=== PATIENT | female | born 1945 | race Caucasian/White ===

== ENCOUNTER 2019-01-15 14:26 | Outpatient (REF) | payer OTHER, SELFPAY ==
[2019-01-15 20:19] LABS: ALT 43 U/L (14-59); AST 35 U/L (15-37); Albumin 3.8 g/dL (3.4-5.0); Alkaline Phosphatase 141 U/L (46-116); Anion Gap 11.1 mmol/L (3-11); BUN 11 mg/dL (7-18); Bilirubin, Total 0.4 mg/dL (0.2-1.0); CO2 27.9 mmol/L (21.0-32.0); CREATININE 1.03 mg/dL (0.55-1.02); Calcium 9.1 mg/dL (8.5-10.1); Calculated LDL 75 mg/dL; Chloride 102 mmol/L (98-107); Cholesterol 175 mg/dL (50-200); Estimated GFR 52.38 (mL/min/1.73m2); Glucose 92 mg/dL (70-100); HDL Cholesterol 78 mg/dL (40-60); Potassium 4.5 mmol/L (3.5-5.1); Sodium 141 mmol/L (136-145); Total Protein 7.3 g/dL (6.4-8.2); Triglyceride 111 mg/dL (30-150)
[2019-01-15 20:32] LABS: Hemoglobin A1C 6.2 % (4.5-6.2)
== END 2019-01-15 14:46 ==
LOC: NCHCN 14:26
PROVIDERS: PCP Family Medicine; Visit Provider Family Medicine
DX: E11.9 Type 2 diabetes mellitus without complications (principal); E78.5 Hyperlipidemia, unspecified; I10 Essential (primary) hypertension
CPT/HCPCS: 80053; 80061; 83036

== ENCOUNTER 2021-01-25 21:04 | Outpatient (REF) | payer OTHER, SELFPAY ==
[2021-01-25 19:27] LABS: HCT 45.2 % (36.0-46.0); HGB 14.5 g/dL (11.2-15.7)
[2021-01-25 19:38] LABS: ALT 39 U/L (14-59); AST 25 U/L (15-37); Albumin 3.5 g/dL (3.4-5.0); Alkaline Phosphatase 119 U/L (46-116); Anion Gap 7.7 mmol/L (3-11); BUN 10 mg/dL (7-18); Bilirubin, Total 0.4 mg/dL (0.2-1.0); CO2 29.3 mmol/L (21.0-32.0); CREATININE 1.1 mg/dL (0.55-1.02); Calcium 8.9 mg/dL (8.5-10.1); Calculated LDL 78 mg/dL (<100); Chloride 105 mmol/L (98-107); Cholesterol 168 mg/dL (<200); Estimated GFR 48.29 (mL/min/1.73m2); Glucose 97 mg/dL (74-106); HDL Cholesterol 73 mg/dL (40-60); Sodium 142 mmol/L (136-145); TSH (W/Ref FT4) 0.65 uIU/mL (0.36-3.74); Total Protein 6.8 g/dL (6.4-8.2); Triglyceride 87 mg/dL (<150)
[2021-01-25 20:38] LABS: Hemoglobin A1C 6.2 % (<5.7)
[2021-01-29 10:36] LABS: Hepatitis C Ab w Rflx HCV PCR Negative (Negative)
== END 2021-01-25 21:05 | disposition home or self-care (01) ==
LOC: NCHCN 21:04
PROVIDERS: PCP Family Medicine; Visit Provider Family Medicine
DX: E11.9 Type 2 diabetes mellitus without complications (principal); I10 Essential (primary) hypertension; E78.5 Hyperlipidemia, unspecified; E66.9 Obesity, unspecified; Z00.00 Encounter for general adult medical examination without abnormal findings; Z11.59 Encounter for screening for other viral diseases
CPT/HCPCS: 80053; 80061; 86803; 83036; 84443; 85014; 85018

== ENCOUNTER 2021-06-19 15:15 | Outpatient (REF) | payer OTHER, SELFPAY ==
[2021-06-19 13:09] LABS: Anion Gap 11.3 mmol/L (3-11); BUN 16 mg/dL (7-18); CO2 24.7 mmol/L (21.0-32.0); Calcium 9.1 mg/dL (8.5-10.1); Chloride 104 mmol/L (98-107); Estimated GFR 53.76 (mL/min/1.73m2); Glucose 98 mg/dL (74-106); Potassium 4.4 mmol/L (3.5-5.1); Sodium 140 mmol/L (136-145)
[2021-06-19 13:11] LABS: Hemoglobin A1C 5.9 % (<5.7)
== END 2021-06-19 15:16 | disposition home or self-care (01) ==
LOC: NCHCN 15:15
PROVIDERS: PCP Family Medicine; Visit Provider Family Medicine
DX: E11.9 Type 2 diabetes mellitus without complications (principal); I10 Essential (primary) hypertension
CPT/HCPCS: 80048; 83036

== ENCOUNTER 2021-06-29 03:38 | Outpatient (CLI) | payer MEDICARE, SELFPAY ==
[2021-06-30 12:18] LABS: COVID-19 RT-PCR UVMMC Result Negative (Negative)
== END 2021-06-29 03:39 | disposition home or self-care (01) ==
LOC: LBO 03:39
PROVIDERS: PCP Family Medicine; Visit Provider Ophthalmology
DX: Z20.822 Contact with and (suspected) exposure to COVID-19 (principal)
CPT/HCPCS: 87635; U0003; U0005

== ENCOUNTER 2021-07-02 07:06 | Day surgery (SDC) | payer MEDICARE, SELFPAY ==
[2021-07-02] MEDS: Tropicam./Phenyleph. (1/2.5%) 5 ML BTL OS ×3 (08:13→08:28)
[2021-07-02 08:14] VITALS: BP 157/97; PULSE 76; RESP 16; TEMP 36.2; O2SAT 97
--- NOTE | 2021-07-02 08:54 | W.ANESPRE ---
General Info Date of Service Date Performed: 07/02/21 Height: 5 ft 2.06 in Weight: 95.3 kg Body Mass Index (BMI): 38.3 Surgical Procedure: Operation Date: 07/02/21 09:40 Proposed Procedure Side Surgeon p Cataract Extraction with IOL Implant Left Domingo Naranjo MD Meds Allergies and Home Medications Allergies Allergy/AdvReac Type Severity Reaction Status Date / Time chlorthalidone AdvReac Intermediate Other (See Unverified 07/02/21 08:05 Comment) lisinopril AdvReac Other (See Verified 07/02/21 08:22 Comment) venlafaxine [From Effexor] AdvReac Other (See Verified 07/02/21 08:22 Comment) Home Medication Medication Instructions Recorded aspirin 81 mg tablet,delayed 81 mg PO DAILY 02/11/16 release atorvastatin 20 mg tablet (Lipitor) 20 mg PO QPM 02/11/16 bupropion HCl 150 mg tablet,12 hr 150 mg PO DAILY 02/11/16 sustained-release losartan 25 mg tablet 25 mg PO DAILY 02/11/16 atenolol 25 mg tablet 25 mg PO HS 06/29/21 Current Visit Medications: Current Medications Generic Name Dose Route Start Last Admin Trade Name Freq PRN Reason Stop Dose Admin Acetaminophen 1,000 mg 07/02/21 06:00 Acetaminophen 500 Mg Tab PO Q4H PRN PRN Miscellaneous Medication 0 ml 07/02/21 06:00 Prednisolone 1%, Moxifloxacin 0.5%, Nepafenac 0.1% 5ml Btl OS DIRECTED [facility] Miscellaneous Medication 0 ml 07/02/21 06:00 07/02/21 08:28 Tropicam./Phenyleph. (1/2.5%) 5 Ml Btl OS 1 drp DIRECTED [facility] Administration Tetracaine HCl 0 ml 07/02/21 06:00 Tetracaine 0.5% 4 Ml Btl OS DIRECTED [facility] Medical History Medical History Chronic cough Degenerative joint disease Diabetes mellitus, type II History of depression HLD (hyperlipidemia) HTN (hypertension) Hypersensitivity pneumonitis Neoplasm of uncertain behavior of skin Paresthesia of both hands Positional vertigo Surgical History Surgical History History of bilateral knee replacement Tobacco Smoking/Tobacco Use Status: Never Alcohol Alcohol Intake: current Alcohol intake frequency: holidays/special occasions only Substance Use Substance use: Never Substance use type: does not use Vital Signs and Lab Results Vital Signs Most Recent Vital Signs in EMR: Most Recent Vital Signs Temp Pulse Resp BP Pulse Ox 36.2 C L 76 16 157/97 H 97 07/02/21 08:14 07/02/21 08:14 07/02/21 08:14 07/02/21 08:14 07/02/21 08:14 Lab Results Blood Type / Crossmatch: No Data to Display Complete Blood Count: No Data to Display Complete Metabolic Panel: Sodium Level 140 mmol/L (136-145) 06/19/21 10:06/19/21 Potassium Level 4.4 mmol/L (3.5-5.1) 06/19/21 10:06/19/21 Chloride Level 104 mmol/L (98-107) 06/19/21 10:06/19/21 Carbon Dioxide Level 24.7 mmol/L (21.0-32.0) 06/19/21 10:06/19/21 Blood Urea Nitrogen 16 mg/dL (7-18) 06/19/21 10:06/19/21 Creatinine 1.0 mg/dL (0.55-1.02) 06/19/21 10:06/19/21 Estimated GFR/1.73 m2 53.76 (mL/min/1.73m2) 06/19/21 10:06/19/21 Calcium Level 9.1 mg/dL (8.5-10.1) 06/19/21 10:06/19/21 Glucose Level 98 mg/dL (74-106) 06/19/21 10:06/19/21 Hemoglobin A1c 5.9 % (<5.7) H 06/19/21 10:06/19/21 Liver Function Panel: No Data to Display Coagulation Panel: No Data to Display Cardiac Panel: No Data to Display Arterial Blood Gas: No Data to Display Venous Blood Gas: No Data to Display Pancreas Panel: No Data to Display Thyroid Panel: No Data to Display Infectious Disease: Coronavirus (COVID-19)(PCR) Negative (Negative) 06/29/21 09:37 02/25/22 Blood Cultures: No Data to Display Toxicology Panel: No Data to Display Anesthesia Assessment and Plan Anesthesia History Personal History: No History of Anesthesia Complications Family History: No Family History of Anesthesia Complications Exercise Tolerance Exercise Tolerance: Metabolic Equivalents>4 Pertinent Negatives Pertinent Negatives: No Symptoms of GERD, No Major Cardiovascular Symptoms or Complaints, No Major Pulmonary Symptoms or Complaints and No History of CVA/TIA Cardiac & Pulmonary Exam Cardiac Exam: Normal S1/S2 Heart Sounds Pulmonary Exam: Clear Bilateral Breath Sounds Implantable Cardiac Device Does patient have a Pacemaker or an ICD?: No Airway Exam Known Difficult Airway: No Mallampati Class: 1 Mouth Opening: Normal (> 3cm) Thyromental Distance: Greater than 3 cm Neck Range of Motion: Full ROM Neck Circumference: Thick Teeth Condition: Normal Dentition ASA Classification ASA Score: ASA 2 Emergency Case?: No NPO Status NPO Status: NPO Clears >2 hours, Solids >8 hours Anesthesia Plan Resuscitation Status: Full Code Anesthesia Technique: MAC Anesthesia Airway Planned: Natural Airway Monitors Used: Standard Monitors
[2021-07-02 08:57] VITALS: BMI 38.3
[2021-07-02] MEDS: Tetracaine 0.5% 4 ML BTL OS (09:23)
[2021-07-02] MEDS: Balanced Salt Soln.-PLUS 500 ML BAG (09:23)
[2021-07-02] MEDS: Duovisc Viscoelastic System EACH 1 EACH (09:24)
[2021-07-02] MEDS: Lidocaine 2% Jelly 6 ML SYR (09:25)
[2021-07-02] MEDS: Povidone-Iodine Ophth 30 ML BTL (09:27)
--- NOTE | 2021-07-02 09:37 | W.PM.DSUDISC ---
Discharge Plan Disposition Patient Disposition: HOME Condition: Good Discharge Details Attending Provider: Domingo Naranjo Primary Care Provider: Ginger Riddle V Home Meds and New Rx's Prescriptions: No Action bupropion HCl 150 MG tablet extended release 12 hr 150 mg PO DAILY 0RF atorvastatin [Lipitor] 20 MG tablet 20 mg PO QPM 0RF aspirin 81 MG tablet,delayed release (DR/EC) 81 mg PO DAILY 0RF losartan 25 MG tablet 25 mg PO DAILY 0RF atenolol 25 mg tablet 25 mg PO HS 0RF Discharge Instructions Stand Alone Forms: Post-op Topical Cataract, Ruy Francois (DSU) Discharge Orders Discharge Orders: Discharge Order (Routine); Ordered 07/02/21 Ordered By: Domingo Naranjo
--- NOTE | 2021-07-02 09:37 | W.ANESPOSTOP ---
Postoperative Evaluation Date, Time and Location Date Performed: 07/02/21 Time Performed: 09:38 Patient Location: Day Surgery Unit Vital Signs Most Recent Imported Vital Signs: Most Recent Vital Signs Temp Pulse Resp BP Pulse Ox 36.2 C L 76 16 157/97 H 97 07/02/21 08:14 07/02/21 08:14 07/02/21 08:14 07/02/21 08:14 07/02/21 08:14 Most Recent Manually Entered Vital Signs: Adult Blood Pressure: 153/72 Heart Rate: 76 Respirations: 16 Oxygen Saturation (%): 96 Temperature (C): 36.3 C Pain Score (0-10 Scale): 0 Pain Score Most Recent Pain Score: Most Recent Pain Score Pain Level 0 07/02/21 08:14 Assessment Mental Status: Awake (Alert & Oriented to Patient Baseline) Airway and Respiratory Function: Patent airway with normal (patient baseline) respiratory exam Cardiovascular Function: Hemodynamically Stable Hydration Status: Adequately Hydrated Nausea & Vomiting: No Nausea or Vomiting Pain: Pt. Denies Any Pain Peripheral Nerve Block: Patient did not receive a nerve block
[2021-07-02 09:38] VITALS: BP 153/72; PULSE 76; RESP 16; TEMP 36; O2SAT 96
--- NOTE | 2021-07-02 09:38 | W.PM.OP ---
Date of service: 07/02/21 Time of Service: 09:38 Operative Note Operative Note DATE OF PROCEDURE: 07/02/21 PRE-OP DIAGNOSIS: Nuclear/cortical cataract, left eye POST-OP DIAGNOSIS: same PROCEDURE: Cataract extraction using phacoemulsification with intraocular lens implant, left eye SURGEON: Domingo Naranjo ANESTHESIA TYPE: Local By Surgeon and MAC Refer to Anesthesia Record PATHOLOGY: none sent COMPLICATIONS: None Patient was transported to: same day Patient's condition: stable Implants: Junaid [employer] Junaid / [employer] Tecnis [id number] Indications: Progressive decreased vision due to cataract, left eye Procedure Description: CATARACT SURGERY OPERATIVE REPORT PREOPERATIVE DIAGNOSIS: 1. Nuclear/cortical cataract, left eye POSTOPERATIVE DIAGNOSIS: Same OPERATION: 1. Cataract extraction using phacoemulsification with posterior chamber intraocular lens implant, left eye. IOL: IOL Filament Maker/Model: Junaid & Junaid / DEBBIE Tecnis [id number] IOL Power: + 21.0 diopters IOL Serial Number: [id number] Optic Diameter: 6.0 mm Haptic/Overall Diameter: 13.0 mm PHACO INFO: [employer] Penvisionon Vision System with OZil and Active Fluidics Cumulative Dispersed Energy (CDE): 10.64 seconds SURGEON: Domingo Naranjo MD, ALBERTINA ANESTHESIA: Monitored A [facility] (MAC), with local sub-tenon's anesthetic infiltration COMPLICATIONS: None SPECIMENS: None INDICATIONS FOR PROCEDURE: The patient is a 76-year-old lady with history of diminished visual acuity in her left eye secondary to the development of nuclear and cortical cataract. The option of cataract surgery was offered to the patient and she wished to proceed. PROCEDURE: The correct surgical eye was identified and marked as the left eye and the pupil was dilated in the preoperative area using mydriatics and cycloplegics. The dilated pupil size was 7.0 mm. . She elected to proceed without oral sedation. The patient was brought to the operating room where cardiopulmonary monitoring was instituted and surgical time-out was performed, confirming the correct operative eye and IOL power. Topical anesthesia was administered and ophthalmic povidone-iodine 5% was instilled into the conjunctival fornices. Lidocaine gel was applied to the cornea and the med-ocular area was prepped with Betadine 10% solution and draped in the usual sterile fashion for intraocular surgery, including an aperture drape. A Tegaderm transparent film dressing was cut in half and used to cover the lashes and lid margins. Care was taken to sequester the lashes and lid margins under the Tegaderm dressing. A lid speculum was placed between the lids of the operative eye and the David [employer] Revalia operating microscope was maneuvered into position. Noris scissors were then used to make a conjunctival buttonhole approximately 6mm posterior to the limbus in the inferonasal quadrant. Blunt dissection was carried out to expose bare sclera, and a blunt-tipped sub-tenon?s anesthesia cannula was introduced and passed posteriorly along the globe where non-preserved plain lidocaine was injected into posterior sub-Tenon?s space. A sideport knife was used to make a paracentesis port superiorly/superiortemporally. Intraocular phenylephrine/lidocaine was injected int the anterior chamber.. The anterior chamber was filled with viscoelastic. A 2.4mm keratome knife was used to create a half-thickness groove at the limbus and then to construct a three-plane near-clear corneal tunnel extending 2.0mm into clear cornea at the 3:00 position. A flap was raised on the anterior capsule and capsulorhexis forceps were used to complete a continuous curvilinear capsulorhexis of 5.0 mm. Balanced salt solution was then used to perform cortical cleaving hydrodissection and nuclear hydrodelineation until the lens could be freely rotated within the capsular bag. The lens nucleus was then disassembled and removed within the capsular bag and iris plane using phacoemulsification. Residual cortical material was removed using the 45-degree angled silicone I/A tip with 0.3mm port. The posterior capsule was carefully polished to remove as much residual lens epithelial cells as safely possible. The capsular bag was then inflated and the anterior chamber deepened with viscoelastic. The lens implant described above was inserted into the capsular bag using the DEBBIE [place] Injector. A Kuglen hook was used to dial the IOL into position. Residual viscoelastic was then removed first from posterior to the IOL, then from the anterior chamber using the I/A handpiece. The lens implant was noted to center nicely within the capsular bag. The incisions were stromally hydrated, and the anterior chamber was reformed using BSS. Then 0.5cc of moxifloxacin 1.0mg/ml were injected into the capsular bag and anterior chamber. The incisions were checked with a Weck spear and found to be secure. Several drops of ophthalmic povidone-iodine 5% were then applied to the eye followed by two drops of Imprimis combination prednisolone/moxifloxacin/nepafenac solution. The drapes were removed and a clear plastic protective eye shield was placed over the eye. The patient was then returned to Same Day Surgery in stable condition.
[2021-07-02 09:42] VITALS: BP 153/72; PULSE 76; RESP 16; TEMPC 36.3; O2SAT 96
== END 2021-07-02 09:56 | disposition home or self-care (01) ==
PROVIDERS: PCP Family Medicine; Visit Provider Ophthalmology
PROC: (CPT 66984; principal; 2021-07-02 09:30)
DX: H25.042 Posterior subcapsular polar age-related cataract, left eye (principal); E11.9 Type 2 diabetes mellitus without complications; E78.5 Hyperlipidemia, unspecified; I10 Essential (primary) hypertension
CPT/HCPCS: 66984; V2632

== ENCOUNTER 2021-07-16 06:15 | Day surgery (SDC) | payer MEDICARE, SELFPAY ==
--- NOTE | 2021-07-16 06:29 | W.ANESPRE ---
General Info Date of Service Date Performed: 07/16/21 Height: 5 ft 2.06 in Weight: 95.3 kg Body Mass Index (BMI): 38.3 Surgical Procedure: Operation Date: 07/16/21 07:40 Proposed Procedure Side Surgeon p Cataract Extraction with IOL Implant Right Domingo Naranjo MD Meds Allergies and Home Medications Allergies Allergy/AdvReac Type Severity Reaction Status Date / Time chlorthalidone AdvReac Intermediate Other (See Verified 07/16/21 06:30 Comment) lisinopril AdvReac Other (See Verified 07/16/21 06:30 Comment) venlafaxine [From Effexor] AdvReac Other (See Verified 07/16/21 06:30 Comment) Home Medication Medication Instructions Recorded aspirin 81 mg tablet,delayed 81 mg PO DAILY 02/11/16 release atorvastatin 20 mg tablet (Lipitor) 20 mg PO QPM 02/11/16 bupropion HCl 150 mg tablet,12 hr 150 mg PO DAILY 02/11/16 sustained-release losartan 25 mg tablet 25 mg PO DAILY 02/11/16 atenolol 25 mg tablet 25 mg PO HS 06/29/21 Current Visit Medications: Current Medications Generic Name Dose Route Start Last Admin Trade Name Freq PRN Reason Stop Dose Admin Acetaminophen 1,000 mg 07/16/21 06:00 Acetaminophen 500 Mg Tab PO Q4H PRN PRN Miscellaneous Medication 0 ml 07/16/21 06:00 Prednisolone 1%, Moxifloxacin 0.5%, Nepafenac 0.1% 5ml Btl OD DIRECTED [facility] Miscellaneous Medication 0 ml 07/16/21 06:00 Tropicam./Phenyleph. (1/2.5%) 5 Ml Btl OD DIRECTED [facility] Tetracaine HCl 0 ml 07/16/21 06:00 Tetracaine 0.5% 4 Ml Btl OD DIRECTED [facility] PFSH Active Problems Active Problems: Problem Status Onset Code Nuclear sclerotic cataract of left eye H25.12 Cortical cataract of left eye H26.9 Medical History Medical History Chronic cough Degenerative joint disease Diabetes mellitus, type II History of depression HLD (hyperlipidemia) HTN (hypertension) Hypersensitivity pneumonitis Neoplasm of uncertain behavior of skin Paresthesia of both hands Positional vertigo Surgical History Surgical History History of bilateral knee replacement Tobacco Smoking/Tobacco Use Status: Never Alcohol Alcohol Intake: current Alcohol intake frequency: holidays/special occasions only Substance Use Substance use: Never Substance use type: does not use Vital Signs and Lab Results Lab Results Blood Type / Crossmatch: No Data to Display Complete Blood Count: No Data to Display Complete Metabolic Panel: Sodium Level 140 mmol/L (136-145) 06/19/21 10:28 06/19/21 Potassium Level 4.4 mmol/L (3.5-5.1) 06/19/21 10:06/19/21 Chloride Level 104 mmol/L (98-107) 06/19/21 10:06/19/21 Carbon Dioxide Level 24.7 mmol/L (21.0-32.0) 06/19/21 10:28 06/19/21 Blood Urea Nitrogen 16 mg/dL (7-18) 06/19/21 10:28 06/19/21 Creatinine 1.0 mg/dL (0.55-1.02) 06/19/21 10:28 06/19/21 Estimated GFR/1.73 m2 53.76 (mL/min/1.73m2) 06/19/21 10:28 06/19/21 Calcium Level 9.1 mg/dL (8.5-10.1) 06/19/21 10:28 06/19/21 Glucose Level 98 mg/dL (74-106) 06/19/21 10:28 06/19/21 Hemoglobin A1c 5.9 % (<5.7) H 06/19/21 10:28 06/19/21 Liver Function Panel: No Data to Display Coagulation Panel: No Data to Display Cardiac Panel: No Data to Display Arterial Blood Gas: No Data to Display Venous Blood Gas: No Data to Display Pancreas Panel: No Data to Display Thyroid Panel: No Data to Display Infectious Disease: Coronavirus (COVID-19)(PCR) Negative (Negative) 06/29/21 09:37 06/29/21 Blood Cultures: No Data to Display Toxicology Panel: No Data to Display Imaging and Studies Imaging and Studies Study information below may be from another EMR and interpreted by another provider. Please see original notes in EMR for more complete details. Carotid Artery Summary:: 2015: minimal plaque in the common carotid bulbs, no sig internal carotid stenosis. Pulmonary Function Summary: 2016: no evidence of obstructive or restrictive lung dz. mildly elevated diffusion capacity Anesthesia Assessment and Plan Anesthesia History Personal History: No History of Anesthesia Complications Family History: No Family History of Anesthesia Complications Exercise Tolerance Exercise Tolerance: Metabolic Equivalents>4 Cardiac & Pulmonary Exam Cardiac Exam: Normal S1/S2 Heart Sounds Pulmonary Exam: Clear Bilateral Breath Sounds Implantable Cardiac Device Does patient have a Pacemaker or an ICD?: No Airway Exam Known Difficult Airway: No Mallampati Class: 1 Mouth Opening: Normal (> 3cm) Thyromental Distance: Greater than 3 cm Neck Range of Motion: Full ROM Neck Circumference: Thick Teeth Condition: Normal Dentition ASA Classification ASA Score: ASA 2 Emergency Case?: No NPO Status NPO Status: NPO Clears >2 hours, Solids >8 hours Anesthesia Plan Resuscitation Status: Full Code Anesthesia Technique: MAC Anesthesia Airway Planned: Natural Airway Monitors Used: Standard Monitors Preoperative Comments:: 76 yo female for cataract removal. Sig PMHx: chronic cough, DMII, HTN (HTN, losartan, atenolol). previous cataract with no MKO.
[2021-07-16 06:32] VITALS: BP 148/85; PULSE 75; RESP 16; TEMP 36.4; O2SAT 97
[2021-07-16] MEDS: Tropicam./Phenyleph. (1/2.5%) 5 ML BTL OD ×3 (06:42→06:53)
[2021-07-16 07:03] VITALS: BMI 38.3
[2021-07-16] MEDS: Balanced Salt Soln.-PLUS 500 ML BAG (07:33)
[2021-07-16] MEDS: Lidocaine 2% Jelly 6 ML SYR (07:34)
[2021-07-16] MEDS: Duovisc Viscoelastic System EACH 1 EACH (07:34)
[2021-07-16] MEDS: Povidone-Iodine Ophth 30 ML BTL (07:35)
[2021-07-16] MEDS: Tetracaine 0.5% 4 ML BTL OD (07:36)
--- NOTE | 2021-07-16 07:54 | W.PM.DSUDISC ---
Discharge Plan Disposition Patient Disposition: HOME Condition: Good Discharge Details Attending Provider: Domingo Naranjo Primary Care Provider: Ginger Riddle V Home Meds and New Rx's Prescriptions: No Action bupropion HCl 150 MG tablet extended release 12 hr 150 mg PO DAILY 0RF atorvastatin [Lipitor] 20 MG tablet 20 mg PO QPM 0RF aspirin 81 MG tablet,delayed release (DR/EC) 81 mg PO DAILY 0RF losartan 25 MG tablet 25 mg PO DAILY 0RF atenolol 25 mg tablet 25 mg PO HS 0RF Discharge Instructions Stand Alone Forms: Post-op Topical Cataract, Ruy Francois (DSU) Discharge Orders Discharge Orders: Discharge Order (Routine); Ordered 07/16/21 Ordered By: Domingo Naranjo DS: Diagnosis Discharge Diagnosis (1) Cortical cataract of right eye: Status: Resolved (2) Nuclear sclerotic cataract of right eye: Status: Resolved
[2021-07-16 07:55] VITALS: BP 148/83; PULSE 69; RESP 16; TEMP 36.4; O2SAT 96
--- NOTE | 2021-07-16 07:56 | ROE_ITS ---
Date of service: 07/16/21 Time of Service: 07:56 Operative Note Operative Note DATE OF PROCEDURE: 07/16/21 PRE-OP DIAGNOSIS: Nuclear/cortical cataract, right eye POST-OP DIAGNOSIS: same PROCEDURE: Cataract extraction using phacoemulsification with intraocular lens implant, right eye SURGEON: Domingo Naranjo ANESTHESIA TYPE: Local By Surgeon and MAC Refer to Anesthesia Record ESTIMATED BLOOD LOSS: 0 PATHOLOGY: none sent COMPLICATIONS: None Patient was transported to: same day Patient's condition: stable Implants: Ujnaid & Junaid/DEBBIE Tecnis [id number] Indications: Progressive visual loss due to cataract, right eye Procedure Description: CATARACT SURGERY OPERATIVE REPORT PREOPERATIVE DIAGNOSIS: 1. Nuclear/cortical cataract, right eye POSTOPERATIVE DIAGNOSIS: Same OPERATION: 1. Cataract extraction using phacoemulsification with posterior chamber intraocular lens implant, right eye. IOL: IOL Forest And Conservation Worker/Model: Junaid & Junaid / DEBBIE Tecnis [id number] IOL Power: + 19.5 diopters IOL Serial Number: [id number] Optic Diameter: 6.0mm Haptic/Overall Diameter: 13.0mm PHACO INFO: David [employer] [place] Vision System with OZil and Active Fluidics Cumulative Dispersed Energy (CDE): 18.86 seconds SURGEON: Domingo Naranjo MD, ALBERTINA ANESTHESIA: Monitored Anesthesia Care (MAC), with local sub-tenon's anesthetic infiltration COMPLICATIONS: None SPECIMENS: None INDICATIONS FOR PROCEDURE: The patient is a 76-year-old lady with history of diminished visual acuity in both eyes secondary to the development of bilateral cataracts. She has already undergone cataract surgery in the left eye, although postoperative visual acuity is limited by the presence of significant pre-existing epiretinal membrane. She now presents for cataract surgery of the right eye. PROCEDURE: The correct surgical eye was identified and marked as the right eye and the pupil was dilated in the preoperative area using mydriatics and cycloplegics. The dilated pupil size was 7.0 mm. She elected to proceed without oral sedation.. The patient was brought to the operating room where cardiopulmonary monitoring was instituted and surgical time-out was performed, confirming the correct operative eye and IOL power. Topical anesthesia was administered and ophthalmic povidone-iodine 5% was instilled into the conjunctival fornices. Lidocaine gel was applied to the cornea and the med-ocular area was prepped with Betadine 10% solution and dr aped in the usual sterile fashion for intraocular surgery, including an aperture drape. A Tegaderm transparent film dressing was cut in half and used to cover the lashes and lid margins. Care was taken to sequester the lashes and lid margins under the Tegaderm dressing. A lid speculum was placed between the lids of the operative eye and the David [employer] operating microscope was maneuvered into position. Noris scissors were then used to make a conjunctival buttonhole approximately 6mm posterior to the limbus in the inferonasal quadrant. Blunt dissection was carried out to expose bare sclera, and a blunt-tipped sub-tenon?s anesthesia cannula was introduced and passed posteriorly along the globe where non- preserved plain lidocaine was injected into posterior sub-Tenon?s space. A sideport knife was used to make a paracentesis port inferotemporally. Intraocular phenylephrine/lidocaine was injected into the anterior chamber. The anterior chamber was filled with viscoelastic. A 2.4mm keratome knife was used to create a half-thickness groove at the limbus and then to construct a three- plane near-clear corneal tunnel extending 2.0mm into clear cornea superiortemporally. A flap was raised on the anterior capsule and capsulorhexis forceps were used to complete a continuous curvilinear capsulorhexis of 5.0 mm. Balanced salt solution was then used to perform cortical cleaving hydrodissection and nuclear hydrodelineation until the lens could be freely rotated within the capsular bag. The lens nucleus was then disassembled and removed within the capsular bag and iris plane using phacoemulsification. Residual cortical material was removed using the I/A handpiece. The posterior capsule was carefully polished to remove as much residual lens epithelial cells as safely possible. The capsular bag was then inflated and the anterior chamber deepened with viscoelastic. The lens implant described above was inserted into the capsular bag using the DEBBIE [place] Injector. A Kuglen hook was used to dial the IOL into position. Residual viscoelastic was then removed first from posterior to the IOL, then from the anterior chamber using the I/A handpiece. The lens implant was noted to center nicely within the capsular bag. The incisions were stromally hydrated, and the anterior chamber was reformed using BSS. Then 0.5cc of moxifloxacin 1.0mg/ml were injected into the capsular bag and anterior chamber. The incisions were checked with a Weck spear and found to be secure. Several drops of ophthalmic povidone-iodine 5% were then applied to the eye followed by two drops of Imprimis combination prednisolone/moxifloxacin/nepafenac solution. The drapes were removed and a clear plastic protective eye shield was placed over the eye. The patient was then returned to Same Day Surgery in stable condition.
--- NOTE | 2021-07-16 08:02 | W.ANESPOSTOP ---
Postoperative Evaluation Date, Time and Location Date Performed: 07/16/21 Time Performed: 08:02 Patient Location: Day Surgery Unit Vital Signs Most Recent Imported Vital Signs: Most Recent Vital Signs Temp Pulse Resp BP Pulse Ox 36.4 C L 69 16 148/83 H 96 07/16/21 07:55 07/16/21 07:55 07/16/21 07:55 07/16/21 07:55 07/16/21 07:55 Pain Score Most Recent Pain Score: Most Recent Pain Score Pain Level 0 07/16/21 07:55 Assessment Mental Status: Awake (Alert & Oriented to Patient Baseline) Airway and Respiratory Function: Patent airway with normal (patient baseline) respiratory exam Cardiovascular Function: Hemodynamically Stable Hydration Status: Adequately Hydrated Nausea & Vomiting: No Nausea or Vomiting Pain: Pt. Denies Any Pain Peripheral Nerve Block: Patient did not receive a nerve block
== END 2021-07-16 08:10 | disposition home or self-care (01) ==
PROVIDERS: PCP Family Medicine; Visit Provider Ophthalmology
PROC: (CPT 66984; principal; 2021-07-16 07:30)
DX: H25.11 Age-related nuclear cataract, right eye (principal); E11.9 Type 2 diabetes mellitus without complications; I10 Essential (primary) hypertension; E78.5 Hyperlipidemia, unspecified
CPT/HCPCS: 66984; V2632

== ENCOUNTER 2022-06-25 01:04 | Outpatient (CLI) | payer MEDICARE, SELFPAY ==
--- NOTE | 2022-06-25 | DI.US_ITS ---
Exam(s) US PELVIS TRANSVAGINAL EXAM: US PELVIS TRANSVAGINAL CLINICAL HISTORY: POSTMENOPAUSAL BLEEDING, N95.0. TECHNIQUE: Transabdominal and transvaginal pelvic ultrasound was performed using standard protocol. COMPARISON: No exams were available for comparison FINDINGS: UTERUS: Position: Anteverted. Size: 5.7 long by 2.9 AP by 2.9 transverse cm Endometrium: 1.1 cm. The thickened is slightly heterogeneous and thickened in this postmenopausal pat ient. Myometrium: Unremarkable. Cervix: Unremarkable. OVARIES: The ovaries were not visualized transabdominally or transvaginally. No adnexal masses are s een sonographically. CUL-DE-SAC: Free fluid: None. Other: None. IMPRESSION: 1. 1.1 cm thickened endometrial stripe in this postmenopausal patient. Differential considerations i nclude hyperplasia, polyp or mass. 2. The ovaries were not visualized on this examination. No suspicious adnexal masses are present. DATA REPOSITORY:
== END 2022-06-25 01:24 ==
LOC: DI 01:04
PROVIDERS: PCP Family Medicine; Visit Provider Family Medicine
DX: N95.0 Postmenopausal bleeding (principal)
CPT/HCPCS: 76830; 76856

== ENCOUNTER 2022-07-15 11:07 | Outpatient (REF) | payer MEDICARE, SELFPAY ==
--- NOTE | 2022-07-15 10:10 | ENDOMET_PTH ---
PATIENT: Marcela Yousif LOC: [facility] U#:[id number] AGE/SX: 77/F ROOM: RE07/15/[address]: Gardenia Brown MD : [id number] BED: DIS: 07/15/2022 SPEC #: [id number] RECD: 07/15/22 12:52 STATUS: LELA REQ #: [id number] TALON: 07/15/22 10:[address]: Gardenia Brown DEPT: Surgical Specimen RECD BY: Darya Hagan ENTERED: 07/15/22 12:52 SP TYPE: Endomet OTHR DR: Ginger Riddle V Tissues: 1 - ENDOMETRIUM BX/TINA Procedures: GROSS AND MICRO LEVEL 4 Comments: [id number]
== END 2022-07-15 11:08 | disposition home or self-care (01) ==
LOC: LBN 11:07
PROVIDERS: PCP Family Medicine; Visit Provider Obstetrics & Gynecology
DX: N84.0 Polyp of corpus uteri (principal); N95.0 Postmenopausal bleeding
CPT/HCPCS: 88305

== ENCOUNTER 2023-02-06 09:52 | Outpatient (REF) | payer MEDICARE, SELFPAY ==
[2023-02-06 15:24] LABS: HCT 46.1 % (36.0-46.0); HGB 15.2 g/dL (11.2-15.7)
[2023-02-06 15:35] LABS: ALT 36 U/L (14-59); AST 29 U/L (15-37); Albumin 3.6 g/dL (3.4-5.0); Alkaline Phosphatase 110 U/L (46-116); BUN 18 mg/dL (7-18); Bilirubin, Total 0.4 mg/dL (0.2-1.0); Calcium 9.2 mg/dL (8.5-10.1); Chloride 104 mmol/L (98-107); Estimated GFR 57.66 (mL/min/1.73m2); Glucose 111 mg/dL (74-106); Potassium 4.2 mmol/L (3.5-5.1); Sodium 138 mmol/L (136-145); Total Protein 7.4 g/dL (6.4-8.2)
== END 2023-02-06 09:53 | disposition home or self-care (01) ==
LOC: NCHCN 09:52
PROVIDERS: PCP Family Medicine; Visit Provider Family Medicine
DX: Z00.00 Encounter for general adult medical examination without abnormal findings (principal); I10 Essential (primary) hypertension; E78.5 Hyperlipidemia, unspecified
CPT/HCPCS: 80053; 83036; 85014; 85018

== ENCOUNTER 2023-09-21 08:34 | Emergency (ER) | payer MEDICARE, SELFPAY ==
[2023-09-21 08:39] VITALS: BP 203/108; PULSE 108; RESP 18; TEMP 37.4; O2SAT 94
--- NOTE | 2023-09-21 08:45 | DI.RAD_ITS ---
Exam(s) XR CHEST 2V PA LATERAL EXAM: XR CHEST 2V PA LATERAL CLINICAL HISTORY: cough. TECHNIQUE: 2D digital imaging was performed. COMPARISON: No exams were available for comparison FINDINGS: 2 views: Heart size is upper normal. The mediastinum is not widened. Lungs are clear. No infiltrates nor pleural effusions. IMPRESSION: No acute pulmonary findings. DATA REPOSITORY: RADIATION DOSE DELIVERED:
[2023-09-21 08:52] VITALS: BP 203/108; PULSE 108; RESP 18; TEMP 37.4; O2SAT 94
--- NOTE | 2023-09-21 08:55 | W.ED.GENAD ---
Discharge Plan Disposition Patient Disposition: Home Discharge Details Clinical Impression: COVID, Hypertension Primary Care Provider: Ginger Riddle V ED Provider: Everton Anderson Home Meds and New Rx's Prescriptions: New benzonatate 100 mg capsule 100 mg PO TID PRN (Reason: cough) Qty: 30 0RF nirmatrelvir-ritonavir 150-100 mg tablets,dose pack See Rx Instructions .ROUTE .COMPLEX Qty: 20 0RF Rx Instructions: orally per package directions Continued cholecalciferol (vitamin D3) 50 mcg (2,000 unit) capsule 50 mcg PO DAILY plexus PO Patient Comments: 07/15/22- pt reports she drinks to help reduce A1C bupropion HCl 150 MG tablet extended release 12 hr 150 mg PO DAILY aspirin 81 MG tablet,delayed release (DR/EC) 81 mg PO DAILY losartan 25 MG tablet 25 mg PO DAILY atenolol 25 mg tablet 25 mg PO HS Held atorvastatin [Lipitor] 20 MG tablet 20 mg PO QPM Hold Instructions: Hold while on antiviral and she may resume medication 24 hours after finishing antiviral meds Discharge Instructions Instructions: Hypertension (ED), COVID-19 (Coronavirus Disease 2019) (ED) Additional Instructions: Please stay well-hydrated and get plenty of rest during viral illness. Please hold your Lipitor if you start taking the antiviral medication as there may be interaction between the 2 medications. If you develop any new or significant worsening of symptoms please return to the emergency department for reassessment or follow-up with your primary care provider if not improving. Your blood pressure was noted to be elevated so please take your normally prescribed medications and follow-up with your primary care provider for reassessment. Referrals: Ginger Riddle MD [Primary Care Provider] - (as needed) [facility] General Mode of arrival: ambulatory. Date/Time Provider Initiated Documentation: 09/21/23 08:35. Limitations to Documentation: no limitations. Information obtained by: patient, family and RN notes reviewed. History of Present Illness 78 year old F presents to the emergency department with the chief complaint of Cough, described as moderate, Quality is described as aching, and is localized to the chest. Patient reports no radiation. Patient started experiencing this day(s) (3) and it has been constant. No relieving factors improve symptom(s), No exacerbating factors reported . Patient notes fever/chills and malaise; denies chest pain and shortness of breath. Patient did receive the following treatments prior to arrival, other (Kuvx-hdo-hggbjrr meds) Related Data Home Medications Medication Instructions Recorded Confirmed aspirin 81 mg tablet,delayed 81 mg PO DAILY 02/11/16 09/21/23 release atorvastatin 20 mg tablet (Lipitor) 20 mg PO QPM 02/11/16 09/21/23 bupropion HCl 150 mg tablet,12 hr 150 mg PO DAILY 02/11/16 09/21/23 sustained-release losartan 25 mg tablet 25 mg PO DAILY 02/11/16 09/21/23 atenolol 25 mg tablet 25 mg PO HS 06/29/21 09/21/23 cholecalciferol (vitamin D3) 50 50 mcg PO DAILY 07/15/22 09/21/23 mcg (2,000 unit) capsule plexus PO 07/15/22 07/15/22 benzonatate 100 mg capsule 100 mg PO TID PRN cough #30 caps 09/21/23 nirmatrelvir 150 mg-ritonavir 100 See Rx Instructions PO .COMPLEX 09/21/23 mg tablets in a dose pack #20 dose pk Previous Rx's Medication Instructions Recorded benzonatate 100 mg capsule 100 mg PO TID PRN cough #30 caps 09/21/23 nirmatrelvir 150 mg-ritonavir 100 See Rx Instructions PO .COMPLEX 09/21/23 mg tablets in a dose pack #20 dose pk Allergies Allergy/AdvReac Type Severity Reaction Status Date / Time chlorthalidone AdvReac Intermediate Other (See Verified 09/21/23 08:37 Comment) lisinopril AdvReac Other (See Verified 09/21/23 08:37 Comment) venlafaxine [From Effexor] AdvReac Other (See Verified 09/21/23 08:37 Comment) General Stated Complaint: RespSymp SOLOMON: 3 Review of Systems Constitutional Constitutional: Reports chills, Reports fever(s), Denies headache(s) and Reports malaise ENT Ears, Nose, Mouth, and Throat: Denies headache(s), Reports hoarseness, Reports nasal congestion and Reports sore throat Cardiovascular Cardiovascular: Denies chest pain and Denies dyspnea Respiratory Respiratory: Reports as per HPI, Reports cough and Denies dyspnea Gastrointestinal Gastrointestinal: Denies abdominal pain, Denies diarrhea, Denies nausea and Denies vomiting Integumentary/Breasts Skin/Breast: Denies rash Neurologic Neurologic: Denies headache(s) Exam Const General: cooperative, comfortable and no acute distress Orientation: alert and awake [facility] Head: normal to inspection, normocephalic and atraumatic Ears: hearing grossly normal bilaterally and TM's normal bilaterally General nose exam: external nose normal Face and sinus: no erythema Mouth: oral mucosae normal, no drooling, no muffled voice and no trismus Throat: posterior oropharynx normal Neck Neck: normal visual inspection, full ROM, no lymphadenopathy, no meningeal signs, trachea midline and supple Resp Effort & Inspection: normal respiratory effort, able to speak in complete sentences and cough Quality of cough: dry Auscultation: clear to auscultation bilaterally Cardio Rate: tachycardic Rhythm: regular rhythm Heart Sounds: S1 normal, S2 normal, normal S1 and S2, no click, no gallops, no murmurs and no rubs Skin General skin exam: no rashes or lesions noted and dry skin (warm) Neuro General: patient alert, patient awake, patient oriented x3, gait normal and moves all extremities Cognition: normal cognition Speech: speech normal Course Vital Signs Vital signs: Vital Signs Temperature 37.4 C 09/21/23 08:39 Pulse 108 H 09/21/23 08:39 Respiratory Rate 18 09/21/23 08:39 Blood Pressure 203/108 H 09/21/23 08:39 Pulse Oximetry 94 09/21/23 08:39 Temperature 37.4 C 09/21/23 08:52 Temperature Source Temporal Artery Scan 09/21/23 08:52 Pulse 108 H 09/21/23 08:52 Respiratory Rate 18 09/21/23 08:52 Respiratory Effort Normal 09/21/23 08:45 Respiratory Depth Normal 09/21/23 08:45 Blood Pressure 203/108 H 09/21/23 08:52 Blood Pressure Position Sitting 09/21/23 08:52 Pulse Oximetry 94 09/21/23 08:52 Oxygen Delivery Method Room Air 09/21/23 08:52 Oxygen Flow Rate 0 09/21/23 08:52 Pain Level 9 09/21/23 08:52 Comment meds at midnight 09/21/23 08:52 Medical Decision Making Patient presenting to the clinic for chief complaint of cold symptoms. Patient reports symptoms have been going on for the past 3 days. reports significant cough with chest wall pain, nasal congestion, low-grade fever, malaise and sore throat. Physical exam shows dry harsh cough, audible nasal congestion, tachycardia otherwise clear lung sounds and otherwise unremarkable exam. Patient exam not consistent with meningitis, peritonsillar abscess, retropharyngeal abscess, Paresh's angina, or life-threatening Airway infection. Given patient's age and tachycardia will perform Fluvid swab, basic labs, chest x-ray. Will give fluid bolus given some tachycardia. Will monitor blood pressure given that she is hypertensive on arrival but has not taken her medications for hypertension this morning. Reviewed patient's labs which show slight white count, nonemergent CMP, negative chest x-ray, and positive for COVID. Patient's heart rate did improve significantly after fluids, remained hypertensive but again has not taken her blood pressure medications, afebrile not hypoxic. Given patient's age will prescribe antiviral and Tessalon Perles to help with cough. Otherwise conservative management and follow-up discussed with patient. After discussion of diagnosis and plan of care patient and significant other has no further needs, questions, or concerns and states clear understanding to return to the emergency department for any worsening symptoms. This documentation was generated using [employer] dictation system, please disregard any oddities of phrase or misspellings. Lab Data Lab results reviewed: Yes I reviewed the patient's lab results. Quality:SDOH Health Related Social Needs: No Data to Display PFSH All Active Problems (Updated 09/21/23 @ 10:07 by Everton Anderson NP) Hypertension (Chronic) COVID (Acute) Medical History Postmenopausal bleeding Endo stripe 11mm on sono Endo bx on 07/15/22 History of depression HLD (hyperlipidemia) Degenerative joint disease Neoplasm of uncertain behavior of skin Chronic cough Paresthesia of both hands Positional vertigo Diabetes mellitus, type II Hypersensitivity pneumonitis HTN (hypertension) Surgical History History of breast biopsy History of cataract surgery History of bilateral knee replacement Family History Other Diabetes Hyperlipidemia Hypertension Pancreatic cancer Social History Smoking/Tobacco Use Status: Never Smoking risk assessment performed?: Yes Alcohol Intake: current Alcohol Intake frequency: holidays/special occasions only Drug use: Never Substance use type: does not use Housing: house Do you feel safe at home: Yes Do you feel safe in your relationship?: Yes Female Reproductive History Menstrual Age of Menarche: 8 control method: none Menopause type: natural History History 3 Para Hx # Term Pregnancies 2 Multiple births Hx # Pregnancies Ectopic pregnancies AB induced Hx Number of Living Children AB spontaneous 1 Past Pregnancies Del. Date GA/Weeks # Preg Succ Route Wgt Sex Labor Lgth Anesthesia Location Prov Complic 08/28/72 42 Yes vaginal 3968.933 g Female [facility] 02/27/76 40 Yes vaginal 3912.234 g Female [facility] Delivery Date: 08/28/72 Last Updated by: Marii Lawler Delivery Date: 02/27/76 Last Updated by: Marii Mendez
[2023-09-21] MEDS: Normal Saline 250 ML 500 ML IV (09:06)
[2023-09-21 09:11] LABS: Abs Immature Grans 0.06 10^3/uL (0.0-0.06); Absolute Basophil Count 0.06 10^3/uL (0.0-0.2); Absolute Eosinophil Count 0.18 10^3/uL (0.0-0.7); Absolute Lymphocyte Count 1.45 10^3/uL (1.2-3.4); Absolute Monocyte Count 1.05 10^3/uL (0.1-0.8); Basophils % 0.5 %; Eosinophils % 1.6 %; HCT 45.1 % (36.0-46.0); Immature Grans % 0.5 %; Lymphocytes % 12.6 %; MCH 30.1 pg (27.0-33.0); MCHC 33.3 % (32.0-36.0); MCV 90 fL (80-95); MPV 9.1 fL (8.0-11.0); Monocytes % 9.1 %; Neutrophils % 75.7 %; Platelet Count 236 10^3/uL (130-400); RBC 4.99 10^6/uL (3.93-5.22); RDW 12.7 % (11.7-14.6); RDW-SD 41.9 fL; WBC 11.49 10^3/uL (4.4-10.8)
[2023-09-21 09:26] LABS: ALT 33 U/L (14-59); AST 22 U/L (15-37); Albumin 3.3 g/dL (3.4-5.0); Alkaline Phosphatase 126 U/L (46-116); BUN 9 mg/dL (7-18); Bilirubin, Total 0.4 mg/dL (0.2-1.0); CREATININE 1.1 mg/dL (0.55-1.02); Calcium 8.5 mg/dL (8.5-10.1); Chloride 102 mmol/L (98-107); Estimated GFR 51.11 (mL/min/1.73m2); Glucose 129 mg/dL (74-106); Potassium 4.1 mmol/L (3.5-5.1); Sodium 138 mmol/L (136-145); Total Protein 7.3 g/dL (6.4-8.2)
[2023-09-21 09:38] LABS: Influenza A PCR Negative (Negative); Influenza B PCR Negative (Negative); RSV PCR Negative (Negative)
[2023-09-21 09:46] LABS: Source Nasopharynx
[2023-09-21 09:47] LABS: COVID-19 PCR Positive (Negative)
[2023-09-21 09:51] VITALS: BP 183/80; PULSE 88; RESP 16; O2SAT 93
--- NOTE | 2023-09-21 10:13 | DI.VRAD_ITS ---
PROCEDURE INFORMATION: Exam: XR Chest Exam date and time: 09/21/2023 9:20 AM Age: 78 years old Clinical indication: Cough TECHNIQUE: Imaging protocol: Radiologic exam of the chest. Views: 2 views. COMPARISON: CT CHEST WITHOUT CONTRAST 20/11/2017 14:54 FINDINGS: Lungs: Lungs are clear with no infiltrate or nodule. Pleural spaces: Unremarkable. No pleural effusion. No pneumothorax. Heart/Mediastinum: Cardiomediastinal silhouette is normal. Vasculature: Tortuous aorta. Bones/joints: Unremarkable. IMPRESSION: No active cardiopulmonary disease. Dictated and Authenticated by: Kyle Rojo MD. Ordering:ELLA Toscano MD
== END 2023-09-21 10:16 | disposition home or self-care (01) ==
PROVIDERS: Emergency Provider Nurse Practitioner Family; PCP Family Medicine
DX: U07.1 COVID-19 (principal); E78.5 Hyperlipidemia, unspecified; I10 Essential (primary) hypertension; E11.9 Type 2 diabetes mellitus without complications; Z79.82 Long term (current) use of aspirin
CPT/HCPCS: 80053; 87637; 96360; 99284; 71046; 85025; 99283

== ENCOUNTER 2023-12-26 15:19 | Outpatient (CLI) | payer MEDICARE, SELFPAY ==
--- NOTE | 2023-12-26 15:15 | RT.EKG_ITS ---
APPROVED REPORT Exam: Resting ECG Reason for Exam: SOB Patient Location: O HR:84 bpm ECG Measurements Heart Rate 84 AXIS [place] 161 P 61 QRSd 106 QRS -7 QT 378 T 44 QTc 447 Conclusion Sinus rhythm...normal P axis, V-rate 50- 99 Normal Electrocardiogram
== END 2023-12-26 15:20 | disposition home or self-care (01) ==
LOC: DI.CM 15:21
PROVIDERS: PCP Family Medicine; Visit Provider Family Medicine
DX: R06.00 Dyspnea, unspecified (principal)
CPT/HCPCS: 93010

== ENCOUNTER 2024-01-09 00:35 | Outpatient (CLI) | payer MEDICARE, SELFPAY ==
--- OUTSIDE RECORDS SUMMARY | 2024-01-09 00:41 | XMS_ITS | Encounter Summary ---
[facility] [place] [address] Care Team Providers Care Volunteer Specialist Name Role Phone Ginger Riddle MD Primary Care Provider [phone] Encounter Details Date Type Department Care Team (Late st Contact Info) Description 12/04/2017 8:30 AM EDT Hospital [place] [address] Kateryna Farah MD [facility] [place] [address] Malignant neoplasm of left female breast, unspecified estrogen receptor status, unspecified site of breast Discharge Disposition: Home Social History Tobacco Use Types Packs/Day Years Used Date Smoking Tobacco: Never Smokeless Tobacco: Never Alcohol Use Standard Drinks/Week Comments No 0 (1 standard drink = 0.6 oz pur e alcohol) Sex and Gender Information Value Date Recorded Sex Assigned at Not on file Gender Identity Not on file Sexual Orientation Not on file documented as of this encounter Medications at Time of Discharge Medication Sig Dispensed Refills Start Date End Date atorvastatin (LIPITOR) 20 mg Tablet 08/07/2017 atenolol (TENORMIN) 25 mg Tablet 08/07/2017 ibuprofen (ADVIL;MOTRIN) 800 mg Tablet 08/22/2017 cholecalciferol, Vitamin D3, 2,000 unit Capsule Take by mouth. aspirin 81 mg Tablet, Delayed Release (E.C.) Take 81 mg by mouth daily. losartan (COZAAR) 25 mg Tablet 08/07/2017 buPROPion (WELLBUTRIN XL) 300 mg Tablet Extended Release 24 hr 08/07/2017 02/23/2019 chlorhexidine (PERIDEX) 0.12 % Mouthwash 08/22/2017 07/15/2022 buPROPion (WELLBUTRIN XL) 150 mg Tablet Extended Release 24 hr 300 mg. 09/05/2017 01/02/2018 documented as of this encounter Progress Notes * Robbin Fisher MD - 12/03/2017 2:36 PM EDT Pre-procedure note for needle breast biopsies performed in radiology. Procedure date: Tomorrow Procedure type: left breast NLOC Allergies: Review of patient's allergies indicates no known allergies. Medications: Current Outpatient Prescriptions: ??? atorvastatin (LIPITOR) 20 mg Tablet, , Disp: , Rfl: ??? atenolol (TENORMIN) 25 mg Tablet, , Disp: , Rfl: ??? buPROPion (WELLBUTRIN XL) 150 mg Tablet Extended Release 24 hr, , Disp: , Rfl: ??? ciprofloxacin (CIPRO) 500 mg Tablet, TAKE ONE TABLET BY MOUTH TWICE A DAY FOR 7 DAYS, Disp: , Rfl: 0 ??? ibuprofen (ADVIL;MOTRIN) 800 mg Tablet, , Disp: , Rfl: ??? cholecalciferol, Vitamin D3, 2,000 unit Capsule, Take by mouth., Disp: , Rfl: ??? aspirin 81 mg Tablet, Delayed Release (E.C.), Take 81 mg by mouth daily., Disp: , Rfl: ??? losartan (COZAAR) 25 mg Tablet, , Disp: , Rfl: Anticoagulation status: low dose aspirin stopped on: N/A Imaging reviewed and procedural plan approved by Dr. Faust documented in this encounter Plan of Treatment Upcoming Encounters Date Type Department Care Team (Late st Contact Info) Description 01/29/2024 1:40 PM EDT Appointment Mammography/[place] [phone] Ginger Riddle MD [address] [address] documented as of this encounter Procedures Procedure Name Priority Date/Time Associated Diagnosis Comments SURGICAL PATHOLOGY REPORT Routine 12/04/2017 10:20 AM EDT MAMMO NEEDLE LOCALIZATION LEFT Routine 12/04/2017 9:12 AM EDT Malignant neoplasm of left female breast, unspecified estrogen receptor status, unspecified site of breast documented in this encounter Results * Surgical Pathology Report (12/04/2017 10:20 AM EDT) Final Diagnosis [id number] ? Location: 3L The signing pathologist has (i) examined the relevant preparation(s) for the specimen(s) and (ii) rendered or confirmed the diagnosis(es). . ?Surgical Pathology DIAGNOSIS A - Left breast, partial mastectomy: - Papillary sclerosing lesion associated with usual ductal hyperplasia and apocrine metaplasia. - Fibrocystic changes including usual ductal hyperplasia, adenosis, columnar cell change/hyperplasi a and cysts. - Biopsy site changes with healing hematoma. Electronically signed by: ??Maribel Mitchell DO Verified: ??12/10/2017 ?Pathologist Performed at: ??-[facility] [place] Dept. of Pathology, [place], [place] CLINICAL INFORMATION Specimen Submitted: A - Left breast mass Clinical History and Diagnosis: Left breast lesion SPECIMEN PROCESSING A - ??Labeled/Fixativ e: Left breast mass, fresh. SPECIMEN DESCRIPTION Resection Specimen: Intact partial mastectomy Qty/Size/Weight: Single, 4.0 cm from black-deep to blue-superficial, 3.5 cm from red- medial to yellow-lateral, 1.9 cm from orange-cranial to green-caudal, 8 g. Radiograph: The specimen mammogram reads ?The needle localization wire, [clip] and mass are in the specimen. ??Margins were felt to be adequate by single plane radiography. ?? Specimen Description: According to the established protocol the ink designations are red (medial), yellow (lateral), orange (cranial), green (caudal), black (deep) and blue (superficial). Tissue Sections: The specimen is serially sectioned perpendicular to the long axis from black-deep to blue-superficial into VIII slices, each averaging 0.5 in thickness. LESION Description: Biopsy cavity. Size: 3.0 x 0.9 x 0.5 cm. Color: Biopsy cavity filled with dark red blood and a peripheral rim of fat necrosis. Consistency: Soft. Location: Extends from slice III slice VIII. Nearest Margin: Abuts the green-caudal margin. Other Margins: 1.0 cm from the black-deep margin, 0.8 cm from the blue-superficial margin, 0.7 cm from the red-medial margin, 1.0 cm from the yellow-lateral margin, 0.9 cm from the orange-cranial margin. OTHER Parenchyma: Predominantly composed of yellow, lobular adipose tissue. Wire/Clip: Localization wire tip is located in slice IV. The infinity shaped biopsy clip is located in slice IV. SECTIONS/PROCESSI NG: (1-2) perpendicular sections to slice I, true red-medial margin; (3) slice II submitted entirely; (4-5) slice III submitted entirely; (6-7) slice IV submitted entirely; (8-9) passenger representative slice V, biopsy cavity submitted entirely; (10-11) slice submitted entirely; (12) passenger representative slice VII; (13-14) passenger representative perpendicular sections to slice VIII, true yellow-lateral margin, all fibrous tissue submitted. ([id number]) . SPECIMEN PROCESSING Ischemic Time: 140 minutes CF 12/10/2017 10:[address] [facility] BREAST STRUCTURE / Unknown 12/04/2017 10:20 AM EDT 12/04/2017 10:20 AM EDT Kateryna Duran MD PATHOLOGY/CYTOLO GY ORDERABLES [facility] [place] [address] * Mammo Needle Localization Left (12/04/2017 9:12 AM EDT) Anatomical Region Laterality Modality Breast Left Mammography Narrative 12/04/2017 9:35 AM EDT NEEDLE LOCALIZATION OF LESION IN THE BREAST AND SENTINEL NODE INJECTION CLINICAL HISTORY: PLEASE NEEDLE LOCALIZE LEFT BREAST LESION. Lesion: Left breast clip at 12 Oclock 6.5 cm from the nipple Following skin cleansing and injection of approximately 5 cc 1% lidocaine, a needle localization of the suspicious area in the Left breast was performed from the CC approach with digital mammographic guidance. A 7 cm Alignment [employer] Bard needle was used. Cranio-caudal and 90 degree digital mammography views were obtained following localization to document wire position. ??Images were annotated on PACS for the operating surgeon. Resident: Phillip Friedman performed the procedure with the resident observing. Kateryna Duran MD IMG MAMMO ORDERA BLES documented in this encounter Visit Diagnoses Diagnosis Malignant neoplasm of left female breast, unspecified estrogen receptor status, unspecified site of breast documented in this encounter Care Teams Volunteer Specialist Relationship Specialty Start Date End Date Ginger Riddle MD [address] [place] [id number] PCP - General Family Medicine 09/27/16 documented as of this encounter
--- OUTSIDE RECORDS SUMMARY | 2024-01-09 00:41 | XMS_ITS | Encounter Summary ---
[place] [address] Care Team Providers Care German Professor Name Role Phone Ginger Riddle MD Primary Care Provider [phone] Reason for Visit * Reason Comments Follow-up Encounter Details Date Type Department Care Team (Late st Contact Info) Description 04/22/2019 3:00 PM EST Office Visit Dermatology at [address] [phone] Dickson Dow MD [address] [facility] [place] [address] Seborrheic keratosis, inflamed Social History Tobacco Use Types Packs/Day Years Used Date Smoking Tobacco: Never Smokeless Tobacco: Never Alcohol Use Standard Drinks/Week Comments No 0 (1 standard drink = 0.6 oz pur e alcohol) Sex and Gender Information Value Date Recorded Sex Assigned at Not on file Gender Identity Not on file Sexual Orientation Not on file documented as of this encounter Progress Notes * Dickson Dow MD - 04/22/2019 3:00 PM EST Problem: Seborrheic keratoses Marcela follows up for removal of a number of seborrheic keratoses that often are either rubbed or irritated . Physical examination reveals tags present on the left base of her neck her right cheek and left lower forehead were in fact she appears to be developing a verruca vulgaris a 4mm filiform papule. Assessment plan: Irritated seborrheic keratoses 1. After obtaining informed consent sites were anesthetized and then removed with light electrodesiccation and curettage. 2. Triple antibiotic and bandage placed 3. Return to clinic as needed for new lesions/ concerns. Cc: Ginger Thorne MD documented in this encounter Plan of Treatment Upcoming Encounters Date Type Department Care Team (Late st Contact Info) Description 01/29/2024 1:40 PM EDT Appointment Mammography/[place] [address] Ginger Riddle MD [address] [place] [address] documented as of this encounter Visit Diagnoses Diagnosis Seborrheic keratosis, inflamed Inflamed seborrheic keratosis documented in this encounter Care Teams German Professor Relationship Specialty Start Date End Date Ginger Riddle MD [address] [place] [address] PCP - General Family Medicine 09/27/16 documented as of this encounter
--- OUTSIDE RECORDS SUMMARY | 2024-01-09 00:41 | XMS_ITS | Encounter Summary ---
[place] [address] Care Team Providers Care Spring Setter Name Role Phone Ginger Riddle MD Primary Care Provider [phone] Reason for Visit * Reason Comments Skin Check Encounter Details Date Type Department Care Team (Late st Contact Info) Description 09/18/2020 10:15 AM EDT Office Visit Dermatology at [address] [id number] Dickson Dow MD [address] [facility], [place] [address] Seborrheic keratosis, inflamed; Inflamed acrochordon; Seborrheic keratosis Social History Tobacco Use Types Packs/Day Years [...] Progress Notes * Dickson Dow MD - 09/18/2020 10:15 AM EDT Problem: Skin lesions of concern Marcela follows up after last being seen in April 2019. She has a new mole she like me to check. Reminded she had a fair amount of sun over the years. She and her have now given up riding a motorcycle but did so for many years. Physical examination reveals a pleasant 75 woman who has seborrheic keratoses present that are irritated 1 on her right superior shoulder one on her previous mid presternal chest and 1 on the left upper breast. Fortunately careful examination of the head and the neck the chest the back the hands the arms deforms the thighs and the calves is benign. There is no evidence of any malignant lesions onexamination today. Assessment and plan: Irritated seborrheic keratoses 1. LN2 x2 applied to each of 3 sites 2. Return to clinic as needed for new lesions concerns. CC: Ginger Riddle MD documented in this encounter Plan of Treatment Upcoming Encounters Date Type Department Care Team (Late st Contact Info) Description 01/29/2024 1:40 PM EDT Appointment Mammography/[place] [address] Ginger Riddle MD [address] [place] [address] documented as of this encounter Visit Diagnoses Diagnosis Seborrheic keratosis, inflamed Inflamed seborrheic keratosis Inflamed acrochordon Unspecified hypertrophic and atrophic condition of skin Seborrheic keratosis Other seborrheic keratosis documented in this encounter Care Teams Spring Setter Relationship Specialty Start Date End Date Ginger Riddle MD [address] [place] [address] PCP - General Family Medicine 09/27/16 documented as of this encounter
--- OUTSIDE RECORDS SUMMARY | 2024-01-09 00:41 | XMS_ITS | Encounter Summary ---
Author Organization [facility] Address [facility] [place] [address] Care Team Providers Care Barrel Marker Name Role Phone Ginger Riddle MD Primary Care Provider [phone] Encounter Details Date Type Department Care Team (Latest Contact Info) Description 11/04/2017 1:22 PM EDT - 11/04/2017 11:59 PM EDT Hospital En[place] [id number] Janice Faust MD [facility] [place] [address] Abnormal mammogram Discharge Disposition: Home Social History Tobacco Use Types Packs/Day Years Used Date Smoking Tobacco: Never Sex and Gender Information Value Date Recorded Sex Assigned at Not on file Gender Identity Not on file Sexual Orientation Not on file documented as of this encounter Medications at Time of Discharge Medication Sig Dispensed Refills Start Date End Date atorvastatin (LIPITOR) 20 mg Tablet 08/07/2017 atenolol (TENORMIN) 25 mg Tablet 08/07/2017 ibuprofen (ADVIL;MOTRIN) 800 mg Tablet 08/22/2017 losartan (COZAAR) 25 mg Tablet 08/07/2017 buPROPion (WELLBUTRIN XL) 300 mg Tablet Extended Release 24 hr 08/07/2017 02/23/2019 chlorhexidine (PERIDEX) 0.12 % Mouthwash 08/22/2017 07/15/2022 buPROPion (WELLBUTRIN XL) 150 mg Tablet Extended Release 24 hr 300 mg. 09/05/2017 01/02/2018 atorvastatin (LIPITOR) 10 mg Tablet Take 10 mg by mouth daily. 11/19/2017 documented as of this encounter Progress Notes * Masood Awad MD - 11/03/2017 4:15 PM EDT Patient Name: Marcela Yousif Patient Age: 72 y.o. Birthdate: 1945 Admit date: (Not on file) Attending Physician: Janice Faust MD Pre-procedure note for needle breast biopsies performed in radiology. Procedure date: Today Procedure type: left breast stereotactic biopsy Allergies: Review of patient's allergies indicates no known allergies. Medications: Current Outpatient Prescriptions: ??? atorvastatin (LIPITOR) 10 mg Tablet, Take 10 mg by mouth daily., Disp: , Rfl: ??? lisinopril (ZESTRIL) 5 mg tablet, 5mg, PO, Once daily, Disp: , Rfl: ??? naproxen (NAPROSYN) 250 mg tablet, 250mg, PO, Twice daily, Disp: , Rfl: ??? Selenium Sulfide 2.25 % Susp, , Disp: , Rfl: ??? LORazepam (ATIVAN) 0.5 mg tablet, 0.5MG = 1 Tablet(s)or 1/2 tab, PO, Twice daily, Disp: , Rfl: Anticoagulation status: none stopped on: N/A Imaging reviewed and procedural plan approved by Dr. Masood Awad MD documented in this encounter Plan of Treatment Upcoming Encounters Date Type Department Care Team (Late st Contact Info) Description 01/29/2024 1:40 PM EDT Appointment Mammography/[place] [address] Ginger Riddle MD [address] [place] [address] documented as of this encounter Procedures Procedure Name Priority Date/Time Associated Diagnosis Comments MAMMO STEREOTACTIC BIOPSY LEFT Routine 11/04/2017 2:08 PM EDT Abnormal mammogram SURGICAL PATHOLOGY REPORT Routine 11/04/2017 1:48 PM EDT SPECIMEN TO PATHOLOGY Routine 11/04/2017 1:48 PM EDT documented in this encounter Results * Mammo Stereotactic Biopsy Left (11/04/2017 2:08 PM EDT) Anatomical Region Laterality Modality Breast N/A Mammography Impressions 11/06/2017 4:15 PM EDT High risk and concordant result RECOMMENDATION: Discussion with breast surgeon for reexcision needle localization. Partial excision, and subtle distortion persists adjacent to the biopsy site. Persistent mild distortion 6 mm inferior and 5 mm anteromedial to the biopsy site. Attention to needle localization procedure. NOTE: Findings and recommendations were discussed with the patient who concurs. The comprehensive breast program was informed. REVIEW PATH CONFERENCE?: Yes, papillary sclerosing lesion partially removed. Narrative 11/06/2017 4:15 PM EDT STEREOTACTIC GUIDED VACUUM ASSISTED BIOPSY OF THE LEFT BREAST(S) CLINICAL HISTORY: abnormal mammogram 72-year-old female presents for stereotactic biopsy for left breast distortion. Procedural details: Informed consent was obtained and a time out procedure was performed per hospital protocol. The patient gave permission to proceed. Using sterile technique and local anesthetic (less than 10cc's of 1% lidocaine superficially and less than 20 cc's of 1% lidocaine with epinephrine deep to dermis) a biopsy was performed from thecranial-caudal approach using tomographic guidance and direct digital imaging. The patient was in the upright position. Multiple core biopsy specimens were obtained using a [employer] Eviva 9g 20mm device. A specimen radiograph was obtained, demonstrating dense parenchymal elements. A infinity shaped marker clip was deployed. A follow-up mammogram was performed in the CC and True Lateral projections and demonstrates the clip at the site of biopsy, 0 mm of displacement. COMPLICATIONS: None. PROCEDURAL ATTESTATION: Resident: None I performed the procedure without a resident. IMAGING DIFFERENTIAL DIAGNOSIS: Radial scar, rule out invasive ductal carcinoma. PATHOLOGIC DIAGNOSIS: Papillary sclerosing lesion with florid UDH, apocrine metaplasia, focal columnar cell change, ectatic ducts and focal pseudoangiomatous stromal hyperplasia. Discussion: The lesion is 0.8 cm in greatest linear dimension, by slide measure. Review of the EDH shows lesion 1 cm, radiographic measure. Janice Faust MD IMG MAMMO ORDERABLES * Surgical Pathology Report (11/04/2017 1:48 PM EDT) Final Diagnosis [id number] ? Location: 3L The signing pathologist has (i) examined the relevant preparation(s) for the specimen(s) and (ii) rendered or confirmed the diagnosis(es). . ?Surgical Pathology DIAGNOSIS A - ??Needle biopsies: ??Left breast. Diagnosis: ??Papillary Sclerosing lesion with florid UDH, apocrine metaplasia, focal columnar cell change, ectatic ducts, and focal PASH. (see discussion) Microcalcificati ons: ??N/A Electronically signed by: ??Maribel Mitchell DO Verified: ??11/06/2017 ?Pathologist Performed at: ??[facility] [place] [place], [place], [place] DISCUSSION The lesion is 0.8 cm in greatest linear dimension, by slide measure. Review of edh shows the lesion to be 1-cm, radiographic measure. CLINICAL INFORMATION Specimen Submitted: A - Left breast stereo biopsy Clinical History and Diagnosis: Mass; focal FCD, CA, radial scar Report to: Ginger Riddle MD [phone] SPECIMEN PROCESSING A - ??Labeled/Fixati ve: Left breast stereo biopsy, formalin. Quantity/Size: Multiple, 0.2-3.0 cm. Tissue Description: Fragmented, fibrofatty needle core biopsies. Ischemic Time: 7 minutes. Sections/Process ing: (T4) ??ejr 11/06/2017 9:28 AM EDT [facility] BREAST STRUCTURE / Unknown 11/04/2017 1:48 PM EDT 11/04/2017 1:48 PM EDT Jeff Marsh MD PATHOLOGY/CYTOLOGY O KRZYSZTOFERASHARATH [facility] [place] [address] * Specimen to Pathology (11/04/2017 1:48 PM EDT) AP Specimen 11/04/2017 1:48 PM EDT 11/04/2017 3:09 PM EDT Narrative [facility] - 11/04/2017 3:09 PM EDT Specimen requisition ordered. ??Separate Pathology report to follow Resulting Agency Comment Spec In Lab Jeff Marsh MD PATHOLOGY/[place] [address] documented in this encounter Visit Diagnoses Diagnosis Abnormal mammogram Abnormal mammogram, unspecified documented in this encounter Administered Medications Inactive Administered Medications - up to 3 most recent administrations Medication Order MAR Action Action Date Dose Rate Site lidocaine (XYLOCAINE) 10 mg/mL (1 %) injection 20 mg 20 mg, Intradermal, ONCE, 1 dose, On Fri11/04/17 at 1415, Routine Given 11/04/2017 1:15 PM EDT 20 mg documented in this encounter Care Teams Barrel Marker Relationship Specialty Start Date End Date Ginger Riddle MD [address] [place] [address] PCP - General Family Medicine 09/27/16 documented as of this encounter
--- OUTSIDE RECORDS SUMMARY | 2024-01-09 00:41 | XMS_ITS | Encounter Summary ---
Author [place] [address] Care Team Providers Care Sales Support Coordinator Name Role Phone Ginger Riddle MD Primary Care Provider [phone] Encounter Details Date Type Department Care Team (Latest Contact Info) Description 01/09/2023 Travel Social History Tobacco Use Types Packs/Day Years Used Date Smoking Tobacco: Never Smokeless Tobacco: Never Alcohol Use Standard Drinks/Week Comments No 0 (1 standard drink = 0.6 oz pur e alcohol) Sex and Gender Information Value Date Recorded Sex Assigned at Not on file Gender Identity Not on file Sexual Orientation Not on file documented as of this encounter Plan of Treatment Upcoming Encounters Date Type Department Care Team (Late st Contact Info) Description 01/29/2024 1:40 PM EDT Appointment Mammography/[place] [address] Ginger Riddle MD [address] [place], [place] [address] documented as of this encounter Visit Diagnoses Not on filedocumented in this encounter Care Teams Sales Support Coordinator Relationship Specialty Start Date End Date Ginger Riddle MD [address] [place], [place] [address] PCP - General Family Medicine 09/27/16 documented as of this encounter
--- OUTSIDE RECORDS SUMMARY | 2024-01-09 00:41 | XMS_ITS | Encounter Summary ---
Author Organization [facility] Address [facility] [place] [address] Care Team Providers Care Dry Molder Name Role Phone Ginger Riddle MD Primary Care Provider [phone] Encounter Details Date Type Department Care Team (Late st Contact Info) Description 11/19/2017 10:15 AM EDT Office Visit Hematology [place] [address] Kateryna Farah MD [facility] [place] [address] Breast lesion Social History Tobacco Use Types Packs/Day Years Used Date Smoking Tobacco: Never Smokeless Tobacco: Never Alcohol Use Standard Drinks/Week Comments No 0 (1 standard drink = 0.6 oz pur e alcohol) Sex and Gender Information Value Date Recorded Sex Assigned at Not on file Gender Identity Not on file Sexual Orientation Not on file documented as of this encounter Last Filed Vital Signs Vital Sign Reading Time Taken Comments Blood Pressure 131/73 11/19/2017 10:35 AM EDT Pulse 74 11/19/2017 10:35 AM EDT Temperature 36.7 ??C (98 ??F) 11/19/2017 10:35 AM EDT Respiratory Rate 18 11/19/2017 10:35 AM EDT Oxygen Saturation 98% 11/19/2017 10:35 AM EDT Inhaled Oxygen Concentration - - Weight 95.3 kg (210 lb) 11/19/2017 10:35 AM EDT Height 161.4 cm (5' 3.54) 11/19/2017 10:35 AM E DT Body Mass Index 36.57 11/19/2017 10:35 AM EDT documented in this encounter Progress Notes * Kateryna Farah MD - 11/19/2017 10:15 AM EDT Surgical Oncology New Visit Note Reason for Visit: Marcela Yousif is a 72 y.o. female was referred by Ginger Riddle for evaluation ofleft breast lesion. HPI:Marcela Yousif is a 71-year-old female has been having surveillance screening mammograms since theage of 39. On her most recent imaging there was any new abnormality in the left breast. There is distortion and asymmetry. She underwent additional imaging which showed a 1 cm spiculated mass in the left breast. She underwent biopsy which showed a sclerosing lesion. She is here today to discuss next steps in management. Marcela does not do self breast exams and her PCP does do breast exams.. Prior to breast biopsy, she denies any pain in either breast, no skin changes, no breast or axillary lumps, no nipple discharge. The patient has gone through menopause at age 39s. She did take hormonal therapy for 5-10 years years. She had 2children. She did not breast feed. She does not have a history of previous breast biopsy prior to this diagnosis. Positive family history of breast cancer in her paternal aunt. Overall she feels quite well. Weight is stable and appetite is good. Denies fatigue. No headaches. No chest pain or SOB. No abd pain or blood in the stool. No new bony pain or tenderness. The patientreports having ongoing cough. Denies smoking. The patient reports exercise at least 2 times a week.She goes to [employer]. Active Ambulatory Problems Diagnosis Date Noted ??? AK (actinic keratosis) 02/21/2014 ??? Seborrheic keratosis 02/21/2014 ??? Nevus 09/27/2016 ??? Seborrheic keratosis, inflamed 11/11/2016 ??? Visit for suture removal 11/18/2016 Resolved Ambulatory Problems Diagnosis Date Noted ??? No Resolved Ambulatory Problems Past Medical History: Diagnosis Date ??? High cholesterol ??? Hypertension Past Surgical History: Procedure Laterality Date ??? LUNG BIOPSY ??? TOTAL KNEE ARTHROPLASTY Bilateral Current Outpatient Prescriptions: ??? atorvastatin (LIPITOR) 20 mg Tablet, , Disp: , Rfl: ??? atenolol (TENORMIN) 25 mg Tablet, , Disp: , Rfl: ??? buPROPion (WELLBUTRIN XL) 150 mg Tablet Extended Release 24 hr, 300 mg., Disp: , Rfl: ??? ciprofloxacin (CIPRO) 500 [...] 25 mg Tablet, , Disp: , Rfl: DRUG ALLERGIES: Allergies as of 11/19/2017 ??? (No Known Allergies) SOCIAL HISTORY: Social History Social History ??? Marital status: Spouse name: N/A ??? Number of children: N/A ??? Years of education: N/A Occupational History ??? Not on file. Social History Main Topics ??? Smoking status: Never Smoker ??? Smokeless tobacco: Never Used ??? Alcohol use No ??? Drug use: Not on file ??? Sexual activity: Not on file Other Topics Concern ??? Not on file Social History Narrative Reports rare alcohol use Family History Problem Relation Age of Onset ??? Breast Cancer Paternal Aunt REVIEW OF SYSTEMS: A 12 point complete review of systems was obtained from the patient and confirmed by me. It was negative except for what was stated in the HPI. She otherwise deniesheart disease, lung disease, diabetes, and infectious diseases. PHYSICAL EXAMINATION: Constitutional: This is a 72 y.o. female in no apparent distress BP 131/73 (Patient Position: Sitting) Pulse 74 Temp 36.7 ??C (98 ??F) (Temporal) Resp 18 Ht161.4 cm (5' 3.54) Wt 95.3 kg (210 lb) SpO2 98% BMI 36.57 kg/m2 Body mass index is 36.57 kg/(m^2). Eyes: anicteric, extra ocular movements are intact Neuro: No focal deficits. Hearing and speech intact Psych: the patient is alert and oriented. Normal affect. Breast Exam: right breast normal without mass, skin or nipple changes or axillary nodes, left breast with well-healed biopsy site without mass, skin or nipple changes or axillary nodes. Heart: Regular rate and rhythm, S1 S2. No peripheral edema Lungs: Clear bilaterally with good air intake Nodes: No palpable lymph nodes in the cervical or supraclavicular neck Abdomen: Soft, non-tender, non-distended. Musculoskeletal: The patient has normal gait, range of motion, and muscle strength Skin: warm, dry, good turgor, non-icteric. DATA REVIEWED: 1) Imaging reviewed by me with the radiologist: Screening mammo: 10/29/17 Breast density: The breasts are heterogeneously dense, which may obscure small masses. ?? Right breast. There are no suspicious microcalcifications, masses, or areas of distortion. No changes compared to prior studies. Multiple nondominant well-circumscribed benign-appearing masses. ?? The Left breast is abnormal and additional imaging is required. There is a subtle focal asymmetry and possible distortion of the upper and inner left breast, 10:00, 4 to 5 cm from the nipple. Findings best visualized on tomographic CC image 48/79, tomographic image MLO 58/87. ?? IMPRESSION BIRADS CATEGORY 0: 11/03/17 Dx Mammo/US In the upper inner quadrant of the LEFT breast and retroareolar area she has multiple small nodular opacities, most of which have been stable since the patient's earlier studies help. However best seen on the LEFT CC erick image 37, there is a 1 cm spiculated mass at 12:00 6 cm from the nipple. This could not be identified by ultrasound although she has myriad tiny cysts and collections of focal fibrocystic disease. This area could be an additional area of focal fibrocystic change, but in view of the worrisome mammographic characteristics stereotactic biopsy is recommended ?? DIAGNOSTIC SUMMARY: LEFT BREAST LESION #1 ?? 1 cm Mass upper Quadrant 12 OClock 6 cm from the nipple 2) Pathology ??Left breast. Diagnosis: ??Papillary Sclerosing lesion with florid UDH, apocrine metaplasia, focal ??columnar cell change, ectatic ducts, and focal PASH. (see discussion) Microcalcifications: ??N/A Impression: Marcela Yousif is a 72 y.o. female with a screen detected new lesion in the left breast with pathology showing a sclerosing lesion with florid UDH, metaplasia, focal PASH. We had a long discussion about these biopsy results. Based on biopsy imaging, the entire lesion was not biopsied. We discussed the risk of sampling error. In the setting of a spiculated 1 cm mass, we want to make sure the entire lesion is removed to decrease the chance which is about 10- 15% that there is an underlying ductal carcinoma in situ of malignancy. The recommendation would be wide excision. The other alternative would be routine imaging to watch for changes. The patient elects for wide excision which I think is reasonable. The patient had multiple questions which were answered to her satisfaction. Plan: 1) right breast wide excision with needle loc. I explained the implications, indications and alternatives to the proposed treatment plan as well as the risks, including infection, bleeding/hematoma, need for additional surgery.. Consent form has been signed. Same day surgery, out patient. 2) stop aspirin 5 days prior to surgery Kateryna Farah MD Surgical Oncology documented in this encounter Plan of Treatment Upcoming Encounters Date Type Department Care Team (Late st Contact Info) Description 01/29/2024 1:40 PM EDT Appointment Mammography/[place] [address] Ginger Riddle MD [address] [place] [address] documented as of this encounter Visit Diagnoses Diagnosis Breast lesion Unspecified breast disorder documented in this encounter Care Teams Dry Molder Relationship Specialty Start Date End Date Ginger Riddle MD [address] [place] [address] PCP - General Family Medicine 09/27/16 documented as of this encounter
--- OUTSIDE RECORDS SUMMARY | 2024-01-09 00:41 | XMS_ITS | Encounter Summary ---
Author Organization [facility] [place] [address] Care Team Providers Care Retail Performance Coach Name Role Phone Ginger Riddle MD Primary Care Provider [phone] Reason for Visit * Auth/Cert Specialty Diagnoses / Procedures Referred By Charly [email or web address] Referred To Contact Diagnoses LEFT BREAST LESION Procedures PRO EXCISE BREAST LES W XRAY MARKER EXCISION LESION, BREAST W/ PREOP.MARKER (NEEDLE LOC.) (WRVU 6.69) Referral ID Status Reason Start Date Expiration Date Visits Re quested Visits Authorized [id number] 1 1 Encounter Details Date Type Department Care Team (Late st Contact Info) Description 12/04/2017 7:35 AM EDT - 12/04/2017 3:13 PM EDT Hospital En[place] [address] Steven Romero MD [facility] [place] [address] Discharge Disposition: Home Social History Tobacco Use [...] Sign Reading Time Taken Comments Blood Pressure 129/70 12/04/2017 1:30 PM EDT Pulse 77 12/04/2017 7:52 AM EDT Temperature 36.2 ??C (97.2 ??F) 12/04/2017 10:57 AM E DT Respiratory Rate 16 12/04/2017 11:40 AM EDT Oxygen Saturation 96% 12/04/2017 2:39 PM EDT Inhaled Oxygen Concentration - - Weight - - Height - - Body Mass Index - - documented in this encounter Discharge Instructions * Patient Instructions* Steven Romero MD - 12/04/2017 10:44 AM EDT Instructions following Breast Surgery What to Expect Following Surgery: Swelling and/or bruising under and around the incision is normal. It is usually greatest on the second or third day following surgery. If swelling continue or becomes hard with worse pain, call to discuss your symptoms. Your sutures are dissolvable. Your scar will be most visible for 1-2 months following your operation and will gradually fade. As it heals, a scar looks more pink or red than the skin around it. You may feel a ???healing ridge?? directly under the incision. This is normal and will go away when healing is complete. The skin above and below your incision will feel numb. This will improve over several months but some patients may have long-term decrease in sensation over these areas. Incision Care: Keep dressing on your incision for the next 2 days, then you may remove dressing/surgibra and leaveincision open to air. You have surgical glue on your incision which has a purplish hue. Once dressing is removed in 2 days you may shower and get incision wet. Pat dry immediately following. Do not scrub area vigorously for the next 2 weeks. Do not soak incision under water (i.e. bath or swimming) for the next 4 weeks to prevent a wound infection. Do not use any ointments/salves/Vitamin E on the incision until after your first follow-up appointment as these may impair early wound healing. Diet & Activity: No restrictions in your diet are necessary. Activity as tolerated by your comfort level. You may return to work in 3-5 days depending on your recovery. NO DRIVING for at least 8 hours following any dose of an opioid pain medication if one was prescribed for you. Pain Management: Take acetaminophen (Tylenol) 1000mg every 8 hours for the first 3-5 days following surgery to help minimize pain. You may also use NSAIDS like ibuprofen (motrin, advil), naproxen (Naprosyn, Aleve) atrecommended dose on bottle. You may apply ice or cold packs to the incision for 15-20 minutes several times a day for the first2-3 days following surgery to help with discomfort Follow-up Appointment: Will be scheduled with Dr. Romero in 2-3 weeks Please call [phone] to confirm date and time of your appointment if you do not hear from us inthe week. Future Appointments Date Time Provider Department Center 12/18/2017 10:00 AM Adia Wilson APRN [facility] 01/02/2018 2:30 PM Dickson Dow MD [facility] Call Doctor for: Worsening redness or drainage from your incision lasting longer than 5 days following surgery Any foul-smelling drainage from the incision Fevers greater than 101 degrees F Persistent nausea or vomiting (this may be related to opioid pain medications) Phone number for questions: [phone] before 5 PM weekdays [phone] after 5 PM and on weekends/holidays documented in this encounter Medications at Time of Discharge [...] as of this encounter Progress Notes * Melinda Garcia RN - 12/04/2017 3:12 PM EDT Patient discharge to home. IV removed, site benign. My assessment remains unchanged from my previous assessment. RN Discussed pain management with patient, pain tolerable. Patient medicated prior to discharge. Patient has all belongings. Patient received After Visit Summary. This was reviewed with patient and , patient verbalizes understanding of AVS. All questions answered. Patient encouraged to call with questions or concerns. Patient discharged to home with family. documented in this encounter H&P Notes * Dickson Carpenter MD - 12/04/2017 8:07 AM EDT H&P 24hr interval update/Pre-operative note Please see Dr. Romero's note from clinic on 11/19/2017 for further information. ID: Marcela Yousif is a 72 y.o. female who presents to [facility] for WLE of a spiculated breast mass. S: Marcela Yousif endorses no recent change in health. Denies any fever, chills, cough, congestion, change in bowel habits. O: Physical Exam: Most Recent Vitals: 12/04/17 0752 BP: 139/66 Pulse: 77 Resp: 16 Temp: 37.1 ??C (98.8 ??F) SpO2: 97% Gen: NAD CVS: RRR Pulm: CTAB Abd: soft, nt/nd Ext: wwp Neuro: non-focal A/P: Marcela Yousif is a 72 y.o. female who presents for planned wire loc excisional breast biopsy. Will proceed with planned operation. Dickson Carpenter MD 12/04/2017 General Surgery Pgr. [id number] documented in this encounter Miscellaneous Notes * Op Note - Steven Romero MD - 12/04/2017 10:41 AM EDT [facility] Operative Note Patient Name: Marcela Yousif : [id number] MR#: [id number] Case Date: 12/04/2017 Surgeon: Surgeon(s) and Role: * Steven Romero MD - Primary * Dickson Carpenter MD - Resident-Surgeon Lei Preoperative diagnosis: LEFT BREAST LESION Postoperative diagnosis: LEFT BREAST LESION Procedure(s) (LRB): EXCISION LESION, BREAST W/ PREOP.MARKER (NEEDLE LOC.) (WRVU 6.69) (Left) Anesthesia: General Estimated Blood Loss: 4 mL Specimens removed during surgery: Order Name Source Comment Collection Info Order Time [place] 8 [address] LEFT BREAST LESION Left breast mass. excision Yes 12/04/2017 10:21 AM Number of tissue samples (in container) 1 Time specimen removed from patient: 10:20 AM Drains: Surgical Closure: Primary Closure - skin incision is completely closed without any wires, clover, drains or other devices Disposition: awakened from anesthesia, extubated and taken to the recovery room in a stable condition, having suffered no apparent untoward event. Condition: doing well without problems (Please see the Surgical Encounter Summary for any Implant and Specimen details pertinent to this patient.) Operative Findings: Specimen mammogram revealed the biopsy clip and lesion to be within the surgical specimen. Operative Indications: Marcela Yousif is a 72 y.o. female with a screen detected new lesion in the left breast with pathology showing a sclerosing lesion with florid UDH, metaplasia, focal PASH. Plan for right breast wide excision with needle loc. I explained the implications, indications and alternatives to the proposed treatment plan as well as the risks, including infection, bleeding/hematoma, need for additional surgery.. Consent form has been signed. Same day surgery, out patient. ?? Operative Procedure: Marcela Yousif was admitted through Same-Day Surgery. She was brought up to Radiology where wire localization was performed in the left breast. She was then brought to the OperatingRoom and laid supine on the operating table. The correct site and allergies were reviewed with the patient prior to sedation. Venodynes were placed on bilatera lower extremities for DVT prophylaxis. Anesthesia was administered and a LMA was placed. The left breast was prepped and draped in sterile fashion. Time-out confirmed the patient's identity, the correct surgical site, and the administration of prophylactic antibiotics. Once this had been confirmed, attention was turned to the left breast. Lidocaine 1% and Marcaine 0.5% mixed 1:1 was injected into the area and an incision was made at 11oclock radially. The wire was brought into the wound and a core of tissue circumferential was widely excised. The tissue was inked on the anatomic margins and sent to Radiology where the lesion and clip were confirmed to be in the surgical specimen. The wound was irrigated and hemostasis was achieved with electrocautery. The wound was closed in 2 layers: 3-0 vicryl interrupted deep dermal suturesfollowed by 4-0 running monocryl. The surgical areas were cleaned and dried. Surgical glue was applied to the wounds and allowed to dry. A sterile compressive dressing was applied. All counts were correct. The patient awoke from anesthesia, was extubated and brought the recovery room in stable condition. There were no apparent complications. Infection Bundle used? N/A Attestation: Case Date: 12/04/2017 I was present and I participated during the entire procedure (does not need to include opening and closing). STEVEN ROMERO MD 12/04/2017 * Brief Op Note - Steven Romero MD - 12/04/2017 10:39 AM EDT Brief Operative Note Patient Name: Marcela Yousif : [id number] MR#: [id number] Case Date: 12/04/2017 Surgeon: Surgeon(s) and Role: * Steven Romero MD - Primary * Dickson Carpenter MD - Resident-Surgeon Lei Preoperative diagnosis: LEFT BREAST LESION Postoperative diagnosis: LEFT BREAST LESION Procedure(s) (LRB): EXCISION LESION, BREAST W/ PREOP.MARKER (NEEDLE LOC.) (WRVU 6.69) (Left) Anesthesia: General Findings: left breast specimen mammo with lesion and clip. Complications: none Intake: 700cc Output: Estimated Blood Loss: 4cc Drains: NA Specimens removed during surgery: Order Name Source Comment Collection Info Order Time [place] 8 [id number] LEFT BREAST LESION Left breast mass. excision Yes 12/04/2017 10:21 AM Number of tissue samples (in container) 1 Time specimen removed from patient: 10:20 AM Disposition: awakened from anesthesia, extubated and taken to the recovery room in a stable condition, having suffered no apparent untoward event. Condition: doing well without problems Attestation: Case Date: 12/04/2017 I was present and I participated during the entire procedure (does not need to include opening and closing). (Please see the Surgical Encounter Summary for any Implant and Specimen details pertinent to this patient.) documented in this encounter Plan of Treatment Upcoming Encounters Date Type Department Care Team (Late st Contact Info) Description 01/29/2024 1:40 PM EDT Appointment Mammography/[place] [address] Ginger Riddle MD [address] [place] [id number] documented as of this encounter Procedures Procedure Name Priority Date/Time Associated Diagnosis Comments SPECIMEN TO PATHOLOGY Routine 12/04/2017 10:21 AM EDT EXCISION LESION, BREAST W/ PREOP.MARKER (NEEDLE LOC.) (WRVU 6.69) 12/04/2017 9:40 AM EDT LEFT BREAST LESION documented in this encounter Results * Specimen to Pathology (12/04/2017 10:21 AM EDT) AP Specimen 12/04/2017 10:2 1 AM EDT 12/04/2017 11:14 AM EDT Narrative [facility] - 12/04/2017 11:15 AM EDT Specimen requisition ordered. ??Separate Pathology report to follow Resulting Agency Comment Spec In Lab Steven Duran MD PATHOLOGY/CYTOLO GY ORDERABLES [facility] [place] [place] [address] documented in this encounter Visit Diagnoses Not on filedocumented in this encounter Administered Medications Inactive Administered Medications - up to 3 most recent administrations Medication Order MAR Action Action Date Dose Rate Site acetaminophen (TYLENOL) tablet 1,000 mg 1,000 mg, Oral, ONCE, 1 dose, On Ofelia 12/04/17 at 0815, Administer with SIP of H2O only., Day of Surgery (Day of Procedure), Routine Given 12/04/2017 8:48 AM EDT 1,000 mg ketorolac (TORADOL) injection 15 mg 15 mg, Intravenous, EVERY 6 HOURS, 20 doses, First dose on Ofelia 12/04/17 at 1115, Last dose on Fri12/09/17 at 0515, Routine Given 12/04/2017 11:10 AM EDT 15 mg lactated Ringers infusion 1,000 mL 1,000 mL, at 100 mL/hr, Intravenous, CONTINUOUS, Starting on Ofelia 12/04/17 at 0815, Until Ofelia 12/04/17 at 1511, Day of Surgery (Day of Procedure) New Bag 12/04/2017 9:44 AM EDT New Bag 12/04/2017 8:15 AM EDT 1,000 mLs 100 mL/hr ondansetron (ZOFRAN) injection 4 mg 4 mg, Intravenous, EVERY 30 MIN PRN, Starting on Ofelia 12/04/17 at 1101, Until Ofelia 12/04/17 at 1511, Nausea, May repeat 4 mg once in 30 minutes. If multiple antiemetics ordered, use ondansetron first and if ineffective use prochlorperazine second and if ineffective use promethazine, PACU Recovery Given 12/04/2017 1:21 PM EDT 4 mg documented in this encounter Active and Recently Administered Medications Times are shown in EDT. Scheduled Medication Order 12/02/2017 12/03/2017 12/04/2017 acetaminophen (TYLENOL) tablet 1,000 mg (COMPLETED) 1,000 mg, Oral, ONCE, 1 dose, On Ofelia 12/04/17 at 0815, Administer with SIP of H2O only., Day of Surgery (Day of Procedure), Routine 0848 (Given - Provid er: Beckie Doan RN) ceFAZolin (ANCEF) 2g in dextrose 5% 100 mL (COMPLETED) 2 g, Intravenous, EVERY 3 HOURS, 1 dose, First dose on Ofelia 12/04/17 at 0815, Administer over 30 Minutes, Intra-Operative (Intra-Procedure), Indication for (Active or Suspected): Prophylaxis 0952 (Given - Provid er: Emilia Lorenzo MD)0953 (Canceled Entry - Provider: Emilia Lorenzo MD) ketorolac (TORADOL) injection 15 mg 15 mg, Intravenous, EVERY 6 HOURS, 20 doses, First dose on Ofelia 12/04/17 at 1115, Last dose on Fri12/09/17 at 0515, Routine 1110 (Given - Provid er: Melinda Garcia RN) Continuous Medication Order 12/02/2017 12/03/2017 12/04/2017 lactated Ringers infusion 1,000 mL (CANCELED) 1,000 mL, at 100 mL/hr, Intravenous, CONTINUOUS, Starting on Ofelia 8//18 at 0815, Until Ofelia 818 at 1511, Day of Surgery (Day of Procedure) 0815 (New Bag - Prov ider: Frances Mitchell RN)0944 (New Bag - Provider: Emilia Lorenzo MD) PRN Medication Order 12/02/2017 12/03/2017 12/04/2017 BUpivacaine (PF) (MARCAINE) 0.5 % (5 mg/mL) injection (CANCELED) ONCE PRN, Starting on Ofelia 8/18 at 1040, Until Ofelia 818 at 1713, Intra-Operative (Intra-Procedure), Routine 1040 (Given - Provid er: Dickson Carpenter MD - Comment: 5mL of 0.5% bupivacaine mixed 1:1 with 5m: of 1% lidocaine for a total of 10mL.) lidocaine (XYLOCAINE) 10 mg/mL (1 %) injection (CANCELED) ONCE PRN, Starting on Ofelia 8//18 at 1041, Until Ofelia 8//18 at 1713, Intra-Operative (Intra-Procedure), Routine 1041 (Given - Provid er: Dickson Carpenter MD - Comment: 5mL of 0.5% bupivacaine mixed 1:1 with 5m: of 1% lidocaine for a total of 10mL.) ondansetron (ZOFRAN) injection 4 mg (CANCELED) 4 mg, Intravenous, EVERY 30 MIN PRN, Starting on Ofelia 8/18 at 1101, Until Ofelia 8//18 at 1511, Nausea, May repeat 4 mg once in 30 minutes. If multiple antiemetics ordered, use ondansetron first and if ineffective use prochlorperazine second and if ineffective use promethazine, PACU Recovery 1321 (Given - Provid er: Melinda Garcia RN) documented in this encounter Care Teams Retail Performance Coach Relationship Specialty Start Date End Date Ginger Riddle MD [address] [place] [address] PCP - General Family Medicine 09/27/16 documented as of this encounter
--- OUTSIDE RECORDS SUMMARY | 2024-01-09 00:41 | XMS_ITS | Encounter Summary ---
[place] [address] Care Team Providers Care Abstract Writer Name Role Phone Gigner Riddle MD Primary Care Provider [phone] Reason for Visit * Reason Comments Follow Up Surgery Encounter Details Date Type Department Care Team (Late st Contact Info) Description 12/18/2017 1:00 PM EDT Office [place] [address] Adia Wilson APRN [facility] [address] Post-operative state Social History Tobacco Use Types Packs/Day Years Used Date Smoking Tobacco: Never Smokeless Tobacco: Never Alcohol Use Standard Drinks/Week Comments No 0 (1 standard drink = 0.6 oz pur e alcohol) Sex and Gender Information Value Date Recorded Sex Assigned at Not on file Gender Identity Not on file Sexual Orientation Not on file documented as of this encounter Progress Notes * Adia Wilson APRN - 12/18/2017 1:00 PM EDT Marcela Yousif returns to clinic today for a hospital check. She is s/p left breast WLE performed by on 12/04. Pathology showed: A - Left breast, partial mastectomy: - Papillary sclerosing lesion associated with usual ductal hyperplasia and apocrine ??metaplasia. - Fibrocystic changes including usual ductal hyperplasia, adenosis, columnar cell ??change/hyperplasia and cysts. - Biopsy site changes with healing hematoma. She states She is doing well postoperatively and is not needing pain medication..She denies fever or chills. She did bruise after the surgery and has a firm area above the incision. She has no other complaints at this time. On Physical examination, she looks well and is in NAD. The incision is intact without disruption, erythema or drainage.There is a resolving hematoma superior to the incision. Assessment: S/P left breast WLE for benign findingd. Doing well, no evidence of cellulitis or wounddisruption. Plan: Will return in follow up with on a PRN basis. Mammogram due 11/2018. She agrees with this plan. documented in this encounter Plan of Treatment Upcoming Encounters Date Type Department Care Team (Late st Contact Info) Description 01/29/2024 1:40 PM EDT Appointment Mammography/[place] [address] Ginger Riddle MD [address] [place] [address] documented as of this encounter Visit Diagnoses Diagnosis Post-operative state Other postprocedural status documented in this encounter Care Teams Abstract Writer Relationship Specialty Start Date End Date Ginger Riddle MD [address] [place] [address] PCP - General Family Medicine 09/27/16 documented as of this encounter
--- OUTSIDE RECORDS SUMMARY | 2024-01-09 00:41 | XMS_ITS | Clinical Summary ---
Author Organization [facility] Address [facility] [place] [address] Care Team Providers Care Procedures Tech Name Role Phone Ginger Riddle MD Primary Care Provider [phone] Allergies Active Allergy Reactions Criticality Noted Date Comments Chlorthalidone Other (See Comments) High 07/15/2022 Depletes Potassium Medications Medication Sig Dispensed Refills Start Date End Date Status atorvastatin (LIPITOR) 20 mg Tablet 08/07/2017 Active atenolol (TENORMIN) 25 mg Tablet 08/07/2017 Active ibuprofen (ADVIL;MOTRIN) 800 mg Tablet 08/22/2017 Active cholecalciferol, Vitamin D3, 2,000 unit Capsule Take by mouth. Active aspirin 81 mg Tablet, Delayed Release (E.C.) Take 81 mg by mouth daily. Active losartan (COZAAR) 25 mg Tablet 08/07/2017 Active buPROPion (WELLBUTRIN XL) 150 mg Tablet Extended Release 24 hr 02/11/2019 Ac tive Active Problems Problem Noted Date Diagnosed Date Visit for suture removal 11/18/2016 Seborrheic keratosis, inflamed 11/11/2016 Nevus 09/27/2016 AK (actinic keratosis) 02/21/2014 Seborrheic keratosis 02/21/2014 Immunizations Name Administration Dates Next Due Influenza Vaccine, Whole 03/28/2006 Pneumococcal Polysaccharide (Pneumovax 23) 10/22 Family History Medical History Relation Comments Breast Cancer Paternal Aunt 1 Breast Cancer Paternal Aunt 2 Relation Status Comments Paternal Aunt 1 Paternal Aunt 2 Alive Social History Tobacco Use Types Packs/Day Years Used Date Smoking Tobacco: Never Smokeless Tobacco: Never Alcohol Use Standard Drinks/Week Comments No 0 (1 standard drink = 0.6 oz pur e alcohol) Sex and Gender Information Value Date Recorded Sex Assigned at Not on file Gender Identity Not on file Sexual Orientation Not on file Last Filed Vital Signs Vital Sign Reading [...] Mass Index 36.57 11/19/2017 10:35 AM EDT Plan of Treatment Upcoming Encounters Date Type Department Care Team (Late st Contact Info) Description 01/29/2024 1:40 PM EDT Appointment Mammography/[place] [phone] Ginger Riddle MD [address] [place] [id number] Health Maintenance Due Date Last Done Comments Hepatitis C Screening 1962 Tdap adult 1963 Tetanus vaccine 1963 Zoster vaccine (1 of 2) 1994 Advance Directive 1999 Bone Density Scan 2009 Pneumoccocal Vaccine: 65+ (2 of 2 - PCV) 2009 10/22/2002 Covid-19 Vaccine (1 - 2022-2 4 season) 2023 Influenza (Flu) vaccine (1 o f 1 - Influenza standard series) 01/04/2024 03/28/2006 Breast Cancer screening Discontinued 01/10/20, 08/16/2022, 07/06/2021, Additional history exists Medical Devices Implanted Type Area Rater Associate Device Identifier Shelf Expiration Date Model / Serial / Lot Breast Clip- 8 Implanted:Qt y: 1 on 11/04/2017 by Jeff Marsh MD Breast Clip Left: Breast [id number] / / Description:E[employer]OGIO[employer]ERAMARK STAIN[employer] ESS STEEL Breast Clip- 3 Implanted:Qt y: 1 on 01/10/2023 by Helen Arita MD Breast Clip Breast Description:senomark ultraco r chris Procedures Procedure Name Priority Date/Time Associated Diagnosis Comments MAMMO DIAGNOSTIC CAD AND MONTY BILATERAL Routine 01/09/2023 1:41 PM EDT Lump in lower inner quadrant of left breast Mass of breast, unspecified laterality Mass of right breast, unspecified quadrant from Last 3 Months or Most Recently Relevant to Health Maintenance Results * Mammo Diagnostic CAD and Monty Bilateral (01/09/2023 1:41 PM EDT) Anatomical Region Laterality Modality Breast Bilateral Mammography Impressions 01/09/2023 4:09 PM EDT 1. 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 Ultrasound-guided biopsy has been scheduled 2. ??0.9 cm right breast acorn cyst.. No further follow-up required FINAL ASSESSMENT: Left breast: BI-RADS Category 4a: Suspicious Finding - Biopsy Should Be Considered. ??Low suspicion of malignancy (more than 2% but no more than 10%) Right breast: BI-RADS Category 2: Benign Findings I have personally reviewed the image(s) and the resident's interpretation and agree with the findings, Janice Faust MD at 01/09/2023 4:09 PM Thank you for letting us participate in the care of this patient. ??If you are a health care provider and have any questions regarding this report, please contact the number below. ??For patients who have questions please contact the health janitor caretaker that requested your imaging first. ? Narrative 01/09/2023 4:09 PM EDT DIAGNOSTIC MAMMOGRAPHY OF BOTH BREASTS CLINICAL HISTORY: BREAST LUMPS BILATERLLY EXAMINATION: MAMMO DIAGNOSTIC CAD AND MONTY BILATERAL, US ??BREAST LIMITED BILATERAL CLINICAL HISTORY: BREAST LUMPS BILATERLLY. ??Right breast lump felt by patient at 8:00. Left breast lump felt by patient at 7:00. TECHNIQUE AND VIEWS OBTAINED: CC and MLO views were obtained of BOTH breasts. 2D and 3D tomosynthesis images were obtained. Computer aided detection was used. Ultrasound was performed of the bilateral lower breasts. COMPARISON: Prior images including screening mammogram 08/16/2022 and 07/17/2012. Right breast ultrasound 12/02/2018 left breast ultrasound 11/03/2017. BREAST DENSITY: The breasts are heterogeneously dense, which may obscure small masses. FINDINGS: LEFT MAMMOGRAM: Multiple well-circumscribed masses, similar in appearance to dating back to 2012. The masses did not efface with the additional views. LEFT ULTRASOUND: 0.7 cm well-circumscribed mass with internal vascularity at 6:00 2 cm from the nipple. RIGHT MAMMOGRAM: Multiple stable well-circumscribed masses, the largest measuring 0.8 cm at the 12:00 position 2 cm from the nipple. The questionable abnormality did not efface with the additional views. RIGHT ULTRASOUND: 0.9 cm well-circumscribed cyst with dependent echogenic fluid level at 6:00 2 cm from the nipple. Multiple simple cysts. Li Delgado ACCOUNTS PAYABLE MANAGER IMG MAMMO ORDERABLES from Last 3 Months or Most Recently Relevant to Health Maintenance Advance Directives * Full Code (Latest Code Status on File) Date Activated Date Inactivated Comments 12/04/2017 9:18 AM 12/04/2017 5:13 PM Question Answer Comments Does patient have capacity to make decision: Yes Care Teams Procedures Tech Relationship Specialty Start Date End Date Ginger Riddle MD [address] [place] [address] PCP - General Family Medicine 09/27/16
--- OUTSIDE RECORDS SUMMARY | 2024-01-09 00:41 | XMS_ITS | Encounter Summary ---
[place] [address] Care Team Providers Care Nursing Resident Name Role Phone Ginger Riddle MD Primary Care Provider [phone] Encounter Details Date Type Department Care Team (Latest Contact Info) Description 08/16/2022 10:29 AM EDT - 08/16/2022 11:59 PM EDT Hospital Encounter Mammography/[place] [phone] Ginger Riddle MD [address] [place] [address] Screening mammogram for breast cancer Discharge Disposition: Home Social History Tobacco Use [...] Sig Dispensed Refills Start Date End Date buPROPion (WELLBUTRIN XL) 150 mg Tablet Extended Release 24 hr 02/11/2019 atorvastatin (LIPITOR) 20 mg Tablet 08/07/2017 atenolol (TENORMIN) 25 mg Tablet 08/07/2017 ibuprofen (ADVIL;MOTRIN) 800 mg Tablet 08/22/2017 cholecalciferol, Vitamin D3, 2,000 unit Capsule Take by mouth. aspirin 81 mg Tablet, Delayed Release (E.C.) Take 81 mg by mouth daily. losartan (COZAAR) 25 mg Tablet 08/07/2017 mometasone (ELOCON) 0.1 % Cream 02/23/2019 07/21/2023 documented as of this encounter Plan of Treatment Upcoming Encounters Date Type Department Care Team (Late st Contact Info) Description 01/29/2024 1:40 PM EDT Appointment Mammography/[place] [address] Ginger Riddle MD [address] [place] [address] documented as of this encounter Procedures Procedure Name Priority Date/Time Associated Diagnosis Comments MAMMO SCREENING CAD AND MONTY BILATERAL Routine 08/16/2022 11:13 AM EDT Screening mammogram for breast cancer documented in this encounter Results * Mammo Screening Cad and Monty Bilateral (08/16/2022 11:13 AM EDT) Anatomical Region Laterality Modality Breast Bilateral Mammography Impressions 08/16/2022 11:53 AM EDT No mammographic evidence of malignancy. RECOMMENDATION: Routine screening mammography is recommended with the frequency dependent on the patients age, breast cancer risk factors and preference. Additional studies may be recommended for women with higher than average risk for breast cancer. A result letter has been sent to this patient [facility]. BI-RADS Category 2: Benign Findings * ??Regular screening mammograms starting between age 40 and 50 reduces the risk of from breast cancer. * ??All screening tests have both risks and benefits. These risks and benefits should be assessed for each individual patient through discussion with their provider to determine their preferred breast cancer screening schedule. * ??Women should report any breast changes to a health care provider right away. * ??Some women, because of their family history, a genetic tendency, or other factors, should be screened with annual breast MRI as well as with mammograms. (The number of women who fall into this category is very small). Patients and health care providers should discuss each patients history to decide if earlier screening and/or breast MRI are appropriate. * ??Screening should continue as long as a woman is in good health and is expected to live 10 years or longer. * ??Screening mammography may not detect 10-15% of breast cancers. Thank you for letting us participate in the care of this patient. ??If you are a health care provider and have any questions regarding this report, please contact the number below. ??For patients who have questions please contact the health child adolescent care that requested your imaging first. ? Narrative 08/16/2022 11:53 AM EDT REASON FOR EXAM: Screening TECHNIQUE: CC and MLO views were obtained of BOTH breasts. 2D and 3D tomosynthesis images were obtained. Computer aided detection was used. COMPARISON: Prior images BREAST DENSITY: The breasts are heterogeneously dense, which may obscure small masses. FINDINGS: There are no suspicious microcalcifications, masses, or areas of distortion in either breast. Incidental note of multiple bilateral well-circumscribed masses, which have waxed/waned over prior exams consistent with cysts. Ginger Riddle MD IMG MAMMO ORDERABLES documented in this encounter Visit Diagnoses Diagnosis Screening mammogram for breast cancer documented in this encounter Care Teams Nursing Resident Relationship Specialty Start Date End Date Ginger Riddle MD [address] [place] [address] PCP - General Family Medicine 09/27/16 documented as of this encounter
--- OUTSIDE RECORDS SUMMARY | 2024-01-09 00:41 | XMS_ITS | Encounter Summary ---
[place] [address] Care Team Providers Care Manager Photo Name Role Phone Ginger Riddle MD Primary Care Provider [phone] Encounter Details Date Type Department Care Team (Latest Contact Info) Description 11/26/2018 10:27 AM EDT - 11/26/2018 11:59 PM EDT Hospital Encounter Mammography/[place] [phone] Ginger Riddle MD [address] [place] [address] Encounter for screening mammogram for breast cancer Discharge Disposition: Home [...] chlorhexidine (PERIDEX) 0.12 % Mouthwash 08/22/2017 07/15/2022 documented as of this encounter Plan of Treatment Upcoming Encounters Date Type Department Care Team (Late st Contact Info) Description 01/29/2024 1:40 PM EDT Appointment Mammography/[place] [address] Ginger Riddle MD [address] [place] [address] documented as of this encounter Procedures Procedure Name Priority Date/Time Associated Diagnosis Comments MAMMO SCREENING CAD AND MONTY BILATERAL Routine 11/26/2018 11:37 AM EDT Encounter for screening mammogram for breast cancer documented in this encounter Results * Mammo Screening Cad and Monty Bilateral (11/26/2018 11:37 AM EDT) Anatomical Region Laterality Modality Breast Bilateral Mammography Impressions 11/26/2018 12:26 PM EDT BIRADS CATEGORY 0: Additional imaging required. Diagnostic imaging of the right breast. Thank you for letting us participate in the care of this patient. For questions regarding this report, please contact the number below. ? Narrative 11/26/2018 12:26 PM EDT REASON FOR EXAM: Screening TECHNIQUE: CC and MLO views were obtained of the bilateral breasts. Computer aided detection was used. 3D tomosynthesis images were obtained in addition to 2D images. COMPARISONS: ??Compared with prior images. FINDINGS: Breast density: The breasts are heterogeneously dense, which may obscure small masses. Left breast. ??There are no suspicious microcalcifications, masses, or areas of distortion. No changes compared to prior studies. The Right breast is abnormal and additional imaging is required. There is a focal asymmetry and associated mass of the upper and outer right breast at approximately 10:00, 7.5 cm from the nipple. Ginger Riddle MD IMG MAMMO ORDERABLES documented in this encounter Visit Diagnoses Diagnosis Encounter for screening mammogram for breast cancer documented in this encounter Care Teams Manager Photo Relationship Specialty Start Date End Date Ginger Riddle MD [address] [place] [address] PCP - General Family Medicine 09/27/16 documented as of this encounter
--- OUTSIDE RECORDS SUMMARY | 2024-01-09 00:41 | XMS_ITS | Encounter Summary ---
Author Organization [facility] [address] Care Team Providers Care Microwave Engineer Name Role Phone Ginger Riddle MD Primary Care Provider Reason for Visit * Reason Comments Follow-up Encounter Details Date Type Department Care Team (Late st Contact Info) Description 02/23/2019 10:15 AM EDT Office Visit Dermatology at [address] [phone] Dickson Dow MD [address] [facility] [place] [address] Seborrheic keratosis; Seborrheic keratosis, inflamed; Inflamed acrochordon Social History Tobacco Use Types Packs/Day Years [...] Progress Notes * Dickson Dow MD - 02/23/2019 10:15 AM EDT Problem: New skin lesions of concern Marcela follows up and is concerned about lesion is developed quite recently on her right cheek. She also has an irritated tag in her left arm. She points to growing lesions by the left angle of the earas well and by the left base of her neck. The patient's daughter [facility] [place] have been for the last 4 years. Physical examination reveals what appears to be a seborrheic keratosis versus possibly a verruca vulgaris on the right mid to lateral cheek. She has small seborrheic keratoses near the left angle of the jaw in the left anterior base of her neck. She has an irritated tag underneath of the left axillary vault. She examination of the upper chest and back is otherwise benign revealing a number of small seborrheic keratoses. Assessment and plan: Irritated seborrheic keratosis right cheek 1. After obtaining informed consent site was anesthetized and removed with shave biopsy and submitted for pathologic analysis. 2. Wound care check supplies given 3. We will notify patient about results in 1 week. Irritated tag, below left axillary vault 1. Could consider LN 2 x 2 application to site. New irritated seborrheic keratoses left angle of jaw and left anterior base of neck 1. We will schedule a 15-minute point for treatment of these in the near future. We will use shave biopsy removal technique. Benign skin examination 1. Patient reassured about her benign skin examination today. CC: Ginger Thorne MD documented in this encounter Plan of Treatment Upcoming Encounters Date Type Department Care Team (Late st Contact Info) Description 01/29/2024 1:40 PM EDT Appointment Mammography/[place] [address] Ginger Riddle MD [address] [place] [address] documented as of this encounter Visit Diagnoses Diagnosis Seborrheic keratosis Other seborrheic keratosis Seborrheic keratosis, inflamed Inflamed seborrheic keratosis Inflamed acrochordon Unspecified hypertrophic and atrophic condition of skin documented in this encounter Care Teams Microwave Engineer Relationship Specialty Start Date End Date Ginger Riddle MD [address] [place] [address] PCP - General Family Medicine 09/27/16 documented as of this encounter
--- OUTSIDE RECORDS SUMMARY | 2024-01-09 00:41 | XMS_ITS | Encounter Summary ---
Author Organization [facility] Address [facility] [place] [address] Care Team Providers Care Media Account Executive Name Role Phone Ginger Riddle MD Primary Care Provider [phone] Encounter Details Date Type Department Care Team (Latest Contact Info) Description 01/10/2023 9:10 AM EDT - 01/10/2023 11:59 PM EDT Hospital En[place] [phone] Janice Faust MD [facility] [place] [address] Abnormal finding on breast imaging Discharge Disposition: Home Social History Tobacco Use [...] 02/23/2019 07/21/2023 documented as of this encounter Progress Notes * Lele Wesley DO - 01/09/2023 4:42 PM EDT Pre-procedure note for needle breast biopsies performed in radiology. Procedure date: Tomorrow Procedure type: left breast ultrasound guided biopsy Allergies: Chlorthalidone Medications: Current Outpatient Medications: ??? mometasone (ELOCON) 0.1 % Cream, , Disp: , Rfl: ??? buPROPion (WELLBUTRIN XL) 150 mg Tablet Extended Release 24 hr, , Disp: , Rfl: ??? atorvastatin (LIPITOR) 20 mg Tablet, , Disp: , Rfl: ??? atenolol (TENORMIN) 25 mg Tablet, , Disp: , Rfl: ??? ibuprofen (ADVIL;MOTRIN) 800 mg Tablet, , Disp: , Rfl: ??? cholecalciferol, Vitamin D3, 2,000 unit Capsule, Take by mouth., Disp: , Rfl: ??? aspirin 81 mg Tablet, Delayed Release (E.C.), Take 81 mg by mouth daily., Disp: , Rfl: ??? losartan (COZAAR) 25 mg Tablet, , Disp: , Rfl: Anticoagulation status: low dose aspirin stopped on: n/a Imaging reviewed and procedural plan approved by Lele Wesley DO documented in this encounter Plan of Treatment Upcoming Encounters Date Type Department Care Team (Late st Contact Info) Description 01/29/2024 1:40 PM EDT Appointment Mammography/[place] [address] Ginger Riddle MD [address] [place], [place] [id number] documented as of this encounter Procedures Procedure Name Priority Date/Time Associated Diagnosis Comments MAMMO US BIOPSY LEFT Routine 01/10/2023 10:08 AM EDT Abnormal finding on breast imaging SURGICAL PATHOLOGY REPORT Routine 01/10/2023 10:01 AM EDT SPECIMEN TO PATHOLOGY Routine 01/10/2023 10:01 AM EDT documented in this encounter Results * Mammo Us Biopsy Left (01/10/2023 10:08 AM EDT) Anatomical Region Laterality Modality Breast Left Mammography Impressions 01/17/2023 10:44 AM EDT Benign, concordant result RECOMMENDATION: Routine screening. A message has been left for the patient to call DR. Arita for results and recommendations REVIEW PATH CONFERENCE?: No Thank you for letting us participate in the care of this patient. ??If you are a health care provider and have any questions regarding this report, please contact the number below. ??For patients who have questions please contact the health clinical manager home care that requested your imaging first. ? Electronically signed by: Helen Arita [facility] ([phone]), at 01/17/2023 10:44 AM Narrative 01/17/2023 10:44 AM EDT ULTRASOUND GUIDED BIOPSY OF THE LEFT BREAST CLINICAL HISTORY: Hypoechoic vascular mass in the left cyst seen on diagnostic evaluation. 0.7 cm Mass left breast 6:00 Radian to cm from the nipple PROCEDURAL DETAILS: Informed consent was obtained. Sterile technique was deployed. Approximately 8 cc of 1% lidocaine used for local anesthesia. A biopsy was performed under ultrasound guidance. 3 core biopsy specimens were obtained using a [employer] Monopty 14g device. A [employer] 14G marker clip was placed. Cranio-caudal and lateral digital mammography performed to determine biopsy marker placement, which was shown to be at the expected location. COMPLICATIONS: None. ? 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 Janice Faust MD IMG MAMMO ORDERABLES * Surgical Pathology Report (01/10/2023 10:01 AM EDT) Final Diagnosis [id number] ? Location: 3L The signing pathologist has (i) examined the relevant preparation(s) for the specimen(s) and (ii) rendered or confirmed the diagnosis(es). . 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 Pathologist Performed at: ??-[facility] [place], [place] [address] Assembly Machine Offbearer: Riki Norris MD, FCAP, ??CLIA Certificate: [id number] DISCUSSION The sclerosing intraductal papilloma is present in multiple tissue cores and measures up to 0.9 cm in greatest linear dimension in a single core. No atypia or malignancy is identified. ADDITIONAL STUDIES Immunohistochemistry Studies: Formalin-fixed, paraffin-embedded tissue sections are studied using the polymer technique with appropriate positive and negative controls. ?These IHC studies provide the pathologist with adjunctive diagnostic information. Antibody specificity has been verified by testing antibodies on a series of in-house tissues with known immunohistochemical performance characteristics. The clinical interpretation of any antibody positive staining or its absence is evaluated within the context of clinical presentation, morphology, histopathological criteria and other diagnostic tests. Block ? Antibody ? Result (Positive/Negative) A1 ? Calponin ?Highlights ?myoepithelium throughout A1 ? p63 ? Highlights ?myoepithelium throughout SPECIMEN(S) SUBMITTED A - LEFT BREAST CORE NEEDLE BIOPSY, biopsy (3) CARBON COPY: Ginger Riddle MD Heck, Li Keys, MDM SR CLINICAL INFORMATION Mass SPECIMEN PROCESSING A - Labeled/Fixative: Left breast core needle biopsy, formalin. Quantity/Size: Three, from 0.9 x 0.1 cm to 1.3 x 0.1 cm Tissue Description: Partly hemorrhagic, sanchez-yellow fibrofatty needle core biopsies. Sections/Processing: Entirely submitted in 1 cassette labeled A1. Ischemic time: 5 minutes Total fixation time in formalin: 59 hours 1 minute The ASCO/CAP guideline related to formalin fixation time has been met (6-72 hours). The ASCO/CAP guideline related to cold ischemic time has been met (<1 hour). ??pps 01/14/2023 9:[address] [facility] BREAST STRUCTURE / Unknown 01/10/2023 10:01 AM EDT 01/10/2023 10:01 AM EDT Helen Arita MD PATHOLOGY/CYTOLOGY [facility] [address] [place] [address] * Specimen to Pathology (01/10/2023 10:01 AM EDT) AP Specimen 01/10/2023 10:0 1 AM EDT 01/10/2023 10:01 AM EDT Narrative [facility] - 01/10/2023 10:01 AM EDT Specimen requisition ordered. ??Separate Pathology report to follow Helen Arita MD PATHOLOGY/CYTOLOGY [facility] [place] [address] documented in this encounter Visit Diagnoses Diagnosis Abnormal finding on breast imaging Other (abnormal) findings on radiological examination of breast documented in this encounter Administered Medications Inactive Administered Medications - up to 3 most recent administrations Medication Order MAR Action Action Date Dose Rate Site lidocaine (Xylocaine) 1% (10 mg/mL) injection 0-200 mg 0-200 mg (0-20 mL), Subcutaneous, ONCE, 1 dose, On Fri01/10/23 at 0945, Radiology Protocol Medication, Routine Given 01/10/2023 9:45 AM EDT 10 mg documented in this encounter Care Teams Media Account Executive Relationship Specialty Start Date End Date Ginger Riddle MD [address] [place] [address] PCP - General Family Medicine 09/27/16 documented as of this encounter
--- OUTSIDE RECORDS SUMMARY | 2024-01-09 00:41 | XMS_ITS | Encounter Summary ---
Author Organization [facility] Address [facility] [place] [address] Care Team Providers Care Food Service Representative Name Role Phone Ginger Riddle MD Primary Care Provider [phone] Encounter Details Date Type Department Care Team (Latest Contact Info) Description 01/09/2023 1:42 PM EDT - 01/09/2023 11:59 PM EDT Hospital [place] [phone] Li Delgado, AUTOMOTIVE FLEET SUPERVISOR [address] [place] [address] Lump in lower inner quadrant of left breast; Mass of breast, unspecified laterality; Mass of right breast, unspecified quadrant Discharge Disposition: Home Social History Tobacco Use [...] 01/29/2024 1:40 PM EDT Appointment Mammography/[place] [address] Ginger Riddle MD [address] [place] [address] documented as of this encounter Procedures Procedure Name Priority Date/Time Associated Diagnosis Comments MAMMO BREAST US LIMITED BILATERAL Routine 01/09/2023 2:42 PM EDT Lump in lower inner quadrant of left breast Mass of breast, unspecified laterality Mass of right breast, unspecified quadrant documented in this encounter Results * US Breast Limited Bilat (01/09/2023 2:42 PM EDT) Anatomical Region Laterality Modality Breast [...] who have questions please contact the health patient care manager that requested your imaging first. ? Electronically signed by: Janice Faust MD, [facility] ([phone]), at 01/09/2023 4:09 PM Narrative 01/09/2023 4:09 PM EDT DIAGNOSTIC MAMMOGRAPHY [...] the nipple. Multiple simple cysts. Li Delgado APRN IMG MAMMO ORDERABLES documented in this encounter Visit Diagnoses Diagnosis Lump in lower inner quadrant of left breast Mass of breast, unspecified laterality Mass of right breast, unspecified quadrant documented in this encounter Care Teams Food Service Representative Relationship Specialty Start Date End Date Ginger Riddle MD [address] [place] [address] PCP - General Family Medicine 09/27/16 documented as of this encounter
--- OUTSIDE RECORDS SUMMARY | 2024-01-09 00:41 | XMS_ITS | Encounter Summary ---
Author Organization [facility] Address [facility] [place] [address] Care Team Providers Care Senior Copywriter Name Role Phone Ginger Riddle MD Primary Care Provider [phone] Encounter Details Date Type Department Care Team (Latest Contact Info) Description 01/10/2023 9:10 AM EDT - 01/10/2023 11:59 PM EDT Hospital [place] [phone] Janice Faust MD [facility] DR DIAGNOST[place] [address] Abnormal finding on breast imaging Discharge Disposition: [...] 01/29/2024 1:40 PM EDT Appointment Mammography/[place] [address] Ginger Riddle MD [address] [place] [address] documented as of this encounter Procedures Procedure Name Priority Date/Time Associated Diagnosis Comments MAMMO DIAGNOSTIC WITHOUT CAD LEFT Routine 01/10/2023 10:27 AM EDT Abnormal finding on breast imaging documented in this encounter Results * Mammo Diagnostic Without Cad Left (01/10/2023 10:27 AM EDT) Anatomical Region Laterality Modality Breast [...] who have questions please contact the health career and guidance counselor that requested your imaging first. ? Narrative 01/17/2023 10:44 AM EDT ULTRASOUND GUIDED [...] using a Bard Monopty 14g device. A Ahometo Munson 14G marker clip was placed. Cranio-caudal and lateral digital mammography performed to determine biopsy marker placement, which was shown to be at the expected location. COMPLICATIONS: None. ? 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 Janice Faust MD IMG MAMMO ORDERABLES documented in this encounter Visit Diagnoses Diagnosis Abnormal finding on breast imaging Other (abnormal) findings on radiological examination of breast documented in this encounter Care Teams Senior Copywriter Relationship Specialty Start Date End Date Ginger Riddle MD [address] [place] [address] PCP - General Family Medicine 09/27/16 documented as of this encounter
--- OUTSIDE RECORDS SUMMARY | 2024-01-09 00:41 | XMS_ITS | Encounter Summary ---
Author Organization [facility] Address [facility] [place] [address] Care Team Providers Care Clinical Business Manager Name Role Phone Ginger Riddle MD Primary Care Provider [phone] Encounter Details Date Type Department Care Team (Latest Contact Info) Description 11/03/2017 1:46 PM EDT - 11/03/2017 11:59 PM EDT Hospital [place] [phone] Jeff Marsh MD [facility] [place] [address] Abnormal finding on breast imaging Discharge Disposition: [...] daily. 11/19/2017 documented as of this encounter Plan of Treatment Upcoming Encounters Date Type Department Care Team (Late st Contact Info) Description 01/29/2024 1:40 PM EDT Appointment Mammography/[place] [address] Ginger Riddle MD [address] [place] [address] documented as of this encounter Procedures Procedure Name Priority Date/Time Associated Diagnosis Comments MAMMO BREAST US LIMITED LEFT Routine 11/03/2017 3:01 PM EDT Abnormal finding on breast imaging documented in this encounter Results * US Breast Limited Left (11/03/2017 3:01 PM EDT) Anatomical Region Laterality Modality Breast Left Mammography Narrative 11/03/2017 3:36 PM EDT DIAGNOSTIC MAMMOGRAPHY AND ULTRASOUND OF THE LEFT BREAST CLINICAL HISTORY: abnormal finding. TECHNIQUE AND VIEWS OBTAINED: Images acquired with direct digital capture LEFT mL, LEFT spot CC, LEFT spot MLO. ??Tomographic imaging was performed The exam was evaluated by CAD version 8.3.17.. ??Ultrasound was performed of the Upper Inner Quadrant COMPARISONS: Portable priors BREAST DENSITY: There are scattered areas of fibroglandular density FINDINGS: In the upper inner quadrant of the LEFT breast and retroareolar area she has multiple small nodular opacities, most of which have been stable since the patient's earlier studies help. However best seen on the LEFT CC rafal image 37, there is a 1 cm spiculated mass at 12:00 6 cm from the nipple. This could not be identified by ultrasound although she has myriad tiny cysts and collections of focal fibrocystic disease. This area could be an additional area of focal fibrocystic change, but in view of the worrisome mammographic characteristics stereotactic biopsy is recommended DIAGNOSTIC SUMMARY: LEFT BREAST LESION #1 1 cm Mass ??upper Quadrant 12 OClock 6 cm from the nipple INTERPRETATION: BIRADS 4. Suspicious for malignancy RECOMMENDATION: Rafal guided biopsy which has been scheduled Jeff Marsh MD IMG MAMMO ORDERABLES documented in this encounter Visit Diagnoses Diagnosis Abnormal finding on breast imaging Other (abnormal) findings on radiological examination of breast documented in this encounter Care Teams Clinical Business Manager Relationship Specialty Start Date End Date Ginger Riddle MD [address] [place] [address] PCP - General Family Medicine 09/27/16 documented as of this encounter
--- OUTSIDE RECORDS SUMMARY | 2024-01-09 00:41 | XMS_ITS | Encounter Summary ---
[place] [address] Care Team Providers Care Superintendent Meters Name Role Phone Ginger Riddle MD Primary Care Provider [phone] Encounter Details Date Type Department Care Team (Latest Contact Info) Description 08/16/2022 Travel Social History Tobacco Use Types Packs/Day [...] 01/29/2024 1:40 PM EDT Appointment Mammography[place] [address] Ginger Riddle MD [address] [place], [place] [address] documented as of this encounter Visit Diagnoses Not on filedocumented in this encounter Care Teams Superintendent Meters Relationship Specialty Start Date End Date Ginger Riddle MD [address] [place], [place] [address] PCP - General Family Medicine 09/27/16 documented as of this encounter
--- OUTSIDE RECORDS SUMMARY | 2024-01-09 00:41 | XMS_ITS | Encounter Summary ---
[place] [address] Care Team Providers Care Flue Lining Dipper Name Role Phone Ginger Riddle MD Primary Care Provider [phone] Encounter Details Date Type Department Care Team (Late st Contact Info) Description 09/25/2018 9:30 AM EDT Office Visit Dermatology at [address] [address] Dickson Dow MD [address] [facility], [place] [address] Seborrheic keratosis; Seborrheic keratosis, inflamed Social History Tobacco Use [...] Progress Notes * Dickson Dow MD - 09/25/2018 9:30 AM EDT Problem: New skin lesions of concern Marcela follows up and is now 73. She has some lesions on her neck that are often rubbed and irritated. She like to have them removed Physical examination reveals a pleasant 73 woman who has some irritated seborrheic keratoses present on the left upper forehead near the hairline, and several on the lateral neck left and right. Otherwise examination of the face the neck hands arms and forearms is benign. Assessment and plan: Seborrheic keratosis, irritated 1. LN 2 x 2 applied each of 6 sites 2. Patient reassured about their benign nature 3. Return to clinic here as needed. CC: Ginger Thorne MD documented in this encounter Plan of Treatment Upcoming Encounters Date Type Department Care Team (Late st Contact Info) Description 01/29/2024 1:40 PM EDT Appointment Mammography/[place] [address] Ginger Riddle MD [address] [place] [address] documented as of this encounter Visit Diagnoses Diagnosis Seborrheic keratosis Other seborrheic keratosis Seborrheic keratosis, inflamed Inflamed seborrheic keratosis documented in this encounter Care Teams Flue Lining Dipper Relationship Specialty Start Date End Date Ginger Riddle MD [address] [place] [address] PCP - General Family Medicine 09/27/16 documented as of this encounter
--- OUTSIDE RECORDS SUMMARY | 2024-01-09 00:41 | XMS_ITS | Encounter Summary ---
Author Organization [facility] Address [place] [address] Care Team Providers Care Hay Sorter Name Role Phone Ginger Riddle MD Primary Care Provider [phone] Encounter Details Date Type Department Care Team (Latest Contact Info) Description 07/06/2021 11:00 AM EST - 07/06/2021 11:59 PM EST Hospital Encounter Mammography/[place] [phone] Ginger Riddle MD [address] [place] [address] Encounter for screening mammogram for breast cancer [...] mometasone (ELOCON) 0.1 % Cream 02/23/2019 07/21/2023 chlorhexidine (PERIDEX) 0.12 % Mouthwash 08/22/2017 07/15/2022 documented as of this encounter Plan of Treatment Upcoming Encounters Date Type Department Care Team (Late st Contact Info) Description 01/29/2024 1:40 PM EDT Appointment Mammography/[place] [address] Ginger Riddle MD [address] [place] [address] documented as of this encounter Procedures Procedure Name Priority Date/Time Associated Diagnosis Comments MAMMO SCREENING CAD AND MONTY BILATERAL Routine 07/06/2021 11:15 AM EST Encounter for screening mammogram for breast cancer documented in this encounter Results * Mammo Screening Cad and Monty Bilateral (07/06/2021 11:15 AM EST) Anatomical Region Laterality Modality Breast Bilateral Mammography Narrative 07/06/2021 11:27 AM EST BILATERAL MAMMOGRAPHY REASON FOR EXAM: Screening TECHNIQUE: CC and MLO views were obtained of each breast using standard 2-D mammography as well as 3-D tomosynthesis. Computer aided detection was used. This is compared with prior images. FINDINGS: ??The breasts are heterogeneously dense, which may obscure small masses. There are no suspicious microcalcifications, masses, or areas of distortion. The pattern is stable. CONCLUSION: No mammographic evidence of malignancy. RECOMMENDATION: Regular screening mammograms starting between age 40 and 50 reduces the risk of from breast cancer. All screening tests have both risks and benefits. These risks and benefits should be assessed for each individual patient through discussion with their provider to determine their preferred breast cancer screening schedule. Women should report any breast changes to a health care provider right away. Some women, because of their family history, a genetic tendency, or other factors, should be screened with annual breast MRI as well as with mammograms. (The number of women who fall into this category is very small). Patients and health care providers should discuss each patient? s history to decide if earlier screening and/or breast MRI are appropriate. Screening should continue as long as a woman is in good health and is expected to live 10 years or longer. Screening mammography may not detect 10-15% of breast cancers. A result letter has been sent to this patient by the [facility]. BIRADS CATEGORY 1: NEGATIVE Electronically signed by: JUAN MIGUEL MONDRAGON MD Ginger Riddle MD IMG MAMMO ORDERABLES documented in this encounter Visit Diagnoses Diagnosis Encounter for screening mammogram for breast cancer documented in this encounter Care Teams Hay Sorter Relationship Specialty Start Date End Date Ginger Riddle MD [address] [place] [address] PCP - General Family Medicine 09/27/16 documented as of this encounter
--- OUTSIDE RECORDS SUMMARY | 2024-01-09 00:41 | XMS_ITS | Encounter Summary ---
[place] [address] Care Team Providers Care Slab Miller Operator Name Role Phone Ginger Riddle MD Primary Care Provider [phone] Reason for Visit * Reason Comments Follow-up Skin Check Encounter Details Date Type Department Care Team (Late st Contact Info) Description 01/02/2018 2:30 PM EDT Office Visit Dermatology at [address] [address] Dickson Dow MD [address] [facility] [place] [address] Seborrheic keratosis; Inflamed acrochordon Social History Tobacco Use Types [...] Progress Notes * Dickson Dow MD - 01/02/2018 2:30 PM EDT Problem: New skin lesions of concern Marcela follows up is now 72. She has some new lesions of concern. She shares with me that she has 2 daughters, one has been living in [place] with her and 5-year-old boy and will be moving to [place] and the other one living with her in [place]. Physical examination reveals a pleasant 72-year-old woman who has had an irritated inflamed tag that necrosed and fell off underneath her right arm. It appears to be healing well. She has several irritated seborrheic keratoses one on the left forehead one on the left base of her neck and one on herright lateral shoulder otherwise examination of the face the upper chest the back the hands informsis benign. Assessment and plan: Seborrheic keratoses, irritated 1. LN 2 x 2 applied each of 3 sites 2. Patient reassured about the benign nature 3. Return to clinic as needed Irritated acrochordon right inferior axillary vault 1. History of resolved 2. No treatment necessary 3. Return to clinic here as needed. CC: Ginger Riddle MD documented in this encounter Plan of Treatment Upcoming Encounters Date Type Department Care Team (Late st Contact Info) Description 01/29/2024 1:40 PM EDT Appointment Mammography/[place] [address] Ginger Riddle MD [address] [place] [address] documented as of this encounter Visit Diagnoses Diagnosis Seborrheic keratosis Other seborrheic keratosis Inflamed acrochordon Unspecified hypertrophic and atrophic condition of skin documented in this encounter Care Teams Slab Miller Operator Relationship Specialty Start Date End Date Ginger Riddle MD [address] [place] [address] PCP - General Family Medicine 09/27/16 documented as of this encounter
--- OUTSIDE RECORDS SUMMARY | 2024-01-09 00:41 | XMS_ITS | Encounter Summary ---
Author Organization [facility] Address [facility] [place] [address] Care Team Providers Care Implant Coordinator Name Role Phone Ginger Riddle MD Primary Care Provider Encounter Details Date Type Department Care Team (Late st Contact Info) Description 11/19/2017 Orders Only [place] [address] Kateryna Farah MD [facility] [place] [place] [address] Malignant neoplasm of left female breast, unspecified estrogen receptor status, unspecified site of breast Social History Tobacco Use Types Packs/Day Years Used Date Smoking Tobacco: Never Smokeless Tobacco: Never Sex and Gender Information Value Date Recorded Sex Assigned at Not on file Gender Identity Not on file Sexual Orientation Not on file documented as of this encounter Plan of Treatment Upcoming Encounters Date Type Department Care Team (Late st Contact Info) Description 01/29/2024 1:40 PM EDT Appointment Mammography/[place] [address] Ginger Riddle MD [address] [address] documented as of this encounter Results * Mammo Specimen Left (12/04/2017 10:35 AM EDT) Anatomical Region Laterality Modality Breast Left Mammography Narrative 12/04/2017 1:16 PM EDT A radiograph was obtained of the excised Left breast specimen. The needle localization wire, [clip] and mass are in the specimen. ??Margins were felt to be adequate by single plane radiography. ??Dr. Farah was informed in the operating room of the results by Dr. Faust at 10:30 hours. MD STEPHANIE Townsend MAMMO DARONA BLES * Mammo Needle Localization Left (12/04/2017 9:12 [...] with digital mammographic guidance. A 7 cm ShareThis Bard needle was used. Cranio-caudal and 90 degree digital mammography views were obtained following localization to document wire position. ??Images were annotated on PACS for the operating surgeon. Resident: Phillip Friedman performed the procedure with the resident observing. Kateryna Duran MD Aida MAMMAve SALCEDO BLENeymar documented in this encounter Visit Diagnoses Diagnosis Malignant neoplasm of left female breast, unspecified estrogen receptor status, unspecified site of breast Malignant neoplasm of left female breast, unspecified estrogen receptor status, unspecified site of breast Malignant neoplasm of left female breast, unspecified estrogen receptor status, unspecified site of breast documented in this encounter Care Teams Implant Coordinator Relationship Specialty Start Date End Date Ginger Riddle MD [address] [place] [address] PCP - General Family Medicine 09/27/16 documented as of this encounter
--- OUTSIDE RECORDS SUMMARY | 2024-01-09 00:41 | XMS_ITS | Encounter Summary ---
Author Organization [facility] Address [facility] [place] [address] Care Team Providers Care Conveyor Belt Repairer Name Role Phone Ginger Riddle MD Primary Care Provider [phone] Encounter Details Date Type Department Care Team (Latest Contact Info) Description 01/09/2023 1:00 PM EDT - 01/09/2023 1:41 PM EDT Hospital [place] [phone] Li Delgado, SHOP TAILOR APPRENTICE [address] [place] [address] Lump in lower inner quadrant of left [...] 01/29/2024 1:40 PM EDT Appointment Mammography/[place] [address] Ginger Riddle MD [address] [place] [address] documented as of this encounter Procedures Procedure Name Priority Date/Time Associated Diagnosis Comments MAMMO DIAGNOSTIC CAD AND MONTY BILATERAL Routine 01/09/2023 1:41 PM EDT Lump in lower inner quadrant of left breast Mass of breast, unspecified laterality Mass of right breast, unspecified quadrant documented in this encounter Results * Mammo Diagnostic CAD and Monty [...] have questions please contact the health career development associate that requested your imaging first. ? Narrative [...] quadrant documented in this encounter Care Teams Conveyor Belt Repairer Relationship Specialty Start Date End Date Ginger Riddle MD [address] [place] [address] PCP - General Family Medicine 09/27/16 documented as of this encounter
--- OUTSIDE RECORDS SUMMARY | 2024-01-09 00:41 | XMS_ITS | Encounter Summary ---
Author Organization [facility] Address [facility] [place] [address] Care Team Providers Care Asset Protection Lead Name Role Phone Ginger Riddle MD Primary Care Provider [phone] Encounter Details Date Type Department Care Team (Late st Contact Info) Description 12/04/2017 8:30 AM EDT Hospital En[place] [address] Kateryna Farah MD [facility] [place] [address] Malignant neoplasm of left female breast, unspecified [...] 09/05/2017 01/02/2018 documented as of this encounter Plan of Treatment Upcoming Encounters Date Type Department Care Team (Late st Contact Info) Description 01/29/2024 1:40 PM EDT Appointment Mammography/[place] [address] Ginger Riddle MD [address] [place] [address] documented as of this encounter Procedures Procedure Name Priority Date/Time Associated Diagnosis Comments MAMMO SPECIMEN LEFT Routine 12/04/2017 1 0:35 AM EDT Malignant neoplasm of left female breast, unspecified estrogen receptor status, unspecified site of breast documented in this encounter Results * Mammo Specimen Left [...] results by Dr. Faust at 10:30 hours. Kateryna Duran MD IMG MAMMO ORDERA BLES documented in this encounter Visit Diagnoses Diagnosis Malignant neoplasm of left female breast, unspecified estrogen receptor status, unspecified site of breast documented in this encounter Care Teams Asset Protection Lead Relationship Specialty Start Date End Date Ginger Riddle MD [address] [place] [address] PCP - General Family Medicine 09/27/16 documented as of this encounter
--- OUTSIDE RECORDS SUMMARY | 2024-01-09 00:41 | XMS_ITS | Encounter Summary ---
[place] [address] Care Team Providers Care Seal Delivery Vehicle Officer Name Role Phone Ginger Riddle MD Primary Care Provider Reason for Visit * Reason Comments Skin Check Encounter Details Date Type Department Care Team (Late st Contact Info) Description 07/15/2022 2:15 PM EDT Office Visit Dermatology at [address] [phone] Dickson Dow MD [address] [facility] [place] [address] Seborrheic keratosis, inflamed; Seborrheic keratosis Social History Tobacco Use Types [...] Progress Notes * Dickson Dow MD - 07/15/2022 2:15 PM EDT Problem: Skin lesions of concern Marcela follows up for a repeat skin checkup. It has been 2 years since her last visit. She has some irritated moles today on the left lateral base of her neck and some on the left flank. Physical examination reveals seborrheic keratoses present above-noted sites Assessment plan: Seborrheic keratosis, often irritated. 1. After obtaining informed patient consent, the sites were treated with LN 2 x 2 [address] wound care instructions given 3. Return clinic as needed for new lesion/concerns. CC: Ginger Riddle MD documented in this encounter Plan of Treatment Upcoming Encounters Date Type Department Care Team (Late st Contact Info) Description 01/29/2024 1:40 PM EDT Appointment Mammography/[place] [address] Ginger Riddle MD [address] [place] [address] documented as of this encounter Visit Diagnoses Diagnosis Seborrheic keratosis, inflamed Inflamed seborrheic keratosis Seborrheic keratosis Other seborrheic keratosis documented in this encounter Care Teams Seal Delivery Vehicle Officer Relationship Specialty Start Date End Date Ginger Riddle MD [address] [place] [address] PCP - General Family Medicine 09/27/16 documented as of this encounter
--- OUTSIDE RECORDS SUMMARY | 2024-01-09 00:41 | XMS_ITS | Encounter Summary ---
Author Organization [facility] Address [facility] [place] [address] Care Team Providers Care Rehab Consultant Name Role Phone Ginger Riddle MD Primary Care Provider [phone] Encounter Details Date Type Department Care Team (Latest Contact Info) Description 12/02/2018 10:31 AM EDT - 12/02/2018 11:59 PM EDT Hospital Encounter [place] [phone] Jeff Marsh MD [facility] [place] [address] Abnormal mammogram Discharge Disposition: Home Social History [...] 01/29/2024 1:40 PM EDT Appointment Mammography/[place] [address] Ginger Riddle MD [address] [place] [address] documented as of this encounter Procedures Procedure Name Priority Date/Time Associated Diagnosis Comments MAMMO BREAST US LIMITED RIGHT Routine 12/02/2018 11:13 AM EDT Abnormal mammogram documented in this encounter Results * US Breast Limited Right (12/02/2018 11:13 AM EDT) Anatomical Region Laterality Modality Breast Right Mammography Impressions 12/02/2018 11:22 AM EDT Right breast: Diagnostic mammography and personally directed ultrasound revealing multiple simple cysts, one of which corroborates with the screening mammographic findings. No suspicious findings. RECOMMENDATION: Annual mammography. These findings and recommendations discussed with the patient, who concurs. Right breast: BI-RADS 2, benign findings. * ??The [employer] and The Society of Breast Imaging recommend annual screening beginning at age 40 for the general female population. * ??Screening should continue as long as a woman is in good health and is expected to live 10 more years or longer. * ??All women should be familiar with the known benefits, limitations, and potential harms linked to breast cancer screening. They also should know how their breasts normally look and feel and report any breast changes to a health care provider right away. * ??Some women, because of their family history, a genetic tendency, or certain other factors, should be screened with MRIs along with mammograms. (The number of women who fall into this category is very small.) The patient and health care provider should discuss the patient history and decide if earlier screening and breast MRI are appropriate. Thank you for letting us participate in the care of this patient. For questions regarding this report, please contact the number below. ? Narrative 12/02/2018 11:22 AM EDT DIAGNOSTIC MAMMOGRAPHY AND ULTRASOUND OF THE RIGHT BREAST CLINICAL HISTORY: Abnormal mammogram. 73-year-old female, diagnostic imaging, from screening views. TECHNIQUE AND VIEWS OBTAINED: 2D digitally acquired Craniocaudal (CC) and Medio-lateral oblique (MLO) views were obtained of the right breast. ??3D tomosynthesis images were obtained in addition to 2D images. Computer Assisted Detection was used. COMPARISONS: None BREAST DENSITY: The breasts are heterogeneously dense, which may obscure small masses FINDINGS MAMMOGRAPHY: Right breast: At the site of upper and outer right breast 10:00 screening findings, isodense obscured mass is appreciated, measuring approximately 7 mm. Additional small masses are appreciated, which appear stable since comparison examination. FINDINGS ULTRASOUND: Personally directed and targeted right breast ultrasound at the site of screening concern, right breast, 10:00, 7 cm from the nipple anechoic mass with mild internal debris, with acoustic enhancement, and without internal vascularity. Multiple additional nearby cysts are identified corroborating with the mammographic findings. A generous survey of the nearby tissues without suspicious abnormality. Jeff Marsh MD IMG MAMMO ORDERABLES documented in this encounter Visit Diagnoses Diagnosis Abnormal mammogram Abnormal mammogram, unspecified documented in this encounter Care Teams Rehab Consultant Relationship Specialty Start Date End Date Ginger Riddle MD [address] [place] [address] PCP - General Family Medicine 09/27/16 documented as of this encounter
--- OUTSIDE RECORDS SUMMARY | 2024-01-09 00:41 | XMS_ITS | Encounter Summary ---
Author Organization [facility] [address] Care Team Providers Care Sewer Inspector Name Role Phone Ginger Riddle MD Primary Care Provider [phone] Reason for Visit * Auth/Cert Specialty Diagnoses / Procedures Referred By Charly [email or web address] Referred To Contact Diagnoses LEFT BREAST LESION Procedures PRO EXCISE BREAST LES W XRAY MARKER EXCISION LESION, BREAST W/ PREOP.MARKER (NEEDLE LOC.) (WRVU 6.69) Referral ID Status Reason Start Date Expiration Date Visits Re quested Visits Authorized [id number] 1 1 Encounter Details Date Type Department Care Team (Late st Contact Info) Description 12/04/2017 9:30 AM EDT - 12/04/2017 10:58 AM EDT Surgery [place] [phone] Steven Romero MD [facility] [place] [address] EXCISION LESION, BREAST W/ PREOP.MARKER (NEEDLE LOC.) (WRVU 6.69) Social History Tobacco Use Types Packs/Day Years [...] Sign Reading Time Taken Comments Blood Pressure 117/57 12/04/2017 10:57 AM EDT Pulse 77 12/04/2017 7:52 AM EDT Temperature 36.2 ??C (97.2 ??F) 12/04/2017 10:57 AM E DT Respiratory Rate 16 12/04/2017 7:52 AM EDT Oxygen Saturation 97% 12/04/2017 10:57 AM EDT Inhaled Oxygen Concentration - - [...] Dr. Romero in 2-3 weeks Please call [phone] to confirm date and time of your appointment if you do not hear from us inthe week. Future Appointments Date Time Provider Department Center 12/18/2017 10:00 AM Adia Wilson APRN [facility] 01/02/2018 2:30 PM Dickson Dow MD [facility] Call Doctor for: Worsening redness or drainage from your incision lasting longer than 5 days following surgery Any foul-smelling drainage from the incision Fevers greater than 101 degrees F Persistent nausea or vomiting (this may be related to opioid pain medications) Phone number for questions: [phone] before 5 PM weekdays [phone] after 5 PM and on weekends/holidays documented [...] a 72 y.o. female who presents to [facility] [place] WLE of a spiculated breast mass. [...] Romero MD - 12/04/2017 10:41 AM EDT [facility] Operative Note Patient Name: Marcela Yousif : [id number] MR#: [id number] Case Date: 12/04/2017 Surgeon: Surgeon(s) and Role: [...] Order Time [place] 8 [address]002 LEFT BREAST LESION Left breast mass. excision [...] Operative Note Patient Name: Marcela Yousif : [id number] MR#: [id number] Case Date: 12/04/2017 Surgeon: Surgeon(s) and Role: [...] Order Time SPECIMEN [place] PATHOLOGY OR 8 68607 LEFT BREAST LESION Left breast mass. excision [...] 01/29/2024 1:40 PM EDT Appointment Mammography/[place] [address] Ginger Riddle MD [address] [place] [address] documented as of this encounter Procedures Procedure Name Priority Date/Time Associated Diagnosis Comments SPECIMEN TO PATHOLOGY Routine 12/04/2017 10:21 AM EDT EXCISION LESION, BREAST W/ PREOP.MARKER (NEEDLE LOC.) (WRVU 6.69) 12/04/2017 9:40 AM EDT LEFT BREAST LESION documented in this encounter Results * Specimen to Pathology (12/04/2017 10:21 AM EDT) AP Specimen 12/04/2017 10:2 1 AM EDT 12/04/2017 11:[address] [facility] - 12/04/2017 11:15 AM EDT Specimen requisition ordered. ??Separate Pathology report to follow Resulting Agency Comment Spec In Lab Steven Duran MD PATHOLOGY/CYTOLO GY ORDERABLES [facility] [place] [address] documented in this encounter Visit Diagnoses Not [...] Given 12/04/2017 8:48 AM EDT 1,000 mg BUpivacaine (PF) (MARCAINE) 0.5 % (5 mg/mL) injection ONCE PRN, Starting on Ofelia 12/04/17 at 1040, Until Ofelia 12/04/17 at 1713, Intra-Operative (Intra-Procedure), Routine Given 12/04/2017 10:40 AM EDT 5 mLs 19- Surgical Site ketorolac (TORADOL) injection 15 mg 15 mg, [...] 8:15 AM EDT 1,000 mLs 100 mL/hr lidocaine (XYLOCAINE) 10 mg/mL (1 %) injection ONCE PRN, Starting on Ofelia 12/04/17 at 1041, Until Ofelia 12/04/17 at 1713, Intra-Operative (Intra-Procedure), Routine Given 12/04/2017 10:41 AM EDT 5 mLs 19- Surgical Site ondansetron (ZOFRAN) injection 4 mg 4 mg, [...] injection (CANCELED) ONCE PRN, Starting on Ofelia 12/04/17 at 1040, Until Ofelia 12/04/17 at 1713, Intra-Operative (Intra-Procedure), Routine 1040 (Given - Provid er: Dickson Carpenter MD - Comment: 5mL of 0.5% bupivacaine mixed 1:1 with 5m: of 1% lidocaine for a total of 10mL.) lidocaine (XYLOCAINE) 10 mg/mL (1 %) injection (CANCELED) ONCE PRN, Starting on Ofelia 12/04/17 at 1041, Until Ofelia 818 at 1713, Intra-Operative (Intra-Procedure), Routine 1041 (Given - Provid er: Dickson Carpenter MD - Comment: 5mL of 0.5% bupivacaine mixed 1:1 with 5m: of 1% lidocaine for a total of 10mL.) ondansetron (ZOFRAN) injection 4 mg (CANCELED) 4 mg, Intravenous, EVERY 30 MIN PRN, Starting on Ofelia 12/04/17 at 1101, Until Ofelia 8 at 1511, Nausea, May repeat 4 mg once in 30 minutes. If multiple antiemetics ordered, use ondansetron first and if ineffective use prochlorperazine second and if ineffective use promethazine, PACU Recovery 1321 (Given - Provid er: Melinda Garcia RN) documented in this encounter Care Teams Sewer Inspector Relationship Specialty Start Date End Date Ginger Riddle MD [address] [place] [address] PCP - General Family Medicine 09/27/16 documented as of this encounter
--- OUTSIDE RECORDS SUMMARY | 2024-01-09 00:41 | XMS_ITS | Encounter Summary ---
Author Organization [facility] Address [facility] [place] [address] Care Team Providers Care Car Mechanic Name Role Phone Ginger Riddle MD Primary Care Provider [phone] Encounter Details Date Type Department Care Team (Latest Contact Info) Description 12/02/2018 10:30 AM EDT Hospital En[place] [address] Jeff Marsh MD [facility] [place] [address] Abnormal mammogram Discharge Disposition: Home Social History [...] 01/29/2024 1:40 PM EDT Appointment Mammography/[place] [address] Ginger Riddle MD [address] [place] [address] documented as of this encounter Procedures Procedure Name Priority Date/Time Associated Diagnosis Comments MAMMO CALL BACK DIAGNOSTIC MONTY WITHOUT CAD RIGHT Routine 12/02/2018 11:00 AM EDT Abnormal mammogram documented in this encounter Results * Mammo Call Back Diagnostic Monty Without Cad Right (12/02/2018 11:00 AM EDT) Anatomical Region Laterality Modality Breast Right Mammography Impressions 12/02/2018 11:22 AM EDT Right breast: Diagnostic mammography and personally directed ultrasound revealing multiple simple cysts, one of which corroborates with the screening mammographic findings. No suspicious findings. RECOMMENDATION: Annual mammography. These findings and recommendations discussed with the patient, who concurs. Right breast: BI-RADS 2, benign findings. * ??The [employer] and The Society of [...] unspecified documented in this encounter Care Teams Car Mechanic Relationship Specialty Start Date End Date Ginger Riddle MD [address] [place] [address] PCP - General Family Medicine 09/27/16 documented as of this encounter
--- OUTSIDE RECORDS SUMMARY | 2024-01-09 00:41 | XMS_ITS | Encounter Summary ---
Author Organization [facility] [place] [address] Care Team Providers Care Cytology Laboratory Manager Name Role Phone Ginger Riddle MD Primary Care Provider [phone] Encounter Details Date Type Department Care Team (Latest Contact Info) Description 03/10/2020 1:05 PM EST - 03/10/2020 11:59 PM EST Hospital Encounter Mammography[place] [address] Ginger Riddle MD [address] [place], [place] [id number] Encounter for screening mammogram for breast cancer [...] 01/29/2024 1:40 PM EDT Appointment Mammography[place] [address] Ginger Riddle MD [address] [place] [address] documented as of this encounter Procedures Procedure Name Priority Date/Time Associated Diagnosis Comments MAMMO SCREENING CAD AND MONTY BILATERAL Routine 03/10/2020 1:30 PM EST Encounter for screening mammogram for breast cancer documented in this encounter Results * Mammo Screening Cad and Monty Bilateral (03/10/2020 1:30 PM EST) Anatomical Region Laterality Modality Breast Bilateral Mammography Narrative 03/13/2020 11:35 AM EST Bilateral mammography Reason for exam: routine screening Technique: CC and MLO views were obtained of each breast using standard 2-D mammography as well as 3-D tomosynthesis. Computer aided detection was used. Comparison: This is compared with prior images. Findings: The breasts are heterogeneously dense, which may obscure small masses. There are no suspicious microcalcifications, masses, or areas of distortion. The pattern is stable. Stable multiple nondominant well-circumscribed bilateral benign-appearing masses. Conclusion: No mammographic evidence of malignancy. Recommendation: Routine screening. BI-RADS Category 2: Benign findings. * ??Regular screening mammograms starting between age [...] report, please contact the number below. ? Electronically signed by: Jeff Marsh MD, [facility] ([phone]), at 03/13/2020 11:35 AM Ginger Riddle MD IMG MAMMO ORDERABLES documented in this encounter Visit Diagnoses Diagnosis Encounter for screening mammogram for breast cancer documented in this encounter Care Teams Cytology Laboratory Manager Relationship Specialty Start Date End Date Ginger Riddle MD [address] [place] [address] PCP - General Family Medicine 09/27/16 documented as of this encounter
--- OUTSIDE RECORDS SUMMARY | 2024-01-09 00:41 | XMS_ITS | Encounter Summary ---
[place] [address] Care Team Providers Care Student Liaison Officer Name Role Phone Ginger Riddle MD Primary Care Provider [phone] Encounter Details Date Type Department Care Team (Latest Contact Info) Description 07/21/2023 Travel Social History Tobacco Use Types Packs/Day [...] 01/29/2024 1:40 PM EDT Appointment Mammography/[place] [address] Ginger Riddle MD [address] [place], [place] [address] documented as of this encounter Visit Diagnoses Not on filedocumented in this encounter Care Teams Student Liaison Officer Relationship Specialty Start Date End Date Ginger Riddle MD [address] [employer], [place] [address] PCP - General Family Medicine 09/27/16 documented as of this encounter
--- OUTSIDE RECORDS SUMMARY | 2024-01-09 00:41 | XMS_ITS | Encounter Summary ---
[place] [address] Care Team Providers Care Optimization Consultant Name Role Phone Ginger Riddle MD Primary Care Provider Reason for Visit * Reason Comments Annual Exam Encounter Details Date Type Department Care Team (Late st Contact Info) Description 07/21/2023 11:15 AM EDT Office Visit Dermatology at [address] [phone] Dickson Dow MD [address] [facility] [place] [address] Seborrheic keratosis, inflamed; Seborrheic keratosis Social History [...] Progress Notes * Dickson Dow MD - 07/21/2023 11:15 AM EDT Problem: Skin lesions of concern Marcela follows up for a repeat skin checkup. She has had a fair amount of sun exposure from motorcycle riding over the years. Physical examination reveals a pleasant 78-year-old woman who has a benign examination of the head and the neck the back the hands arms forearms thighs and calves. She has a number of irritated seborrheic keratoses. There is no evidence of any cutaneous malignancies. Assessment and plan: Seborrheic keratosis, often irritated 1. Could consider LN2 treatment for the sites 2. Return to clinic in a year for repeat check. CC: Ginger Riddle MD documented in this encounter Plan of Treatment Upcoming Encounters Date Type Department Care Team (Late st Contact Info) Description 01/29/2024 1:40 PM EDT Appointment Mammography[place] [address] Ginger Riddle MD [address] [place], [place] [address] documented as of this encounter Visit Diagnoses Diagnosis Seborrheic keratosis, inflamed Inflamed seborrheic keratosis Seborrheic keratosis Other seborrheic keratosis documented in this encounter Care Teams Optimization Consultant Relationship Specialty Start Date End Date Ginger Riddle MD [address] [place], [place] [address] PCP - General Family Medicine 09/27/16 documented as of this encounter
--- OUTSIDE RECORDS SUMMARY | 2024-01-09 00:41 | XMS_ITS | Encounter Summary ---
[place] [address] Care Team Providers Care Pewter Fabricator Name Role Phone Ginger Riddle MD Primary Care Provider [phone] Encounter Details Date Type Department Care Team (Latest Contact Info) Description 07/15/2022 Travel Social History Tobacco Use Types Packs/Day [...] 01/29/2024 1:40 PM EDT Appointment Mammography/[place] [address] Ginger Riddle MD [address] [place], [place] [address] documented as of this encounter Visit Diagnoses Not on filedocumented in this encounter Care Teams Pewter Fabricator Relationship Specialty Start Date End Date Ginger Riddle MD [address] [employer] [place], [place] [address] PCP - General Family Medicine 09/27/16 documented as of this encounter
--- OUTSIDE RECORDS SUMMARY | 2024-01-09 00:41 | XMS_ITS | Encounter Summary ---
Author Organization [facility] [place] [address] Care Team Providers Care Resident Director Name Role Phone Ginger Riddle MD Primary Care Provider [phone] Reason for Visit * Auth/Cert Specialty Diagnoses / Procedures Referred By Charly mcneill Referred To Contact Diagnoses LEFT BREAST LESION Procedures PRO EXCISE BREAST LES W XRAY MARKER EXCISION LESION, BREAST W/ PREOP.MARKER (NEEDLE LOC.) (WRVU 6.69) Referral ID Status Reason Start Date Expiration Date Visits Re quested Visits Authorized [id number] 1 1 Encounter Details Date Type Department Care Team (Late st Contact Info) Description 12/04/2017 9:44 AM EDT Anesthesia Event [place] [phone] Emilia Lorenzo MD [facility] [place] [address] Anesthesia Record Procedure Summary Procedure Name Responsible Anesthesiologist Anesthesia Start Time Anesthesia Stop Time EXCISION LESION, BREAST W/ PREOP.MARKER (NEEDLE LOC.) (WRVU 6.69) (Left: Breast) Emilia Lorenzo MD 12/04/17 0944 12/04/17 1058 Events Date Time Event Comment 12/04/2017 0832 0944 AN Verify 0944 Start 0944 An Start Data 0952 An Induction 0952 An Intubation 0952 Anesthesia Ready 0955 Break/Relief In EMILIA BARTH MD 1005 Procedure Start 1011 Break/Relief Out 1045 Procedure Stop 1049 Extubation/LMA Out 1050 an stop data 1058 Recovery or ICU Handoff Carli ent care was transferred to the destination unit staff after review of the patient's medical history, current anesthetic/surgical status and plan, according to the Provider Handoff Checklist. 1058 Stop Meds Name Total Propofol 200 mg Midazolam 2 mg IV Lidocaine 100 mg Dexamethasone 4 mg Ondansetron 4 mg ePHEDrine 20 mg PHENYLephrine 160 mcg ceFAZolin (ANCEF) 2g in dextrose 5% 100 mL 2 g Morphine 6 mg Propofol INF 509.85 mg lactated Ringers infusion 1,000 mL 0 mL * Agents Name O2 Air N2O Sevoflurane (et) * Blood No blood administrations on file. Lines, Drains, and Airways Type Details Placement Removal Supraglottic Mask Ventilation: Ad junct (2); LMA Size: 4; Inserted by: rod gonzalez; Removal Date: 12/04/17; Removal Time: 1049 12/04/17 0955 by Emilia Lorenzo MD 12/04/17 1049 by Jesus Garner Incision 12/04/17; 1006; karen st; 12/31/21 (LDA cleanup utility RA#[id number]); 1715 (LDA cleanup utility RA#[id number]) 12/04/17 1006 by Pily Yousif RN 12/31/21 1715 by Richi Suarez documented in this encounter Social History Tobacco Use Types Packs/Day Years Used Date Smoking Tobacco: Never Smokeless Tobacco: Never Alcohol Use Standard Drinks/Week Comments No 0 (1 standard drink = 0.6 oz pur e alcohol) Sex and Gender Information Value Date Recorded Sex Assigned at Not on file Gender Identity Not on file Sexual Orientation Not on file documented as of this encounter OR Notes * Anesthesia Postprocedure Evaluation - Emilia Lorenzo MD - 12/04/2017 1:37 PM EDT [facility] [place]iology Post-procedure Note Patient: Marcela Yousif Procedure Summary Date Anesthesia Start Anesthesia Stop Room / Location 12/04/17 0944 [facility] Procedure Diagnosis Surgeon Responsible Provider EXCISION LESION, BREAST W/ PREOP.MARKER (NEEDLE LOC.) (WRVU 6.69) (Left Breast) (LEFT BREAST LESION) Kateryna Farah MD Havidich, Jeana E, MD All Anesthesia Providers: Anesthesiologist: Emilia Lorenzo MD [address] Vendor: Jesus Garner MD Most Recent Vitals: 12/04/17 1315 BP: 126/74 Pulse: Resp: Temp: SpO2: 95% Pain Patient Location: PACU[facility]LOCATED WITHIN [facility] Level of Consciousness: Awake and Alert Pain Management: Satisfactory Analgesia PONV: PONV Resolved with Rx Cardiovascular Status: At Baseline Respiratory Status: At Baseline Postoperative Fluid Status: Intravascular EUvolemia Possible Anesthetic Complications: NONE apparent at time of evaluation Final Primary Anesthesia Type: General (The anesthetic type performed was the same as planned.) Comments: Awake and alert. Patient with some sensation of feeling tired in her legs. Endorses some nausea which resolved with zofran. Denies pain. * Anesthesia Preprocedure Evaluation - Jesus Garner - 12/03/2017 6:12 PM EDT Pre-Anesthesia Evaluation for: Marcela Yousif a 72 y.o. female. Procedure(s): EXCISION LESION, BREAST W/ PREOP.MARKER (NEEDLE LOC.) (WRVU 6.69) Patient Active Problem List Diagnosis ??? Visit for suture removal ??? Seborrheic keratosis, inflamed ??? Nevus ??? AK (actinic keratosis) ??? Seborrheic keratosis History reviewed. No pertinent past medical history. History reviewed. No pertinent surgical history. Social History Substance Use Topics ??? Smoking status: Never Smoker ??? Smokeless tobacco: Never Used ??? Alcohol use No History Drug Use Not on file No Known Allergies Medications: MAR and/or home medications have been reviewed. Physical Exam: There were no vitals filed for this visit. There is no height or weight on file to calculate BMI. Airway Assessment: Mallampati: I TM distance: >3 FB Neck ROM: full Cardiovascular Assessment: Rhythm: regular Rate: normal Pulmonary Assessment: breath sounds clear to auscultation Dental Assessment: - normal exam Misc Assessment: IV access: Peripheral line Anesthesia Plan: ASA 2 general, with a(n) intravenous induction This is a 72 y.o. female here for excision of a left breast lesion with NLOC prior. PMHx significant for HTN taking cozaar and atenolol, as well as chronic cough with normal PFTs and without GERD symptoms triggered by opening mouth widely and eating workup by pulmonology without clear etiology. Patient's documented history was negative for seizures, hepatic/renal disease or coagulopathy. Medications allergies reviewed and listed below. Allergies: No Known Allergies Anesthetic History: No prior anesthetic documentation. Anesthetic Plan: GA with LMA and ETT backup Standard ASA monitoring Adequate IV access Jesus Garner MD 12/03/2017 Region - Other Informed Consent: Anesthetic plan and risks discussed with patient. Plan discussed with attending. PAT Staff Note documented in this encounter Plan of Treatment Upcoming Encounters Date Type Department Care Team (Late st Contact Info) Description 01/29/2024 1:40 PM EDT Appointment Mammography/[place] [phone] Ginger Riddle MD [address] [place] [id number] documented as of this encounter Visit Diagnoses Not on filedocumented in this encounter Administered Medications Inactive Administered Medications - up to 3 most recent administrations Medication Order MAR Action Action Date Dose Rate Site ceFAZolin (ANCEF) 2g in dextrose 5% 100 mL 2 g, Intravenous, EVERY 3 HOURS, 1 dose, First dose on Ofelia 12/04/17 at 0815, Administer over 30 Minutes, Intra-Operative (Intra-Procedure), Indication for (Active or Suspected): Prophylaxis Given 12/04/2017 9:52 AM EDT 2 g dexamethasone (DECADRON) injection Intravenous, PRN, Starting on Ofelia 12/04/17 at 0953, Until Ofelia 8 at 1058, Anesthesia Intra-op, Routine Given 12/04/2017 9:53 AM EDT 4 mg ePHEDrine 5 mg/mL multi-dose injection Intravenous, PRN, Starting on Ofelia 18 at 0959, Until Ofelia 818 at 1058, Anesthesia Intra-op, Routine Given 12/04/2017 10:03 AM EDT 10 mg Given 12/04/2017 9:59 AM EDT 10 mg lactated Ringers infusion 1,000 mL 1,000 mL, at 100 mL/hr, Intravenous, CONTINUOUS, Starting on Ofelia 8 at 0815, Until Ofelia 12/04/17 at 1511, Day of Surgery (Day of Procedure) New Bag 12/04/2017 9:44 AM EDT New Bag 12/04/2017 8:15 AM EDT 1,000 mLs 100 mL/hr lidocaine (PF) (XYLOCAINE) 100 mg/5 mL (2 %) injection Intravenous, PRN, Starting on Ofelia 8 at 0953, Until Ofelia 818 at 1058, Anesthesia Intra-op, Routine Given 12/04/2017 9:53 AM EDT 100 mg midazolam (PF) (VERSED) 1 mg/mL multi-dose injection Intravenous, PRN, Starting on Ofelia 12/04/17 at 0944, Until Ofelia 12/04/17 at 1058, Sleep, Anesthesia Intra-op, Routine Given 12/04/2017 9:44 AM EDT 2 mg morphine 10 mg/mL injection PRN, Starting on Ofelia 8 at 0953, Until Ofelia 818 at 1058, Pain, Anesthesia Intra-op, Routine Given 12/04/2017 9:53 AM EDT 6 mg ondansetron (ZOFRAN) injection Intravenous, PRN, Starting on Ofelia 12/04/17 at 1037, Until Ofelia 18 at 1058, Nausea, Anesthesia Intra-op, Routine Given 12/04/2017 10:37 AM EDT 4 mg PHENYLephrine in NS (PF) (PREETHI-SYNEPHRINE) 0.8 mg/10 mL (80 mcg/mL) multi-dose injection Syrg Intravenous, PRN, Starting on Ofelia 12/04/17 at 1002, Until Ofelia 12/04/17 at 1058, Anesthesia Intra-op, Routine Given 12/04/2017 10:21 AM EDT 80 mcg Given 12/04/2017 10:02 AM EDT 80 mcg propofol (DIPRIVAN) 10 mg/mL bolus injection (Anesthesia) Intravenous, PRN, Starting on Ofelia 8 at 0953, Until Ofelia 12/04/17 at 1058, Anesthesia Intra-op Given 12/04/2017 9:53 AM EDT 200 mg propofol (DIPRIVAN) infusion CONTINUOUS PRN, Starting on Ofelia 12/04/17 at 0956, Until Ofelia 12/04/17 at 1058, Anesthesia Intra-op, Routine Rate/Dose Change 12/04/2017 10:35 AM EDT 50 mcg/kg/min 30.9 mL/hr Rate/Dose Change 12/04/2017 10:04 AM EDT 100 mcg/kg/min 61 .8 mL/hr New Bag 12/04/2017 9:56 AM EDT 200 mcg/kg/min 123.6 mL/ hr documented in this encounter Care Teams Resident Director Relationship Specialty Start Date End Date Ginger Riddle MD [address] [place] [address] PCP - General Family Medicine 09/27/16 documented as of this encounter
--- OUTSIDE RECORDS SUMMARY | 2024-01-09 00:41 | XMS_ITS | Encounter Summary ---
Author Organization [facility] [place] [address] Care Team Providers Care Property Condition Assessor Name Role Phone Ginger Riddle MD Primary Care Provider [phone] Encounter Details Date Type Department Care Team (Late st Contact Info) Description 12/12/2017 Telephone [place] [phone] Kateryna Farah MD [facility] [place] [address] Social History Tobacco Use Types Packs/Day Years Used Date Smoking Tobacco: Never Smokeless Tobacco: Never Alcohol Use Standard Drinks/Week Comments No 0 (1 standard drink = 0.6 oz pur e alcohol) Sex and Gender Information Value Date Recorded Sex Assigned at Not on file Gender Identity Not on file Sexual Orientation Not on file documented as of this encounter Miscellaneous Notes * Telephone Encounter - Kateryna Farah MD - 12/12/2017 5:57 PM EDT Called patient to discuss path results. All benign. Overall patient is doing well post op. Only complaining of discomfort. Follow up postop check next week CVA documented in this encounter Plan of Treatment Upcoming Encounters Date Type Department Care Team (Late st Contact Info) Description 01/29/2024 1:40 PM EDT Appointment Mammography/[place] [phone] Ginger Riddle MD [address] [place] [address] documented as of this encounter Visit Diagnoses Not on filedocumented in this encounter Care Teams Property Condition Assessor Relationship Specialty Start Date End Date Ginger Riddle MD [address] [place] [address] PCP - General Family Medicine 09/27/16 documented as of this encounter
--- OUTSIDE RECORDS SUMMARY | 2024-01-09 00:42 | XMS_ITS | Clinical Summary ---
Author Organization [facility] Address [address] [place] [address] Care Team Providers Care Offal Worker Name Role Phone Ginger Riddle MD Primary Care Provider [phone] Social History Tobacco Use Types Packs/Day Years Used Date Smoking Tobacco: Never Assessed Sex and Gender Information Value Date Recorded Sex Assigned at Not on file Gender Identity Not on file Sexual Orientation Not on file Plan of Treatment Health Maintenance Due Date Last Done Comments RSV Immunization ( o r 60+ Years) (1 - 1-dose 60+ series) 2004 Fall Risk Screening 2009 COVID-19 Vaccine (2022- season) 2023 Hepatitis C Screen Completed 01/25/2021 Procedures Procedure Name Priority Date/Time Associated Diagnosis Comments HEPATITIS C AB W REFLEX TO HCV RNA BY PCR Routine 01/25/2021 11:15 EDT from Last 3 Months or Most Recently Relevant to Health Maintenance Results * HEPATITIS C AB W REFLEX TO HCV RNA BY PCR (01/25/2021 11:15 EDT) Hep C Antibody Negative Negative 01/29/2021 10:31 EDT [facility] Blood VENOUS BLOOD / Unknown 01/25/2021 11:15 EDT 01/26/2021 16:35 EDT Provider Outr Resulting Lab CHEMISTRY & BLOOD GAS ORDERABLES [facility] [address] [place] [address] from Last 3 Months or Most Recently Relevant to Health Maintenance Care Teams Offal Worker Relationship Specialty Start Date End Date Ginger Riddle MD [address] [place] [id number] PCP - General 07/03/22
--- OUTSIDE RECORDS SUMMARY | 2024-01-09 00:42 | XMS_ITS | Encounter Summary ---
[place] [address] Care Team Providers Care Boil Off Worker Name Role Phone Marcela Crenshaw MD Primary Care Provider [phone] Encounter Details Date Type Department Care Team (Late st Contact Info) Description 07/11/2010 [place] [phone] Marcela Crenshaw MD [address] [place] [address] [place] [id number] Social History Tobacco Use Types Packs/Day Years Used Date Smoking Tobacco: Never Assessed Sex and Gender Information Value Date Recorded Sex Assigned at Not on file Gender Identity Not on file Sexual Orientation Not on file documented as of this encounter Plan of Treatment Upcoming Encounters Date Type Department Care Team (Late st Contact Info) Description 01/29/2024 1:40 PM EDT Appointment Mammography/[place] [phone] Ginger Riddle MD [address] [place] [phone] documented as of this encounter Procedures Procedure Name Priority Date/Time Associated Diagnosis Comments MAMMO SCREENING CAD BILATERAL Routine 07/11/2010 2:34 PM EST documented in this encounter Results * MAMMO DIGITAL BILATERAL SCREENING WITH CAD (07/11/2010 2:34 PM EST) Anatomical Region Laterality Modality Breast Bilateral Mammography 07/11/2010 2:34 PM EST Narrative 07/12/2010 11:49 AM EST Reason for Exam: Screening ?? Technique: Craniocaudal (CC) and Medio-lateral Oblique (MLO) views of both breasts obtained with direct digital capture. The exam was evaluated by CAD version 8.3.17. ?? Findings: ?? This is a negative mammogram (ACR Category 1). ??There is a stable fibroglandular pattern without significant change from prior studies. There is no mammographic evidence of cancer. ??The breasts are of scattered density. ?? CONCLUSION: This is a NEGATIVE mammogram (ACR Category 1). ?? Routine screening mammography is recommended with the frequency dependent upon the patient's age and breast cancer risk factors. A letter has been sent to this patient by the breast imaging center. Procedure Note Nathen Robbins MD - 07/12/2010 Reason for Exam: Screening Technique: Craniocaudal (CC) and Medio-lateral Oblique (MLO) views of both breasts obtained with direct digital capture. The exam was evaluated by CAD version 8.3.17. Findings: This is a negative mammogram (ACR Category 1). There is a stable fibroglandular pattern without significant change from prior studies. There is no mammographic evidence of cancer. The breasts are of scattered density. CONCLUSION: This is a NEGATIVE mammogram (ACR Category 1). Routine screening mammography is recommended with the frequency dependentupon the patient's age and breast cancer risk factors. A letter has been sent to this patient by the breast imaging center. Marcela Crenshaw MD IM MAMMO ORDERABLES documented in this encounter Visit Diagnoses Not on filedocumented in this encounter Care Teams Boil Off Worker Relationship Specialty Start Date End Date Marcela Crenshaw MD [facility] [address] [place] [address] [place] [address] PCP - General 03/27/10 08/22/13 documented as of this encounter
--- OUTSIDE RECORDS SUMMARY | 2024-01-09 00:42 | XMS_ITS | Encounter Summary ---
[facility] [place] [address] Care Team Providers Care Rock Mason Name Role Phone Marcela Crenshaw MD Primary Care Provider [phone] Encounter Details Date Type Department Care Team (Latest Contact Info) Description 07/17/2012 12:46 PM EDT - 07/17/2012 11:59 PM EDT Hospital Encounter [place] [phone] CLINIC, Marcela Barillas MD [address] [place] [address] [address] [place], [place] [id number] Discharge Disposition: Home Social History Tobacco Use [...] 01/29/2024 1:40 PM EDT Appointment Mammography/[place] [phone] Ginger Riddle MD [address] [address] documented as of this encounter Procedures Procedure Name Priority Date/Time Associated Diagnosis Comments MAMMO SCREENING CAD BILATERAL Routine 07/17/2012 1:27 PM EDT documented in this encounter Results * Mammo digital bilateral Screening with CAD (07/17/2012 1:27 PM EDT) Anatomical Region Laterality Modality Breast Bilateral Mammography 07/17/2012 1:27 PM EDT Narrative 07/21/2012 1:42 AM EDT BILATERAL MAMMOGRAPHY ?? REASON FOR EXAM: Screening ?? TECHNIQUE: Cranio-caudal (CC) and mediolateral oblique (MLO) views of both breasts obtained with direct digital capture. The exam was evaluated by CAD Version 8.3.17. ?? FINDINGS: This is a negative mammogram (ACR Category 1). There is a stable fibroglandular pattern without significant change as compared to prior studies. There is no mammographic evidence of cancer. ? The breasts are heterogeneously dense which may limit mammographic sensitivity for the detection of malignancy. ? Please note: The markedly increased density of these breasts reduces the reliability of mammography. For this reason, the report of a ''negative'' mammogram should not preclude further evaluation of any clinically suspicious finding. ? There are multiple bilateral waxing and waning masses, consistent with cysts. ? CONCLUSION ?? This is a NEGATIVE mammogram (ACR Category 1). Routine screening mammography is recommended with the frequency dependent on the patient's age and breast cancer risk factors. ?? A letter has been sent to this patient by the [facility]. Procedure Note Adela Martinez MD - 07/21/2012 BILATERAL MAMMOGRAPHY REASON FOR EXAM: Screening TECHNIQUE: Cranio-caudal (CC) and mediolateral oblique (MLO) views of both breasts obtained with direct digital capture. The exam was evaluated byCAD Version 8.3.17. FINDINGS: This is a negative mammogram (ACR Category 1). There is a stable fibroglandular pattern without significant change as compared to priorstudies. There is no mammographic evidence of cancer. The breasts are heterogeneously dense which may limit mammographicsensitivity for the detection of malignancy. Please note: The markedly increased density of these breasts reduces the reliability of mammography. For this reason, the report of a ''negative'' mammogram should not preclude further evaluation of any clinicallysuspicious finding. There are multiple bilateral waxing and waning masses, consistent withcysts. CONCLUSION This is a NEGATIVE mammogram (ACR Category 1). Routine screeningmammography is recommended with the frequency dependent on the patient's age and breastcancer risk factors. A letter has been sent to this patient by the [facility]. Marcela Crenshaw MD [facility] MAMMO ORDERABLES documented in this encounter Visit Diagnoses Not on filedocumented in this encounter Care Teams Rock Mason Relationship Specialty Start Date End Date Marcela Crenshaw MD [facility] [address] [place] [address] [place] [address] PCP - General 03/27/10 08/22/13 documented as of this encounter
--- OUTSIDE RECORDS SUMMARY | 2024-01-09 00:42 | XMS_ITS | Encounter Summary ---
[place] [address] Care Team Providers Care Head Of Art Name Role Phone Ginger Riddle MD Primary Care Provider [phone] Reason for Referral * Speech Therapy (Routine) - Closed Specialty Diagnoses / Procedures Referred By Charly mcneill Referred To Contact Speech Pathology / Speech Therapy Diagnoses Chronic cough Lurdes Tong MD [facility] [place] [address] [facility] [place] [address] Referral ID Status Reason Start Date Expiration Date V isits Requested Visits Authorized [id number] Closed Evaluate and Treat 05/30/2017 05/30/2018 1 1 Reason for Visit * Consultation (Routine) - Specialty Diagnoses / Procedures Referred By Charly mcneill Referred To Contact Pulmonology Diagnoses Chronic cough chronic cough Procedures consultation Madeleine Pride MD [address] [place] [id number] Ledy Barnhart MD [facility] [place] [address] Referral ID Status Reason Start Date Expiration Date V isits Requested Visits Authorized [id number] 04/23/2017 04/23/2018 1 1 Encounter Details Date Type Department Care Team (Late st Contact Info) Description 05/30/2017 2:00 PM EST Office Visit Pulmonology at [facility] [place] [address] Lurdes Tong MD [facility] [address] [place] [address] Chronic cough; Lung infiltrate on CT Social History Tobacco Use Types Packs/Day Years Used Date Smoking Tobacco: Never Sex and Gender Information Value Date Recorded Sex Assigned at Not on file Gender Identity Not on file Sexual Orientation Not on file documented as of this encounter Last Filed Vital Signs Vital Sign Reading Time Taken Comments Blood Pressure 132/75 05/30/2017 2:12 PM EST Pulse 86 05/30/2017 2:12 PM EST Temperature - - Respiratory Rate 20 05/30/2017 2:12 PM EST Oxygen Saturation 97% 05/30/2017 2:12 PM EST Inhaled Oxygen Concentration - - Weight - - Height - - Body Mass Index - - documented in this encounter Progress Notes * Lurdes Tong MD - 05/30/2017 2:00 PM EST Pulmonary Clinic Consult Note Reason for Consult: I was asked by Ginger Riddle MD to evaluate this patient for second opinion on chronic cough I have personally interviewed and examined the patient, reviewed history, radiographic studies( if any) and laboratory data(if any). HPI: This is a 71 y.o. female, has never been a smoker, was referred to me for second opinion on chroniccough. She had been extensively worked up by Dr. Flor Iglesias who is a second hair assistant for the patient and she sent us her letter and note. The story goes back to 2015. When patient was in [place], her cough began after exposure to a cat. [place] and was seen by Dr. Mejia, a hair assistant. A CT scan was obtained on July 21, 2015 (which is not available to me) was interpreted as possible ILD. ( note, Dr. Pride reviewed the images later and said in her note that she favored that changes were due to poor inhalationrather than true GGO). She eventually underwent bronchoscopy with TBLB by Dr. Mejia, which apparentlyshowed sparse eos and lymphs with nointerstitial inflammatory infiltrate. Both cytology and microbiology was negative. The patient also underwent serology including Testing and reportedly dear all nor mal. Dr. 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 She had a follow-up CT scan on October 25, 2015, which was reportedly completely normal. She was then titrated off the prednisone. Her cough never completely resolved but was much better at that time. She went back to [place] winter ( about 1 year ago) and her cough got worsen again. At that time, she had exposure to cat again though its causal relation tothe episode is unclear. [place], her cough has mellowed down but continued. Cough is always dry. She has tried Breo, and Zyrtec to Dulera, Singulair Prilosec and Flonase without clinical benefit. She has had wax and wane mild peripheral blood eosinophilia with highest of 8.6% of WBC 9.1. She underwent allergy skin testing and it showed no reactivities. Her PFT on 11/28/2016 demonstrated normal spirometry and elevated DLco to 127% of predicted. She hada methacholine challenge testing on the same day, which was negative( by FEV1 not by airway resistance). She had PSG in 2012, which, as per patient, showed no evidence of COLIN, according to the patient. Today, she told me that she continues to cough, which is triggered by talking and eating/drinking. She works out twice in a program and she does not cough nor problem breathing. She was seen by ENT ( even before pulmonary evaluation ) in 2015 and was told no abnormalities. Problem List: Patient Active Problem List Diagnosis Date Noted ??? Visit for suture removal 11/18/2016 ??? Seborrheic keratosis, inflamed 11/11/2016 ??? Nevus 09/27/2016 ??? AK (actinic keratosis) 02/21/2014 ??? Seborrheic keratosis 02/21/2014 PMHx: No past medical history on file. FHx: Family History Problem Relation Age of Onset ??? Breast Cancer Paternal Aunt Social Hx: Social History Substance Use Topics ??? Smoking status: Never Smoker ??? Smokeless tobacco: Not on file ??? Alcohol use Not on file Tobacco: never. 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 Allergy: No Known Allergies Medications: No outpatient prescriptions have been marked as taking for the 05/30/17 encounter (Office Visit) with Lurdes Tong MD. ROS: x: positive. [ ] Shortness of breath [ ] Abdominal pain or bloating [ x ] Frequent or chronic cough [ ] Weight gain or loss [ ] Coughing up blood [ ] Chest pain [ ] Nose, sinus, mouth, throat problems [ ] Palpitations or flutter [ ] Fevers or severe chills [ ] Swelling of hands feet ankles [ ] Night sweats [ ] Convulsions or seizures [ ] Enlarged or swollen lymph glands [ ] Frequent or severe headache [ ] Skin disease or rash [ ] Fainting or loss of consciousness [ ] Easy bruising or bleeding [ ] Extreme fatigue or weakness [ ] Significant joint pains or stiffness [ ] Depression [ ] Changes in bowel habits [ ] Changes in sleep pattern [ ] Changes in appetite [ x ] All unmarked were reviewed and found negative. [ ] other system: Vitals and Physical Exam: BP 132/75 Pulse 86 Resp 20 SpO2 97% Gen: comfortable. Normal breathing pattern and rate. HEENT: Pupils equal and round. EOMI, Moist oral mucosal membrane wto lesions , eyes wto injection or exudates. No thrush Neck: No stridor No cervical LAP Chest: CTA without wheezing/rhonchi/crackles Symmetric excursion. Cor: RRR, S1S2, No MRG. Abd: S/ND/NT Extrem: no C/C/E. Skin no rashes or lesions Musculoskeletal no joint swelling, tenderness, redness or deformities Neuro: no focal deficits Labs/Tests: Diagnostic studies: -CXR: -CT: 01/23/2017 No GGO Small calcified lung nodule in RUL 07/21/[address] Unremarkable sinus -PFTs: date FVC FEV1 FEV/FVC VC TLC RV RV/TLC DsbHb SpO2 FENO 11/28/2016 2.35 88 1.91 95 81 05/30/2017 2.41 90 1.93 96 80 14 08/09/2015 DLCO 21.36 127% predicted -ECHO: -Serology: -PET: -Biopsy: -Other: Labs Summary: -chronic cough of unclear etiology -? H/o GGO on CT Impression/recommendation: -71 yo woman, never a smoker, was referred to me for second opinion on 1 ) possible HP 2) chronic cough. She has been extensively worked up by Dr. Mejia and Bigg ( pulmonary ) and ENT and an child specialist. Her current active sx are chronic non-productive cough, not responded to ICS, RENETTA, PPI, nasal steroid. Cough is triggered by eating, drinking and speaking and she feels the trigger point is on her throat. She has no c/o dyspnea even at exercise. In 2016, she was diagnosed for HP, based on CT and bronchoscopy with BAL/TBLB by Dr. Mejia. She took several month of prednisone with improved symptoms but ultimately cough has come back, though much lesser degree. Unfortunately, CT scan from 2016, supposed to show GGO, is not available to me for reviewing at this time. I will request [facility] to push them electronically and make an addendum on my note. Based on the Dr. Pride's note, it seems that neither of BAL nor TBLB was conclusive for dx of HP. Most specifically, neither of significant lymphocytosis in BAL nor lymphocytic alveolitis without without poorly formulated granuloma on bx was documented. No suspicious environmental factor for possible HP has been identified. Since more recent CT scan was negative for GGO, I don't feel that we need to consider this as an active problem at this time. In terms of chronic cough, I agree with Dr. Pride's work up plan. I myself remain puzzled withthe etiology. Her allergy skin testing was normal reportedly. Her most recent CT from 01/2017 showedunremarkable lung parenchyma and airway. Her past ENT visit was apparently unremarkable. PPI was negative. Asthma and its related condition such as cough variant asthma or NAEB sounds a possibility but pt did not respond to ICS. MCT does not rule out NAEB. MCT is less sensitive for asthma in population. Finally MCT using FEV1 value is also less sensitive for cough variant asthma form ( compared to a MCT study with airway resistance) . But after all, Some response to ICS is expected. I have measured FENO in the lab today, which was NOT elevated. Her Eos numbers are not high enough to be suggestive for HES and no clinical evidence of other organ involvement makes such dx less likely. Could check CBC, LFT, Troponin, and B12, FACS, [id number] etc as necessary, but I am doubtful of this dx. I don't see ANCA testing but admittedly no cardiac symptoms nor neuropathy. No lung infiltrates neither, therefore EGPA is not suspicious. Only change I made today was a referral to speech pathologist for evaluation and possible training on cough suppressant maneuver, if appropriate. Her cough is uniquely triggered by talking, laughing,drinking and eating ( especially in public place). -The above recommendations were extensively discussed with the patient on this visit and questions were answered. I advised the patient to call us back for any questions, concerns or changes in the interim. - I spent more than 70 minutes of this 80 minute visit in counseling the patient, reviewing charts/records/labs/tests, or discussion with other health care providers. This does NOT include the time spent in ( ) Smoking cessation counseling ( ) inhaler technique demonstration and teaching. ( checked if applicable) - I personally reviewed ( x ) radiographic images. ( x ) pulmonary function testing DATA ( x ) Laboratory DATA ( apply if checked ) Thank you very much for participating in the care of this patient. Please contact us at [phone] for any further questions or requests. Addendum: I have personally reviewed the CT scan from 07/20/2016, which showed diffuse heterogeneity of lung parenchymal attenuation. I don't think the findings were conclusive for ILD. This is because the degree of inspiration was poor, which prohibits accurate interpretation of lung parenchyma. This is in agreement with Dr. Pride's concern. documented in this encounter Plan of Treatment Upcoming Encounters Date Type Department Care Team (Late st Contact Info) Description 01/29/2024 1:40 PM EDT Appointment Mammography/[place] [address] Ginger Riddle MD [address] [place] [address] Scheduled Referrals Name Type Priority Associated Diagnoses Orde r Schedule Referral to Speech Therapy Outpatient Referral Routine Chronic cough Ordered: 05/30/2017 documented as of this encounter Results * Pulmonary Function Testing (05/30/2017 4:10 PM EST) Narrative Ledy Barnhart MD - 05/30/2017 4:10 PM Ledy Livingston MD ? 05/30/2017 ??4:10 PM Pulmonary Function Test Interpretation FEV1 is normal. ??FVC is normal. ??The FEV1/FVC ratio is normal. Impression: Normal spirometry. Fraction of Exhaled Nitric Oxide (FeNO) Measurement Nitric oxide (NO) is recognized as a biomarker for eosinophilic airway inflammation, as is generally the case in asthma. ?? Measuring NO in exhaled breath can help determine whether non-specific respiratory symptoms of wheezing, dyspnea, and cough are due to asthma. ??However, there are several important limitations of using this test to diagnose and treat asthma. ?? Guidelines from a 2011 [employer] (ATS) executive summary on the clinical use of FeNO are listed. Diagnostic Use: ?? A FeNO <25 ppb suggests that eosinophilic airway inflammation, and by inference, clinical responsiveness to corticosteroids, is less likely. ?? A FeNO >50 ppb indicates that eosinophilic airway inflammation and responsiveness to corticosteroids in symptomatic patients are both likely. ?? FeNO levels between 25 and 50 ppb should be interpreted cautiously and in context. ?? Persistent and/or high allergen exposure is a factor associated with higher FeNO levels (>50 ppb). ?? The presence or absence of respiratory symptoms is an important consideration when interpreting FeNO. Monitoring Response: ?? A minimally important decrease in FeNO is defined as >20% for values >50 ppb or more than 10 ppb for values <50 ppb from one visit to the next. ?? A reduction of an elevated FeNO of >20% occurring 2-6 weeks after anti-inflammatory treatment initiation is consistent with therapeutic efficacy. The FeNO in ppb for this patient at today's visit was ??14 LEDY BARNHART MD Lurdes Tong MD PFT ORDERABLES documented in this encounter Visit Diagnoses Diagnosis Chronic cough Cough Lung infiltrate on CT Chronic cough Cough documented in this encounter Care Teams Head Of Art Relationship Specialty Start Date End Date Ginger Riddle MD [address] [place] [address] PCP - General Family Medicine 09/27/16 documented as of this encounter
--- OUTSIDE RECORDS SUMMARY | 2024-01-09 00:42 | XMS_ITS | Encounter Summary ---
Author Organization [facility] Address [address] [place] [address] Care Team Providers Care Finance Attorney Name Role Phone None, Provider Primary Care Provider Ginger Ruth MD Primary Care Provider [phone] Encounter Details Date Type Department Care Team (Late st Contact Info) Description 01/26/2021 Lab Requisition [facility] - [address] [address] Outr Resulting Lab, Provider Social History Tobacco Use Types Packs/Day Years Used Date Smoking Tobacco: Never Assessed Sex and Gender Information Value Date Recorded Sex Assigned at Not on file Gender Identity Not on file Sexual Orientation Not on file documented as of this encounter Plan of Treatment Not on file documented as of this encounter Procedures Procedure Name Priority Date/Time Associated Diagnosis Comments HEPATITIS C AB W REFLEX TO HCV RNA BY PCR Routine 01/25/2021 11:15 EDT documented in this encounter Results * HEPATITIS C AB W REFLEX TO HCV RNA BY PCR (01/25/2021 11:15 EDT) Hep C Antibody Negative Negative 01/29/2021 10:31 EDT [facility] Blood VENOUS BLOOD / Unknown 01/25/2021 11:15 EDT 01/26/2021 16:35 EDT Provider Outr Resulting Lab CHEMISTRY & BLOOD GAS ORDERABLES [facility] [address] [place] [address] documented in this encounter Visit Diagnoses Not on filedocumented in this encounter Care Teams Finance Attorney Relationship Specialty Start Date End Date None, Provider PCP - General 08/16/15 07/02/22 Ginger Riddle MD [address] [place] [address] PCP - General 07/03/22 documented as of this encounter
--- OUTSIDE RECORDS SUMMARY | 2024-01-09 00:42 | XMS_ITS | Encounter Summary ---
Author Organization [facility] [place] [address] Care Team Providers Care Brass Finisher Name Role Phone Zack Null Primary Care Provider [phone] Encounter Details Date Type Department Care Team (Latest Contact Info) Description 01/11/2016 - 01/11/2016 11:59 PM EDT Hospital Encounter [place] [phone] Lurdes Tong MD [facility] [place] [address] Discharge Disposition: Home Social History Tobacco Use Types Packs/Day Years Used Date Smoking Tobacco: Never Sex and Gender Information Value Date Recorded Sex Assigned at Not on file Gender Identity Not on file Sexual Orientation Not on file documented as of this encounter Medications at Time of Discharge Medication Sig Dispensed Refills Start Date End Date atorvastatin (LIPITOR) 10 mg Tablet Take 10 mg by mouth daily. 11/19/2017 documented as of this encounter Plan of Treatment Upcoming Encounters Date Type Department Care Team (Late st Contact Info) Description 01/29/2024 1:40 PM EDT Appointment Mammography/[place] [address] Ginger Riddle MD [address] [id number] documented as of this encounter Procedures Procedure Name Priority Date/Time Associated Diagnosis Comments FILM LIBRARY STORAGE ONLY CT CHEST Routine 01/11/2016 12:00 AM EDT documented in this encounter Results * Film Library- Storage Only CT Chest (01/11/2016 12:00 AM EDT) Narrative DELFINA - 05/30/2017 6:32 PM EST This exam is for storage only and is auto-finalizing. Lurdes Tong MD IMG FILM LIBRARY ORD ERABLES Performing Organization Address City/State/[facility] Co de Phone Number [place], [place] documented in this encounter Visit Diagnoses Not on filedocumented in this encounter Care Teams Brass Finisher Relationship Specialty Start Date End Date Zack Null PA [address] [place] [address] PCP - General Family Medicine 08/22/15 09/26/16 documented as of this encounter
--- OUTSIDE RECORDS SUMMARY | 2024-01-09 00:42 | XMS_ITS | Encounter Summary ---
Author [facility] [place] [address] Care Team Providers Care Powder Truck Driver Name Role Phone Marcela Crenshaw MD Primary Care Provider [phone] Encounter Details Date Type Department Care Team (Latest Contact Info) Description 07/17/2011 10:08 AM EDT - 07/17/2011 11:59 PM EDT Hospital En[place] [address] CLINIC, Marcela Barillas MD [address] [place] [address] [address] [place] [id number] Discharge Disposition: Home Social History Tobacco Use [...] 01/29/2024 1:40 PM EDT Appointment Mammography[place] [phone] Ginger Riddle MD [address] [address] documented as of this encounter Procedures Procedure Name Priority Date/Time Associated Diagnosis Comments MAMMO SCREENING CAD BILATERAL Routine 07/17/2011 10:29 AM EDT documented in this encounter Results * MAMMO DIGITAL BILATERAL SCREENING WITH CAD (07/17/2011 10:29 AM EDT) Anatomical Region Laterality Modality Breast Bilateral Mammography 07/17/2011 10:2 9 AM EDT Narrative 07/18/2011 5:24 PM EDT BILATERAL MAMMOGRAPHY ?? REASON FOR EXAM: [...] is no mammographic evidence of cancer. ? There are multiple bilateral waxing and waning masses, consistent with cysts. ? The breasts are of scattered density. ? CONCLUSION ?? This is a NEGATIVE mammogram (ACR Category 1). Routine screening mammography is recommended with the frequency dependent on the patient's age and breast cancer risk factors. ?? A letter has been sent to this patient by [facility]. Procedure Note Nathen Robbins MD - 07/18/2011 BILATERAL MAMMOGRAPHY REASON FOR EXAM: Screening TECHNIQUE: Cranio-caudal (CC) and mediolateral oblique (MLO) views of both breasts obtained with direct digital capture. The exam was evaluated byCAD Version 8.3.17. FINDINGS: This is a negative mammogram (ACR Category 1). There is a stable fibroglandular pattern without significant change as compared to priorstudies. There is no mammographic evidence of cancer. There are multiple bilateral waxing and waning masses, consistent withcysts. The breasts are of scattered density. CONCLUSION This is a NEGATIVE mammogram (ACR Category 1). Routine screeningmammography is recommended with the frequency dependent on the patient's age and breastcancer risk factors. A letter has been sent to this patient by the [facility]. Marcela Crenshaw MD [facility] MAMMO ORDERABLES documented in this encounter Visit Diagnoses Not on filedocumented in this encounter Care Teams Powder Truck Driver Relationship Specialty Start Date End Date Marcela Crenshaw MD [facility] [address] [place] [address] [place] [address] PCP - General 03/27/10 08/22/13 documented as of this encounter
--- OUTSIDE RECORDS SUMMARY | 2024-01-09 00:42 | XMS_ITS | Encounter Summary ---
[place] [address] Care Team Providers Care Camera Repairman Name Role Phone Marcela Crenshaw MD Primary Care Provider [phone] Encounter Details Date Type Department Care Team (Late st Contact Info) Description 07/11/2010 2:00 PM EST Office Visit Lab [address] [place] [phone] Social History Tobacco Use Types Packs/Day Years Used Date Smoking Tobacco: Never Assessed Sex and Gender Information Value Date Recorded Sex Assigned at Not on file Gender Identity Not on file Sexual Orientation Not on file documented as of this encounter Plan of Treatment Upcoming Encounters Date Type Department Care Team (Late st Contact Info) Description 01/29/2024 1:40 PM EDT Appointment Mammography[place] [phone] Ginger Riddle MD [address] [place], [place] [address] documented as of this encounter Visit Diagnoses Not on filedocumented in this encounter Care Teams Camera Repairman Relationship Specialty Start Date End Date Marcela Crenshaw MD [facility] [address] [place] [address] [address] [place], [place] [id number] PCP - General 03/27/10 08/22/13 documented as of this encounter
--- OUTSIDE RECORDS SUMMARY | 2024-01-09 00:42 | XMS_ITS | Encounter Summary ---
[place] [address] Care Team Providers Care Ctc Operator Name Role Phone Ginger Riddle MD Primary Care Provider Reason for Visit * Reason Comments Skin Check Encounter Details Date Type Department Care Team (Late st Contact Info) Description 09/27/2016 9:15 AM EDT Office Visit Dermatology at [address] [phone] Dickson Dow MD [address] [place] [address] Seborrheic keratosis; Nevus Social History Tobacco Use Types Packs/Day Years Used Date Smoking Tobacco: Never Sex and Gender Information Value Date Recorded Sex Assigned at Not on file Gender Identity Not on file Sexual Orientation Not on file documented as of this encounter Progress Notes * Dickson Dow MD - 09/27/2016 9:15 AM EDT PROBLEM: Skin lesion cancer. Marcela follows up with last seeing me in 2013. She states that there are some moles that she is concerned about, new and growing, and wants to have them checked. Focused examination reveals a fleshy compound residual nevus of the right nasal trigone pad. She has seborrheic keratoses on the right forehead, left orthodox and 2 on the left lateral neck as well as on the right lateral neck. Fortunately, careful examination of the face, the chest, the back, hands and forearms is benign. ASSESSMENT AND PLAN: 1. Irritated nevus, right nasal trigone area. a. Because this is often irritated, we will schedule a 30-minute appointment for excision of this at the patient's convenience. b. Discussed procedure with patient, answered questions regarding upcoming surgery. c. Her 4-year-old grandson is coming from [place] in December so we will try to do it either in November or after December for her. 2. Seborrheic keratoses of face and neck. a. Could consider L2 therapy. Cc: Ginger Ritter MD documented in this encounter Plan of Treatment Upcoming Encounters Date Type Department Care Team (Late st Contact Info) Description 01/29/2024 1:40 PM EDT Appointment Mammography/[place] [address] Ginger Riddle MD [address] [place] [address] documented as of this encounter Visit Diagnoses Diagnosis Seborrheic keratosis Other seborrheic keratosis Nevus Benign neoplasm of skin, site unspecified documented in this encounter Care Teams Ctc Operator Relationship Specialty Start Date End Date Ginger Riddle MD [address] [place], [place] [address] PCP - General Family Medicine 09/27/16 documented as of this encounter
--- OUTSIDE RECORDS SUMMARY | 2024-01-09 00:42 | XMS_ITS | Encounter Summary ---
Author Organization [facility] [place] [address] Care Team Providers Care Mechanic Helper Name Role Phone Ginger Riddle MD Primary Care Provider [phone] Encounter Details Date Type Department Care Team (Latest Contact Info) Description 07/21/2015 Hospital Encounter [place] [phone] Lurdes Tong MD [facility] [place] [address] Discharge Disposition: Home Social History Tobacco Use [...] 01/29/2024 1:40 PM EDT Appointment Mammography/[place] [phone] Ginger Riddle MD [address] [place], [place] [id number] documented as of this encounter Procedures Procedure Name Priority Date/Time Associated Diagnosis Comments FILM LIBRARY STORAGE ONLY CT CHEST Routine 07/21/2015 12:00 AM EDT documented in this encounter Results * Film Library- Storage Only CT Chest (07/21/2015 12:00 AM EDT) Narrative CHARY MATHIS - 05/30/2017 6:31 PM EST This exam is for storage only and is auto-finalizing. Lurdes Tong MD IM FILM LIBRARY ORD ERABLES Performing Organization Address City/State/[facility] Co de Phone Number [place], [place] documented in this encounter Visit Diagnoses Not on filedocumented in this encounter Care Teams Mechanic Helper Relationship Specialty Start Date End Date Ginger Riddle MD [address] [place] [address] PCP - General 08/23/13 08/21/15 documented as of this encounter
--- OUTSIDE RECORDS SUMMARY | 2024-01-09 00:42 | XMS_ITS | Encounter Summary ---
Author Organization [facility] [place] [address] Care Team Providers Care Manager Sales And Marketing Name Role Phone Zack Null Primary Care Provider [phone] Encounter Details Date Type Department Care Team (Latest Contact Info) Description 10/25/2015 - 10/25/2015 11:59 PM EDT Hospital Encounter [place] [phone] Lurdes Tong MD [facility] [address] [place] [address] Discharge Disposition: Home Social History Tobacco Use [...] 01/29/2024 1:40 PM EDT Appointment Mammography/[place] [address] Ginger Riddle MD [address] [id number] documented as of this encounter Procedures Procedure Name Priority Date/Time Associated Diagnosis Comments FILM LIBRARY STORAGE ONLY CT CHEST Routine 10/25/2015 12:00 AM EDT documented in this encounter Results * Film Library- Storage Only CT Chest (10/25/2015 12:00 AM EDT) Narrative DELFINA - 05/30/2017 6:32 PM EST This exam is for storage only and is auto-finalizing. Lurdes Tong MD IMG FILM LIBRARY ORD ERABLES Performing Organization Address City/State/[facility] Co de Phone Number [place], [place] documented in this encounter Visit Diagnoses Not on filedocumented in this encounter Care Teams Manager Sales And Marketing Relationship Specialty Start Date End Date Zack Null PA [address] [place] [address] PCP - General Family Medicine 08/22/15 09/26/16 documented as of this encounter
--- OUTSIDE RECORDS SUMMARY | 2024-01-09 00:42 | XMS_ITS | Encounter Summary ---
Author Organization [facility] Address [address] [place] [address] Care Team Providers Care Insurance Underwriting Assistant Name Role Phone Unknown, Provider Primary Care Provider [phone] Encounter Details Date Type Department Care Team (Latest Contact Info) Description 08/14/2015 14:57 EDT - 08/14/2015 23:59 EDT Hospital Encounter [address] [address] Unknown, ProviderMD Discharge Disposition: Home or Self Care Social History Tobacco Use Types Packs/Day Years Used Date Smoking Tobacco: Never Assessed Sex and Gender Information Value Date Recorded Sex Assigned at Not on file Gender Identity Not on file Sexual Orientation Not on file documented as of this encounter Discharge Disposition Disposition Code Departure Means Destination Home or Self Prison documented in this encounter Plan of Treatment Not on file documented as of this encounter Visit Diagnoses Not on filedocumented in this encounter Care Teams Insurance Underwriting Assistant Relationship Specialty Start Date End Date Unknown, Provider, PCP - General 08/02/09 08/15/15 documented as of this encounter
--- OUTSIDE RECORDS SUMMARY | 2024-01-09 00:42 | XMS_ITS | Encounter Summary ---
Author Organization [facility] [place] [address] Care Team Providers Care Electromatic Typist Name Role Phone Ginger Riddle MD Primary Care Provider [phone] Encounter Details Date Type Department Care Team (Latest Contact Info) Description 08/23/2013 11:52 AM EDT - 08/23/2013 11:59 PM EDT [place] [phone] CLINIC, Ginger Rehman MD [address] [place] [address] Discharge Disposition: Home Social History Tobacco Use [...] 01/29/2024 1:40 PM EDT Appointment Mammography/[place] [phone] Ginger Riddle MD [address] [place] [address] documented as of this encounter Procedures Procedure Name Priority Date/Time Associated Diagnosis Comments MAMMO SCREENING CAD BILATERAL Routine 08/23/2013 12:30 PM EDT documented in this encounter Results * Mammo digital bilateral Screening with CAD (08/23/2013 12:30 PM EDT) Anatomical Region Laterality Modality Breast Bilateral Mammography 08/23/2013 12:3 0 PM EDT Narrative 08/24/2013 12:15 PM EDT Reason for Exam: Screening ?? Technique: Craniocaudal (CC) and Medio-lateral Oblique (MLO) views of both breasts obtained with direct digital capture. ?? The exam was evaluated by CAD version 8.3.17. ?? Findings: ?? This is a negative mammogram (ACR Category 1). There is a stable fibroglandular pattern without significant change from prior studies. There is no mammographic evidence of cancer. The breasts are of scattered density. ?? CONCLUSION: This is a NEGATIVE mammogram (ACR Category 1). ?? Routine screening mammography is recommended with the frequency dependent upon the patients age and breast cancer risk factors. ?? A letter has been sent to this patient by the breast imaging center. Procedure Note Estefany Campuzano MD - 08/24/2013 Reason for Exam: Screening Technique: Craniocaudal (CC) and Medio-lateral Oblique (MLO) views of both breasts obtained with direct digital capture. The exam was evaluated by CAD version 8.3.17. Findings: This is a negative mammogram (ACR Category 1). There is a stablefibroglandular pattern without significant change from prior studies. There is no mammographic evidence of cancer. The breasts are of scattered density. CONCLUSION: This is a NEGATIVE mammogram (ACR Category 1). Routine screening mammography is recommended with the frequency dependentupon the patients age and breast cancer risk factors. A letter has been sent to this patient by the breast imaging center. Ginger Riddle MD IMG MAMMO ORDERABLES documented in this encounter Visit Diagnoses Not on filedocumented in this encounter Care Teams Electromatic Typist Relationship Specialty Start Date End Date Ginger Riddle MD [address] [place] [address] PCP - General 08/23/13 08/21/15 documented as of this encounter
--- OUTSIDE RECORDS SUMMARY | 2024-01-09 00:42 | XMS_ITS | Referral Summary ---
Author Organization [facility] Address [address] [place] [address] Care Team Providers Care Lining Maker Name Role Phone Ginger Riddle MD Primary Care Provider [phone] Social History Tobacco Use Types Packs/Day Years Used Date Smoking Tobacco: Never Assessed Sex and Gender Information Value Date Recorded Sex Assigned at Not on file Gender Identity Not on file Sexual Orientation Not on file Plan of Treatment Not on file Procedures Procedure Name Priority Date/Time Associated Diagnosis Comments HEPATITIS C AB W REFLEX TO HCV RNA BY PCR Routine 01/25/2021 11:15 EDT from Last 3 Months or Most Recently Relevant to Health Maintenance Results * HEPATITIS C AB W REFLEX TO HCV RNA BY PCR (01/25/2021 11:15 EDT) Hep C Antibody Negative Negative 01/29/2021 10:31 EDT [facility] Blood VENOUS BLOOD / Unknown 01/25/2021 11:15 EDT 01/26/2021 16:35 EDT Provider Outr Resulting Lab CHEMISTRY & BLOOD GAS ORDERABLES [facility] [address] [place] [address] from Last 3 Months or Most Recently Relevant to Health Maintenance Care Teams Lining Maker Relationship Specialty Start Date End Date Ginger Riddle MD [address] [place] [address] PCP - General 07/03/22
--- OUTSIDE RECORDS SUMMARY | 2024-01-09 00:42 | XMS_ITS | Encounter Summary ---
[place] [address] Care Team Providers Care Portable Irrigation Operator Name Role Phone Ginger Riddle MD Primary Care Provider [phone] Reason for Visit * Reason Comments Follow-up Encounter Details Date Type Department Care Team (Late st Contact Info) Description 11/11/2016 9:15 AM EDT Procedure visit Dermatology at [address] [address] Dickson Dow MD [address] [facility] [place] [address] Seborrheic keratosis; Nevus; Seborrheic keratosis, inflamed Social History Tobacco Use Types Packs/Day Years Used Date Smoking Tobacco: Never Sex and Gender Information Value Date Recorded Sex Assigned at Not on file Gender Identity Not on file Sexual Orientation Not on file documented as of this encounter Progress Notes * Dickson Dow MD - 11/11/2016 9:15 AM EDT Clinical impression is irritated nevus, right trigone area. Size is 6 mm. Deep suture is 5-0 Vicryl. Surface suture is 5-0 Ethilon. Followup will be in 1 week for suture removal and biopsy results. Indications for surgery, possible adverse outcomes, and activity restrictions discussed. Informed verbal consent was obtained. Skin surface was prepared with 4% chlorhexidine and draped in the usual sterile manner. Local anesthesia with 1% lidocaine, 1/100,000 epinephrine, and 0.1 mEq/mL bicarbonate. Using a #15 blade and 1-mm margins, an elliptical excision was carried out around the lesion. Undermining performed peripherally. Hemostasis with electrodesiccation. Layered closure performed with specimen to pathology. Wound dressed, wound care reviewed. End length of suture line was 2 cm. Follow up in 1 week for suture removal and biopsy results. Note: Two irritated seborrheic keratoses were treated today as well with LN x2 applied to these sites on the right forehead and the right base of her neck laterally. CC: Ginger Riddle MD documented in this encounter Plan of Treatment Upcoming Encounters Date Type Department Care Team (Late st Contact Info) Description 01/29/2024 1:40 PM EDT Appointment Mammography/[place] [address] Ginger Riddle MD [address] [place] [address] documented as of this encounter Visit Diagnoses Diagnosis Seborrheic keratosis Other seborrheic keratosis Nevus Benign neoplasm of skin, site unspecified Seborrheic keratosis, inflamed Inflamed seborrheic keratosis documented in this encounter Care Teams Portable Irrigation Operator Relationship Specialty Start Date End Date Ginger Riddle MD [address] [place] [address] PCP - General Family Medicine 09/27/16 documented as of this encounter
--- OUTSIDE RECORDS SUMMARY | 2024-01-09 00:42 | XMS_ITS | Encounter Summary ---
Author Organization [facility] Address [address] [place] [address] Care Team Providers Care Field Nurse Name Role Phone None, Provider Primary Care Provider Ginger Ruth MD Primary Care Provider [phone] Encounter Details Date Type Department Care Team (Late st Contact Info) Description 06/29/2021 Lab Requisition [facility] Pathology & Laboratory Medicine - [address] [address] Outr Resulting Lab, Provider Social History Tobacco [...] Procedure Name Priority Date/Time Associated Diagnosis Comments ZZCOVID-19 TEST [facility] LAB PCR Today 06/29/2021 9:37 EST COVID-19 TESTING Routine 06/29/2021 9:37 EST documented in this encounter Results * COVID-19 TEST [facility] PCR (06/29/2021 9:37 EST) Swab 06/29/2021 9:37 EST 06/29/2021 16:19 EST Provider Outr Resulting Lab MICROBIOLOGY - GENERAL ORDERABLES [facility] [address] [place] [address] * COVID-19 TESTING (06/29/2021 9:37 EST) COVID-19 rt-PCR Result Negative Negative 06/30/2021 12:[address] [facility] Comment: This test has not been FDA cleared or approved. This test has been authorized by FDA under an EUA for use by authorized laboratories. This test has been authorized only for detection of nucleic acid from 2019-nCoV, not for any other viruses or pathogens. This test is only authorized for the duration of the declaration that circumstances exist justifying the authorization of emergency use of in vitro diagnostic tests for detection and/or diagnosis of 2019-nCoV under section 564(b)(1) of Act, 21 U.S.C ?? 360bbb-3(b) (1), unless the authorization is terminated or revoked sooner. Negative results do not preclude 2019-nCoV infection and should not be used as the sole basis for treatment or other patient management decisions. Negative results must be combined with clinical observations, patient history, and epidemiological information. Testing was performed using the rodriguez SARS-CoV-2 assay ([employer] on the [employer] 6800 System Performing Lab [address] [facility] Lab 06/30/2021 12:[address] [facility] Swab 06/29/2021 9:37 EST 06/29/2021 16:19 EST Provider Outr Resulting Lab MICROBIOLOGY - GENERAL ORDERABLES [facility] [address] [place] [address] documented in this encounter Visit Diagnoses Not on filedocumented in this encounter Care Teams Field Nurse Relationship Specialty Start Date End Date None, Provider PCP - General 08/16/15 07/02/22 Ginger Riddle MD [address] [place] [address] PCP - General 07/03/22 documented as of this encounter
--- OUTSIDE RECORDS SUMMARY | 2024-01-09 00:42 | XMS_ITS | Encounter Summary ---
Author Organization [facility] Address [address] [place] [address] Care Team Providers Care Statement Clerks Supervisor Name Role Phone Unknown, Provider Primary Care Provider [phone] Encounter Details Date Type Department Care Team (Latest Contact Info) Description 08/14/2015 13:54 EDT - 08/14/2015 14:56 EDT Hospital Encounter [address] [address] Unknown, Provider, Discharge Disposition: Home or Self Care Social History Tobacco Use Types Packs/Day Years Used Date Smoking Tobacco: Never Assessed Sex and Gender Information Value Date Recorded Sex Assigned at Not on file Gender Identity Not on file Sexual Orientation Not on file documented as of this encounter Discharge Disposition Disposition Code Departure Means Destination Home or Self Long Term documented in this encounter Plan of Treatment Not on file documented as of this encounter Visit Diagnoses Not on filedocumented in this encounter Care Teams Statement Clerks Supervisor Relationship Specialty Start Date End Date Unknown, Provider, PCP - General 08/02/09 08/15/15 documented as of this encounter
--- OUTSIDE RECORDS SUMMARY | 2024-01-09 00:42 | XMS_ITS | Encounter Summary ---
Author Organization [facility] [place] [address] Care Team Providers Care Recruitment Consultant Name Role Phone Ginger Riddle MD Primary Care Provider [phone] Reason for Visit * Speech Therapy (Routine) - Closed Specialty Diagnoses / Procedures Referred By Charly mcneill Referred To Contact Speech Pathology / Speech Therapy Diagnoses Chronic cough Lurdes Tong MD [facility] [address] [place] [address] [facility] [place] [address] Referral ID Status Reason Start Date Expiration Date V isits Requested Visits Authorized [id number] Closed Evaluate and Treat 05/30/2017 05/30/2018 1 1 Encounter Details Date Type Department Care Team (Late st Contact Info) Description 07/11/2017 11:30 AM EST Office [place] [address] Shana Nascimento, SYBASE DEVELOPER Dysphagia, unspecified type Social History Tobacco Use Types Packs/Day Years Used Date Smoking Tobacco: Never Sex and Gender Information Value Date Recorded Sex Assigned at Not on file Gender Identity Not on file Sexual Orientation Not on file documented as of this encounter Progress Notes * Shana Nascimento, SYBASE DEVELOPER - 07/11/2017 11:30 AM EST Speech-Language Pathology OP Office Swallow Evaluation Patient Name: Marcela Yousif Date of : 1945 Referring MD: Lurdes Tong Date Seen by MD: 05/30/2017 Diagnosis: Dysphagia Date of Onset: 2015 Date of Evaluation: 07/11/2017 Duration of Evaluation 45 minutes Certification Period: Eval Only Total Timed Code Treatment: 0 minutes S: Pt denies pain at this time. O: Order received and completed with this 72 y.o. female referred by Lurdes Tong MD as part of ongoing w/u for chronic cough of unknown etiology. Current Problem / Complaint: Pt denies having difficulty w/ swallowing except w/ large pills. Does note that when she has to open her mouth wide (example to eat a hamburger) this can trigger cough. Coughing is also triggered reading out loud (ex: to her grandson), by laughing, or when speaking and eating at same time (ex: going out to eat with friends). Can happen when just speaking normally, though not as frequently. Pt hashyper-gag (ex: difficulty w/ some dental procedures), and has always had a little cough and clears her throat often. Cough can be triggered by smell of some chemicals or very cold, dry air. No food allergies. Uncertain about environmental allergies, but no longer lives w/ pets, just in case. Has had allergy testing came out negative for common triggers including dog and cat hair, mold, etc.... Denies waking up congested or having frequent colds / nasal congestion, denies s/s GERD, chronic sore throat or dry mouth. Relevant Medical History: -71 yo woman, never a smoker, was referred to me for second opinion on 1 ) possible HP 2) chronic cough. She has been extensively worked up by Dr. Loving ( pulmonary ) and ENT and an cell operator. Her current active sx are chronic non-productive cough, not responded to ICS, RENETTA, PPI, nasal steroid. Cough is triggered by eating, drinking and speaking and she feels the trigger point is onher throat. She has no c/o dyspnea even at exercise. Please see electronic medical record for full H&P. Medications: Current Outpatient Prescriptions Medication Sig Dispense Refill ??? atorvastatin (LIPITOR) 10 mg Tablet Take 10 mg by mouth daily. ??? lisinopril (ZESTRIL) 5 mg tablet 5mg, PO, Once daily ??? naproxen (NAPROSYN) 250 mg tablet 250mg, PO, Twice daily ??? Selenium Sulfide 2.25 % Susp ??? LORazepam (ATIVAN) 0.5 mg tablet 0.5MG = 1 Tablet(s)or 1/2 tab, PO, Twice daily No current facility-administered medications for this visit. Current Diet: regular, no current restrictions, pt denies any food allergies Cognitive-Linguistic Status: alert, Ox3, able to follow simple directions and respond to basic questions Respiratory Status: pt on room air; no overt shortness of breath or increased respiratory rate / work of breathing / stridor noted w/ connected speech Feeding / Oral Care Status: pt independent Seating and Positioning: pt able to sit up with head midline without assistance; pt ambulatory Oral Peripheral: ?? Pt reports normal sensation ?? Symmetrical presentation, no facial deviation ?? Labial, buccal, lingual, jaw, velar ROM, strength, agility & coordination WNL (Of note: wideJaw opening and closing does not trigger cough unless it is in conjunction with deep, quick breathing pattern) ?? Adequate laryngeal elevation to palpation ?? Able to produce volitional cough, swallow Difficulties Observed / Reported: ?? Mild hyper-gag ?? Mild hypersensitivity in oropharynx Voice and Speech: ?? Motor speech and voice quality WNL ?? Normal resonance Bolus Presentation(s): ?? Thin liquid via cup ?? Soft solid via spoon ?? Hard, crunchy solid ?? Pill w/ cup water Oral Preparatory Phase: WFL; adequate lip closure, no loss from oral cavity; adequate bolus cohesion and A-P propulsion; prompt swallow initiation, no oral residue noted. Pharyngeal Phase: Appears to be WFL, no overt clinical s/s aspiration or pharyngeal dysphagia noted during evaluation. Prompt, distinct, and coordinated swallow without breath or vocal quality changes to auscultation Esophageal Phase: Appears to be WFL, No overt clinical s/s or pt report of esophageal phase dysphagia or GERD A: Dx: ?? No outward s/s of Sensory-Motor Oropharyngeal Dysphagia or Aspiration at this time ?? Hyper gag / hypersensitivity in back of throat resulting in dry coughing and increased throat clearing when back of throat stimulated. Coughing reliably triggered by deep, rapid inhalation which can occur naturally when slightly short of breath, typically during eating or speaking. Deep, slow breathing does not trigger cough. Recommendations: ?? Diet: continue on regular diet, no restrictions recommended ?? Eating Strategies: Take smaller, single bites and sips; cut up solids that will require chewing into smaller bites and sips; avoid continous drinking or placing more food in mouth until everythinghas been swallowed and you have taken a few breaths (Slow down) ?? Speaking Strategies: stop and pause periodically during speaking to catch your breath, slow downif you notice you are speaking rapidly and needing to take rapid, deep breaths in order to keep up,try not to speak at the very end of your breathing or become out of breath while speaking. If you are coughing a lot, slow down. ?? Desensitization: Keep well hydrated; avoid very dry, araceli air and drying medications when possible. Try gargling with salt water or using topical throat spray before going into a situation that would typically result in frequent coughing Goal: ?? Pt will diminish instances of coughing triggered by deep, rapid inhalation (animated speech, reading out loud, eating solids requiring chewing) utilizing compensatory breathing and eating strategies listed above. P: ?? [facility] Speech Pathology to monitor for carryover and effectiviveness with recommendations. Pt provided w/ this clinician's contact information (see below). Encouraged to email me w/ any questions orconcerns, and to call my office if f/u appointments are desired in the future. ?? F/u w/ referring provider ?? Pt in agreement with plan of treatment.. Thank you for this consult with this patient. Please feel free to contact me with any questions or concerns. Shana Nascimento MA CCC-SYBASE DEVELOPER [facility] OP Rehabilitation Medicine [phone] [phone] [email or web address] G-Code: Swallowing Status Modifier CURRENT CH - 0 percent impaired, limited or restricted PROJECTED CH - 0 percent impaired, limited or restricted DISCHARGE CH - 0 percent impaired, limited or restricted G Code Rationale: This G-Code and these disability modifiers were selected as the primary speech therapy goal based upon the patient's evaluation including clinical presentation on tests and clinicaljudgement. Ms. Yousif's current G-Code functional level is 0% impaired based upon today's clinical assessment. documented in this encounter Plan of Treatment Upcoming Encounters Date Type Department Care Team (Late st Contact Info) Description 01/29/2024 1:40 PM EDT Appointment Mammography/[place] [address] Ginger Riddle MD [address] [place] [address] Scheduled Referrals Name Type Priority Associated Diagnoses Orde r Schedule Referral to Speech Therapy Outpatient Referral Routine Chronic cough Ordered: 05/30/2017 documented as of this encounter Visit Diagnoses Diagnosis Dysphagia, unspecified type documented in this encounter Care Teams Recruitment Consultant Relationship Specialty Start Date End Date Ginger Riddle MD [address] [place] [address] PCP - General Family Medicine 09/27/16 documented as of this encounter
--- OUTSIDE RECORDS SUMMARY | 2024-01-09 00:42 | XMS_ITS | Encounter Summary ---
[place] [address] Care Team Providers Care Wellness Educator Name Role Phone Ginger Riddle MD Primary Care Provider [phone] Encounter Details Date Type Department Care Team (Latest Contact Info) Description 08/17/2014 10:22 AM EDT - 08/17/2014 11:59 PM EDT Hospital Encounter [place] [address] CLINIC, Ginger Rehman MD [address] [place], [place] [address] Discharge Disposition: Home Social History Tobacco Use [...] 1:40 PM EDT Appointment Mammography/[place] [address] Ginger Riddle MD [address] [place], [place] [address] documented as of this encounter Procedures Procedure Name Priority Date/Time Associated Diagnosis Comments MAMMO SCREENING CAD BILATERAL Routine 08/17/2014 10:49 AM EDT documented in this encounter Results * Mammo digital bilateral Screening with CAD (08/17/2014 10:49 AM EDT) Anatomical Region Laterality Modality Breast Bilateral Mammography 08/17/2014 10:4 9 AM EDT Narrative 08/18/2014 11:33 AM EDT Reason for Exam: Screening ?? Technique: [...] by the breast imaging center. Procedure Note Bethany Villareal MD - 08/18/2014 Reason for Exam: Screening Technique: Craniocaudal (CC) [...] on filedocumented in this encounter Care Teams Wellness Educator Relationship Specialty Start Date End Date Ginger Riddle MD [address] [place] [address] PCP - General 08/23/13 08/21/15 documented as of this encounter
--- OUTSIDE RECORDS SUMMARY | 2024-01-09 00:42 | XMS_ITS | Encounter Summary ---
Author Organization [facility] Address [address] [place] [address] Care Team Providers Care Gas Roller Operator Name Role Phone Unknown, Provider Primary Care Provider [phone] Encounter Details Date Type Department Care Team (Late st Contact Info) Description 08/14/2015 Results Only [facility] [phone] Diego Mejia MD [address] [place] [id number] Social History Tobacco Use Types Packs/Day Years Used Date Smoking Tobacco: Never Assessed Sex and Gender Information Value Date Recorded Sex Assigned at Not on file Gender Identity Not on file Sexual Orientation Not on file documented as of this encounter Plan of Treatment Not on file documented as of this encounter Procedures Procedure Name Priority Date/Time Associated Diagnosis Comments SURGICAL PATHOLOGY Routine 08/14/2015 9:11 EDT CYTOPATHOLOGY Routine 08/14/2015 0:00 EDT documented in this encounter Results * SURGICAL PATHOLOGY (08/14/2015 9:11 EDT) Pathology Report: SURGICAL PATHOLOGY REPORT Reports generated via electronic interface contain original data; however they are lacking the format of the original report. Caution should be taken when reading/interpret ing unformatted reports. Name: ? BAHMAN YOUSIF ? Accession #: ? [id number] ? : ? 1945 (Age: 70) ??F ? Collect Date: ? 08/14/2015 ? Location: ? [facility] ? Receive Date: ? 08/15/2015 ? Provider: DIEGO MEJIA MD Copy to: ? Final Pathologic Diagnosis: A. LUNG, RIGHT, UPPER LOBE, FLUOROSCOPIC TRANSBRONCHIAL BIOPSIES: - ??Fragments of bronchial wall and subjacent alveolar tissue with no specific pathologic features. See comment. ? B. LUNG, RIGHT LOWER LOBE, FLUOROSCOPIC TRANSBRONCHIAL BIOPSIES: - ??Fragments of bronchial wall and subjacent alveolar tissue with no specific pathologic features. See comment. Comment: Deeper sections have been examined on both specimens. No granulomas are identified. No viral cytopathic effect is seen. An intraalveolar filling process is not appreciated. There are very sparse eosinophils and lymphocytes, but a significant interstitial inflammatory infiltrate is not seen. Rare intraalveolar macrophages, which are a nonspecific finding, are seen. Correlation with clinical and radiographic findings is advised. Dr. Starr 08/16/2015 1:52 PM Document reviewed and electronically signed by: SHARITA BAZAN MD Report ??Date: 08/16/2015 16:00 By the signature above, the attending physician certifies that he/she has personally conducted a gross and/or microscopic examination of the described specimens and rendered or confirmed the above diagnosis. Specimen(s) Received: A. ??Right upper lobe fluoroscopic transbronchial biopsy x 3 B. ??Right lower lobe fluoroscopic transbronchial biopsy x 3 Clinical History: Hypersensitivity pneumonitis/EAA; look for granulomas (non-caseating) Gross Description: A. ?Received in formalin labelled with proper patient identification (initials B, M) and #3 are three pink-sanchez tissues (0.1 x 0.1 x 0.1 cm to 0.2 x 0.2 x 0.2 cm). Entirely submitted in block A1. B. ?Received in formalin labelled with proper patient identification (initials B, M) and #4 are three pink-sanchez tissues (0.1 x 0.1 x 0.1 cm to 0.2 x 0.2 x 0.2 cm). Entirely submitted in block B1. Jenniescar King 08/15/2015 10:06 AM End of Report [facility] 08/14/2015 9:11 EDT 08/15/2015 9:11 EDT Diego Mejia MD PATHOLOGY ORDERABLES [facility] [address] [place] [address] * CYTOPATHOLOGY (08/14/2015 0:00 EDT) Pathology Report: CYTOPATHOLOGY REPORT Reports generated via electronic interface contain original data; however they are lacking the format of the original report. Caution should be taken when reading/interpret ing unformatted reports. Name: ? BAHMAN YOUSIF ? Accession #: ? [id number] : ? 1945 (Age: 70) ??F ?Collect Date: ? 08/14/2015 Location: ? [facility] ? Receive Date: ? 08/15/2015 Provider: ? DIEGO MEJIA MD Copy to: ? CYTOLOGIC DIAGNOSIS: A. ??BRONCHIAL BRUSHINGS, CYTOLOGIC EVALUATION: - No malignant cells identified. - Numerous benign ciliated bronchial epithelial cells present. - No inflammation and no granulomas observed. B. ??BRONCHIAL LAVAGE, RIGHT UPPER LOBE, CYTOLOGIC EVALUATION: - No malignant cells identified. - Benign pneumocytes noted. - No inflammation and no granulomas observed. Document reviewed and electronically signed by: ? GLADWYN LEIMAN MD [facility] Report Date: ??08/15/2015 17:32 By the signature above, the attending physician certifies that he/she has personally conducted a gross and/or microscopic examination of the described specimens and rendered or confirmed the above diagnosis. Specimen Type: ? A: Bronchial [place], #2 B: Bronchial Lavage, Right upper lobe, #1 Clinical History: ? Hypersensitivity pneumonitis; EAA; look for granulomas ? Gross Description: ? A. ??Bronchial [place], #2: ?? 1 tube of Cytolyt, containing brush collection device, was received and processed by selective cellular enhancement technique. ? B. ??Bronchial Lavage, Right upper lobe, #1: ?? 10ccs of clear colorless fluid were received and processed by selective cellular enhancement technique. ? End of Report [facility] 08/14/2015 08/15/2015 9:3 3 EDT Diego Mejia MD PATHOLOGY ORDERABLES [facility] [address] [place] [address] documented in this encounter Visit Diagnoses Not on filedocumented in this encounter Care Teams Gas Roller Operator Relationship Specialty Start Date End Date Unknown, Provider, PCP - General 08/02/09 08/15/15 documented as of this encounter
--- OUTSIDE RECORDS SUMMARY | 2024-01-09 00:42 | XMS_ITS | Encounter Summary ---
Author Organization [facility] Address [address] [place] [address] Care Team Providers Care Manager Pool Name Role Phone Unknown, Provider Primary Care Provider [phone] Encounter Details Date Type Department Care Team (Late st Contact Info) Description 03/13/2007 Results Only [facility] [address] [place] [address] Bahman Piedra PA [address] [place] [address] Social History Tobacco Use Types Packs/Day Years Used Date Smoking Tobacco: Never Assessed Sex and Gender Information Value Date Recorded Sex Assigned at Not on file Gender Identity Not on file Sexual Orientation Not on file documented as of this encounter Plan of Treatment Not on file documented as of this encounter Procedures Procedure Name Priority Date/Time Associated Diagnosis Comments CYTOPATHOLOGY Routine 03/13/2007 0:00 EST documented in this encounter Results * CYTOPATHOLOGY (03/13/2007 0:00 EST) Pathology Report: CYTOPATHOLOGY REPORT Reports generated via electronic interface contain original data; however they are lacking the format of the original report. Caution should be taken when reading/interpreti ng unformatted reports. Name: ? BAHMAN YOUSIF ? Accession #: ? [id number] : ? 1945 (Age: 61) ??F ?Collect Date: ? 03/13/2007 Location: ? [facility] ? Receive Date: ? 03/17/2007 Provider: ?BAHMAN STEPHENS Copy to: ? Specimen/Source: ?ThinPrep Pap Test, Endocervix, processed on [facility] ThinPrep Imaging System, with manual evaluation Last Menstrual Period: ? Menopause Other: ? HPVA - HPV testing requested if ASC-US on the current ThinPrep Pap test. ? SPECIMEN ADEQUACY ? Satisfactory for Evaluation - transformation zone component present GENERAL CATEGORIZATION ? Negative for Intraepithelial Lesion or Malignancy INTERPRETATION ? Reactive cellular changes associated with inflammation present (includes repair). ? Document reviewed and electronically signed by: ? CJ MARTINO MD ? Report Date: ??03/20/2007 15:52 End of Report [facility] 03/13/2007 03/17/2007 Bahman STEPHENS PATHOLOGY ORDERABLES Performing Organization Address City/State/[facility] Co de Phone Number [facility] [address] [place] [address] documented in this encounter Visit Diagnoses Not on filedocumented in this encounter Care Teams Manager Pool Relationship Specialty Start Date End Date Unknown, Provider, PCP - General 08/02/09 08/15/15 documented as of this encounter
--- OUTSIDE RECORDS SUMMARY | 2024-01-09 00:42 | XMS_ITS | Encounter Summary ---
Author [facility] [place] [address] Care Team Providers Care Multimedia Instructional Designer Name Role Phone Ginger Riddle MD Primary Care Provider [phone] Encounter Details Date Type Department Care Team (Latest Contact Info) Description 05/30/2017 12:57 PM EST - 05/30/2017 11:59 PM EST Hospital [place] [phone] Chronic cough Discharge Disposition: Home Social History Tobacco Use [...] daily. 11/19/2017 documented as of this encounter Procedure Notes * Ledy Barnhart MD - 05/30/2017 4:09 PM ESTAssociated Order(s): PULMONARY FUNCTION TEST; PULMONARY FUNCTION TEST Pulmonary Function Test Interpretation FEV1 is normal. FVC is normal. The FEV1/FVC ratio is normal. Impression: Normal spirometry. Fraction of Exhaled Nitric Oxide (FeNO) Measurement Nitric oxide (NO) is recognized as a biomarker for eosinophilic airway inflammation, as is generally the case in asthma. Measuring NO in exhaled breath can help determine whether non-specific respiratory symptoms of wheezing, dyspnea, and cough are due to asthma. However, there are several important limitations of using this test to diagnose and treat asthma. Guidelines from a 2011 [place] [employer] (ATS) executive summary on the [...] FeNO of >20% occurring 2-6 weeks after anti- inflammatory treatmentinitiation is consistent with therapeutic efficacy. The FeNO in ppb for this patient at today's visit was 14 LEDY BARNHART MD documented in this encounter Plan of Treatment Upcoming Encounters Date Type Department Care Team (Late st Contact Info) Description 01/29/2024 1:40 PM EDT Appointment Mammography/[place] [id number] Ginger Riddle MD [address] [place] [address] documented as of this encounter Procedures Procedure Name Priority Date/Time Associated Diagnosis Comments COMMON PULMONARY FUNCTION TEST Routine 05/30/2017 4:10 PM EST Chronic cough COMMON PULMONARY FUNCTION TEST Routine 05/30/2017 4:10 PM EST Chronic cough documented in this encounter Results * Pulmonary Function Testing (05/30/2017 4:10 PM EST) Narrative Ledy Barnhart MD - 05/30/2017 4:10 PM EST Ledy Barnhart MD ? 05/30/2017 ??4:10 PM Pulmonary Function [...] treat asthma. ?? Guidelines from a 2011 [place] [employer] (ATS) executive summary on the [...] BARNHART MD Lurdes Tong MD PFT ORDERABLES * Pulmonary Function Testing (05/30/2017 4:10 PM EST) Narrative Ledy Barnhart MD - 05/30/2017 4:10 PM EST Ledy Barnhart MD ? 05/30/2017 ??4:10 PM Pulmonary Function [...] treat asthma. ?? Guidelines from a 2011 [place] [employer] (ATS) executive summary on the [...] today's visit was ??14 LEDY BARNHART MD Abel Gonzalez MD PFT ORDERABLES documented in this encounter Visit Diagnoses Diagnosis Chronic cough Cough documented in this encounter Care Teams Multimedia Instructional Designer Relationship Specialty Start Date End Date Ginger Riddle MD [address] [place] [address] PCP - General Family Medicine 09/27/16 documented as of this encounter
--- OUTSIDE RECORDS SUMMARY | 2024-01-09 00:42 | XMS_ITS | Encounter Summary ---
Author Organization [facility] Address [facility] [place] [address] Care Team Providers Care Laundry Operator Name Role Phone Ginger Riddle MD Primary Care Provider [phone] Encounter Details Date Type Department Care Team (Late st Contact Info) Description 05/07/2017 Orders [place] [phone] Abel Gonzalez MD [facility] [place] [address] Chronic cough Social History Tobacco Use Types Packs/Day Years Used Date Smoking Tobacco: Never Sex and Gender Information Value Date Recorded Sex Assigned at Not on file Gender Identity Not on file Sexual Orientation Not on file documented as of this encounter Plan of Treatment Upcoming Encounters Date Type Department Care Team (Late st Contact Info) Description 01/29/2024 1:40 PM EDT Appointment Mammography/[place] [phone] Ginger Riddle MD [address] [address] documented as of this encounter Results * [...] treat asthma. ?? Guidelines from a 2011 [place] [employer] (ATS) executive summary on the [...] encounter Visit Diagnoses Diagnosis Chronic cough Cough Chronic cough Cough documented in this encounter Care Teams Laundry Operator Relationship Specialty Start Date End Date Ginger Riddle MD [address] [place] [address] PCP - General Family Medicine 09/27/16 documented as of this encounter
--- OUTSIDE RECORDS SUMMARY | 2024-01-09 00:42 | XMS_ITS | Encounter Summary ---
[facility] Organization [facility] [place] [address] Care Team Providers Care Welcome Hostess Name Role Phone Zack Null Primary Care Provider [phone] Encounter Details Date Type Department Care Team (Latest Contact Info) Description 08/22/2015 10:30 AM EDT - 08/22/2015 11:59 PM EDT Hospital Encounter [place]ammography [place] [phone] Zack Null PA [address] [place], [place] [address] Encounter for screening mammogram for breast cancer [...] 01/29/2024 1:40 PM EDT Appointment Mammography/[place] [phone] Ginger Riddle MD [address] [place], [place] [address] documented as of this encounter Procedures Procedure Name Priority Date/Time Associated Diagnosis Comments MAMMO SCREENING CAD AND MONTY BILATERAL Routine 08/22/2015 10:58 AM EDT Encounter for screening mammogram for breast cancer documented in this encounter Results * Mammo Digital Bilateral Screening With CAD and Tomosynthesis (08/22/2015 10:58 AM EDT) Anatomical Region Laterality Modality Breast Bilateral Mammography Narrative 08/22/2015 11:46 AM EDT BILATERAL MAMMOGRAPHY REASON FOR EXAM: Screening TECHNIQUE: CC and MLO views were obtained of each breast using standard 2-D mammography as well as 3-D tomosynthesis. Computer aided detection was used. This is compared with prior images. FINDINGS: There are scattered areas of fibroglandular density. There are no suspicious microcalcifications, masses, or areas of distortion. The pattern is stable. Multiple, bilateral waxing and waning well-circumscribed masses are noted. CONCLUSION: No mammographic evidence of malignancy. RECOMMENDATION: The [employer] and The Society of Breast Imaging recommend annual screening beginning at age 40 for the general female population. Screening should continue as long as a woman is in good health and is expected to live 10 more years or longer. All women should be familiar with the known benefits, limitations, and potential harms linked to breast cancer screening. They should also know how their breasts normally look and feel and report any breast changes to a health care provider right away. Some women - because of their family history, a genetic tendency, or certain other factors - should be screened with MRIs along with mammograms. (The number of women who fall into this category is very small.) The patient and health care provider should discuss the patient history and decide if earlier screening and breast MRI are appropriate. A result letter has been sent to this patient by [facility]. BIRADS CATEGORY 1: NEGATIVE Zack STEPHENS IMAida MAMMO ORDERABL ES documented in this encounter Visit Diagnoses Diagnosis Encounter for screening mammogram for breast cancer documented in this encounter Care Teams Welcome Hostess Relationship Specialty Start Date End Date Zack Null PA [address] [place] [address] PCP - General Family Medicine 08/22/15 09/26/16 documented as of this encounter
--- OUTSIDE RECORDS SUMMARY | 2024-01-09 00:42 | XMS_ITS | Encounter Summary ---
[place] [address] Care Team Providers Care Project Engineer Chemicals Name Role Phone Ginger Riddle MD Primary Care Provider [phone] Reason for Visit * Reason Comments Skin Check Encounter Details Date Type Department Care Team (Late st Contact Info) Description 02/21/2014 1:00 PM EDT Office Visit Dermatology at [address] [place] [address] Dickson Dow MD [address], [place] [address] [place] (actinic keratosis) (Primary Dx); Seborrheic keratosis Discharge Disposition: Home Social History Tobacco Use Types Packs/Day Years Used Date Smoking Tobacco: Never Sex and Gender Information Value Date Recorded Sex Assigned at Not on file Gender Identity Not on file Sexual Orientation Not on file documented as of this encounter Patient Instructions * Patient Instructions* Vanessa Velez LPN - 02/21/2014 1:03 PM EDT Images from the original note were not included. [facility] Actinic Keratosis: After Your Visit Your Care Instructions Actinic keratosis is a condition that develops in sun-exposed skin. It is not skin cancer, but it can turn into skin cancer if it is not removed. Actinic keratoses, also called solar keratoses, are small red, brown, or skin-colored scaly patches. They are most common on the face, neck, hands, and forearms. Your doctor can remove these growths by freezing or scraping them off or by putting medicines on them. Follow-up care is a gates part of your treatment and safety. Be sure to make and go to all appointments, and call your doctor if you are having problems. It's also a good idea to know your test resultsand keep a list of the medicines you take. How can you care for yourself at home? ?? If your doctor removes the growth, clean the area with soap and water 2 times a day unless your doctor gives you different instructions. Don't use hydrogen peroxide or alcohol, which can slow healing. ?? You may cover the wound with a thin layer of petroleum jelly, such as Vaseline, and a nonstick bandage. To prevent actinic keratosis ?? Always wear sunscreen on exposed skin. Make sure the sunscreen blocks ultraviolet rays (both UVAand UVB) and has a sun protection factor (SPF) of at least 15. Use it every day, even when it is cloudy. Some doctors may recommend a higher SPF, such as 30. ?? Wear long sleeves, a hat, and pants if you are going to be outdoors for a long time. ?? Avoid the sun between 10 a.m. and 4 p.m., the peak time for UV rays. ?? Do not use tanning booths or sunlamps. When should you call for help? Watch closely for changes in your health, and be sure to contact your doctor if: ?? The areas that were treated are red, drain pus, or have red streaks leading from them. ?? You see other growths that do not go away. ?? You do not get better as expected. Where can you learn more? Visit our health information library at http://[employer]/healthinfo You can also view health information on [employer], your personal patient account. Log in or sign up today. Enter L364 in the search box to learn more about Actinic Keratosis: After Your Visit. ?? [phone] [employer]. Care instructions adapted under license by [facility]. This care instruction is for use with your licensed healthcare professional. If you have questions about a medical condition or this instruction, always ask your healthcare professional. [employer] disclaims any warranty or liability for your use of this information. Content Version: 9.9.294437; Last Revised: June 16, 2012 documented in this encounter Progress Notes * Dickson Dow MD - 02/21/2014 1:13 PM EDT Problem: Skin lesion of concern. Marcela follows up after last seeing me in 1998. She is concerned about a lesion on her right cheek, of her left upper chest, and on the bridge of her nose. The patient is not aware of any personal or family history of skin cancer or melanoma. Physical examination reveals an actinic keratosis on the upper bridge of the nose, a seborrheic keratosis on the left upper chest, and two actually on the right lateral cheek. Fortunately, otherwise examination of the head and the neck, the chest, the back, hands, arms, forearms, thighs, and calves is benign. She is blue eyed, fair skinned, and has moderate solar damage with solar ephelides/lentigos. Assessment and Plan: 1. Actinic keratosis, mid upper bridge of nose. a. LN2 times two applied to this site. 2. Irritated seborrheic keratosis. a. Patient reassured. No treatment necessary. 3. Benign skin examination. a. Patient reassured about benign skin examination. b. Reinforced sun avoidance precautions. c. Recommend return to clinic p.r.n. for new lesions/concerns. documented in this encounter Plan of Treatment Upcoming Encounters Date Type Department Care Team (Late st Contact Info) Description 01/29/2024 1:40 PM EDT Appointment Mammography/[place] [address] Ginger Riddle MD [address] [place] [address] documented as of this encounter Visit Diagnoses Diagnosis AK (actinic keratosis)- Primary Actinic keratosis Seborrheic keratosis Other seborrheic keratosis documented in this encounter Care Teams Project Engineer Chemicals Relationship Specialty Start Date End Date Ginger Riddle MD [address] [place] [address] PCP - General 08/23/13 08/21/15 documented as of this encounter
--- OUTSIDE RECORDS SUMMARY | 2024-01-09 00:42 | XMS_ITS | Encounter Summary ---
Author Organization [facility] Address [address] [place] [address] Care Team Providers Care Executive Administrator Name Role Phone Unknown, Provider Primary Care Provider [phone] Encounter Details Date Type Department Care Team (Late st Contact Info) Description 04/03/2011 Results Only [facility] [phone] Bahman Perry MD [address] [place] [address] Social History Tobacco Use Types Packs/Day Years Used Date Smoking Tobacco: Never Assessed Sex and Gender Information Value Date Recorded Sex Assigned at Not on file Gender Identity Not on file Sexual Orientation Not on file documented as of this encounter Plan of Treatment Not on file documented as of this encounter Procedures Procedure Name Priority Date/Time Associated Diagnosis Comments PAP TEST- RESULT ONLY Routine 04/03/2011 0:00 EST documented in this encounter Results * PAP TEST- RESULT ONLY (04/03/2011 0:00 EST) Pathology Report: CYTOPATHOLOGY REPORT Reports generated via electronic interface contain original data; however they are lacking the format of the original report. Caution should be taken when reading/interpreti ng unformatted reports. Name: ? BAHMAN YOUSIF ? Accession #: ? [id number] : ? 1945 (Age: 65) ??F ?Collect Date: ? 04/03/2011 Location: ? [facility] ? Receive Date: ? 04/04/2011 Provider: ?BAHMAN PERRY MD Copy to: ? Specimen/Source: ?Pap Test, Cervix/Endocervix, ThinPrep Imaging System with manual evaluation Last Menstrual Period: ? YEARS AGO ? SPECIMEN ADEQUACY ? Satisfactory for Evaluation - transformation zone component present GENERAL CATEGORIZATION ? Negative for Intraepithelial Lesion or Malignancy ? Document reviewed and electronically signed by: ? JOSE RAFAEL Brown(ASCP) ? Report Date: ??04/08/2011 10:52 End of Report [facility] 04/03/2011 04/04/2011 Bahman Perry MD PATHOLOGY ORDERABLES Performing Organization Address City/State/[facility] Co de Phone Number [facility] [address] [place] [address] documented in this encounter Visit Diagnoses Not on filedocumented in this encounter Care Teams Executive Administrator Relationship Specialty Start Date End Date Unknown, Provider, PCP - General 08/02/09 08/15/15 documented as of this encounter
--- OUTSIDE RECORDS SUMMARY | 2024-01-09 00:42 | XMS_ITS | Encounter Summary ---
Author Organization [facility] Address [address] [place] [address] Care Team Providers Care Hr Internship Name Role Phone Unavailable Primary Care Provider Unavailabl e Encounter Details Date Type Department Care Team (Late st Contact Info) Description 07/31/2009 Results Only [facility] [place] [address] [place], [place] [address] Favian Barahona MD [address] [place] [address] Social History Tobacco Use Types Packs/Day Years Used Date Smoking Tobacco: Never Assessed Sex and Gender Information Value Date Recorded Sex Assigned at Not on file Gender Identity Not on file Sexual Orientation Not on file documented as of this encounter Plan of Treatment Not on file documented as of this encounter Procedures Procedure Name Priority Date/Time Associated Diagnosis Comments SURGICAL PATHOLOGY Routine 07/31/2009 0:00 EDT documented in this encounter Results * SURGICAL PATHOLOGY (07/31/2009 0:00 EDT) Pathology Report: SURGICAL PATHOLOGY REPORT ? Reports generated via electronic interface contain original data; ? however they are lacking the format of the original report. ? Caution should be taken when reading/interpreting unformatted reports. ? Name: ? YOUSIF, BAHMAN ? Accession #: ? [id number] ? : ? 1945 (Age: 64) ??F ? Collect Date: ? 07/31/2009 ? Location: ? [facility] ? Receive Date: ? 07/31/2009 ? Provider: FAVIAN WALKO MD ? Copy to: BAHMAN READY MD ? Final Pathologic Diagnosis: ? A. ?Colon, descending, biopsy: ? 1. ?Colonic mucosa with nonspecific inflammatory changes. ??See comment. B. ?Rectum, biopsies: ? 1. ?Colonic mucosa with prominent lymphoid aggregates. ? Comment: ? Deeper sections were reviewed on specimen (A). ??There is a nonspecific ? increase in lamina propria inflammation, a mild increase in intraepithelial ? lymphocytes, and reactive glandular changes. ??In the absence of any clinical ? symptoms, the etiology for these changes is uncertain. ??This case was reviewed ?? at intradepartmental consultation conference. ??(Dr. Robles)/[facility] ? Document reviewed and electronically signed by: ? Tawanda Warner MD ? Report ??Date: 08/03/2009 16:53 ? By the signature above, the attending physician certifies that he/she has ? personally conducted a gross and/or microscopic examination of the described ? specimens and rendered or confirmed the above diagnosis. ? Specimen(s) Received: ? A. ?Bx descending colon, ? polyp ? B. ? Rectal bx ? Clinical History: ? Colorectal screen ? Gross Description: ? Received in Hollande's fixative labelled Yousif, Bahman and bx descending ?? colon, ? polyp is a sanchez-pink 0.4 x 0.3 x 0.2 cm soft tissue fragment. ??The ? specimen is entirely submitted as (A). ? Received in Hollande's fixative labelled Yousif, Bahman and rectal bx are three sanchez-pink soft tissues ranging from 0.2 x 0.1 x 0.1 cm to 0.4 x 0.3 x 0.2 cm. ? The specimens are entirely submitted as (B). ??(Erickson Shin)/[facility] ? End of Report ? [facility] 07/31/2009 07/31/2009 18: 14 EDT Favian Barahona MD PATHOLOGY ORDERABLES [facility] [address] [place] [address] documented in this encounter Visit Diagnoses Not on filedocumented in this encounter
--- OUTSIDE RECORDS SUMMARY | 2024-01-09 00:42 | XMS_ITS | Encounter Summary ---
Author Organization [facility] [place] [address] Care Team Providers Care Acoustical Tile Carpenters Supervisor Name Role Phone Ginger Riddle MD Primary Care Provider [phone] Encounter Details Date Type Department Care Team (Latest Contact Info) Description 07/21/2015 - 07/21/2015 11:59 PM EDT Hospital Encounter Radiology [place] [phone] Davide Barnhart MD [facility] [place] [address] Pain Discharge Disposition: Home Social History Tobacco Use [...] 01/29/2024 1:40 PM EDT Appointment Mammography[place] [address] Ginger Riddle MD [address] [id number] documented as of this encounter Procedures Procedure Name Priority Date/Time Associated Diagnosis Comments FILM LIBRARY STORAGE ONLY CT HEAD Routine 07/21/2015 12:00 AM EDT Pain documented in this encounter Results * Film Library- Storage Only CT Head (07/21/2015 12:00 AM EDT) Narrative [facility] - 04/17/2017 9:00 AM EST This exam is for storage only and is auto-finalizing. Davide Barnhart MD IMG FILM LIBRARY ORD ERABLES Performing Organization Address City/State/[facility] Co de Phone Number [place], [place] documented in this encounter Visit Diagnoses Diagnosis Pain Generalized pain documented in this encounter Care Teams Acoustical Tile Carpenters Supervisor Relationship Specialty Start Date End Date Ginger Riddle MD [address] [place] [address] PCP - General 08/23/13 08/21/15 documented as of this encounter
--- OUTSIDE RECORDS SUMMARY | 2024-01-09 00:42 | XMS_ITS | Encounter Summary ---
Author Organization [facility] [place] [address] Care Team Providers Care Doll Wig Hackler Name Role Phone Ginger Riddle MD Primary Care Provider [phone] Encounter Details Date Type Department Care Team (Latest Contact Info) Description 10/29/2017 11:10 AM EDT - 10/29/2017 11:59 PM EDT Hospital [place] [phone] Ginger Riddle MD [address] [place] [address] Encounter for screening mammogram for breast cancer [...] 01/29/2024 1:40 PM EDT Appointment Mammography[place] [address] Ginger Riddle MD [address] [place] [address] documented as of this encounter Procedures Procedure Name Priority Date/Time Associated Diagnosis Comments MAMMO SCREENING CAD AND MONTY BILATERAL Routine 10/29/2017 11:23 AM EDT Encounter for screening mammogram for breast cancer documented in this encounter Results * Mammo Screening Cad and Monty Bilateral (10/29/2017 11:23 AM EDT) Anatomical Region Laterality Modality Breast Bilateral Mammography Impressions 10/29/2017 11:49 AM EDT BIRADS CATEGORY 0: Additional imaging required. Diagnostic imaging of the left breast. Narrative 10/29/2017 11:49 AM EDT REASON FOR EXAM: Screening TECHNIQUE: CC and MLO views were obtained of the bilateral breasts. Computer aided detection was used. 3D tomosynthesis images were obtained in addition to 2D images. FINDINGS: Breast density: The breasts are heterogeneously dense, which may obscure small masses. Right breast. ??There are no suspicious microcalcifications, masses, or areas of distortion. No changes compared to prior studies. Multiple nondominant well-circumscribed benign-appearing masses. The Left breast is abnormal and additional imaging is required. There is a subtle focal asymmetry and possible distortion of the upper and inner left breast, 10:00, 4 to 5 cm from the nipple. Findings best visualized on tomographic CC image 48/79, tomographic image MLO 58/87. Ginger Riddle MD IMG MAMMO ORDERABLES documented in this encounter Visit Diagnoses Diagnosis Encounter for screening mammogram for breast cancer documented in this encounter Care Teams Doll Wig Hackler Relationship Specialty Start Date End Date Ginger Riddle MD [address] [place] [address] PCP - General Family Medicine 09/27/16 documented as of this encounter
--- OUTSIDE RECORDS SUMMARY | 2024-01-09 00:42 | XMS_ITS | Encounter Summary ---
[place] [address] Care Team Providers Care Central Supply Manager Name Role Phone Ginger Riddle MD Primary Care Provider [phone] Reason for Visit * Reason Comments Suture / Staple Removal Encounter Details Date Type Department Care Team (Late st Contact Info) Description 11/18/2016 11:30 AM EDT Office Visit Dermatology at [address] [phone] Dickson Dow MD [address] [facility], [place] [address] Visit for suture removal Social History Tobacco Use Types Packs/Day Years Used Date Smoking Tobacco: Never Sex and Gender Information Value Date Recorded Sex Assigned at Not on file Gender Identity Not on file Sexual Orientation Not on file documented as of this encounter Progress Notes * Dickson Dow MD - 11/18/2016 11:30 AM EDT PROBLEM: Followup excision with biopsy results. Marcela follows up and the biopsy from her right nasal trigone area did come back showing an intradermal nevus. Physical examination shows excellent healing of the biopsy site. A/P: Status post excision, intradermal nevus, right trigone area. a. Sutures removed. b. May discontinue wound care instructions. c. Patient congratulated on wonderful healing. Return to clinic here now will be on a p.r.n. basis. CC: Ginger Riddle MD documented in this encounter Plan of Treatment Upcoming Encounters Date Type Department Care Team (Late st Contact Info) Description 01/29/2024 1:40 PM EDT Appointment Mammography[place] [address] Ginger Riddle MD [address] [place] [address] documented as of this encounter Visit Diagnoses Diagnosis Visit for suture removal Encounter for removal of sutures documented in this encounter Care Teams Central Supply Manager Relationship Specialty Start Date End Date Ginger Riddle MD [address] [place], [place] [id number] PCP - General Family Medicine 09/27/16 documented as of this encounter
--- OUTSIDE RECORDS SUMMARY | 2024-01-09 00:42 | XMS_ITS | Encounter Summary ---
Author Organization [facility] Address [address] [place] [address] Care Team Providers Care Japanese Tutor Name Role Phone Unknown, Provider Primary Care Provider Encounter Details Date Type Department Care Team (Late st Contact Info) Description 07/25/2000 Results Only [facility] [address] [place] [address] Ivania Hernandez, [address] [place] [address] Social History Tobacco Use Types Packs/Day Years Used Date Smoking Tobacco: Never Assessed Sex and Gender Information Value Date Recorded Sex Assigned at Not on file Gender Identity Not on file Sexual Orientation Not on file documented as of this encounter Plan of Treatment Not on file documented as of this encounter Procedures Procedure Name Priority Date/Time Associated Diagnosis Comments CYTOPATHOLOGY Routine 07/25/2000 0:00 EST documented in this encounter Results * CYTOPATHOLOGY (07/25/2000 0:00 EST) Pathology Report: CYTOPATHOLOGY REPORT Reports generated via electronic interface contain original data; however they are lacking the format of the original report. Caution should be taken when reading/interpreti ng unformatted reports. Name: ? BAHMAN YOUSIF ? Accession #: ? [id number] : ? 1945 (Age: 55) ??F ?Collect Date: ? 07/25/2000 Location: ? [facility] ? Receive Date: ? 07/28/2000 Provider: ?IVANIA HERNANDEZ MINER ASSISTANT Copy to: ? Specimen/Source: ?ThinPrep Pap Test, Cervix/Endocervix Last Menstrual Period: ? 11/1999 ? SPECIMEN ADEQUACY ? Satisfactory for evaluation. GENERAL CATEGORIZATION ? Within Normal Limits ? Document reviewed and electronically signed by: ? Marisela Valderrama CT(ASCP) ? Report Date: ??07/29/2000 10:58 End of Report [facility] 07/25/2000 07/28/2000 Ivania Hernandez MINER ASSISTANT PATHOLOGY ORDERABLES [facility] [address] [place] [address] documented in this encounter Visit Diagnoses Not on filedocumented in this encounter Care Teams Japanese Tutor Relationship Specialty Start Date End Date Unknown, Provider, PCP - General 08/02/09 08/15/15 documented as of this encounter
--- OUTSIDE RECORDS SUMMARY | 2024-01-09 00:42 | XMS_ITS | Encounter Summary ---
[place] [address] Care Team Providers Care Molding And Trim Installer Name Role Phone Marcela Crenshaw MD Primary Care Provider [phone] Encounter Details Date Type Department Care Team (Late st Contact Info) Description 07/12/2010 9:47 AM EST - 07/12/2010 11:59 PM EST Hospital Encounter MH OPW Marcela Crenshaw MD [address] [place] [address] [address] [place], [place] [address] Social History Tobacco Use Types Packs/Day Years Used Date Smoking Tobacco: Never Assessed Sex and Gender Information Value Date Recorded Sex Assigned at Not on file Gender Identity Not on file Sexual Orientation Not on file documented as of this encounter Plan of Treatment Upcoming Encounters Date Type Department Care Team (Late st Contact Info) Description 01/29/2024 1:40 PM EDT Appointment Mammography/[place] [address] Ginger Riddle MD [address] [place] [address] documented as of this encounter Visit Diagnoses Not on filedocumented in this encounter Care Teams Molding And Trim Installer Relationship Specialty Start Date End Date Marcela Crenshaw MD [facility] [address] [place] [address] [address] [place], [place] [id number] PCP - General 03/27/10 08/22/13 documented as of this encounter
--- OUTSIDE RECORDS SUMMARY | 2024-01-09 00:42 | XMS_ITS | Encounter Summary ---
Author Organization [facility] Address [facility] [place] [address] Care Team Providers Care Uniform Patrol Police Officer Name Role Phone Ginger Riddle MD Primary Care Provider [phone] Encounter Details Date Type Department Care Team (Latest Contact Info) Description 11/03/2017 1:46 PM EDT - 11/03/2017 11:59 PM EDT Hospital [place] [id number] Jeff Marsh MD [facility] [address] [facility] [address] Abnormal finding on breast imaging Discharge Disposition: [...] 01/29/2024 1:40 PM EDT Appointment Mammography/[place] [address] Ginger Riddle MD [address] [place] [address] documented as of this encounter Procedures Procedure Name Priority Date/Time Associated Diagnosis Comments MAMMO CALL BACK DIAGNOSTIC MONTY WITHOUT CAD LEFT Routine 11/03/2017 2:20 PM EDT Abnormal finding on breast imaging documented in this encounter Results * Mammo Call Back Diagnostic Monty Without Cad Left (11/03/2017 2:20 PM EDT) Anatomical Region Laterality Modality Breast [...] However best seen on the LEFT CC monty image 37, there is a 1 cm [...] INTERPRETATION: BIRADS 4. Suspicious for malignancy RECOMMENDATION: Monty guided biopsy which has been scheduled Jeff Marsh MD IMG MAMMO ORDERABLES documented in this encounter Visit Diagnoses Diagnosis Abnormal finding on breast imaging Other (abnormal) findings on radiological examination of breast documented in this encounter Care Teams Uniform Patrol Police Officer Relationship Specialty Start Date End Date Ginger Riddle MD [address] [place] [address] PCP - General Family Medicine 09/27/16 documented as of this encounter
--- OUTSIDE RECORDS SUMMARY | 2024-01-09 00:42 | XMS_ITS | Encounter Summary ---
Author Organization [facility] [place] [address] Care Team Providers Care Rn Flight Name Role Phone Ginger Riddle MD Primary Care Provider [phone] Encounter Details Date Type Department Care Team (Latest Contact Info) Description 01/23/2017 - 01/23/2017 11:59 PM EDT Hospital Encounter [place] [phone] Davide Barnhart MD [facility] [place] [address] Pain Discharge Disposition: Home Social History Tobacco [...] 01/29/2024 1:40 PM EDT Appointment Mammography/[place] [address] iGnger Riddle MD [address] [id number] documented as of this encounter Procedures Procedure Name Priority Date/Time Associated Diagnosis Comments FILM LIBRARY STORAGE ONLY CT CHEST Routine 01/23/2017 12:00 AM EDT Pain documented in this encounter Results * Film Library- Storage Only CT Chest (01/23/2017 12:00 AM EDT) Narrative [facility] - 04/17/2017 9:01 AM EST This exam is for storage only and is auto-finalizing. Davide Barnhart MD IMG FILM LIBRARY ORD ERABLES [place], [place] documented in this encounter Visit Diagnoses Diagnosis Pain Generalized pain documented in this encounter Care Teams Rn Flight Relationship Specialty Start Date End Date Ginger Riddle MD [address] [place] [address] PCP - General Family Medicine 09/27/16 documented as of this encounter
--- OUTSIDE RECORDS SUMMARY | 2024-01-09 00:42 | XMS_ITS | Encounter Summary ---
Author Organization [facility] Address [address] [place] [address] Care Team Providers Care Ship Pilot Dispatcher Name Role Phone Ginger Riddle MD Primary Care Provider [phone] Encounter Details Date Type Department Care Team (Late st Contact Info) Description 07/15/2022 Lab Requisition [facility] Pathology & Laboratory Medicine - [facility] [address] [place] [address] Gardenia Brown MD [address] [place] [address] [place] [address] Encounter for other general examination Social History Tobacco Use Types Packs/Day Years Used Date Smoking Tobacco: Never Assessed Sex and Gender Information Value Date Recorded Sex Assigned at Not on file Gender Identity Not on file Sexual Orientation Not on file documented as of this encounter Plan of Treatment Not on file documented as of this encounter Procedures Procedure Name Priority Date/Time Associated Diagnosis Comments SURGICAL PATHOLOGY Today 07/15/2022 10 :10 EDT Encounter for other general examination documented in this encounter Results * SURGICAL PATHOLOGY (07/15/2022 10:10 EDT) Note to Patient The following pathology results have been interpreted by your pathologist and may be available to you before your health provider has had the opportunity to review them. Please allow time for your provider to receive these results and explore management options, if applicable. 07/18/2022 10:38 EDT [facility] Final Diagnosis A. ENDOMETRIUM, BIOPSY: - Portions of benign endometrial polyp 07/18/2022 10:38 EDT [facility] Attestation By the signature below, the attending physician certifies that they have 1) personally conducted a gross and/or microscopic examination of the described specimen(s), and/or personally interpreted the results of laboratory testing of the described specimen(s), and 2) personally rendered or confirmed the above diagnosis. 07/18/2022 10:38 [facility] at 1038 Clinical History PMB 07/18/2022 10:38 [facility] Gross Description A. Received in formalin labelled with proper patient identification (initials B, M) and endometrium is a sanchez-brown soft tissue (1.0 x 0.4 x 0.3 cm) and an aggregate of slightly blood-tinged mucus (1.5 x 1.2 x 0.3 cm). The tissue is bisected and the specimen is entirely submitted in A1. ANGELO TIAN(ASCP) 07/16/2022 7:53 07/18/2022 10:38 [facility] Performing Lab [facility] 07/18/2022 10:38 [facility] Scanned Images 07/18/2022 10:38 [facility] Tissue ENTIRE ENDOMETRIUM / Unknown 07/15/2022 10:10 EDT 07/15/2022 17:50 EDT Gardenia Brown MD PATHOLOGY ORDERABLES [facility] [address] [place] [address] documented in this encounter Visit Diagnoses Diagnosis Encounter for other general examination documented in this encounter Care Teams Ship Pilot Dispatcher Relationship Specialty Start Date End Date Ginger Riddle MD [address] [place] [address] PCP - General 07/03/22 documented as of this encounter
--- NOTE | 2024-01-09 12:30 | DI.US_ITS ---
APPROVED REPORT EXAM: Comprehensive 2D, Doppler, and color-flow Echocardiogram Patient Location: Out-Patient Laundry Equipment Operator: Franco Arambula RDCS (AE) Indications: LLE edema, transient episodes SOB Other Information Study Quality: Fair. Technically limited study due to body habitus. Conclusion Normal left ventricular chamber size and. Ejection fraction is 65%. There is disproportionate upper septal thickening Normal right ventricular size and function Both atria appear normal in size Aortic valve is not well-visualized but there is no hemodynamically significant stenosis or regurgita tion In the limits of the study there is no additional valvular disease Ascending aorta measures 3.47 cm Wall motion Left Ventricle The left ventricle is grossly normal size. Unable to obtain measurements due to body habitus. The lef t ventricular systolic function is normal. The left ventricular ejection fraction is within the cody l range. There is normal LV segmental wall motion. There is no ventricular septal defect visualized. LVEF is 65%. Right Ventricle The right ventricle is normal size. The right ventricular systolic function is normal. Atria The left atrium size is normal. The right atrium size is normal. The interatrial septum is intact wit h no evidence for an atrial septal defect. Aortic Valve Aortic valve is not well visualized. There is no aortic valvular stenosis. No aortic regurgitation is present. Mitral Valve The mitral valve is normal in structure. No evidence of mitral valve stenosis. There is no mitral silvio ve regurgitation noted. Tricuspid Valve The tricuspid valve is normal in structure. There is no tricuspid valve stenosis. Trace tricuspid reg urgitation. Unable to assess PA pressure. Pulmonic Valve The pulmonary valve is normal in structure. There is no pulmonic valvular stenosis. There is no pulmo toribio valvular regurgitation. Great Vessels The aortic root is normal in size. The ascending aorta is mildly dilated. Aortic arch is normal in ca liber. IVC is normal in size and collapses >50% with inspiration. Pericardium There is no pericardial effusion. 2D Dimensions Ao Root d 2.47 cm F: 2.7 - 3.3 Ao Asc Diam d 3.47 cm F: 2.3 - 3.1 M-Mode TAPSE 2.34 cm (M/F) >1.7 Auto EF LV EDV A4C 88.0 mL LV EDV A2C 102.6 mL LV EDV BP 99.0 mL LV ESV A4C 33.1 mL LV ESV A2C 37.3 mL LV ESV BP 34.8 mL LVEF(%) A4C 62.4 % LVEF(%) A2C 63.6 % LVEF(%) BP 64.8 % LV SV A4C 54.9 ml LV SV A2C 65.2 ml LV SV BP 64.1 ml LV CO A4C 4.4 L/min LV CO A2C 5.3 L/min LV CO BP 4.8 L/min HR A4C 80.18 BPM HR A2C 80.50 BPM LV EDV Index (BP) LA Volume LA Length A4C 3.6 cm LA Length A2C 4.2 cm LA Area A4C s 6.53 cm2 LA Area A2C s 10.14 cm2 LA Vol A4C A-L 10.08 mL LA Vol A2C A-L 20.66 mL LA Vol Biplane A-L 15.7 mL LA Vol/BSA A4C A-L LA Vol/BSA A2C A-L LA Vol/BSA BP A-L 8.0 mL/m2 LA Vol A4C MOD 9.4 mL LA Vol A2C MOD 20.1 mL LA Vol BP MOD 14.9 mL RA Volume RA Area A4C 4.4 cm2 RA ESV A4C (A-L) 6.4mL RA Vol/BSA A4C A-L RA Length A4C 2.5 cm RA ESV A4C (MOD) 5.8mL LV Diastology MV E' medial 0.067 (>0.07 m/s) MV E Vmax 0.75 (0.4-1.3 m/s) MV E/E' MED 11.28 (<14) MV A Vmax 1.10 (0.4-1.3 m/s) MV E' lateral 0.052 (>0.1 m/s) E/A Ratio 0.7 MV E/E' LAT 14.41 (<14) MV E' Average 0.060 m/s MV E/E'(average) 12.66 Aortic Valve AoV Vmax 1.68 m/s LVOT Vmax 1.16 m/s AoV Peak Grad 11.3 mmHg LVOT Peak Grad 5.4 mmHg AoV Area (Vmax) 2.09 cm2 LVOT VTI 0.266 m AoV VTI 0.338 m LVOT Mean Grad 3.0 mmHg AoV Mean Ramu. 1.11 m/s LVOT SV 80.59 mL AoV Mean Grad 5.6 mmHg LVOT Diam s 1.95 cm AoV Area (VTI) 2.39 cm2 AV Regurg Peak Gr. 11.31 mmHg Velocity Ratio 0.69 Mitral Valve MV DT 209 (160-240 msec) MV Vmax TIPS 1.07 m/s MV Mean Grad 2.0 (<2mmHg) MV VTI 0.290 m Pulmonary Valve PV Vmax 1.07 (0.5-1.5 m/s) RVOT Vmax 0.93 m/s PV Peak Grad 4.6 mmHg RVOT Peak Gr. 3.4 mmHg PV Mean Ramu 0.74 m/s RVOT VTI 0.170 m PV Mean Grad 2.5 mmHg RVOT Mean Gr. 1.9 mmHg
== END 2024-01-09 00:55 ==
LOC: DI 00:36
PROVIDERS: PCP Family Medicine; Visit Provider Family Medicine
DX: R60.0 Localized edema (principal)
CPT/HCPCS: 93306

== ENCOUNTER 2024-03-24 15:15 | Outpatient (REF) | payer MEDICARE, SELFPAY ==
--- OUTSIDE RECORDS SUMMARY | 2024-03-24 15:17 | XMS_ITS | Continuity of Care Document ---
Author Organization [facility] Address [address] [place] [address] Care Team Providers Care Pharmacy Technician Inpatient Name Role Phone AFSHIN GRAY Primary Care Physician Encounter [facility] NBR [id number] Date(s): 02/20/24 - 02/20/[address] [facility] [address] [place], [place] [address] Discharge Disposition: Home Allergies, Adverse Reactions, Alerts Substance Criticality Severity Reaction Reaction Severity Status chlorthalidone High criticality Moderate Active Effexor High criticality Moderate Act kathy Assessment and Plan Future Appointments Future Scheduled Tests Radiology* CT Chest w/o Contrast 01/17/25 Immunizations Given and Recorded Vaccine Date Status Refusal Reason influenza, unspecified formulation 02/13/22 Record ed influenza, unspecified formulation 02/13/22 Record ed influenza, unspecified formulation 01/25/21 Record ed influenza, unspecified formulation 12/29/19 Record ed influenza, unspecified formulation 12/29/19 Record ed influenza, unspecified formulation 02/06/18 Record ed influenza, unspecified formulation 01/23/17 Record ed influenza, unspecified formulation 04/21/16 Record ed influenza, unspecified formulation 02/07/15 Record ed influenza, unspecified formulation 02/23/14 Record ed influenza, unspecified formulation 01/20/13 Record ed influenza, unspecified formulation 02/15/11 Record ed SARS-COV-2 (COVID-19) vaccine, unspecifi 01/29/22 Recorded SARS-COV-2 (COVID-19) vaccine, unspecifi 09/17/21 Recorded SARS-COV-2 (COVID-19) vaccine, unspecifi 03/03/21 Recorded SARS-COV-2 (COVID-19) vaccine, unspecifi 07/07/20 Recorded SARS-COV-2 (COVID-19) vaccine, unspecifi 06/08/20 Recorded Td(adult) unspecified formulation 06/19/21 Recorde d Td(adult) unspecified formulation 07/24/11 Recorde d Td(adult) unspecified formulation 05/05/98 Recorde d zoster vaccine, inactivated 11/03/19 Recorded zoster vaccine, inactivated 06/15/19 Recorded zoster vaccine, inactivated 02/06/13 Recorded pneumococcal 23-polyvalent vaccine 02/06/18 Record ed Pneumococcal Conjugate, unspecified form 02/06/17 Recorded Medications Advair HFA 115 mcg-21 mcg/inh inhalation aerosol 2 puffs, Inhale, BID, Please dispense as 3 inhalers. Rinse, gargle, and spit after using., # 36 g, 4 Refill(s), Pharmacy: [facility] #[id number], 160.02, cm, 01/12/24 14:02:00 EDT, Height, 96.4, kg, 01/12/24 14:13:00 EDT, Weight Dosing Start Date: 01/12/24 Status: Ordered Albuterol (Eqv-ProAir HFA) 90 mcg/inh inhalation aerosol 2 puffs, Inhale, every 4 hr, PRN shortness of breath, may also use before heavier exertion, # 8.5 g, 4 Refill(s), Pharmacy: [facility][id number], 160.02, cm, 01/12/24 14:02:00 EDT, Height, 96.4, kg, 01/12/24 14:13:00 EDT, Weight Dosing Start Date: 01/12/24 Status: Ordered aspirin 81 mg oral capsule 81 mg = 1 cap, Oral, Daily, do not exceed 48 capsules in 24 hours, # 30 cap, 0 Refill(s) Start Date: 12/19/23 Status: Ordered atenolol 25 mg oral tablet 25 mg = 1 tab, Oral, BID, # 60 tab, 0 Refill(s) Start Date: 12/19/23 Status: Ordered atenolol 50 mg oral tablet 0 Refill(s) Start Date: 02/18/24 Status: Ordered atorvastatin 20 mg oral tablet 0 Refill(s) Start Date: 12/19/23 Status: Ordered benzonatate 100 mg oral capsule TAKE 1 CAPSULE BY MOUTH THREE TIMES A DAY NEEDED FOR COUGH Start Date: 12/19/23 Status: Ordered Blood Glucose Lancets Supply, See instructions, # 1 EA, 0 Refill(s) Start Date: 12/19/23 Status: Ordered buPROPion 150 mg/12 hours (SR) oral tablet, extended release 0 Refill(s) Start Date: 12/19/23 Status: Ordered cephalexin 500 mg oral capsule 2,000 mg = 4 cap, Oral, Once, take 4 capsules orally one hour prior to dental appt, # 4 cap, 1 Refill(s), Pharmacy: [id number] Start Date: 12/05/23 Status: Ordered Digestive Advantage Daily Probiotic 0 Refill(s) Start Date: 12/19/23 Status: Ordered losartan 25 mg oral tablet 0 Refill(s) Start Date: 12/19/23 Status: Ordered One Touch Verio Test Strips Supply, See instructions, # 1 EA, 0 Refill(s) Start Date: 12/19/23 Status: Ordered Wixela Inhub 250 mcg-50 mcg inhalation powder 2 inh, Inhale, BID, Rinse, gargle, and spit after using., # 1 EA, 5 Refill(s), Pharmacy: [facility] #[id number], 160.02, cm, 02/18/24 9:55:00 EDT, Height, 95.3, kg, 02/18/24 10:08:00 EDT, Weight Dosing Start Date: 02/18/24 Status: Ordered Problem List Condition Confirmation Course Effective Dates Status H ealth Status Informant Abdominal pain Confirmed Active Acquired trigger finger Confirmed Active Acute conjunctivitis of left eye Confirmed Active Asthenia Confirmed Active Breast lump Confirmed Active Carotid artery stenosis Confirmed Active Cough Confirmed Active Diarrhea Confirmed Active Dizziness Confirmed Active Dysuria Confirmed Active Essential hypertension Confirmed Active Extrinsic allergic alveolitis Confirmed Active Gastroesophageal reflux disease Confirmed Active Hyperlipidemia Confirmed Active Hypertensive disorder Confirmed Active Hypokalemia Confirmed Active Localized edema Confirmed Active Loosening of knee joint prosthesis Confirmed Active Major depressive disorder Confirmed Active Neck pain Confirmed Active Neoplasm of uncertain behavior of skin Confirmed Active Non-scarring alopecia Confirmed Active Obesity Confirmed Active Osteoarthritis Confirmed Active Osteoarthritis of knee Confirmed Active Paresthesia Confirmed Active Screening for osteoporosis Confirmed Active Screening for malignant neoplasm of breast Confirmed Active pre surgery evaluation Confirmed Active Postmenopausal bleeding Confirmed Active Pain in joint of left shoulder Confirmed Active Disorder of skin Confirmed Active Type 2 diabetes mellitus without complications Confirmed Active Urethral caruncle Confirmed Active Urinary tract infectious disease Confirmed Active Healthy adult on routine physical examination Confirmed Active Procedures Procedure Date Related Diagnosis Body Site Status Cataract extraction 1 07/2021 Com pleted TKA (total knee arthroplasty) 2 09/26/13 Completed Dilation and curettage 1976 Co mpleted Bronchoscopy 04/1899 Completed and 06/2021 2Bilateral Social History Social History Type Response Tobacco Never tobacco user T obacco Use:. Sex Sex Representation Female (finding) Patient Care team information Care Team Personnel Name: AFSHIN GRAY Position: No Access Member Role: Primary Care Physician Address: [address] [place] [phone] Insurance Providers Guarantor name: BAHMAN Renee Lelong Plan Information #: 1 Payer: [facility] [employer] Member Number: NA Policy Number: NA
--- OUTSIDE RECORDS SUMMARY | 2024-03-24 15:17 | XMS_ITS | Continuity of Care Document ---
Author Organization [facility] Address [address] [place] [address] Care Team Providers Care Sap Business Objects Consultant Name Role Phone AFSHIN GRAY Primary Care Physician Encounter [facility] NBR [id number] Date(s): 01/13/24 - 01/13/24 [facility] [address] [place], [place] [address] Discharge Disposition: Home Allergies, Adverse Reactions, Alerts Substance Criticality Severity Reaction Reaction Severity Status chlorthalidone High criticality Moderate Active Effexor High criticality Moderate Act kathy Assessment and Plan Future Appointments Future Scheduled Tests Radiology* CT Chest w/o Contrast 01/21/24 Immunizations Given and Recorded Vaccine Date Status [...] using., # 36 g, 4 Refill(s), Pharmacy: [facility] #[id number], 160.02, cm, 01/12/24 14:02:00 EDT, Height, 96.4, kg, 01/12/24 14:13:00 EDT, Weight Dosing Start Date: 01/12/24 Status: Ordered Albuterol (Eqv-ProAir HFA) 90 mcg/inh inhalation aerosol 2 puffs, Inhale, every 4 hr, PRN shortness of breath, may also use before heavier exertion, # 8.5 g, 4 Refill(s), Pharmacy: [facility] #[facility], 160.02, cm, 01/12/24 14:02:00 EDT, Height, [...] 0 Refill(s) Start Date: 12/19/23 Status: Ordered atorvastatin 20 mg oral tablet [...] appt, # 4 cap, 1 Refill(s), Pharmacy: [facility] Start Date: 12/05/23 Status: Ordered Digestive Advantage Daily Probiotic 0 Refill(s) Start Date: 12/19/23 Status: Ordered losartan 25 mg oral tablet 0 Refill(s) Start Date: 12/19/23 Status: Ordered One Touch Verio Test Strips Supply, See instructions, # 1 EA, 0 Refill(s) Start Date: 12/19/23 Status: Ordered Problem List Condition Confirmation Course [...] Access Member Role: Primary Care Physician Address: [address] [place] [phone] Insurance Providers Guarantor name: BAHMAN Renee BRIONES [employer] [facility] Information #: 1 Payer: [facility] [employer] Member Number: NA Policy Number: NA
--- OUTSIDE RECORDS SUMMARY | 2024-03-24 15:17 | XMS_ITS | Continuity of Care Document ---
Author Organization [facility] Address [address] [place] [address] Care Team Providers Care Laborer Laboratory Name Role Phone AFSHIN GRAY Primary Care Physician Encounter [facility] FIN NBR [id number] Date(s): 01/13/24 - 01/13/24 [facility] [address] [place], [place] [address] Discharge Disposition: Home Allergies, Adverse Reactions, Alerts [...] using., # 36 g, 4 Refill(s), Pharmacy: [facility], 160.02, cm, 01/12/24 14:02:00 EDT, Height, 96.4, kg, 01/12/24 14:13:00 EDT, Weight Dosing Start Date: 01/12/24 Status: Ordered Albuterol (Eqv-ProAir HFA) 90 mcg/inh inhalation aerosol 2 puffs, Inhale, every 4 hr, PRN shortness of breath, may also use before heavier exertion, # 8.5 g, 4 Refill(s), Pharmacy: [facility], 160.02, cm, 01/12/24 14:02:00 EDT, Height, [...] appt, # 4 cap, 1 Refill(s), Pharmacy: [facility] Start Date: 12/05/23 Status: Ordered Digestive [...] Access Member Role: Primary Care Physician Address: [address] [place] [phone] Insurance Providers Guarantor name: BAHMAN Renee BRIONES [employer] [facility] Information #: 1 Payer: [facility] [employer] Member Number: NA Policy Number: NA
--- OUTSIDE RECORDS SUMMARY | 2024-03-24 15:17 | XMS_ITS | Continuity of Care Document ---
Author Organization [facility] Address [address] [place] [address] Care Team Providers Care Cooler Deliverer Name Role Phone MELAAFSHIN MUNSON Primary Care Physician Encounter [facility] NBR [id number] Date(s): 01/26/24 - 01/26/[address] [address] Discharge Disposition: Home or Self Care Attending Physician: Kimberly Barr MD Admitting Physician: Kimberly Barr MD Referring Physician: Kimberly Barr MD Allergies, Adverse Reactions, Alerts Substance Criticality Severity Reaction Reaction Severity Status chlorthalidone High criticality Moderate Active Effexor High criticality Moderate Act kathy Assessment and Plan Future Appointments Immunizations Given and Recorded Vaccine Date Status [...] using., # 36 g, 4 Refill(s), Pharmacy: [facility], 160.02, cm, 01/12/24 14:02:00 EDT, Height, 96.4, kg, 01/12/24 14:13:00 EDT, Weight Dosing Start Date: 01/12/24 Status: Ordered Albuterol (Eqv-ProAir HFA) 90 mcg/inh inhalation aerosol 2 puffs, Inhale, every 4 hr, PRN shortness of breath, may also use before heavier exertion, # 8.5 g, 4 Refill(s), Pharmacy: [facility], 160.02, cm, 01/12/24 14:02:00 EDT, Height, [...] appt, # 4 cap, 1 Refill(s), Pharmacy: [facility] Start Date: 12/05/23 Status: Ordered Digestive Advantage Daily Probiotic 0 Refill(s) Start Date: 12/19/23 Status: Ordered losartan 25 mg oral tablet 0 Refill(s) Start Date: 12/19/23 Status: Ordered One Touch Verio Test Strips Supply, See instructions, # 1 EA, 0 Refill(s) Start Date: 12/19/23 Status: Ordered Wixela Inhub 250 mcg-50 mcg inhalation powder 1 inh, Inhale, BID, Rinse, gargle, and spit after using., # 1 EA, 4 Refill(s), Pharmacy: [facility], 160.02, cm, 01/12/24 14:02:00 EDT, Height, 96.4, kg, 01/12/24 14:13:00 EDT, Weight Dosing Start Date: 01/16/24 Status: Ordered Problem List Condition Confirmation Course [...] mpleted Bronchoscopy 04/1899 Completed and 06/2021 2Bilateral Results Radiology Reports * Exam Date Time Procedure Performing Provider Status 01/26/24 1:[address] Chest w/o Contrast Krystyna Winter; Auth (Verified) Notes: (CT Chest w/o Contrast) Reason For Exam: earlier dx hypersensitivity pneumonitis CT Chest w/o Contrast EXAM DESCRIPTION: CT Chest w/o Contrast 01/26/2024 INDICATION: EARLIER DX HYPERSENSITIVITY PNEUMONITIS TECHNIQUE: All CT scans at this facility use at least one of these dose optimization techniques: Automated exposure control; mA and/or kV adjustment per patient size (includes targeted exams where dose is matched to clinical indication); or iterative reconstruction. Technique: Axial CT images of the chest without intravenous contrast administration. 1 mm collimation high-resolution lung window images were obtained in the supine and prone positions. COMPARISON: PA and lateral views of the chest from 12/10/[address] chest examination from 12/09/2012 FINDINGS: Mediastinal evaluation is limited by lack of IV contrast. No mediastinal mass or adenopathy is identified. No axillary adenopathy. No pericardial effusion. Normal caliber thoracic aorta with mild atherosclerotic calcifications. Mild peripheral interstitial changes in the lateral and medial aspects of the right lower lobe which may reflect scarring or mild nonspecific interstitial changes. Mild subsegmental atelectasis or scarring in the right upper lobe, lingula and posterior aspect of both lower lobes. No significant emphysematous changes. No central endobronchial filling defect identified Small noncalcified nodular opacity in the lateral aspect of the right upper lobe on image number 88 measuring approximately 2 mm in diameter. Small noncalcified nodular opacity in the medial aspect of the right upper lobe on image number 89 measuring 4 mm in diameter. According to Fleischner society guidelines for management of incidentally detected pulmonary nodules, no follow-up would be required in the absence of risk factors. If the patient has risk factors, follow-up CT chest examination in 1 year could be obtained to assess stability. No pleural effusion or pneumothorax. Calcified gallstones in the gallbladder which is incompletely visualized. Remainder of the visualized upper abdomen demonstrates a normal unenhanced CT appearance except for regional vascular calcification No suspicious regional osseous lesions. Spondylotic changes in the visualized spinal axis IMPRESSION: Mild peripheral interstitial changes in the right lower lobe of uncertain chronicity which may reflect scarring or mild nonspecific interstitial changes. No definite findings to suggest hypersensitivity pneumonitis. No focal infiltrate Two small noncalcified nodular opacities in the right upper lobe as detailed above. In the absence of risk factors, no further follow-up would be required. If the patient has risk factors, follow-up CT chest examination in 1 year could be obtained to assess stability Cholelithiasis JOB #: [id number] Final Signed by: Dalton Kennedy MD Signed (Electronic Signature): 01/26/2024 2:45 pm Social History Social History Type Response Tobacco Never tobacco user T obacco Use:. Sex Sex Representation Female (finding) Patient Care team information Care Team Personnel Name: AFSHIN GRAY Position: No Access Member Role: Primary Care Physician Address: [address] [place] [phone] Insurance Providers Guarantor name: BAHMAN BRIONES Health Plan Information #: 1 Payer: [facility] [employer] Member Number: [id number] Policy Number: NA Health Plan Information #: 2 Payer: [facility] [employer] Member Number: [id number] Policy Number: ADORE
--- OUTSIDE RECORDS SUMMARY | 2024-03-24 15:17 | XMS_ITS | Continuity of Care Document ---
Author Organization [facility] Ambulatory Clinics Address [address] [place] [address] Care Team Providers Care Reed Or Wind Instrument Repairer Name Role Phone GINGER GRAY Primary Care Physician [phone] Encounter [facility] NBR [id number] Date(s): 01/12/24 - 01/12/24 [facility] Ambulatory Clinics [address] [place] [address]- Encounter Diagnosis Cough(Discharge Diagnosis) - 01/12/24 Discharge Disposition: Home or Self Care Attending Physician: Kimberly Barr MD Allergies, Adverse Reactions, Alerts Substance Criticality Severity Reaction Reaction Severity Status chlorthalidone High criticality Moderate Active Effexor High criticality Moderate Act kathy Assessment and Plan Extracted from: Title:Pulm - Office Visit Note Author:Kimberly guardado MD Date:01/12/24 Chronic cough- possible asth ma as able to identify several triggers, including earlier work-related triggers; Losartan therapy.?? Recommended: ?? -Trial Advair HFA, Albuterol HFA prn- to review technique, give spacer today. -Stop Losartan despite earlier trial off. -Recheck PFTs, check HRCT in view of earlier dx??HP- may have improved on Prednisone due to underlying asthma. -Get this year's Influenza and newest Covid-19 vaccinations- likely has some residual Covid-19 abs from May illness. -RTC in 6 wks. ? Future Appointments Future Scheduled Tests Radiology* CT Chest w/o Contrast 01/12/24 Functional Status 01/12/24 Other exposure to Infectious Disease Non e Immunizations Given and Recorded Vaccine Date Status [...] using., # 36 g, 4 Refill(s), Pharmacy: [facility], 160.02, cm, 01/12/24 14:02:00 EDT, Height, 96.4, kg, 01/12/24 14:13:00 EDT, Weight Dosing Start Date: 01/12/24 Status: Ordered Albuterol (Eqv-ProAir HFA) 90 mcg/inh inhalation aerosol 2 puffs, Inhale, every 4 hr, PRN shortness of breath, may also use before heavier exertion, # 8.5 g, 4 Refill(s), Pharmacy: [facility], 160.02, cm, 01/12/24 14:02:00 EDT, Height, [...] appt, # 4 cap, 1 Refill(s), Pharmacy: [facility] Start Date: 12/05/23 Status: Ordered Digestive [...] mpleted Bronchoscopy 04/1899 Completed and 06/2021 2Bilateral Vital Signs Most recent to oldest [Reference Range]: 1 Temperature Temporal Artery [36-38 Deg C ] 36.0 Deg C (01/12/24 2:02 PM) Apical Heart Rate [60-100 bpm] 80 bpm (01/12/24 2:02 PM) Blood Pressure [90-140/60-90 mmHg] 155/8 7mmHg *HI* (01/12/24 2:02 PM) Mean Arterial Pressure, Cuff [65-140 mmH g] 110 mmHg (01/12/24 2:02 PM) Weight 96.4 kg (01/12/24 2:02 PM) Weight Measured (lbs) 212.525 lb (01/12/24 2:02 PM) Weight Dosing 96.400 kg (01/12/24 2:02 PM) [place] Body Weight Calculated 52.4 kg (01/12/24 2:02 PM) Height 160.02 cm (01/12/24 2:02 PM) Height/Length Measured (inches) 63 inch (01/12/24 2:02 PM) BSA Measured 2.07 m2 (01/12/24 2:02 PM) Body Mass Index 37.65 kg/m2 (01/12/24 2:02 PM) Social History Social History Type Response Tobacco Never tobacco user T obacco Use:. Sex Sex Representation Female (finding) Hospital Discharge Instructions Follow Up Care 12/03/2023 15:22:55 With:Kimberly Barr MD Address: [address] [place], [place] [id number]- When:Within 6 Week(s) Physician Outpatient Note * Kimberly Barr MD: PERFORM Event Display: Office Clinic Note Physician Authored Date: [id number] BAHMAN BRIONES :1945 Age:78 years Sex:Female Visit Date:01/12/2024 Primary Care Physician: GINGER GRAY Chief Complaint Referred by PCP/Ginger Gray MD at [facility] for hypersensitivity pneumonitis. History of Present Illness 78 y/o female, never smoker with history including alopecia,??HT- on Atenolol/Losartan, HLD, hypersensitivity pneumonitis, chronic cough, GERD- on probiotic, pre-diabetes, OA- s/p bilateral TKR, obesity, seborrheic/actinic keratoses, and depression- on Bupropion. ?? Previously saw Flor Talavera MD at [facility]??mostly at [facility]- referred her??Maximo Mejia MD then in her practice??FOB w/ TBBx- >cytology/microbiology??negative, serology HP- Prednisone x3 mos,??later referred to [facility]/Lurdes Tong MD 05/30/2017 for chronic non-productive cough- started *per Dr. Tong's notes ?? after trip to [place] in 2015 with exposure to cat, CT chest poor inspiration vs. GGOs (Dr. Tong later agreed poor inspiration); f/u 10/25/2015 CT chest nl, Prednisone tapered off, cough improved then worsened again after another trip to [place] with exposure to cat, pptd by talking and eating/drinking, noted eos nl, FENO not elevated- unknown etiology, referred to speech pathology- saw, tried eating/speaking/desensitization recommendations, not helpful. ?? 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 Talavera->Roberto->Ran, no follow-up since 2018; has had persistent cough since then.?? Travel to [place] notinvolved.?? Daughter had cat when living with??her x1yr until [employer] was reassigned??to [place], took cat with them, was there when she visiited. Has had PFTs-increased diffusion capacity.?? Dr. Mejia also referred her to [place] atmospheric physics professor, did blood allergy testing- negative, recommended trial off Losartan x1 mo- not helpful ?? ?Last saw PCP on??11/07/2023- to see again in Sep ?? Seen in [facility] ED on 09/21/2023??for increased cough- tested Covid-19 illness, txd??w/ ?, cough improved, back to earlier baseline. ?? Other sxs- no chest tightness or other discomfort, no wheezing; no nasal congestion/PND, no acid reflux. ?? Triggers- exertion, other people's cig smoke, wood stoves and campfire smoke, dust, pollens, some strong odors- perfumes/cleaning solutions/scented candles/incense, cold weather, humid >hot weather- also coughs in rainy weather. ?? Later recalled had childhood allergy to easton bear kapok stuffing. ?? Exercise tolerance- drove her to appt, dropped off at entrance, recalled coughing coming upto clinic. ?? Not currently on inhalers or neb txs.?? Tried Breo, Dulera w/ spacer; Azithromycin, Singulair, Flonase/Zyrtec, Omeprazole.?? Lisinopril stopped. *On Losartan. ?? 09/21/2023 CBC WBC 11.49, CMP?? cr 1.1, albumin 3.3, alkaline phosphatase 126; Influenza A&B both negative, Covid-19 positive as above. 07/25/2023 hgb A1C negative. 09/21/2023 CXR 2v NAD. 08/11/2015 PFTs @[facility]/Maximo Mejia MD??nl spirometry, nl lung volumes, mildly increased diffusion capacity even when corrected for alveolar volume (127%); MCT negative by FREV1. 05/30/2017 @[facility] spirometry nl, FENO not elevated 2012 PSG in [place] negative per pt- referenced in [facility] consult. ?? Lives in 3 story home and walk out basement built with , with , has propane/radiant heat, no AC, has fans sometimes. has wall??play pcds-gt-ivoa carpet in playroom attic- not vacuumed regularly/not in attic much, no heavy drapes ?? 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 Also built home,, including log home later resold, exposed to a lot of plywood ?? LDCT screening- not candidate ?? Vaccinations- had last year's Influenza , pneumonia- PPV23 in 2018, Covid-19 x4 total, last in ?2021, RSV vaccinations; last Tdap 2019., Review of Systems Constitutional:?No??fevers,?No??chills,?No??sweats Eye:?No??recent visual problems ENT:?No??ear pain,?No??nasal congestion,?No?? post nasal drip,??No??sore throat Respiratory:?No??shortness of breath,?No??wheezing,??Positive for??cough,??positive for??sputum,??No??hemoptysis Cardiovascular:?Positive for??Chest pain,?No??palpitations,?No??syncope Gastrointestinal:?No??abdominal pain,?Nonausea,?No??vomiting,?No??diarrhea,??No??hematemesis, hematochezia or melena Genitourinary:?No?dysuria,??No??hematuria Onofre/Lymph:?Positive for??bruising or bleeding??tendency,?No??swollen lymph glands Endocrine:?No??excessive thirst,??No??excessive hunger Musculoskeletal:??No??back pain,??No??neck pain,??No??other joint pain,??No??muscle pain,??No??decreased range of motion Integumentary:?No??rash,?No??pruritus,?No??abrasions??No??tattoos Neurologic:??No??headache,??No??confusion,??No??weakness,??No??burning pain Psychiatric:?No??anxiety,?Positive for??depression Physical Exam Vitals & Measurements T:??36.0?C ??(Temporal Artery)?? HR:??80??(Apical)?? BP:??155/87?? SpO2:??96%?? HT:??160.02??cm?? WT:??96.4??kg?? BMI:??37.65?? BSA:??2.07?? General: Alert, conversant??appropriate,??well nourished,?No??acute distress, cough w/ deep inspiration HEENT: Normocephalic, PERRL, EOMI,?Normal??conjunctiva, ??No??scleral icterus, hearing??normal, tympanic membranes??visible,?No??sinus tenderness, nasal??normal,??moist??oral mucosa, oropharyngeal??no erythema,??no thrush,??no dentures Neck: Supple,??full range of motion,?No??JVD,??No??carotid bruits,??No??lymphadenopathy Lungs:??Effort??normal,??decreased breath sounds- ?fair air entry though difficult exam, no crackles, wheezes or rhonchi?? Respiration:??Non-Labored Heart:?Normal? rate,?Regular??rhythm,?No??murmur,?No??gallop,?Norubs Abdomen: Soft, non-tender, non-distended,?Normal? bowel sounds,?No??masses Musculoskeletal:?2+ lower extremity edema??non-pitting, clubbing??No??Normal? range of motionand strength, DIP changes Skin:??warm,??dry??and??intact??,?No??rashes,?No??lesions,??Nocyanosis Neurologic: Awake, alert and oriented X4, CN II-XII intact,??non-focal Psychiatric: Cooperative,??normal mood and affect ?? Clinic Assessment/Plan Chronic cough- possible asthma as able to identify several triggers, including earlier work-relatedtriggers; Losartan therapy.?? Recommended: ?? -Trial Advair HFA, Albuterol HFA prn- to review technique, give spacer today. -Stop Losartan despite earlier trial off. -Recheck PFTs, check HRCT in view of earlier dx??HP- may have improved on Prednisone due to underlying asthma. -Get this year's Influenza and newest Covid-19 vaccinations- likely has some residual Covid-19 abs from May illness. -RTC in 6 wks. Follow Up Instructions With When Contact Information Kimberly Barr MD In 6 weeks [address] [place] [id number]- Additional Instructions: Problem List/Past Medical History Ongoing Abdominal pain Acquired trigger finger Acute conjunctivitis of left eye Asthenia Breast lump Carotid artery stenosis Cough Diarrhea Disorder of skin Dizziness Dysuria Essential hypertension Extrinsic allergic alveolitis Gastroesophageal reflux disease Healthy adult on routine physical examination Hyperlipidemia Hypertensive disorder Hypokalemia Localized edema Loosening of knee joint prosthesis Major depressive disorder Neck pain Neoplasm of uncertain behavior of skin Non-scarring alopecia Obesity Osteoarthritis Osteoarthritis of knee Pain in joint of left shoulder Paresthesia Postmenopausal bleeding pre surgery evaluation Screening for malignant neoplasm of breast Screening for osteoporosis Type 2 diabetes mellitus without complications Urethral caruncle Urinary tract infectious disease Historical No qualifying data Procedure/Surgical History ???Cataract extraction (07/2021)???TKA (total knee arthroplasty) (09/27/2013)???Dilation and curettage (1976)???Bronchoscopy (04/1899) Medications What How Much When Instructions New albuterol (Albuterol (Eqv-ProAir HFA) 90 mcg/ inh inhalation aerosol) 2 Puffs Inhale (breathe in) Every 4 hours as needed for shortness of breath Refills: 4 may also use before heavier exertion ?? Pickup at [facility] New fluticasone-salmeterol (Advair HFA 115 mcg-21 mcg/ inh inhalation aerosol) 2 Puffs Inhale (breathe in) 2 times a day Refills: 4 Please dispense as 3 inhalers. Rinse, gargle, and spit after using. ?? Pickup at [facility] Unchanged aspirin (aspirin 81 mg oral capsule) 1 Capsules Oral (given by mouth) Every day do not exceed 48 capsules in 24 hours ?? Unchanged atenolol (atenolol 25 mg oral tablet) 1 tab Oral (given by mouth) 2 times a day Unchanged atorvastatin (atorvastatin 20 mg oral tablet) Unchanged bacillus coagulans-calcium carbonate (Digestive Advantage Daily Probiotic) Unchanged benzonatate (benzonatate 100 mg oral capsule) TAKE 1 CAPSULE BY MOUTH THREE TIMES A DAY NEEDED FOR COUGH ?? Unchanged buPROPion (buPROPion 150 mg/ 12 hours (SR) oral tablet, extended release) Unchanged cephalexin (cephalexin 500 mg oral capsule) 4 Capsules Oral (given by mouth) Once take 4 capsules orally one hour prior to dental appt ?? Unchanged Durable Medical Equipment for Prescription (Blood Glucose Lancets) See instructions Unchanged losartan (losartan 25 mg oral tablet) Unchanged One Touch Verio Test Strips See instructions Pharmacy Information [facility]: [address], [place] [id number] [phone] Allergies Effexor chlorthalidone Social History Electronic Cigarette/Vaping Electronic Cigarette Use: Never. Tobacco Never tobacco user Tobacco Use:. Family History Breast cancer: Aunt/Uncle. CAD - Coronary artery disease: Mother. CHF - Congestive heart failure: Mother. Cancer of colon: Aunt/Uncle. Diabetes mellitus: Mother. Hypertension: Mother, Sister, Brother and Daughter. Parkinson disease: Mother. Stroke: Mother and Father. Family Member(s): ?? FATHER, at age: 78 Years. Cause of : Family Member(s): ?? MOTHER, at age: 62 Years. Cause of : Immunizations Vaccine Date Status influenza, unspecified formulation 02/13/2022 Recorded influenza, unspecified formulation 02/13/2022 Recorded SARS-COV-2 (COVID-19) vaccine, unspecifi 01/29/2022 Recorded SARS-COV-2 (COVID-19) vaccine, unspecifi 09/17/2021 Recorded Td(adult) unspecified formulation 06/19/2021 Recorded SARS-COV-2 (COVID-19) vaccine, unspecifi 03/03/2021 Recorded influenza, unspecified formulation 01/25/2021 Recorded SARS-COV-2 (COVID-19) vaccine, unspecifi 07/07/2020 Recorded SARS-COV-2 (COVID-19) vaccine, unspecifi 06/08/2020 Recorded influenza, unspecified formulation 12/29/2019 Recorded influenza, unspecified formulation 12/29/2019 Recorded zoster vaccine, inactivated 11/03/2019 Recorded zoster vaccine, inactivated 06/15/2019 Recorded pneumococcal 23-polyvalent vaccine 02/06/2018 Recorded influenza, unspecified formulation 02/06/2018 Recorded Pneumococcal Conjugate, unspecified form 02/06/2017 Recorded influenza, unspecified formulation 01/23/2017 Recorded influenza, unspecified formulation 04/21/2016 Recorded influenza, unspecified formulation 02/07/2015 Recorded influenza, unspecified formulation 02/23/2014 Recorded zoster vaccine, inactivated 02/06/2013 Recorded influenza, unspecified formulation 01/20/2013 Recorded Td(adult) unspecified formulation 07/24/2011 Recorded influenza, unspecified formulation 02/15/2011 Recorded Td(adult) unspecified formulation 05/05/1998 Recorded Electronically Signed on 01/12/2024 15:27 EDT Kimberly Barr MD Patient Care team information Care Team Personnel Name: GINGER GRAY Position: No Access Member Role: Primary Care Physician Address: [address] [place] [phone] Insurance Providers Guarantor name: BAHMAN BRIONES Health Plan Information #: 1 Payer: [facility] [employer] Member Number: [id number] Policy Number: ADORE Health Plan Information #: 2 Payer: [facility] [employer] Member Number: [id number] Policy Number: ADORE
--- OUTSIDE RECORDS SUMMARY | 2024-03-24 15:17 | XMS_ITS | Continuity of Care Document ---
Author Organization [facility] Ambulatory Clinics Address [address] [place] [address] Care Team Providers Care Product Applications Scientist Name Role Phone AFSHIN GRAY Primary Care Physician Encounter [facility] NBR [id number] Date(s): 01/13/24 - 01/13/24 [facility] Ambulatory Clinics [address] [place], [place] [address] Discharge Disposition: Home Allergies, Adverse Reactions, Alerts [...] using., # 36 g, 4 Refill(s), Pharmacy: [facility], 160.02, cm, 01/12/24 14:02:00 EDT, Height, 96.4, kg, 01/12/24 14:13:00 EDT, Weight Dosing Start Date: 01/12/24 Status: Ordered Albuterol (Eqv-ProAir HFA) 90 mcg/inh inhalation aerosol 2 puffs, Inhale, every 4 hr, PRN shortness of breath, may also use before heavier exertion, # 8.5 g, 4 Refill(s), Pharmacy: [facility], 160.02, cm, 01/12/24 14:02:00 EDT, Height, [...] appt, # 4 cap, 1 Refill(s), Pharmacy: [facility] Start Date: 12/05/23 Status: Ordered Digestive [...] Access Member Role: Primary Care Physician Address: [address] [place] [phone] Insurance Providers Guarantor name: BAHMAN Renee BRIONES [employer] [facility] Information #: 1 Payer: [facility] [employer] Member Number: NA Policy Number: NA
--- OUTSIDE RECORDS SUMMARY | 2024-03-24 15:17 | XMS_ITS | Continuity of Care Document ---
Author Organization [facility] Address [address] [place] [address] Care Team Providers Care Sanitary Aide Name Role Phone AFSHIN GRAY Primary Care Physician [facility] [id number] Date(s): 01/19/24 - 01/19/[address] [address] Discharge Disposition: Home or Self Care Attending Physician: Kimberly Barr MD Admitting Physician: Kimberly Barr MD Referring Physician: Kimberly Barr MD Allergies, Adverse Reactions, Alerts Substance Criticality Severity Reaction Reaction Severity Status chlorthalidone High criticality Moderate Active Effexor High criticality Moderate Act kathy Assessment and Plan Future Appointments Future Scheduled Tests Radiology* CT Chest w/o Contrast 01/26/24 Immunizations Given and Recorded Vaccine Date Status [...] using., # 36 g, 4 Refill(s), Pharmacy: [facility], 160.02, cm, 01/12/24 14:02:00 EDT, Height, 96.4, kg, 01/12/24 14:13:00 EDT, Weight Dosing Start Date: 01/12/24 Status: Ordered Albuterol (Eqv-ProAir HFA) 90 mcg/inh inhalation aerosol 2 puffs, Inhale, every 4 hr, PRN shortness of breath, may also use before heavier exertion, # 8.5 g, 4 Refill(s), Pharmacy: [facility], 160.02, cm, 01/12/24 14:02:00 EDT, Height, [...] appt, # 4 cap, 1 Refill(s), Pharmacy: [facility] Start Date: 12/05/23 Status: Ordered Digestive [...] using., # 1 EA, 4 Refill(s), Pharmacy: [facility], 160.02, cm, 01/12/24 14:02:00 EDT, Height, [...] Access Member Role: Primary Care Physician Address: [address] [place] [id number] Insurance Providers Guarantor name: BAHMAN Víctor BRIONES Health Plan Information #: 1 Payer: [facility] [employer] Member Number: [id number] Policy Number: [employer] Health Plan Information #: 2 Payer: [facility] [employer] Member Number: [id number] Policy Number: ADORE
--- OUTSIDE RECORDS SUMMARY | 2024-03-24 15:18 | XMS_ITS | Encounter Summary ---
[place] [address] Care Team Providers Care Tax Services Manager Name Role Phone Ginger Riddle MD Primary Care Provider [phone] Encounter Details Date Type Department Care Team (Latest Contact Info) Description 01/29/2024 Travel Social History Tobacco Use Types Packs/Day [...] on filedocumented in this encounter Care Teams Tax Services Manager Relationship Specialty Start Date End Date Ginger Riddle MD [address] [place] [address] PCP - General Family Medicine 09/27/16 documented as of this encounter
--- OUTSIDE RECORDS SUMMARY | 2024-03-24 15:18 | XMS_ITS | Encounter Summary ---
Author Organization [facility] [place] [address] Care Team Providers Care Weight Trainer Name Role Phone Ginger Riddle MD Primary Care Provider [phone] Reason for Visit * Auth/Cert Specialty Diagnoses / Procedures Referred By Charly mcneill Referred To Contact Diagnoses LEFT BREAST LESION Procedures PRO EXCISE BREAST LES W XRAY MARKER EXCISION LESION, BREAST W/ PREOP.MARKER (NEEDLE LOC.) (WRVU 6.69) Referral ID Status Reason Start Date Expiration Date Visits Re quested Visits Authorized [id number] 1 1 Encounter Details Date Type Department Care Team (Late st Contact Info) Description 12/04/2017 7:35 AM EDT - 12/04/2017 3:13 PM EDT Hospital Encounter [place] [address] Steven Romero MD [facility] [place] [address] Discharge Disposition: Home Social History Tobacco Use [...] Dr. Romero in 2-3 weeks Please call [phone] to confirm date and time of your appointment if you do not hear from us inthe week. Future Appointments Date Time Provider Department Center 12/18/2017 10:00 AM Adia Wilson APRN [facility] 01/02/2018 2:30 PM Dickson Dow MD [facility] Call Doctor for: Worsening redness or drainage from your incision lasting longer than 5 days following surgery Any foul-smelling drainage from the incision Fevers greater than 101 degrees F Persistent nausea or vomiting (this may be related to opioid pain medications) Phone number for questions: [phone] before 5 PM weekdays [phone] after 5 PM and on weekends/holidays documented [...] a 72 y.o. female who [place] [facility] [place] spiculated breast mass. [...] Romero MD - 12/04/2017 10:41 AM EDT [facility] Operative Note Patient Name: Marcela Yousif : [id number] MR#: [id number] Case Date: 12/04/2017 Surgeon: Surgeon(s) and Role: [...] Order Time [place] 8 [id number] LEFT BREAST LESION Left breast mass. excision [...] Operative Note Patient Name: Marcela Yousif : [id number] MR#: [id number] Case Date: 12/04/2017 Surgeon: Surgeon(s) and Role: [...] Order Time SPECIMEN [place] PATHOLOGY OR 8 [id number] LEFT BREAST LESION Left breast mass. excision [...] AM EDT 12/04/2017 11:14 AM EDT Narrative [facility] - 12/04/2017 11:15 AM EDT Specimen requisition ordered. ??Separate Pathology report to follow Resulting Agency Comment Spec In Lab Steven Duran MD PATHOLOGY/CYTOLO GY ORDERABLES Performing Organization Address City/State/[facility] Co de Phone Number [facility] [place] [address] documented in this encounter Visit Diagnoses Not [...] on Ofelia 12/04/17 at 1101, Until Ofelia 18 at 1511, Nausea, May repeat 4 mg [...] on Ofelia 12/04/17 at 0815, Until Ofelia 18 at 1511, Day of Surgery (Day of Procedure) 0815 (New Bag - Prov ider: Frances Mitchell RN)0944 (New Bag - Provider: Emilia Lorenzo MD) PRN Medication Order 12/02/2017 12/03/2017 12/04/2017 BUpivacaine (PF) (MARCAINE) 0.5 % (5 mg/mL) injection (CANCELED) ONCE PRN, Starting on Ofelia 8//18 at 1040, Until Ofelia 8/18 at 1713, Intra-Operative (Intra-Procedure), Routine 1040 (Given [...] on Ofelia 8/18 at 1101, Until Ofelia 8/18 at 1511, Nausea, May repeat 4 mg once in 30 minutes. If multiple antiemetics ordered, use ondansetron first and if ineffective use prochlorperazine second and if ineffective use promethazine, PACU Recovery 1321 (Given - Provid er: Melinda Garcia RN) documented in this encounter Care Teams Weight Trainer Relationship Specialty Start Date End Date Ginger Riddle MD [address] [place] [address] PCP - General Family Medicine 09/27/16 documented as of this encounter
--- OUTSIDE RECORDS SUMMARY | 2024-03-24 15:18 | XMS_ITS | Encounter Summary ---
[place] [address] Care Team Providers Care Slurry Mixer Name Role Phone Ginger Riddle MD Primary Care Provider [phone] Encounter Details Date Type Department Care Team [...] on filedocumented in this encounter Care Teams Slurry Mixer Relationship Specialty Start Date End Date Ginger Riddle MD [address] [place] [address] PCP - General Family Medicine 09/27/16 documented as of this encounter
--- OUTSIDE RECORDS SUMMARY | 2024-03-24 15:18 | XMS_ITS | Encounter Summary ---
Author Organization [facility] Address [facility] [place] [address] Care Team Providers Care Net Technical Architect Name Role Phone Ginger Riddle MD Primary Care Provider [phone] Encounter Details Date Type Department Care Team (Latest Contact Info) Description 07/06/2021 11:00 AM EST - 07/06/2021 11:59 PM EST Hospital Encounter Mammography/[place] [phone] Ginger Riddle MD [address] [place] [address] Encounter for screening mammogram for breast cancer [...] cancer documented in this encounter Care Teams Net Technical Architect Relationship Specialty Start Date End Date Ginger Riddle MD [address] [place] [address] PCP - General Family Medicine 09/27/16 documented as of this encounter
--- OUTSIDE RECORDS SUMMARY | 2024-03-24 15:18 | XMS_ITS | Encounter Summary ---
Author Organization [facility] Address [facility] [place] [address] Care Team Providers Care Opener Name Role Phone Ginger Riddle MD Primary Care Provider [phone] Encounter Details Date Type Department Care Team (Latest Contact Info) Description 01/10/2023 9:10 AM EDT - 01/10/2023 11:59 PM EDT Hospital En[place] [phone] Janice Faust MD [facility] [place] [address] Abnormal finding on breast imaging Discharge Disposition: [...] who have questions please contact the health residential caregiver that requested your imaging first. ? Narrative [...] using a Bard Monopty 14g device. A [employer] 14G marker clip was placed. Cranio-caudal and lateral digital mammography performed to determine biopsy marker placement, which was shown to be at the expected location. COMPLICATIONS: None. ? 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 Janice Faust MD IM MAMMO ORDERABLES * Surgical Pathology Report (01/10/2023 10:01 AM EDT) Final Diagnosis [id number] ? Location: 3L The signing pathologist has (i) examined the relevant preparation(s) for the specimen(s) and (ii) rendered or confirmed the diagnosis(es). . 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 Pathologist Performed at: ??-[facility] [place] Dept. of Pathology, [place] [address] Tabular Typist: Riki Norris MD, AP, ??CLIA Certificate: [id number] DISCUSSION The sclerosing intraductal papilloma is present [...] COPY: Ginger Riddle MD Heck, Li Keys, STAIR BUILDER CLINICAL INFORMATION Mass SPECIMEN PROCESSING A - [...] (<1 hour). ??pps 01/14/2023 9:41 AM EDT [facility] BREAST STRUCTURE / Unknown 01/10/2023 10:01 AM EDT 01/10/2023 10:01 AM EDT Helen Arita MD PATHOLOGY/CYTOLOGY [facility] [address] [place] [address] * Specimen to Pathology (01/10/2023 10:01 AM EDT) AP Specimen 01/10/2023 10:0 1 AM EDT 01/10/2023 10:01 AM EDT Narrative [facility] - 01/10/2023 10:01 AM EDT Specimen requisition ordered. ??Separate Pathology report to follow Helen Arita MD PATHOLOGY/CYTOLOGY [facility] [place] [address] documented in this encounter Visit Diagnoses Diagnosis [...] mg documented in this encounter Care Teams Opener Relationship Specialty Start Date End Date Ginger Riddle MD [address] [place] [address] PCP - General Family Medicine 09/27/16 documented as of this encounter
--- OUTSIDE RECORDS SUMMARY | 2024-03-24 15:18 | XMS_ITS | Encounter Summary ---
Author Organization [facility] Address [facility] [place] [address] Care Team Providers Care Hotel Office Manager Name Role Phone Ginger Riddle MD Primary Care Provider [phone] Encounter Details Date Type Department Care Team (Latest Contact Info) Description 01/23/2017 - 01/23/2017 11:59 PM EDT Hospital Encounter Radiology Library at [facility] [place] [address] Davide Barnhart MD [facility] [address] Pain Discharge Disposition: Home Social History Tobacco [...] CT Chest (01/23/2017 12:00 AM EDT) Narrative [facility] - 04/17/2017 9:01 AM EST This exam is for storage only and is auto-finalizing. Davide Barnhrat MD G FILM LIBRARY ORD ERABLES [facility] [place], [place] documented in this encounter Visit Diagnoses Diagnosis Pain Generalized pain documented in this encounter Care Teams Hotel Office Manager Relationship Specialty Start Date End Date Ginger Riddle MD [address] [place] [address] PCP - General Family Medicine 09/27/16 documented as of this encounter
--- OUTSIDE RECORDS SUMMARY | 2024-03-24 15:18 | XMS_ITS | Encounter Summary ---
Author Organization [facility] Address [facility] [place] [address] Care Team Providers Care Sourcing Specialist Name Role Phone Ginger Riddle MD Primary Care Provider [phone] Encounter Details Date Type Department Care Team (Latest Contact Info) Description 11/03/2017 1:46 PM EDT - 11/03/2017 11:59 PM EDT Hospital Encounter [place] [phone] Jeff Marsh MD [facility] [place] [address] Abnormal finding on breast imaging Discharge Disposition: [...] Associated Diagnosis Comments MAMMO CALL BACK DIAGNOSTIC MNOTY WITHOUT CAD LEFT Routine 11/03/2017 2:20 PM [...] breast documented in this encounter Care Teams Sourcing Specialist Relationship Specialty Start Date End Date Ginger Riddle MD [address] [place] [address] PCP - General Family Medicine 09/27/16 documented as of this encounter
--- OUTSIDE RECORDS SUMMARY | 2024-03-24 15:18 | XMS_ITS | Encounter Summary ---
Author Organization [facility] [place] [address] Care Team Providers Care Brine Tank Operator Name Role Phone Ginger Riddle MD Primary Care Provider [phone] Encounter Details Date Type Department Care Team (Latest Contact Info) Description 03/10/2020 1:05 PM EST - 03/10/2020 11:59 PM EST Hospital Encounter Mammography[place] [address] Ginger Riddle MD [address] [place], [place] [address] Encounter for screening mammogram for breast cancer [...] report, please contact the number below. ? Ginger Riddle MD IMG MAMMO ORDERABLES documented in this encounter Visit Diagnoses Diagnosis Encounter for screening mammogram for breast cancer documented in this encounter Care Teams Brine Tank Operator Relationship Specialty Start Date End Date Ginger Riddle MD [address] [place] [address] PCP - General Family Medicine 09/27/16 documented as of this encounter
--- OUTSIDE RECORDS SUMMARY | 2024-03-24 15:18 | XMS_ITS | Encounter Summary ---
Author Organization [facility] [place] [address] Care Team Providers Care Sales Specialist Name Role Phone Ginger Riddle MD Primary Care Provider [phone] Reason for Visit * Auth/Cert Specialty Diagnoses / Procedures Referred By Charly mcneill Referred To Contact Diagnoses LEFT BREAST LESION Procedures PRO EXCISE BREAST LES W XRAY MARKER EXCISION LESION, BREAST W/ PREOP.MARKER (NEEDLE LOC.) (WRVU 6.69) Referral ID Status Reason Start Date Expiration Date Visits Re quested Visits Authorized [id number] 1 1 Encounter Details Date Type Department Care Team (Late st Contact Info) Description 12/04/2017 9:30 AM EDT - 12/04/2017 10:58 AM EDT Surgery [place] [address] Steven Romero MD [facility] [place] [address] EXCISION LESION, BREAST W/ PREOP.MARKER (NEEDLE LOC.) [...] Dr. Romero in 2-3 weeks Please call [phone] to confirm date and time of your appointment if you do not hear from us inthe week. Future Appointments Date Time Provider Department Center 12/18/2017 10:00 AM Adia Wilson APRN Le[facility] 01/02/2018 2:30 PM Dickson Dow MD [facility] Call Doctor for: Worsening redness or drainage from your incision lasting longer than 5 days following surgery Any foul-smelling drainage from the incision Fevers greater than 101 degrees F Persistent nausea or vomiting (this may be related to opioid pain medications) Phone number for questions: [phone] before 5 PM weekdays [phone] after 5 PM and on weekends/holidays documented [...] a 72 y.o. female who presents to [facility] for WLE of a spiculated breast mass. [...] Romero MD - 12/04/2017 10:41 AM EDT [facility] Operative Note Patient Name: Marcela Yousif : [id number] MR#: [id number] Case Date: 12/04/2017 Surgeon: Surgeon(s) and Role: [...] Order Time [place]IM[place]Y [place] 8 [address]16 LEFT BREAST LESION Left breast mass. excision [...] Operative Note Patient Name: Marcela Yousif : [id number] MR#: [id number] Case Date: 12/04/2017 Surgeon: Surgeon(s) and Role: [...] Order Time SPECIMEN TO PATHOLOGY OR 8 [id number] LEFT BREAST LESION Left breast mass. excision [...] AM EDT 12/04/2017 11:14 AM EDT Narrative [facility] - 12/04/2017 11:15 AM EDT Specimen requisition ordered. ??Separate Pathology report to follow Resulting Agency Comment Spec In Lab Steven Duran MD PATHOLOGY/CYTOLO GY ORDERABLES [facility] [place] [address] documented in this encounter Visit Diagnoses Not [...] on Ofelia 12/04/17 at 1041, Until Ofelia 18 at 1713, Intra-Operative (Intra-Procedure), Routine 1041 (Given [...] Recovery 1321 (Given - Provid er: Melinda Garcia, VICENTA) documented in this encounter Care Teams Sales Specialist Relationship Specialty Start Date End Date Ginger Riddle MD [address] [place] [address] PCP - General Family Medicine 09/27/16 documented as of this encounter
--- OUTSIDE RECORDS SUMMARY | 2024-03-24 15:18 | XMS_ITS | Encounter Summary ---
Author Organization [facility] Address [facility] [place] [address] Care Team Providers Care Crusher Tender Name Role Phone Ginger Riddle MD Primary Care Provider [phone] Encounter Details Date Type Department Care Team (Late st Contact Info) Description 12/04/2017 8:30 AM EDT Hospital Encounter [place] [address] [facility] [place] [place] [address] Malignant neoplasm of left female breast, unspecified [...] Report (12/04/2017 10:20 AM EDT) Final Diagnosis [id number] ? Location: 3L The signing pathologist has [...] Mitchell DO Verified: ??12/10/2017 ?Pathologist Performed at: ??-[facility] Dept. of [place]ology, [place], [place] CLINICAL INFORMATION Specimen Submitted: A - [...] entirely; (6-7) slice IV submitted entirely; (8-9) associate sales representative slice V, biopsy cavity submitted entirely; (10-11) slice submitted entirely; (12) associate sales representative slice VII; (13-14) associate sales representative perpendicular sections to slice VIII, true yellow-lateral margin, all fibrous tissue submitted. (R14) . SPECIMEN PROCESSING Ischemic Time: 140 minutes CF 12/10/2017 10:28 AM EDT [facility] BREAST STRUCTURE / Unknown 12/04/2017 10:20 AM EDT 12/04/2017 10:20 AM EDT Kateryna Duran MD PATHOLOGY/CYTOLO GY ORDERABLES [facility] [place] [address] * Mammo Needle Localization Left (12/04/2017 9:12 [...] with digital mammographic guidance. A 7 cm AirDroids needle was used. Cranio-caudal and 90 degree [...] breast documented in this encounter Care Teams Crusher Tender Relationship Specialty Start Date End Date Ginger Riddle MD [address] [place] [address] PCP - General Family Medicine 09/27/16 documented as of this encounter
--- OUTSIDE RECORDS SUMMARY | 2024-03-24 15:18 | XMS_ITS | Encounter Summary ---
Author Organization [facility] Address [facility] [place] [address] Care Team Providers Care Admitting Interviewer Name Role Phone Ginger Riddle MD Primary Care Provider [phone] Encounter Details Date Type Department Care Team (Latest Contact Info) Description 01/09/2023 1:00 PM EDT - 01/09/2023 1:41 PM EDT Hospital Encounter [place] [phone] Li Delgado, AURIST [address] [place] [address] Lump in lower inner quadrant of left [...] who have questions please contact the health tree care foreman that requested your imaging first. ? Narrative [...] from the nipple. Multiple simple cysts. Li K Heck AURIST IMG MAMMO ORDERABLES documented in this encounter Visit Diagnoses Diagnosis Lump in lower inner quadrant of left breast Mass of breast, unspecified laterality Mass of right breast, unspecified quadrant documented in this encounter Care Teams Admitting Interviewer Relationship Specialty Start Date End Date Ginger Riddle MD [address] [place] [address] PCP - General Family Medicine 09/27/16 documented as of this encounter
--- OUTSIDE RECORDS SUMMARY | 2024-03-24 15:18 | XMS_ITS | Encounter Summary ---
[place] [address] Care Team Providers Care Java Enterprise Architect Name Role Phone Ginger Riddle MD Primary Care Provider [phone] Encounter Details Date Type Department Care Team (Latest Contact Info) Description 11/26/2018 10:27 AM EDT - 11/26/2018 11:59 PM EDT Hospital Encounter Mammography[place] [phone] Ginger Riddle MD [address] [place] [address] Encounter for screening mammogram for breast cancer [...] cancer documented in this encounter Care Teams Java Enterprise Architect Relationship Specialty Start Date End Date Ginger Riddle MD [address] [place] [address] PCP - General Family Medicine 09/27/16 documented as of this encounter
--- OUTSIDE RECORDS SUMMARY | 2024-03-24 15:18 | XMS_ITS | Encounter Summary ---
Author Organization [facility] Address [facility] [place] [address] Care Team Providers Care Manufacturing Process Technician Name Role Phone Ginger Riddle MD Primary Care Provider [phone] Encounter Details Date Type Department Care Team (Late st Contact Info) Description 12/12/2017 Telephone [place] [address] Kateryna Farah MD [facility] [place] [address] Social History Tobacco Use Types Packs/Day Years [...] on filedocumented in this encounter Care Teams Manufacturing Process Technician Relationship Specialty Start Date End Date Ginger Riddle MD [address] [place], [place] [address] PCP - General Family Medicine 09/27/16 documented as of this encounter
--- OUTSIDE RECORDS SUMMARY | 2024-03-24 15:18 | XMS_ITS | Encounter Summary ---
Author Organization [facility] [place] [address] Care Team Providers Care Glued Wood Tester Name Role Phone Ginger Riddle MD Primary Care Provider [phone] Encounter Details Date Type Department Care Team (Latest Contact Info) Description 10/29/2017 11:10 AM EDT - 10/29/2017 11:59 PM EDT Hospital Encounter [place] [address] Ginger Riddle MD [address] [place] [address] Encounter for screening mammogram for breast cancer [...] cancer documented in this encounter Care Teams Glued Wood Tester Relationship Specialty Start Date End Date Ginger Riddle MD [address] [place] [address] PCP - General Family Medicine 09/27/16 documented as of this encounter
--- OUTSIDE RECORDS SUMMARY | 2024-03-24 15:18 | XMS_ITS | Encounter Summary ---
[place] [address] Care Team Providers Care Mastic Man Name Role Phone Ginger Riddle MD Primary [...] on filedocumented in this encounter Care Teams Mastic Man Relationship Specialty Start Date End Date Ginger Riddle MD [address] [place] [address] PCP - General Family Medicine 09/27/16 documented as of this encounter
--- OUTSIDE RECORDS SUMMARY | 2024-03-24 15:18 | XMS_ITS | Encounter Summary ---
[place] [address] Care Team Providers Care Chairman Name Role Phone Ginger Riddle MD Primary Care Provider [phone] Encounter Details Date Type Department Care Team [...] on filedocumented in this encounter Care Teams Chairman Relationship Specialty Start Date End Date Ginger Riddle MD [address] [place] [address] PCP - General Family Medicine 09/27/16 documented as of this encounter
--- OUTSIDE RECORDS SUMMARY | 2024-03-24 15:18 | XMS_ITS | Encounter Summary ---
Author Organization [facility] Address [facility] [place] [place] [address] Care Team Providers Care Spectroscopist Name Role Phone Ginger Riddle MD Primary Care Provider [phone] Encounter Details Date Type Department Care Team (Late st Contact Info) Description 05/07/2017 [place] [address] Abel Gonzalez MD [facility] [address] PULMONARY MEDICINE [place] [id number] Chronic cough Social History Tobacco Use Types Packs/Day Years Used Date Smoking Tobacco: Never Sex and Gender Information Value Date Recorded Sex Assigned at Not on file Gender Identity Not on file Sexual Orientation Not on file documented as of this encounter Plan of Treatment Not on file documented as of this encounter Results * [...] treat asthma. ?? Guidelines from a 2011 [place] [employer] (ATS) executive summary on the [...] Cough documented in this encounter Care Teams Spectroscopist Relationship Specialty Start Date End Date Ginger Riddle MD [address] [place] [address] PCP - General Family Medicine 09/27/16 documented as of this encounter
--- OUTSIDE RECORDS SUMMARY | 2024-03-24 15:18 | XMS_ITS | Encounter Summary ---
[place] [address] Care Team Providers Care Office Manager Executive Assistant Name Role Phone Ginger Riddle MD Primary Care Provider [phone] Encounter Details Date Type Department Care Team (Latest Contact Info) Description 02/06/2024 Travel Social History Tobacco Use Types Packs/Day [...] on filedocumented in this encounter Care Teams Office Manager Executive Assistant Relationship Specialty Start Date End Date Ginger Riddle MD [address] [place] [address] PCP - General Family Medicine 09/27/16 documented as of this encounter
--- OUTSIDE RECORDS SUMMARY | 2024-03-24 15:18 | XMS_ITS | Encounter Summary ---
Author Organization [facility] Address [facility] [place] [address] Care Team Providers Care Automatic Serging Machine Operator Name Role Phone Ginger Riddle MD Primary Care Provider [phone] Encounter Details Date Type Department Care Team (Latest Contact Info) Description 01/10/2023 9:10 AM EDT - 01/10/2023 11:59 PM EDT Hospital En[place] [phone] Janice Faust MD [facility] [place] [address] Abnormal finding on breast imaging Discharge Disposition: [...] who have questions please contact the health home care specialist that requested your imaging first. ? Narrative [...] core biopsy specimens were obtained using a [employer] Monopty 14g device. A Mobile Armor 14G marker clip was placed. Cranio-caudal and [...] breast documented in this encounter Care Teams Automatic Serging Machine Operator Relationship Specialty Start Date End Date Ginger Riddle MD [address] [place] [address] PCP - General Family Medicine 09/27/16 documented as of this encounter
--- OUTSIDE RECORDS SUMMARY | 2024-03-24 15:18 | XMS_ITS | Encounter Summary ---
Author [place] [address] Care Team Providers Care Log Sorting Supervisor Name Role Phone Ginger Riddle MD Primary Care Provider [phone] Reason for Visit * Reason Comments Follow-up Encounter Details Date Type Department Care Team (Late st Contact Info) Description 04/22/2019 3:00 PM EST Office Visit Dermatology at [address] [address] Dickson Dow MD [address] [facility] [place] [address] Seborrheic keratosis, inflamed Social History Tobacco Use [...] keratosis documented in this encounter Care Teams Log Sorting Supervisor Relationship Specialty Start Date End Date Ginger Riddle MD [address] [place] [address] PCP - General Family Medicine 09/27/16 documented as of this encounter
--- OUTSIDE RECORDS SUMMARY | 2024-03-24 15:18 | XMS_ITS | Encounter Summary ---
[place] [address] Care Team Providers Care Umbrella Tipper Name Role Phone Ginger Riddle MD Primary Care Provider [phone] Reason for Visit * Reason Comments Annual Exam Encounter Details Date Type Department Care Team (Late st Contact Info) Description 07/21/2023 11:15 AM EDT Office Visit Dermatology at [address] [phone] Dickson Dow MD 580 [facility], [place] [address] Seborrheic keratosis, inflamed; Seborrheic keratosis Social History [...] keratosis documented in this encounter Care Teams Umbrella Tipper Relationship Specialty Start Date End Date Ginger Riddle MD [address] [place] [address] PCP - General Family Medicine 09/27/16 documented as of this encounter
--- OUTSIDE RECORDS SUMMARY | 2024-03-24 15:18 | XMS_ITS | Encounter Summary ---
Author Organization [facility] Address [facility] [place] [address] Care Team Providers Care Boiler Room Operator Name Role Phone Ginger Riddle MD Primary Care Provider [phone] Encounter Details Date Type Department Care Team (Latest Contact Info) Description 01/09/2023 1:42 PM EDT - 01/09/2023 11:59 PM EDT Hospital [place] [phone] Li Delgado, [address] [place] [address] Lump in lower inner quadrant of left [...] who have questions please contact the health animal caregiver that requested your imaging first. ? Electronically signed by: Janice Faust MD, [facility] ([phone]), at 01/09/2023 4:09 PM Narrative 01/09/2023 4:09 [...] nipple. Multiple simple cysts. Li K Heck CAN TESTER IMG MAMMO ORDERABLES documented in this encounter Visit Diagnoses Diagnosis Lump in lower inner quadrant of left breast Mass of breast, unspecified laterality Mass of right breast, unspecified quadrant documented in this encounter Care Teams Boiler Room Operator Relationship Specialty Start Date End Date Ginger Riddle MD [address] [place] [address] PCP - General Family Medicine 09/27/16 documented as of this encounter
--- OUTSIDE RECORDS SUMMARY | 2024-03-24 15:18 | XMS_ITS | Encounter Summary ---
Author Organization [facility] Address [facility] [place] [address] Care Team Providers Care Certified Wellness Program Manager Name Role Phone Ginger Riddle MD Primary Care Provider [phone] Encounter Details Date Type Department Care Team (Latest Contact Info) Description 11/04/2017 1:22 PM EDT - 11/04/2017 11:59 PM EDT Hospital [place] [phone] Janice Faust MD [facility] [address] [place] [address] Abnormal mammogram Discharge Disposition: Home Social History [...] core biopsy specimens were obtained using a [employer] 9g 20mm device. A specimen radiograph was [...] Report (11/04/2017 1:48 PM EDT) Final Diagnosis [id number] ? Location: 3L The signing pathologist has [...] Mitchell DO Verified: ??11/06/2017 ?Pathologist Performed at: ??-[facility] Dept. of Pathology, [place], [place] DISCUSSION The lesion is 0.8 cm in greatest linear dimension, by slide measure. Review of edh shows the lesion to be 1-cm, radiographic measure. CLINICAL INFORMATION Specimen Submitted: A - Left breast stereo biopsy Clinical History and Diagnosis: Mass; focal FCD, CA, radial scar Report to: Ginger Riddle MD [phone] SPECIMEN PROCESSING A - ??Labeled/Fixati ve: Left breast stereo biopsy, formalin. Quantity/Size: Multiple, 0.2-3.0 cm. Tissue Description: Fragmented, fibrofatty needle core biopsies. Ischemic Time: 7 minutes. Sections/Process ing: (T4) ??ejr 11/06/2017 9:28 AM EDT [facility] BREAST STRUCTURE / Unknown 11/04/2017 1:48 PM EDT 11/04/2017 1:48 PM EDT Jeff Marsh MD PATHOLOGY/CYTOLOGY O RDERABLES [facility] [place] [address] * Specimen to Pathology (11/04/2017 1:48 PM EDT) AP Specimen 11/04/2017 1:48 PM EDT 11/04/2017 3:09 PM EDT Narrative [facility] - 11/04/2017 3:09 PM EDT Specimen requisition ordered. ??Separate Pathology report to follow Resulting Agency Comment Spec In Lab Jeff Marsh MD PATHOLOGY/CYTOLOGY Ave [facility] [place] [address] documented in this encounter Visit Diagnoses Diagnosis [...] mg documented in this encounter Care Teams Certified Wellness Program Manager Relationship Specialty Start Date End Date Ginger Riddle MD [address] [place] [address] PCP - General Family Medicine 09/27/16 documented as of this encounter
--- OUTSIDE RECORDS SUMMARY | 2024-03-24 15:18 | XMS_ITS | Encounter Summary ---
[place] [address] Care Team Providers Care Supervisor Hot Dip Plating Name Role Phone Ginger Riddle MD Primary Care Provider [phone] Reason for Visit * Reason Comments Follow Up Surgery Encounter Details Date Type Department Care Team (Late st Contact Info) Description 12/18/2017 1:00 PM EDT Office [place] [address] Adia Wilson APRN [facility] [place] [address] Post-operative state Social History Tobacco Use Types [...] status documented in this encounter Care Teams Supervisor Hot Dip Plating Relationship Specialty Start Date End Date Ginger Riddle MD [address] [place] [address] PCP - General Family Medicine 09/27/16 documented as of this encounter
--- OUTSIDE RECORDS SUMMARY | 2024-03-24 15:18 | XMS_ITS | Encounter Summary ---
Author Organization [facility] [place] [address] Care Team Providers Care Rn Cvor Name Role Phone Ginger Riddle MD Primary Care Provider [phone] Reason for Visit * Auth/Cert Specialty Diagnoses / Procedures Referred By Charly [email or web address] Referred To Contact Diagnoses LEFT BREAST LESION Procedures PRO EXCISE BREAST LES W XRAY MARKER EXCISION LESION, BREAST W/ PREOP.MARKER (NEEDLE LOC.) (WRVU 6.69) Referral ID Status Reason Start Date Expiration Date Visits Re quested Visits Authorized [id number] 1 1 Encounter Details Date Type Department Care Team (Late st Contact Info) Description 12/04/2017 9:44 AM EDT Anesthesia Event [place] [phone] Emilia Lorenzo MD [facility] DR [place] [address] Anesthesia Record Procedure Summary Procedure Name Responsible [...] Lorenzo MD - 12/04/2017 1:37 PM EDT [facility] Department of Anesthesiology Post-procedure Note Patient: Marcela Yousif Procedure Summary Date Anesthesia Start Anesthesia Stop Room / Location 12/04/17 0944 1058 [facility] OR [facility] MA[facility] OR Procedure Diagnosis Surgeon Responsible Provider EXCISION LESION, BREAST W/ PREOP.MARKER (NEEDLE LOC.) (WRVU 6.69) (Left Breast) (LEFT BREAST LESION) Kateryna Farah MD Havidich, Jeana E, MD All Anesthesia Providers: Anesthesiologist: Emilia Lorenzo MD Steeping Press Operator: Jesus Garner MD Most Recent Vitals: 12/04/17 1315 BP: 126/74 Pulse: Resp: Temp: SpO2: 95% Pain Patient Location: PACU/[facility] Level of Consciousness: Awake and Alert Pain [...] on Ofelia 12/04/17 at 0953, Until Ofelia 12/04/17 at 1058, Anesthesia Intra-op, Routine Given 12/04/2017 9:53 AM EDT 4 mg ePHEDrine 5 mg/mL multi-dose injection Intravenous, PRN, Starting on Ofelia 12/04/17 at 0959, Until Ofelia 818 at 1058, [...] %) injection Intravenous, PRN, Starting on Ofelia 12/04/17 at 0953, Until Ofelia 12/04/17 at 1058, Anesthesia Intra-op, Routine Given 12/04/2017 9:53 AM EDT 100 mg midazolam (PF) (VERSED) 1 mg/mL multi-dose injection Intravenous, PRN, Starting on Ofelia 12/04/17 at 0944, Until Ofelia 12/04/17 at 1058, Sleep, Anesthesia Intra-op, Routine Given 12/04/2017 9:44 AM EDT 2 mg morphine 10 mg/mL injection PRN, Starting on Ofelia 12/04/17 at 0953, Until Ofelia 12/04/17 at 1058, Pain, Anesthesia Intra-op, Routine Given 12/04/2017 9:53 AM EDT 6 mg ondansetron (ZOFRAN) injection Intravenous, PRN, Starting on Ofelia 12/04/17 at 1037, Until Ofelia 12/04/17 at 1058, Nausea, Anesthesia Intra-op, Routine Given 12/04/2017 10:37 AM EDT 4 mg PHENYLephrine in NS (PF) (PERETHI-SYNEPHRINE) 0.8 mg/10 mL (80 mcg/mL) multi-dose injection Syrg Intravenous, PRN, Starting on Ofelia 12/04/17 at 1002, Until Ofelia 12/04/17 at 1058, Anesthesia Intra-op, Routine Given 12/04/2017 10:21 AM EDT 80 mcg Given 12/04/2017 10:02 AM EDT 80 mcg propofol (DIPRIVAN) 10 mg/mL bolus injection (Anesthesia) Intravenous, PRN, Starting on Ofelia 12/04/17 at 0953, Until Ofelia 12/04/17 at 1058, [...] hr documented in this encounter Care Teams Rn Cvor Relationship Specialty Start Date End Date Ginger Riddle MD [address] [place] [address] PCP - General Family Medicine 09/27/16 documented as of this encounter
--- OUTSIDE RECORDS SUMMARY | 2024-03-24 15:18 | XMS_ITS | Encounter Summary ---
[place] [address] Care Team Providers Care Business Administrator Name Role Phone Ginger Riddle MD Primary Care Provider Encounter Details Date Type Department Care Team (Late st Contact Info) Description 09/25/2018 9:30 AM EDT Office Visit Dermatology at [address] [address] Dickson Dow MD [address] [facility] [place] [address] Seborrheic keratosis; Seborrheic keratosis, inflamed Social History [...] keratosis documented in this encounter Care Teams Business Administrator Relationship Specialty Start Date End Date Ginger Riddle MD [address] [place] [address] PCP - General Family Medicine 09/27/16 documented as of this encounter
--- OUTSIDE RECORDS SUMMARY | 2024-03-24 15:18 | XMS_ITS | Encounter Summary ---
Author Organization [facility] Address [facility] [place] [address] Care Team Providers Care Nuts And Bolts Assembler Name Role Phone Ginger Riddle MD Primary Care Provider [phone] Encounter Details Date Type Department Care Team (Latest Contact Info) Description 02/06/2024 12:40 PM EDT - 02/06/2024 11:59 PM EDT Hospital En[place] [phone] Janice Faust MD [facility] [place] [address] Abnormal finding on breast imaging Discharge Disposition: [...] daily. losartan (COZAAR) 25 mg Tablet 08/07/2017 documented as of this encounter Plan of Treatment Not on file documented as of this encounter Procedures Procedure Name Priority Date/Time Associated Diagnosis Comments MAMMO BREAST US LIMITED LEFT Routine 02/06/2024 1:23 PM EDT Abnormal finding on breast imaging documented in this encounter Results * US Breast Limited Left (02/06/2024 1:23 PM EDT) WORKSTATION ID [id number] 1 [facility] Anatomical Region Laterality Modality Breast Left Mammography Impressions 02/06/2024 5:53 PM EDT No sonographic evidence of malignancy. Benign cyst corresponds to mammographic finding on 01/29/2024. RECOMMENDATION: Annual screening mammography FINAL ASSESSMENT: BI-RADS Category 2: Benign I have personally reviewed the image(s) and the resident's interpretation and agree with the findings, Estefany Lopez MD at 02/06/2024 5:53 PM Thank you for letting us participate in the care of this patient. ??If you are a health care provider and have any questions regarding this report, please contact the number below. ??For patients who have questions please contact the health rn progressive care unit that requested your imaging first. ? Narrative 02/06/2024 5:53 PM EDT EXAMINATION: US ??BREAST LIMITED LEFT CLINICAL HISTORY: abnormal finding 0.9 cm well-circumscribed mass upper outer quadrant, left breast, 3 cm from the nipple COMPARISONS: Screening mammogram 01/29/2024 AREA SCANNED: Left breast, 2:00 radian, 3 cm from the nipple FINDINGS: Targeted ultrasound of the left breast, 2:00 radian, 3 cm from nipple demonstrates a 0.9 x 0.7 x 1.0 cm parallel, anechoic circumscribed mass with posterior acoustic enhancement consistent with a benign cyst. This correlates well with the mammographic finding seen on 01/29/2024. No suspicious mass or abnormal acoustical shadowing. Janice Faust MD IMG MAMMO ORDERABLES documented in this encounter Visit Diagnoses Diagnosis Abnormal finding on breast imaging Other (abnormal) findings on radiological examination of breast documented in this encounter Care Teams Nuts And Bolts Assembler Relationship Specialty Start Date End Date Ginger Rdidle MD [address] [place] [address] PCP - General Family Medicine 09/27/16 documented as of this encounter
--- OUTSIDE RECORDS SUMMARY | 2024-03-24 15:18 | XMS_ITS | Encounter Summary ---
[place] [address] Care Team Providers Care Auto Overhauler Name Role Phone Ginger Riddle MD Primary Care Provider [phone] Reason for Visit * Reason Comments Suture / Staple Removal Encounter Details Date Type Department Care Team (Late st Contact Info) Description 11/18/2016 11:30 AM EDT Office Visit Dermatology at [address] [phone] Dickson Dow MD [address] [facility] [place] [address] Visit for suture removal Social History Tobacco [...] sutures documented in this encounter Care Teams Auto Overhauler Relationship Specialty Start Date End Date Ginger Riddle MD [address] [place] [address] PCP - General Family Medicine 09/27/16 documented as of this encounter
--- OUTSIDE RECORDS SUMMARY | 2024-03-24 15:18 | XMS_ITS | Encounter Summary ---
[place] [address] Care Team Providers Care University Manager Name Role Phone Ginger Riddle MD Primary Care Provider [phone] Reason for Visit * Reason Comments Follow-up Skin Check Encounter Details Date Type Department Care Team (Late st Contact Info) Description 01/02/2018 2:30 PM EDT Office Visit Dermatology at [address] [address] Dickson Dow MD [address] [facility] [place] [address] Seborrheic keratosis; Inflamed acrochordon Social History Tobacco [...] 4-year-old boy and will be moving to [place] and the other one living with her in [place]. Physical examination reveals a pleasant 72-year-old woman [...] skin documented in this encounter Care Teams University Manager Relationship Specialty Start Date End Date Ginger Riddle MD [address] [place] [address] PCP - General Family Medicine 09/27/16 documented as of this encounter
--- OUTSIDE RECORDS SUMMARY | 2024-03-24 15:18 | XMS_ITS | Encounter Summary ---
Author Organization [facility] Address [facility] [place] [address] Care Team Providers Care Field Servicer Name Role Phone Ginger Riddle MD Primary Care Provider [phone] Encounter Details Date Type Department Care Team (Late st Contact Info) Description 11/19/2017 10:15 AM EDT Office Visit H[place] [address] Kateryna Farah MD [facility] [place] [address] Breast lesion Social History Tobacco Use Types [...] least 2 times a week.She goes to [employer]. Active Ambulatory Problems Diagnosis Date Noted ??? [...] disorder documented in this encounter Care Teams Field Servicer Relationship Specialty Start Date End Date Ginger Riddle MD [address] [place] [address] PCP - General Family Medicine 09/27/16 documented as of this encounter
--- OUTSIDE RECORDS SUMMARY | 2024-03-24 15:18 | XMS_ITS | Encounter Summary ---
Author Organization [facility] [place] [address] Care Team Providers Care Cargo Worker Name Role Phone Ginger Riddle MD Primary Care Provider [phone] Encounter Details Date Type Department Care Team (Latest Contact Info) Description 05/30/2017 12:57 PM EST - 05/30/2017 11:59 PM EST Hospital En[place] [phone] Chronic cough Discharge Disposition: Home Social History [...] and treat asthma. Guidelines from a 2011 [place] [employer] Society (ATS) executive summary on the [...] treat asthma. ?? Guidelines from a 2011 [place] [employer] Society (ATS) executive summary on the [...] treat asthma. ?? Guidelines from a 2011 [place] [employer] Society (ATS) executive summary on the [...] Cough documented in this encounter Care Teams Cargo Worker Relationship Specialty Start Date End Date Ginger Riddle MD [address] [place] [address] PCP - General Family Medicine 09/27/16 documented as of this encounter
--- OUTSIDE RECORDS SUMMARY | 2024-03-24 15:18 | XMS_ITS | Encounter Summary ---
[place] [address] Care Team Providers Care Soil Science Professor Name Role Phone Gigner Riddle MD Primary Care Provider [phone] Encounter Details Date Type Department Care Team (Latest Contact Info) Description 08/16/2022 10:29 AM EDT - 08/16/2022 11:59 PM EDT Hospital Encounter Mammography/[place] [phone] Ginger Riddle MD [address] [place] [address] Screening mammogram for breast cancer Discharge Disposition: [...] have questions please contact the health career counselor that requested your imaging first. ? [...] cancer documented in this encounter Care Teams Soil Science Professor Relationship Specialty Start Date End Date Ginger Riddle MD [address] [place] [address] PCP - General Family Medicine 09/27/16 documented as of this encounter
--- OUTSIDE RECORDS SUMMARY | 2024-03-24 15:18 | XMS_ITS | Encounter Summary ---
Author Organization [facility] Address [facility] [place] [address] Care Team Providers Care Shipwright Helper Name Role Phone Ginger Riddle MD Primary Care Provider [phone] Encounter Details Date Type Department Care Team (Latest Contact Info) Description 12/02/2018 10:30 AM EDT Hospital Encounter [place] [address] Jeff Marsh MD [facility] [place] [address] Abnormal mammogram Discharge Disposition: Home Social History [...] breast: BI-RADS 2, benign findings. * ??The [employer] [employer] and The Society of [...] unspecified documented in this encounter Care Teams Shipwright Helper Relationship Specialty Start Date End Date Ginger Riddle MD [address] [place] [address] PCP - General Family Medicine 09/27/16 documented as of this encounter
--- OUTSIDE RECORDS SUMMARY | 2024-03-24 15:18 | XMS_ITS | Encounter Summary ---
Author Organization [place] [address] Care Team Providers Care Film Composer Name Role Phone Ginger Riddle MD Primary Care Provider [phone] Reason for Visit * Reason Comments Skin Check Encounter Details Date Type Department Care Team (Late st Contact Info) Description 09/18/2020 10:15 AM EDT Office Visit Dermatology at [address] [phone] Dickson Dow MD 580 [facility] [place] [address] Seborrheic keratosis, inflamed; Inflamed acrochordon; Seborrheic keratosis [...] keratosis documented in this encounter Care Teams Film Composer Relationship Specialty Start Date End Date Ginger Riddle MD [address] [place] [address] PCP - General Family Medicine 09/27/16 documented as of this encounter
--- OUTSIDE RECORDS SUMMARY | 2024-03-24 15:18 | XMS_ITS | Encounter Summary ---
Author [place] [address] Care Team Providers Care Test Bore Helper Name Role Phone Ginger Riddle MD Primary Care Provider [phone] Reason for Visit * Reason Comments Follow-up Encounter Details Date Type Department Care Team (Late st Contact Info) Description 11/11/2016 9:15 AM EDT Procedure visit Dermatology at [address] [address] Dickson Dow MD 580 [facility] [place] [address] Seborrheic keratosis; Nevus; Seborrheic keratosis, inflamed Social [...] keratosis documented in this encounter Care Teams Test Bore Helper Relationship Specialty Start Date End Date Ginger Riddle MD [address] [place] [address] PCP - General Family Medicine 09/27/16 documented as of this encounter
--- OUTSIDE RECORDS SUMMARY | 2024-03-24 15:18 | XMS_ITS | Encounter Summary ---
Author Organization [facility] [place] [address] Care Team Providers Care Manager Action Name Role Phone Ginger Riddle MD Primary Care Provider [phone] Reason for Visit * Reason Comments Follow-up Encounter Details Date Type Department Care Team (Late st Contact Info) Description 02/23/2019 10:15 AM EDT Office Visit Dermatology at [address] [address] Dickson Dow MD [address] [facility], [place] [address] Seborrheic keratosis; Seborrheic keratosis, inflamed; Inflamed acrochordon [...] patient's daughter [facility] [place] [facility] [place] been [place] the last 4 [...] skin documented in this encounter Care Teams Manager Action Relationship Specialty Start Date End Date Ginger Riddle MD [address] [place] [address] PCP - General Family Medicine 09/27/16 documented as of this encounter
--- OUTSIDE RECORDS SUMMARY | 2024-03-24 15:18 | XMS_ITS | Encounter Summary ---
Author Organization [facility] Address [facility] [place] [address] Care Team Providers Care Adjunct Professor Of English Name Role Phone Ginger Riddle MD Primary Care Provider [phone] Encounter Details Date Type Department Care Team (Latest Contact Info) Description 12/02/2018 10:31 AM EDT - 12/02/2018 11:59 PM EDT Hospital [place] [id number] Jeff Marsh MD [facility] [place] [address] Abnormal mammogram Discharge Disposition: Home Social History [...] breast: BI-RADS 2, benign findings. * ??The [employer] and The Society of [...] unspecified documented in this encounter Care Teams Adjunct Professor Of English Relationship Specialty Start Date End Date Ginger Riddle MD [address] [place] [address] PCP - General Family Medicine 09/27/16 documented as of this encounter
--- OUTSIDE RECORDS SUMMARY | 2024-03-24 15:18 | XMS_ITS | Encounter Summary ---
Author Organization [facility] Address [facility] [place] [address] Care Team Providers Care Cardio Clinician Name Role Phone Ginger Riddle MD Primary Care Provider [phone] Encounter Details Date Type Department Care Team (Latest Contact Info) Description 01/26/2024 Interpretation Only [place] [address] Abel Gonzalez MD [facility] [place] [address] Cough, unspecified type Social History Tobacco Use Types Packs/Day Years Used Date Smoking Tobacco: Never Smokeless Tobacco: Never Alcohol Use Standard Drinks/Week Comments No 0 (1 standard drink = 0.6 oz pur e alcohol) Sex and Gender Information Value Date Recorded Sex Assigned at Not on file Gender Identity Not on file Sexual Orientation Not on file documented as of this encounter Procedure Notes * Abel Gonzalez MD - 01/26/2024 10:14 AM EDT See scanned data and interpretation performed remotely at [facility]. This encounter for billing only Spirometry, DLCO, and Lung Volumes Abel Gonzalez MD, PhD Staff Physician Pulmonary and Critical Care Medicine documented in this encounter Plan of Treatment Not on file documented as of this encounter Visit Diagnoses Diagnosis Cough, unspecified type documented in this encounter Care Teams Cardio Clinician Relationship Specialty Start Date End Date Ginger Riddle MD [address] [place] [address] PCP - General Family Medicine 09/27/16 documented as of this encounter
--- OUTSIDE RECORDS SUMMARY | 2024-03-24 15:18 | XMS_ITS | Encounter Summary ---
Author Organization [facility] Address [facility] [place] [address] Care Team Providers Care Railroad Car Cleaning Supervisor Name Role Phone Ginger Riddle MD Primary Care Provider Encounter Details Date Type Department Care Team (Late st Contact Info) Description 11/19/2017 Orders [place] [address] Kateryna Farah MD [facility] [place] [address] Malignant neoplasm of left female breast, unspecified [...] Kateryna Duran MD IMG MAMMO ORDERA BLES * Mammo Needle Localization Left (12/04/2017 [...] with digital mammographic guidance. A 7 cm [employer] needle was used. Cranio-caudal and 90 degree [...] breast documented in this encounter Care Teams Railroad Car Cleaning Supervisor Relationship Specialty Start Date End Date Ginger Riddle MD [address] [place] [address] PCP - General Family Medicine 09/27/16 documented as of this encounter
--- OUTSIDE RECORDS SUMMARY | 2024-03-24 15:18 | XMS_ITS | Clinical Summary ---
Author Organization [facility] Address [facility] [place] [address] Care Team Providers Care Foreman Shipping Department Name Role Phone Ginger Riddle MD Primary Care Provider [phone] Allergies Active Allergy Reactions Criticality Noted Date [...] AK (actinic keratosis) 02/21/2014 Seborrheic keratosis 02/21/2014 Encounters Date Type Department Care Team Description 02/06/2024 12:40 PM EDT - 02/06/2024 11:59 PM EDT Hospital [place] [address] Janice Faust MD Abnormal finding on breast imaging Discharge Disposition: Home 02/06/2024 Travel 01/29/2024 1:19 PM EDT - 01/29/2024 11:59 PM EDT Hospital Encounter Mammography/[place] [address] Ginger Riddle MD Encounter for screening mammogram for breast cancer Discharge Disposition: Home 01/29/2024 Travel 01/26/2024 Interpretation [place] [phone] Abel Gonzalez MD Cough, unspecified type from Last 3 Months Immunizations Name Administration Dates Next Due Influenza Vaccine, Whole 03/28/2006 Pneumococcal 23-Valent Polysaccharide (Pneumovax 23) 10/22/2002 Family History Medical History Relation Comments Breast [...] 11/19/2017 10:35 AM EDT Plan of Treatment Health Maintenance Due Date Last Done Comments Hepatitis C Screening 1962 Tetanus/Diphtheria/Pertussis Vaccines (1 - Tdap) 1963 Zoster vaccine (1 of 2) 1994 Advance Directive 1999 Bone Density Scan 2009 Pneumoccocal Vaccine: 65+ (2 of 2 - PCV) 2009 10/22/2002 RSV Vaccine (1 - 1-dose 75+ series) 2019 Covid-19 Vaccine (2023-2 5 season) 2024 01/29/2022, 09/17/2021, 03/03/2021, Additional history exists Influenza (Flu) vaccine (1 o f 1 - Influenza standard series) 01/04/2024 03/28/2006 Breast Cancer screening Discontinued 01/29/20 24, 01/09/2023, 08/16/2022, Additional history exists Medical Devices Implanted Type Area Progress Clerk Device Identifier Shelf Expiration Date Model / Serial / Lot Breast Clip- 8 Implanted:Qt y: 1 on 11/04/2017 by Jeff Marsh MD Breast Clip Left: Breast [id number] / / Description:JACE VARGASL [employer]SS STEEL Breast Clip- 3 Implanted:Qt y: 1 on 01/10/2023 by Helen Arita MD Breast Clip Breast Description:senomark ultraco r chris Procedures Procedure Name Priority Date/Time Associated Diagnosis Comments MAMMO BREAST US LIMITED LEFT Routine 02/06/2024 1:23 PM EDT Abnormal finding on breast imaging MAMMO SCREENING CAD AND MONTY BILATERAL Routine 01/29/2024 2:12 PM EDT Encounter for screening mammogram for breast cancer from Last 3 Months Results * US Breast Limited Left (02/06/2024 1:23 PM EDT) WORKSTATION ID [id number] 1 DH RAD Anatomical Region Laterality Modality Breast Left Mammography [...] who have questions please contact the health healthcare account manager that requested your imaging first. ? Narrative [...] shadowing. Janice Faust MD IMG MAMMO ORDERABLES * Mammo Screening Cad and Monty Bilateral (01/29/2024 2:12 PM EDT) WORKSTATION ID Flagshship [id number] 2 RAD Anatomical Region Laterality Modality Breast Bilateral Mammography Impressions 01/30/2024 11:18 AM EDT BI-RADS Category 0: Incomplete- Need Additional Imaging Evaluation and/or Prior Mammograms for Comparison RECOMMENDATION: Additional imaging requested: Ultrasound only Additional non-protocol views: None The patient will be contacted regarding the additional imaging. * ??Regular screening mammograms starting at age 40 reduce the risk of from breast cancer. * ??Individuals should discuss the risks and benefits with their provider to determine their preferred breast cancer screening schedule, and at what age screening should stop. * ??Individuals should report any breast changes to a health care provider right away. * ??Some Individuals, because of their family history, a genetic tendency, or other factors, should consider being screened with annual breast MRI as well as with mammograms. * ??Screening mammography may not detect 10-15% of?breast cancers. Thank you for letting us participate in the care of this patient. ??If you are a health care provider and have any questions regarding this report, please contact the number below. ??For patients who have questions please contact the health healthcare account manager that requested your imaging first. ? Electronically signed by: Adia Rodriguez MD, [facility] ([phone]), at 01/30/2024 11:18 AM [facility] [address] [place], [place] ??[address] Narrative 01/30/2024 11:18 AM EDT EXAMINATION: MAMMO SCREENING CAD AND OMNTY BILATERAL REASON FOR EXAM: Screening TECHNIQUE: CC and MLO views were obtained of BOTH breasts. 2D and 3D tomosynthesis images were obtained. Computer aided detection was used. COMPARISON: Comparison was made to the prior relevant examinations. BREAST DENSITY: The breast tissue is heterogeneously dense, which may obscure small masses. FINDINGS: Right breast: There are no suspicious microcalcifications, masses, or areas of distortion. No changes compared to prior studies. Left breast: There is a 0.9 cm well-circumscribed mass that has increased in size in the upper outer quadrant on the left breast, 2 cm away from the previously biopsied papilloma. It is approximately 3 cm from the nipple in the 2:00 position . Additional imaging is indicated. Ginger Riddle MD IMG MAMMO ORDERABLES from Last 3 Months Advance Directives * Full Code (Latest Code Status on File) Date Activated Date Inactivated Comments 12/04/2017 9:18 AM 12/04/2017 5:13 PM Question Answer Comments Does patient have capacity to make decision: Yes Care Teams Foreman Shipping Department Relationship Specialty Start Date End Date Ginger Riddle MD [address] [place] [address] PCP - General Family Medicine 09/27/16
--- OUTSIDE RECORDS SUMMARY | 2024-03-24 15:18 | XMS_ITS | Encounter Summary ---
[place] [address] Care Team Providers Care Internet Sales Representative Name Role Phone Ginger Riddle MD Primary Care Provider [phone] Reason for Referral * Speech Therapy (Routine) - Closed Specialty Diagnoses / Procedures Referred By Charly mcneill Referred To Contact Speech Pathology / Speech Therapy Diagnoses Chronic cough Lurdes Tong MD [facility] [address] [facility] [place] [address] Referral ID Status Reason Start Date Expiration Date V isits Requested Visits Authorized [id number] Closed Evaluate and Treat 05/30/2017 05/30/2018 1 1 Reason for Visit * Consultation (Routine) - Specialty Diagnoses / Procedures Referred By Charly mcneill Referred To Contact Pulmonology Diagnoses Chronic cough chronic cough Procedures consultation Madeleine Pride MD [address] [place] [address] Ledy Barnhart MD [facility] [address] Referral ID Status Reason Start Date Expiration Date V isits Requested Visits Authorized [id number] 04/23/2017 04/23/2018 1 1 Encounter Details Date Type Department Care Team (Late st Contact Info) Description 05/30/2017 2:00 PM EST Office Visit Pulmonology at [facility] [place] [address] Lurdes Tong MD [facility] [place] [address] Chronic cough; Lung infiltrate on CT Social [...] Dr. Flor Iglesias who is a second health plan advisor for the patient and she sent us her letter and note. The story goes back to 2015. When patient was in [place], her cough began after exposure to a cat. [place] the country and was seen by Dr. Mejia, a health plan advisor. A CT scan was obtained on July [...] nor mal. Dr. Mejia ( her other health plan advisor) diagnosed pt for HP and started her on 3 month course of prednisone with symptomatic improvement. She had a follow-up CT scan on October 25, 2015, which was reportedly completely normal. She was then titrated off the prednisone. Her cough never completely resolved but was much better at that time. 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 Her current active sx are chronic non-productive [...] at this time. I will request [facility] to push them electronically and make [...] check CBC, LFT, Troponin, and B12, FACS, [id number] etc as necessary, but I am doubtful [...] of this patient. Please contact us at [phone] for any further questions or requests. Addendum: [...] documented in this encounter Plan of Treatment Scheduled Referrals Name Type Priority Associated Diagnoses [...] treat asthma. ?? Guidelines from a 2011 [place] [employer] (ATS) executive summary on the [...] Cough documented in this encounter Care Teams Internet Sales Representative Relationship Specialty Start Date End Date Ginger Riddle MD [address] [place] [address] PCP - General Family Medicine 09/27/16 documented as of this encounter
--- OUTSIDE RECORDS SUMMARY | 2024-03-24 15:18 | XMS_ITS | Encounter Summary ---
[place] [address] Care Team Providers Care Calender Machine Operator Name Role Phone Ginger Riddle MD Primary Care Provider [phone] Reason for Visit * Reason Comments Skin Check Encounter Details Date Type Department Care Team (Late st Contact Info) Description 07/15/2022 2:15 PM EDT Office Visit Dermatology at [address] [id number] Dickson Dow MD [address] [facility], [place] [address] Seborrheic keratosis, inflamed; Seborrheic keratosis Social History [...] keratosis documented in this encounter Care Teams Calender Machine Operator Relationship Specialty Start Date End Date Ginger Riddle MD [address] [place] [address] PCP - General Family Medicine 09/27/16 documented as of this encounter
--- OUTSIDE RECORDS SUMMARY | 2024-03-24 15:18 | XMS_ITS | Encounter Summary ---
[place] [address] Care Team Providers Care Parent Coach Name Role Phone Ginger Riddle MD Primary Care Provider [phone] Encounter Details Date Type Department Care Team [...] on filedocumented in this encounter Care Teams Parent Coach Relationship Specialty Start Date End Date Ginger Riddle MD [address] [place] [address] PCP - General Family Medicine 09/27/16 documented as of this encounter
--- OUTSIDE RECORDS SUMMARY | 2024-03-24 15:18 | XMS_ITS | Encounter Summary ---
Author Organization [facility] [place] [address] Care Team Providers Care Clinical Audiologist Name Role Phone Ginger Riddle MD Primary Care Provider [phone] Reason for Visit * Speech Therapy (Routine) - Closed Specialty Diagnoses / Procedures Referred By Charly mcneill Referred To Contact Speech Pathology / Speech Therapy Diagnoses Chronic cough Lurdes Tong MD [facility] [place] [address] [facility] [place] [address] Referral ID Status Reason Start Date Expiration Date V isits Requested Visits Authorized [id number] Closed Evaluate and Treat 05/30/2017 05/30/2018 1 1 Encounter Details Date Type Department Care Team (Late st Contact Info) Description 07/11/2017 11:30 AM EST Office Visit [place] [address] Shana Nascimento, PUFF IRON OPERATOR Dysphagia, unspecified type Social History Tobacco Use Types Packs/Day Years Used Date Smoking Tobacco: Never Sex and Gender Information Value Date Recorded Sex Assigned at Not on file Gender Identity Not on file Sexual Orientation Not on file documented as of this encounter Progress Notes * Shana Nascimento, PUFF IRON OPERATOR - 07/11/2017 11:30 AM EST Speech-Language Pathology [...] ( 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 Her current active sx are chronic non-productive [...] and eating strategies listed above. P: ?? [facility] Speech Pathology to monitor for carryover and [...] any questions or concerns. Shana Nascimento MA CCC-PUFF IRON OPERATOR [facility] OP Rehabilitation Medicine [phone] [phone] [email or web address] G-Code: Swallowing Status Modifier CURRENT CH - [...] type documented in this encounter Care Teams Clinical Audiologist Relationship Specialty Start Date End Date Ginger Riddle MD [address] [place] [address] PCP - General Family Medicine 09/27/16 documented as of this encounter
--- OUTSIDE RECORDS SUMMARY | 2024-03-24 15:19 | XMS_ITS | Encounter Summary ---
Author Organization [facility] Address [address] [place] [address] Care Team Providers Care Yard Foreman Name Role Phone Ginger Riddle MD Primary Care Provider [phone] Encounter Details Date Type Department Care Team (Late st Contact Info) Description 07/15/2022 Lab Requisition [facility] Pathology & Laboratory Medicine - [facility] [address] [place] [address] Gardenia Brown MD [address] [place] [address] [place] [address] Encounter for other general examination Social History Tobacco Use Types Packs/Day Years Used Date Smoking Tobacco: Never Assessed Comments Unknown Sex and Gender Information Value Date Recorded Sex Assigned at Not on file Legal Sex Female 18:23 EST Gender Identity Not on file Sexual Orientation [...] management options, if applicable. 07/18/2022 10:38 EDT [facility] Final Diagnosis A. ENDOMETRIUM, BIOPSY: - Portions of benign endometrial polyp 07/18/2022 10:38 [facility] Attestation By the signature below, the attending physician certifies that they have 1) personally conducted a gross and/or microscopic examination of the described specimen(s), and/or personally interpreted the results of laboratory testing of the described specimen(s), and 2) personally rendered or confirmed the above diagnosis. 07/18/2022 10:38 [facility] at 1038 Clinical History PMB 07/18/2022 10:38 [facility] Gross Description A. Received in formalin labelled with proper patient identification (initials B, M) and endometrium is a sanchez-brown soft tissue (1.0 x 0.4 x 0.3 cm) and an aggregate of slightly blood-tinged mucus (1.5 x 1.2 x 0.3 cm). The tissue is bisected and the specimen is entirely submitted in A1. ANGELO TIAN(ASCP) 07/16/2022 7:53 07/18/2022 10:38 [facility] Performing Lab [facility] 07/18/2022 10:38 [facility] Scanned Images 07/18/2022 10:38 [facility] Tissue ENTIRE ENDOMETRIUM / Unknown 07/15/2022 10:10 EDT 07/15/2022 17:50 EDT us Gardenia Brown MD PATHOLOGY ORDERABLES Final R esult [facility] [address] [place] [address] documented in this encounter Visit Diagnoses Diagnosis Encounter for other general examination documented in this encounter Care Teams Yard Foreman Relationship Specialty Start Date End Date Ginger Riddle MD [address] [place] [address] PCP - General 07/03/22 documented as of this encounter
--- OUTSIDE RECORDS SUMMARY | 2024-03-24 15:19 | XMS_ITS | Encounter Summary ---
Author Organization [facility] Address [address] [place] [address] Care Team Providers Care Pipe Inspector Name Role Phone Unknown, Provider Primary Care Provider Fermin iladriane Encounter Details Date Type Department Care Team (Late st Contact Info) Description 08/14/2015 Results Only [facility] [phone] Diego Mejia MD [address] [place] [address] Social History Tobacco Use Types Packs/Day Years [...] ? BAHMAN YOUSIF ? Accession #: ? [id number] ? : ? 1945 (Age: 70) ??F [...] 0.2 cm). Entirely submitted in block B1. Jennie Christinasabas 08/15/2015 10:06 AM End of Report [facility] 08/14/2015 9:11 EDT 08/15/2015 9:11 EDT us Diego Mejia MD PATHOLOGY ORDERABLES Final Resu lt [facility] [address] [place] [address] * CYTOPATHOLOGY (08/14/2015 0:00 EDT) Pathology Report: CYTOPATHOLOGY REPORT Reports generated via electronic interface contain original data; however they are lacking the format of the original report. Caution should be taken when reading/interpret ing unformatted reports. Name: ? BAHMAN YOUSIF ? Accession #: ? [id number] : ? 1945 (Age: 70) ??F ?Collect [...] Document reviewed and electronically signed by: ? MACIEL LYON MD [facility] Report Date: ??08/15/2015 17:32 By the signature above, the attending physician certifies that he/she has personally conducted a gross and/or microscopic examination of the described specimens and rendered or confirmed the above diagnosis. Specimen Type: ? A: Bronchial Ellis, #2 B: Bronchial Lavage, Right upper lobe, #1 Clinical History: ? Hypersensitivity pneumonitis; EAA; look for granulomas ? Gross Description: ? A. ??Bronchial Ellis, #2: ?? 1 tube of Cytolyt, containing brush collection device, was received and processed by selective cellular enhancement technique. ? B. ??Bronchial Lavage, Right upper lobe, #1: ?? 10ccs of clear colorless fluid were received and processed by selective cellular enhancement technique. ? End of Report [facility] 08/14/2015 08/15/2015 9:3 3 EDT us Diego Mejia MD PATHOLOGY ORDERABLES Final Resu lt [facility] [address] [place] [address] documented in this encounter Visit Diagnoses Not on filedocumented in this encounter Care Teams Pipe Inspector Relationship Specialty Start Date End Date Unknown, Provider, PCP - General 08/02/09 08/15/15 documented as of this encounter
--- OUTSIDE RECORDS SUMMARY | 2024-03-24 15:19 | XMS_ITS | Encounter Summary ---
Author Organization [facility] [place] [address] Care Team Providers Care Hot Dip Plater Name Role Phone Zack Null Primary Care Provider [phone] Encounter Details Date Type Department Care Team (Latest Contact Info) Description 08/22/2015 10:30 AM EDT - 08/22/2015 11:59 PM EDT Hospital [place] [address] Zack Null PA [address] [place] [address] Encounter for screening mammogram for breast cancer [...] No mammographic evidence of malignancy. RECOMMENDATION: The [employer] and The Society of [...] Center. BIRADS CATEGORY 1: NEGATIVE Zack STEPHENS IMG MAMMO ORDERABL ES documented in this encounter Visit Diagnoses Diagnosis Encounter for screening mammogram for breast cancer documented in this encounter Care Teams Hot Dip Plater Relationship Specialty Start Date End Date Zack Null PA [address] [place] [address] PCP - General Family Medicine 08/22/15 09/26/16 documented as of this encounter
--- OUTSIDE RECORDS SUMMARY | 2024-03-24 15:19 | XMS_ITS | Encounter Summary ---
Author Organization [facility] Address [address] [place] [address] Care Team Providers Care Head Boys Tennis Coach Name Role Phone Unknown, Provider Primary Care Provider Unaaureliano ilable Encounter Details Date Type Department Care Team (Late st Contact Info) Description 03/13/2007 Results Only [facility] conversion [address] [place] [address] Bahman Piedra PA [address] [place] [address] Social History Tobacco Use Types Packs/Day Years [...] ? BAHMAN YOUSIF ? Accession #: ? [id number] : ? 1945 (Age: 61) ??F ?Collect Date: ? 03/13/2007 Location: ? [facility] ? Receive Date: ? 03/17/2007 Provider: ?BAHMAN STEPHENS Copy to: ? Specimen/Source: ?ThinPrep Pap Test, Endocervix, processed on Connected Data ThinPrep Imaging System, with manual evaluation Last [...] End of Report [facility] 03/13/2007 03/17/2007 us Bahman STEPHENS PATHOLOGY ORDERABLES Final Resul t [facility] [address] [place] [address] documented in this encounter Visit Diagnoses Not on filedocumented in this encounter Care Teams Head Boys Tennis Coach Relationship Specialty Start Date End Date Unknown, Provider, PCP - General 08/02/09 08/15/15 documented as of this encounter
--- OUTSIDE RECORDS SUMMARY | 2024-03-24 15:19 | XMS_ITS | Encounter Summary ---
Author Organization [facility] Address [facility] [place] [address] Care Team Providers Care Steamfitter Apprentice Name Role Phone Ginger Riddle MD Primary Care Provider [phone] Encounter Details Date Type Department Care Team (Latest Contact Info) Description 07/21/2015 - 07/21/2015 11:59 PM EDT Hospital Encounter Radiology Library at [facility] [place] [address] Davide Barnhart MD [facility] [place] [address] Pain Discharge Disposition: Home Social History Tobacco [...] CT Head (07/21/2015 12:00 AM EDT) Narrative DELFINA - 04/17/2017 9:00 AM EST This exam is for storage only and is auto-finalizing. Davide Barnhart MD G FILM LIBRARY ORD ERABLES [place], [place] documented in this encounter Visit Diagnoses Diagnosis Pain Generalized pain documented in this encounter Care Teams Steamfitter Apprentice Relationship Specialty Start Date End Date Ginger Riddle MD [address] [place] [address] PCP - General 08/23/13 08/21/15 documented as of this encounter
--- OUTSIDE RECORDS SUMMARY | 2024-03-24 15:19 | XMS_ITS | Encounter Summary ---
[place] [address] Care Team Providers Care Binding Stitcher Name Role Phone Marcela Crenshaw MD Primary Care Provider [phone] Encounter Details Date Type Department Care Team (Late st Contact Info) Description 07/11/2010 2:00 PM EST Office Visit Lab [address] [place] [address] Social History Tobacco Use Types Packs/Day Years Used Date Smoking Tobacco: Never Assessed Sex and Gender Information Value Date Recorded Sex Assigned at Not on file Gender Identity Not on file Sexual Orientation Not on file documented as of this encounter Plan of Treatment Not on file documented as of this encounter Visit Diagnoses Not on filedocumented in this encounter Care Teams Binding Stitcher Relationship Specialty Start Date End Date Marcela Crenshaw MD HOSPITALIST SERVICES [address] [place] [address] [place] [address] PCP - General 03/27/10 08/22/13 documented as of this encounter
--- OUTSIDE RECORDS SUMMARY | 2024-03-24 15:19 | XMS_ITS | Encounter Summary ---
Author Organization [facility] Address [address] [place] [address] Care Team Providers Care Suspender Cutter Name Role Phone Unknown, Provider Primary Care Provider Unava ilable Encounter Details Date Type Department Care Team (Latest Contact Info) Description 08/14/2015 13:54 EDT - 08/14/2015 14:56 EDT Hospital Encounter [address] [address] Unknown, Provider, Discharge Disposition: Home or Self [...] Code Departure Means Destination Home or Self [facility]pc documented in this encounter Plan of Treatment Not on file documented as of this encounter Visit Diagnoses Not on filedocumented in this encounter Care Teams Suspender Cutter Relationship Specialty Start Date End Date Unknown, Provider, PCP - General 08/02/09 08/15/15 documented as of this encounter
--- OUTSIDE RECORDS SUMMARY | 2024-03-24 15:19 | XMS_ITS | Encounter Summary ---
Author Organization [facility] [place] [address] Care Team Providers Care Chief Airline Radio Operator Name Role Phone Marcela Crenshaw MD Primary Care Provider [phone] Encounter Details Date Type Department Care Team (Latest Contact Info) Description 07/17/2012 12:46 PM EDT - 07/17/2012 11:59 PM EDT Hospital Encounter Mammography at [facility] [place] [phone] CLINIC, Marcela Barillas MD [address] [place] [address] [address] [place], [place] [address] Discharge Disposition: Home Social History Tobacco Use [...] direct digital capture. The exam was evaluated byNimbus Cloud AppsD Version 8.3.17. FINDINGS: This is a negative [...] patient by the [facility]. Marcela BROWN MAMMO ORDERABLES documented in this encounter Visit Diagnoses Not on filedocumented in this encounter Care Teams Chief Airline Radio Operator Relationship Specialty Start Date End Date Marcela Crenshaw MD HOSPITALIST SERVICES [address] [place] [address] [place] [address] PCP - General 03/27/10 08/22/13 documented as of this encounter
--- OUTSIDE RECORDS SUMMARY | 2024-03-24 15:19 | XMS_ITS | Encounter Summary ---
Author Organization [facility] Address [facility] [place] [address] Care Team Providers Care Assessment Nurse Practitioner Name Role Phone Zack Null Primary Care Provider [phone] Encounter Details Date Type Department Care Team (Latest Contact Info) Description 10/25/2015 - 10/25/2015 11:59 PM EDT Hospital Encounter Radiology Library at [facility] [place] [address] Lurdes Tong MD [facility] [place] [address] Discharge Disposition: Home Social History Tobacco Use [...] CT Chest (10/25/2015 12:00 AM EDT) Narrative RAD - 05/30/2017 6:32 PM EST This exam is for storage only and is auto-finalizing. Lurdes Tong MD IMG FILM LIBRARY ORD ERABLES [facility] [place], [place] documented in this encounter Visit Diagnoses Not on filedocumented in this encounter Care Teams Assessment Nurse Practitioner Relationship Specialty Start Date End Date Zack Null PA [address] [place] [address] PCP - General Family Medicine 08/22/15 09/26/16 documented as of this encounter
--- OUTSIDE RECORDS SUMMARY | 2024-03-24 15:19 | XMS_ITS | Encounter Summary ---
Author Organization [facility] [place] [address] Care Team Providers Care Pharmacy Customer Care Specialist Name Role Phone Marcela Crenshaw MD Primary Care Provider [phone] Encounter Details Date Type Department Care Team (Latest Contact Info) Description 07/17/2011 10:08 AM EDT - 07/17/2011 11:59 PM EDT Hospital Encounter Mammography at [facility] [place] [address] CLINIC, Marcela Barillas MD [address] [place] [address] [address] [place], [place] [address] Discharge Disposition: Home Social History Tobacco Use [...] direct digital capture. The exam was evaluated byCACloudmach Version 8.3.17. FINDINGS: This is a negative [...] on filedocumented in this encounter Care Teams Pharmacy Customer Care Specialist Relationship Specialty Start Date End Date Marcela Crenshaw MD HOSPITALIST SERVICES [address] [place] [address] [place] [address] PCP - General 03/27/10 08/22/13 documented as of this encounter
--- OUTSIDE RECORDS SUMMARY | 2024-03-24 15:19 | XMS_ITS | Encounter Summary ---
[place] [address] Care Team Providers Care Tableau Architect Name Role Phone Marcela Crenshaw MD Primary Care Provider [phone] Encounter Details Date Type Department Care Team (Late st Contact Info) Description 07/12/2010 9:47 AM EST - 07/12/2010 11:59 PM EST Hospital Encounter [facility] Marcela Crenshaw MD [address] [place] [address] [place] [address] Social History Tobacco Use Types Packs/Day Years Used Date Smoking Tobacco: Never Assessed Sex and Gender Information Value Date Recorded Sex Assigned at Not on file Gender Identity Not on file Sexual Orientation Not on file documented as of this encounter Plan of Treatment Not on file documented as of this encounter Visit Diagnoses Not on filedocumented in this encounter Care Teams Tableau Architect Relationship Specialty Start Date End Date Marcela Crenshaw MD HOSPITALIST SERVICES [address] [place] [address] [place] [address] PCP - General 03/27/10 08/22/13 documented as of this encounter
--- OUTSIDE RECORDS SUMMARY | 2024-03-24 15:19 | XMS_ITS | Encounter Summary ---
Author Organization [facility] Address [facility] [place] [address] Care Team Providers Care Market Risk Manager Name Role Phone Zack Null Primary Care Provider [phone] Encounter Details Date Type Department Care Team (Latest Contact Info) Description 01/11/2016 - 01/11/2016 11:59 PM EDT Hospital Encounter Radiology Library at [facility] [place] [address] Lurdes Tong MD [facility] [place] [address] Discharge Disposition: Home Social History Tobacco Use [...] CT Chest (01/11/2016 12:00 AM EDT) Narrative RAD - 05/30/2017 6:32 PM EST This exam is for storage only and is auto-finalizing. Lurdes Tong MD IMG FILM LIBRARY ORD ERABLES DH RAD [place], [place] documented in this encounter Visit Diagnoses Not on filedocumented in this encounter Care Teams Market Risk Manager Relationship Specialty Start Date End Date Zack Null PA [address] [place] [address] PCP - General Family Medicine 08/22/15 09/26/16 documented as of this encounter
--- OUTSIDE RECORDS SUMMARY | 2024-03-24 15:19 | XMS_ITS | Encounter Summary ---
Author Organization [facility] [place] [address] Care Team Providers Care Diesel Locomotive Firer Name Role Phone Marcela Crenshaw MD Primary Care Provider [phone] Encounter Details Date Type Department Care Team (Late st Contact Info) Description 07/11/2010 Orders Only Radiology [place] [phone] Marcela Crenshaw MD [address] [place] [address] [place] [address] Social History Tobacco Use Types [...] the breast imaging center. Marcela Crenshaw MD IMG MAMMO ORDERABLES documented in this encounter Visit Diagnoses Not on filedocumented in this encounter Care Teams Diesel Locomotive Firer Relationship Specialty Start Date End Date Marcela Crenshaw MD HOSPITALIST SERVICES [address] [place] [address] [place] [address] PCP - General 03/27/10 08/22/13 documented as of this encounter
--- OUTSIDE RECORDS SUMMARY | 2024-03-24 15:19 | XMS_ITS | Encounter Summary ---
Author Organization [facility] Address [address] [place] [address] Care Team Providers Care Civil Lawyer Name Role Phone Unknown, Provider Primary Care Provider Unava ilable Encounter Details Date Type Department Care Team (Latest Contact Info) Description 08/14/2015 14:57 EDT - 08/14/2015 23:59 EDT Hospital Encounter [address] [address] Unknown, Provider, Discharge Disposition: Home or Self [...] Code Departure Means Destination Home or Self Retirement documented in this encounter Plan of Treatment Not on file documented as of this encounter Visit Diagnoses Not on filedocumented in this encounter Care Teams Civil Lawyer Relationship Specialty Start Date End Date Unknown, Provider, PCP - General 08/02/09 08/15/15 documented as of this encounter
--- OUTSIDE RECORDS SUMMARY | 2024-03-24 15:19 | XMS_ITS | Encounter Summary ---
Author Organization [facility] Address [address] [place] [address] Care Team Providers Care Communication Consultant Name Role Phone Unavailable Primary Care Provider Unavailabl e Encounter Details Date Type Department Care Team (Late st Contact Info) Description 07/31/2009 Results Only [facility] Laboratory Services - [facility] [address] [place], [place] [id number] Favian Barahona MD [address] [place] [address] Social History Tobacco Use Types [...] ? YOUSIF, BAHMAN ? Accession #: ? [id number] ? : ? 1945 (Age: 64) ??F [...] reviewed ?? at intradepartmental consultation conference. ??(Dr. Robles)/[facility] ? Document reviewed and electronically signed by: [...] specimens are entirely submitted as (B). ??(Erickson Garcia/juanis ? End of Report ? [facility] 07/31/2009 07/31/2009 18: 14 EDT us Favian Barahona MD PATHOLOGY ORDERABLES Final Resul t [facility] [address] [place] [address] documented in this encounter Visit Diagnoses Not on filedocumented in this encounter
--- OUTSIDE RECORDS SUMMARY | 2024-03-24 15:19 | XMS_ITS | Encounter Summary ---
Author Organization [facility] Address [address] [place] [address] Care Team Providers Care Plater Hot Dip Name Role Phone None, Provider Primary Care Provider Ginger Ruth MD Primary Care Provider [phone] Encounter Details Date Type Department Care Team (Late st Contact Info) Description 01/26/2021 Lab Requisition [facility] Pathology & Laboratory Medicine - [address] [address] Outr Resulting Lab, Provider Social History Tobacco [...] C Antibody Negative Negative 01/29/2021 10:31 EDT [facility] LABORATORY SERVICES Blood VENOUS BLOOD / Unknown 01/25/2021 11:15 EDT 01/26/2021 16:35 EDT us Provider Outr Resulting Lab CHEMISTRY & BLOOD GA S ORDERABLES Final Result [facility]OR[facility]ORY SERVICES [address] [place] [address] [place] [address] documented in this encounter Visit Diagnoses Not on filedocumented in this encounter Care Teams Plater Hot Dip Relationship Specialty Start Date End Date None, Provider PCP - General 08/16/15 07/02/22 Ginger Riddle MD [address] [place] [address] PCP - General 07/03/22 documented as of this encounter
--- OUTSIDE RECORDS SUMMARY | 2024-03-24 15:19 | XMS_ITS | Encounter Summary ---
[place] [address] Care Team Providers Care Kiss Mixer Name Role Phone Ginger Riddle MD Primary Care Provider [phone] Reason for Visit * Reason Comments Skin Check Encounter Details Date Type Department Care Team (Late st Contact Info) Description 02/21/2014 1:00 PM EDT Office Visit Dermatology at [address] [place] [address] Dickson Dow MD [address], [place] [address] [place] (actinic keratosis) (Primary Dx); Seborrheic keratosis [...] from the original note were not included. [facility] Actinic Keratosis: After Your Visit Your Care [...] more? Visit our health information library at [email or web address] You can also view health information on [employer], your personal patient account. Log in or sign up today. Enter L364 in the search box to learn more about Actinic Keratosis: After Your Visit. ?? [id number] [employer]. Care instructions adapted under license by [facility]. This care instruction is for use with your licensed healthcare professional. If you have questions about a medical condition or this instruction, always ask your healthcare professional. [employer] disclaims any warranty or liability for your use of this information. Content Version: 9.9.482033; Last Revised: June 16, 2012 documented in [...] keratosis documented in this encounter Care Teams Kiss Mixer Relationship Specialty Start Date End Date Ginger Riddle MD [address] [place] [address] PCP - General 08/23/13 08/21/15 documented as of this encounter
--- OUTSIDE RECORDS SUMMARY | 2024-03-24 15:19 | XMS_ITS | Encounter Summary ---
[place] [address] Care Team Providers Care Chain Carrier Name Role Phone Ginger Riddle MD Primary Care Provider [phone] Reason for Visit * Reason Comments Skin Check Encounter Details Date Type Department Care Team (Late st Contact Info) Description 09/27/2016 9:15 AM EDT Office Visit Dermatology at [address] [phone] Dickson Dow MD [address], [place] [address] Seborrheic keratosis; Nevus Social History Tobacco Use [...] seborrheic keratoses on the right forehead, left voodoo and 2 on the left lateral neck [...] unspecified documented in this encounter Care Teams Chain Carrier Relationship Specialty Start Date End Date Ginger Riddle MD [address] [place] [address] PCP - General Family Medicine 09/27/16 documented as of this encounter
--- OUTSIDE RECORDS SUMMARY | 2024-03-24 15:19 | XMS_ITS | Referral Summary ---
Author Organization [facility] Address [address] [place] [address] Care Team Providers Care Disability Services Coordinator Name Role Phone Ginger Riddle MD Primary Care Provider [phone] Social History Tobacco Use Types Packs/Day Years [...] C Antibody Negative Negative 01/29/2021 10:31 EDT [facility] LABOR[facility]ORY SERVICES Blood VENOUS BLOOD / Unknown 01/25/2021 11:15 EDT 01/26/2021 16:35 EDT us Provider Outr Resulting Lab CHEMISTRY & BLOOD GA S ORDERABLES Final Result [facility]OR[facility] SERVICES [address] [place] [address] from Last 3 Months or Most Recently Relevant to Health Maintenance Insurance P MEDICARE [facility] Health [employer] Address: [address] [address] Care Teams Disability Services Coordinator Relationship Specialty Start Date End Date Ginger Riddle MD [address] [place] [address] [facility] - General 07/03/22
--- OUTSIDE RECORDS SUMMARY | 2024-03-24 15:19 | XMS_ITS | Clinical Summary ---
Author Organization [facility] Address [address] [place] [address] Care Team Providers Care Chief Radiologic Technologist Name Role Phone Ginger Riddle MD Primary Care Provider [phone] Social History Tobacco Use Types Packs/Day Years Used Date Smoking Tobacco: Never Assessed Comments Unknown Sex and Gender Information Value Date Recorded Sex Assigned at Not on file Legal Sex Female 18:23 EST Gender Identity Not on file Sexual Orientation Not on file Plan of Treatment Health Maintenance Due Date Last Done Comments Fall Risk Screening 2009 RSV Immunization ( o r 60+ Years) (1 - 1-dose 75+ series) 2019 COVID-19 Vaccine ( season) 2024 Hepatitis C Screen Completed 01/25/2021 Procedures Procedure Name Priority Date/Time Associated Diagnosis Comments HEPATITIS C AB W REFLEX TO HCV RNA BY PCR Routine 01/25/2021 11:15 EDT from Last 3 Months or Most Recently Relevant to Health Maintenance Results * HEPATITIS C AB W REFLEX TO HCV RNA BY PCR (01/25/2021 11:15 EDT) Hep C Antibody Negative Negative 01/29/2021 10:31 EDT [facility]OR[facility]ORY SERVICES Blood VENOUS BLOOD / Unknown 01/25/2021 11:15 EDT 01/26/2021 16:35 EDT us Provider Outr Resulting Lab CHEMISTRY & BLOOD GA S ORDERABLES Final Result [facility] SERVICES [address] [place] [address] from Last 3 Months or Most Recently Relevant to Health Maintenance Insurance [employer] MEDICARE [facility] Care Teams Chief Radiologic Technologist Relationship Specialty Start Date End Date Ginger Riddle MD [address] [place] [address] PCP - General 07/03/22
--- OUTSIDE RECORDS SUMMARY | 2024-03-24 15:19 | XMS_ITS | Encounter Summary ---
Author Organization [facility] Address [facility] [place] [address] Care Team Providers Care Senior Regulatory Affairs Specialist Name Role Phone Ginger Riddle MD Primary Care Provider [phone] Encounter Details Date Type Department Care Team (Latest Contact Info) Description 07/21/2015 Hospital Encounter Radiology Library at [facility] [place] [address] Lurdes Tong MD [facility] [address] Discharge Disposition: Home Social History Tobacco Use [...] only and is auto-finalizing. Lurdes Tong MD [facility] FILM LIBRARY ORD ERABLES [place], [place] documented in this encounter Visit Diagnoses Not on filedocumented in this encounter Care Teams Senior Regulatory Affairs Specialist Relationship Specialty Start Date End Date Ginger Riddle MD [address] [place] [address] PCP - General 08/23/13 08/21/15 documented as of this encounter
--- OUTSIDE RECORDS SUMMARY | 2024-03-24 15:19 | XMS_ITS | Encounter Summary ---
Author Organization [facility] Address [address] [place] [address] Care Team Providers Care Breaker Operator Name Role Phone Unknown, Provider Primary Care Provider Unava ilable Encounter Details Date Type Department Care Team (Late st Contact Info) Description 07/25/2000 Results Only [facility] conversion [address] [place] [address] Ivania Hernandez, [facility] [address] [place] [address] [place] [address] Social History Tobacco Use Types [...] ? BAHMAN YOUSIF ? Accession #: ? [id number] : ? 1945 (Age: 55) ??F ?Collect Date: ? 07/25/2000 Location: ? [facility] ? Receive Date: ? 07/28/2000 Provider: ?IVANIA HERNANDEZ MONEY ROOM TELLER Copy to: ? Specimen/Source: ?ThinPrep Pap Test, Cervix/Endocervix Last Menstrual Period: ? 11/1999 ? SPECIMEN ADEQUACY ? Satisfactory for evaluation. GENERAL CATEGORIZATION ? Within Normal Limits ? Document reviewed and electronically signed by: ? JOSE RAFAEL Stinson(ASCP) ? Report Date: ??07/29/2000 10:58 End of Report [facility] 07/25/2000 07/28/2000 us Ivania Hernandez MONEY ROOM TELLER PATHOLOGY ORDERABLES Final R esult [facility] [address] [place] [address] documented in this encounter Visit Diagnoses Not on filedocumented in this encounter Care Teams Breaker Operator Relationship Specialty Start Date End Date Unknown, Provider, PCP - General 08/02/09 08/15/15 documented as of this encounter
--- OUTSIDE RECORDS SUMMARY | 2024-03-24 15:19 | XMS_ITS | Encounter Summary ---
Author Organization [facility] Address [address] [place] [address] Care Team Providers Care Licensed Land Surveyor Name Role Phone Unknown, Provider Primary Care Provider Fermin iladriane Encounter Details Date Type Department Care Team ([facility] st Contact Info) Description 04/03/2011 Results Only [facility] [phone] Bahman Perry MD [address] [place], [place] [address] Social History Tobacco Use Types Packs/Day Years [...] ? BAHMAN YOUSIF ? Accession #: ? [id number] : ? 1945 (Age: 65) ??F ?Collect [...] End of Report [facility] 04/03/2011 04/04/2011 us Bahman Perry MD PATHOLOGY ORDERABLES Final Resul t [facility] [address] [place] [address] documented in this encounter Visit Diagnoses Not on filedocumented in this encounter Care Teams Licensed Land Surveyor Relationship Specialty Start Date End Date Unknown, Provider, PCP - General 08/02/09 08/15/15 documented as of this encounter
--- OUTSIDE RECORDS SUMMARY | 2024-03-24 15:19 | XMS_ITS | Encounter Summary ---
Author Organization Formerly [facility] [place] [address] Care Team Providers Care Sulfonator Operator Name Role Phone Ginger Riddle MD Primary Care Provider [phone] Encounter Details Date Type Department Care Team (Latest Contact Info) Description 08/23/2013 11:52 AM EDT - 08/23/2013 11:59 PM EDT Hospital [place] [phone] CLINIC, Ginger Rehman MD [address] [place] [phone] Discharge Disposition: Home Social History Tobacco Use [...] on filedocumented in this encounter Care Teams Sulfonator Operator Relationship Specialty Start Date End Date Ginger Riddle MD [address] [place] [address] PCP - General 08/23/13 08/21/15 documented as of this encounter
== END 2024-03-24 15:16 | disposition home or self-care (01) ==
LOC: LBN 15:15
PROVIDERS: PCP Family Medicine; Visit Provider Physician Assistant
DX: N39.0 Urinary tract infection, site not specified (principal)
CPT/HCPCS: 87077; 87086; 87186

== ENCOUNTER 2024-03-26 16:15 | Emergency (ER) | payer MEDICARE, SELFPAY ==
--- NOTE | 2024-03-26 16:15 | DI.RAD_ITS ---
Exam(s) XR THUMB LT EXAM: XR THUMB LT CLINICAL HISTORY: L thumb injury. TECHNIQUE: 2D digital imaging was performed. Three views. COMPARISON: None. FINDINGS: BONES: No acute fracture is present. No bony destructive lesion is seen. JOINTS: No dislocation present. Severe degenerative changes at the interphalangeal joint of the thum b and 1st carpal metacarpal joint. Moderate degenerative changes at the 1st metacarpophalangeal join t. SOFT TISSUE: Normal. IMPRESSION: Degenerative changes. No evidence of fracture. DATA REPOSITORY: RADIATION DOSE DELIVERED:
[2024-03-26 16:16] VITALS: BP 163/80; PULSE 78; RESP 12; TEMP 36.2; O2SAT 95
--- NOTE | 2024-03-26 16:24 | ED.GENADUL_ITS ---
Discharge Plan Disposition Patient Disposition: Home Condition: Stable Discharge Details Clinical Impression: Sprain of left thumb Primary Care Provider: Ginger Riddle V ED Provider: Jomar Allison Home Meds and New Rx's Prescriptions: Continued cholecalciferol (vitamin D3) 50 mcg (2,000 unit) capsule 50 mcg PO DAILY plexus PO Patient Comments: 07/15/22- pt reports she drinks to help reduce A1C cephalexin 500 mg capsule 500 mg PO BID 5 Days Qty: 10 0RF bupropion HCl 150 MG tablet extended release 12 hr 150 mg PO DAILY Rx Instructions: Takes one every other day and two on opposite days. atorvastatin [Lipitor] 20 MG tablet 20 mg PO QPM aspirin 81 MG tablet,delayed release (DR/EC) 81 mg PO DAILY fluticasone propion-salmeterol 250-50 mcg/dose blister with device 2 inh INHALATION BID Patient Comments: INHALE TWO PUFFS BY MOUTH TWICE A DAY RINSE,GARGLE, AND SPIT AFTER USING atenolol 50 mg tablet 50 mg PO BID Patient Comments: TAKE 1 TABLET TWICE A DAY atenolol 25 mg tablet 25 mg PO HS Discharge Instructions Instructions: Sprained Thumb Additional Instructions: You were seen in the emergency department for the possible dislocation and sprain of your distal left thumb, there is no acute abnormality seen on x-ray, provided you with a thumb spica splint, please follow-up with orthopedics for p ossibility of ulnar collateral ligament damage and further definitive care, please rest, ice, compress and elevate remain in the splint for 1 to 2 weeks and gradually introduce range of motion. Take Tylenol and ibuprofen as needed for pain. Referrals: [facility] [Provider Group] Ginger Riddle MD [Primary Care Provider] - Discharge Data Discharge Date/Time-TO BE ENTERED AT DEPARTURE: 03/26/24 17:12 HPI General Date/Time Provider Initiated Documentation: 03/26/24 16:23 . HPI Narrative: 78 year-old female presents to ED today by POV/ambulating with a chief complaint of L thumb injury, R-hand dominant, with onset today while moving a mattress. Quality described as sore and aching, notes that it is crooked, no radiation to numbness or tingling, endorses mild bruising, endorses pain goes slightly up the rest, no other trauma, intact range of motion in the thumb. Severity is described as moderate. Palliating factors include ice with some relief. Provoking factors include movement. Patient not anticoagulated. Related Data Home Medications ?Medication ?Instructions ?Recorded ?Confirmed aspirin 81 mg tablet,delayed 81 mg PO DAILY 02/11/16 03/26/24 release atorvastatin 20 mg tablet (Lipitor) 20 mg PO QPM 02/11/16 03/26/24 bupropion HCl 150 mg tablet,12 hr 150 mg PO DAILY 02/11/16 03/26/24 sustained-release atenolol 25 mg tablet 25 mg PO HS 06/29/21 03/26/24 cholecalciferol (vitamin D3) 50 50 mcg PO DAILY 07/15/22 03/26/24 mcg (2,000 unit) capsule plexus PO 07/15/22 12/26/23 cephalexin 500 mg capsule 500 mg PO BID 5 days #10 caps 03/24/24 03/26/24 atenolol 50 mg tablet 50 mg PO BID 03/26/24 03/26/24 fluticasone 250 mcg-salmeterol 50 2 inh inhalation BID 03/26/24 03/26/24 mcg/dose blistr powdr for inhalation Previous Rx's ?Medication ?Instructions ?Recorded cephalexin 500 mg capsule 500 mg PO BID 5 days #10 caps 03/24/24 Allergies Allergy/AdvReac Type Severity Reaction Status Date / Time chlorthalidone AdvReac Intermediate Other (See Verified 03/26/24 16:20 Comment) lisinopril AdvReac Other (See Verified 03/26/24 16:20 Comment) venlafaxine (From Effexor) AdvReac Other (See Verified 03/26/24 16:20 Comment) General Stated Complaint: Orthopedic SOLOMON: 4 Review of Systems All systems reviewed & are unremarkable except as noted in HPI and below Exam Narrative Exam Narrative: GENERAL APPEARANCE: Well-nourished, non-toxic, awake and alert, atraumatic, no acute distress. SKIN: Warm, pink, dry, intact, without rashes/lesions/ulcerations. HEAD: Normocephalic, atraumatic, normal hair distribution for gender/age. EYES: Normal conjunctiva, no exudates on lids/lashes. ENT: Nares patent, no circumoral cyanosis, no facial swelling NECK: Supple, trachea midline, painless cervical ROM. LUNGS/CHEST: Non-labored respirations, normal A/P diameter, symmetrical expansion, no chest wall deformity HEART (CV/PV): Regular rate, L radial pulse 2+, no peripheral edema, no JVD. ABDOMEN: Soft, non-distended, no guarding. MSK: Normal ROM, no swelling/deformity to bilateral UEs or LEs, moving all extremities without weakness, no cyanosis, spine midline without tenderness, normal curvature, tenderness at the left DIP joint of the thumb with slight medial deviation, mild bruising but intact range of motion, the other thumb is also a slight medial deviation, no anatomical snuffbox NEURO: Mental Status AAOx4 - alert to person, place, time, events No facial droop, no forehead involvement. Motor: No focal weakness - strength 5/5 in bilateral UEs and LEs, proximal and distal, symmetric. Sensory: sensation intact to light touch globally. Gait normal: patient ambulated without ataxia into ED room. PSYCH: euthymic, cooperative, pleasant, appropriate speech Course Vital Signs Vital signs: Vital Signs Temperature 36.2 C L 03/26/24 16:16 Pulse 78 03/26/24 16:16 Respiratory Rate 12 03/26/24 16:16 Blood Pressure 163/80 H 03/26/24 16:16 Pulse Oximetry 95 03/26/24 16:16 Temperature 36.2 C L 03/26/24 16:16 Temperature Source Oral 03/26/24 16:16 Pulse 78 03/26/24 16:16 Respiratory Rate 12 03/26/24 16:16 Blood Pressure 163/80 H 03/26/24 16:16 Blood Pressure Position Sitting 03/26/24 16:16 Pulse Oximetry 95 03/26/24 16:16 Oxygen Delivery Method Room Air 03/26/24 16:16 Oxygen Flow Rate 0 03/26/24 16:16 Pain Level 5 03/26/24 16:16 Medical Decision Making This dictation utilizes [id number] dictation software and may contain unedited grammatical errors. 78 year-old female presents to ED today by POV/ambulating with a chief complaint of L thumb injury, R-hand dominant, with onset today while moving a mattress. Quality described as sore and aching, notes that it is crooked, no radiation to numbness or tingling, endorses mild bruising, endorses pain goes slightly up the rest, no other trauma, intact range of motion in the thumb. Severity is described as moderate. Palliating factors include ice with some relief. Provoking factors include movement. Patients' medical history: Noncontributory. Family and social history: Noncontributory. Pertinent exam findings / vital signs include TTP at L thumb DIP, mild ecchymosis, NV intact, ROM intact, no anatomical snuff box tenderness, L radial pulse 2+. Differential / pathologies of concern include fracture, UCL tear, sprain. Diagnostic studies of: -XR L thumb-no acute fracture. Interventions of: -thumb spica. ED Course/Assessment/Plan: 78-year-old female was moving a mattress earlier today and noticed her thumb was aching sometime later, there is no acute fracture on x-ray she does have bilateral medial deviation of the DIP joint but she may have had a ligamentous injury likely UCL injury, I did place her in a thumb spica and recommend RICE therapy and therapeutic dosing Tylenol ibuprofen and following up with orthopedics for any persistent pain. Findings not consistent with fracture, neurovascular compromise. Disposition of sprain of left thumb. Patient verbalized understanding of the plan and return to ED criteria and engaged in shared decision making. Medical Records Medical records reviewed: Yes I reviewed the patient's medical records. Imaging Data Radiologic Study: Attestation: I personally reviewed and interpreted this imaging study as follows: Imaging: X-Ray Radiologist's impression: EXAM: XR THUMB LT CLINICAL HISTORY: L thumb injury. TECHNIQUE: 2D digital imaging was performed. Three views. COMPARISON: None. FINDINGS: BONES: No acute fracture is present. No bony destructive lesion is seen. JOINTS: No dislocation present. Severe degenerative changes at the interphalangeal joint of the thumb and 1st carpal metacarpal joint. Moderate degenerative changes at the 1st metacarpophalangeal joint. SOFT TISSUE: Normal. IMPRESSION: Degenerative changes. No evidence of fracture. Quality:SDOH Health Related Social Needs: No Data to Display PFSH All Active Problems (Updated 03/26/24 @ 16:53 by ANGELO Dean) Sprain of left thumb (Acute) Leg edema (Acute) Chronic HTN (hypertension) (Chronic) Hypersensitivity pneumonitis (Acute) Diabetes mellitus, type II (Acute) Chronic cough (Acute) HLD (hyperlipidemia) (Acute) COVID (Acute) Medical History (Updated 03/26/24 @ 16:53 by ANGELO Dean) Postmenopausal bleeding Endo stripe 11mm on sono Endo bx on 07/15/22 History of depression Degenerative joint disease Neoplasm of uncertain behavior of skin Paresthesia of both hands Positional vertigo Surgical History (Updated 12/26/23 @ 15:20 by Blanka Bolanos) Nuclear sclerotic cataract of left eye Cortical cataract of left eye History of breast biopsy History of cataract surgery History of bilateral knee replacement Family History Other Diabetes Hyperlipidemia Hypertension Pancreatic cancer Social History Smoking/Tobacco Use Status: Never Smoking risk assessment performed?: Yes Alcohol Intake: current Alcohol Intake frequency: holidays/special occasions only Drug use: Never Substance use type: does not use Housing: house Do you feel safe at home: Yes Do you feel safe in your relationship?: Yes Female Reproductive History Menstrual Age of Menarche: 8 control method: none Menopause type: natural History History 3 Para Hx # Term Pregnancies 2 Multiple births Hx # Pregnancies Ectopic pregnancies AB induced Hx Number of Living Children AB spontaneous 1 Past Pregnancies Del. Date GA/Weeks # Preg Succ Route Wgt Sex Labor Lgth Anesth esia Location Prov [facility] 08/28/72 42 Yes vaginal 3968.933 g Female N[facility] H 02/27/76 40 Yes vaginal 3912.234 g Female [facility] H Delivery Date: 08/28/72 Last Updated by: Marii Lawler Delivery Date: 02/27/76 Last Updated by: Marii Mendez
--- OUTSIDE RECORDS SUMMARY | 2024-03-26 16:28 | XMS_ITS | Encounter Summary ---
Author Organization [facility] Address [facility] [place] [address] Care Team Providers Care Gynecological Assistant Name Role Phone Ginger Riddle MD Primary Care Provider [phone] Encounter Details Date Type Department Care Team (Latest Contact Info) Description 01/26/2024 Interpretation [place] [address] Abel Gonzalez MD [facility] [place] [address] Cough, unspecified type Social History Tobacco Use [...] scanned data and interpretation performed remotely at [facility]. This encounter for billing only Spirometry, DLCO, and Lung Volumes Abel Gonzalez MD, PhD Staff Physician Pulmonary and Critical Care Medicine documented in this encounter Plan of Treatment Not on file documented as of this encounter Visit Diagnoses Diagnosis Cough, unspecified type documented in this encounter Care Teams Gynecological Assistant Relationship Specialty Start Date End Date Ginger Riddle MD [address] [place] [address] PCP - General Family Medicine 09/27/16 documented as of this encounter
--- OUTSIDE RECORDS SUMMARY | 2024-03-26 16:28 | XMS_ITS | Encounter Summary ---
[place] [address] Care Team Providers Care Speech Language Pathology Assistant Name Role Phone Ginger Riddle MD Primary Care Provider [phone] Encounter Details Date Type Department Care Team (Latest Contact Info) Description 01/29/2024 1:19 PM EDT - 01/29/2024 11:59 PM EDT Hospital Encounter Mammography/[place] [phone] Ginger Riddle MD [address] [place] [address] Encounter for screening mammogram for breast cancer [...] Bilateral (01/29/2024 2:12 PM EDT) WORKSTATION ID [id number] RAD Anatomical Region Laterality Modality Breast [...] who have questions please contact the health medicare nurse that requested your imaging first. ? [facility] [place] ??[id number] Narrative 01/30/2024 11:18 AM EDT EXAMINATION: MAMMO SCREENING CAD AND MONTY BILATERAL REASON FOR EXAM: Screening TECHNIQUE: CC [...] indicated. Ginger Riddle MD IMG MAMMO ORDERABLES documented in this encounter Visit Diagnoses Diagnosis Encounter for screening mammogram for breast cancer documented in this encounter Care Teams Speech Language Pathology Assistant Relationship Specialty Start Date End Date Ginger Riddle MD [address] [place] [address] PCP - General Family Medicine 09/27/16 documented as of this encounter
--- OUTSIDE RECORDS SUMMARY | 2024-03-26 16:28 | XMS_ITS | Encounter Summary ---
[place] [address] Care Team Providers Care Striper Name Role Phone Ginger Riddle MD Primary Care Provider [phone] Encounter Details Date Type Department Care Team [...] on filedocumented in this encounter Care Teams Striper Relationship Specialty Start Date End Date Ginger Riddle MD [address] [place] [address] PCP - General Family Medicine 09/27/16 documented as of this encounter
--- OUTSIDE RECORDS SUMMARY | 2024-03-26 16:28 | XMS_ITS | Encounter Summary ---
[place] [address] Care Team Providers Care Manager Treasury Name Role Phone Ginger Riddle MD Primary Care Provider [phone] Reason for Visit * Reason Comments Annual Exam Encounter Details Date Type Department Care Team (Late st Contact Info) Description 07/21/2023 11:15 AM EDT Office Visit Dermatology at [address] [phone] Dickson Dow MD [address] [facility] [place] [address] Seborrheic keratosis, inflamed; Seborrheic keratosis Social History [...] keratosis documented in this encounter Care Teams Manager Treasury Relationship Specialty Start Date End Date Ginger Riddle MD [address] [place] [address] PCP - General Family Medicine 09/27/16 documented as of this encounter
--- OUTSIDE RECORDS SUMMARY | 2024-03-26 16:28 | XMS_ITS | Encounter Summary ---
Author Organization [facility] Address [facility] [place] [address] Care Team Providers Care Internet Assessor Name Role Phone Ginger Riddle MD Primary Care Provider [phone] Encounter Details Date Type Department Care Team (Latest Contact Info) Description 02/06/2024 12:40 PM EDT - 02/06/2024 11:59 PM EDT Hospital Encounter [place] [phone] Janice Faust MD [facility] [place] [address] Abnormal finding on breast imaging Discharge Disposition: [...] Left (02/06/2024 1:23 PM EDT) WORKSTATION ID [id number] [facility] Anatomical Region Laterality Modality Breast Left Mammography [...] who have questions please contact the health care services manager that requested your imaging first. ? [...] breast documented in this encounter Care Teams Internet Assessor Relationship Specialty Start Date End Date Ginger Riddle MD [address] [place] [address] PCP - General Family Medicine 09/27/16 documented as of this encounter
--- OUTSIDE RECORDS SUMMARY | 2024-03-26 16:28 | XMS_ITS | Encounter Summary ---
Author Organization [facility] Address [facility] [place] [address] Care Team Providers Care Stereotyper Helper Name Role Phone Ginger Riddle MD Primary Care Provider Encounter Details Date Type Department Care Team (Latest Contact Info) Description 01/09/2023 1:42 PM EDT - 01/09/2023 11:59 PM EDT Hospital En[place] [phone] Li Delgado, MEDICAL VAN DRIVER [address] [place] [address] Lump in lower inner quadrant of left [...] have questions please contact the health home health care respiratory therapist that requested your imaging first. ? Narrative [...] nipple. Multiple simple cysts. Li K Heck MEDICAL VAN DRIVER IMG MAMMO ORDERABLES documented in this encounter Visit Diagnoses Diagnosis Lump in lower inner quadrant of left breast Mass of breast, unspecified laterality Mass of right breast, unspecified quadrant documented in this encounter Care Teams Stereotyper Helper Relationship Specialty Start Date End Date Ginger Riddle MD [address] [place] [address] PCP - General Family Medicine 09/27/16 documented as of this encounter
--- OUTSIDE RECORDS SUMMARY | 2024-03-26 16:28 | XMS_ITS | Encounter Summary ---
[place] [address] Care Team Providers Care Derrick Worker Well Service Name Role Phone Ginger Riddle MD Primary Care Provider [phone] Encounter Details Date Type Department Care Team [...] on filedocumented in this encounter Care Teams Derrick Worker Well Service Relationship Specialty Start Date End Date Ginger Riddle MD [address] [place] [address] PCP - General Family Medicine 09/27/16 documented as of this encounter
--- OUTSIDE RECORDS SUMMARY | 2024-03-26 16:28 | XMS_ITS | Encounter Summary ---
[place] [address] Care Team Providers Care Compressed Air Pile Driver Operator Name Role Phone Ginger Riddle MD [...] on filedocumented in this encounter Care Teams Compressed Air Pile Driver Operator Relationship Specialty Start Date End Date Ginger Riddle MD [address] [place] [address] PCP - General Family Medicine 09/27/16 documented as of this encounter
--- OUTSIDE RECORDS SUMMARY | 2024-03-26 16:28 | XMS_ITS | Encounter Summary ---
Author Organization [facility] Address [facility] [place] [address] Care Team Providers Care Set Up Mold Technician Name Role Phone Ginger Riddle MD Primary Care Provider [phone] Encounter Details Date Type Department Care Team (Latest Contact Info) Description 01/10/2023 9:10 AM EDT - 01/10/2023 11:59 PM EDT Hospital En[place] [phone] Janice Faust MD [facility] DR [place] [address] Abnormal finding on breast imaging Discharge Disposition: [...] have questions please contact the health care management coordinator that requested your imaging first. ? Narrative [...] using a [employer] Monopty 14g device. A [employer] 14G marker clip was placed. Cranio-caudal and lateral digital mammography performed to determine biopsy marker placement, which was shown to be at the expected location. COMPLICATIONS: None. ? 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 Janice Faust MD IM MAMMO ORDERABLES * Surgical Pathology Report (01/10/2023 10:01 AM EDT) Final Diagnosis [id number] ? Location: 3L The signing pathologist has (i) examined the relevant preparation(s) for the specimen(s) and (ii) rendered or confirmed the diagnosis(es). . 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 Pathologist Performed at: ??-[facility] Dept. of Pathology, [place] [address] Dynamite Packing Machine Feeder: Riki Norris MD, AP, ??CLIA Certificate: [id number] DISCUSSION The sclerosing intraductal papilloma is present [...] COPY: Ginger Riddle MD Heck, Li Keys, LOCKSTITCH SLEEVE MAKER CLINICAL INFORMATION Mass SPECIMEN PROCESSING A - [...] (<1 hour). ??pps 01/14/2023 9:41 AM EDT [facility] BREAST STRUCTURE / Unknown 01/10/2023 10:01 AM EDT 01/10/2023 10:01 AM EDT Helen Arita MD PATHOLOGY/CYTOLOGY [facility] [address] [place] [place] [address] * Specimen to Pathology (01/10/2023 10:01 AM EDT) AP Specimen 01/10/2023 10:0 1 AM EDT 01/10/2023 10:01 AM EDT Narrative [facility] - 01/10/2023 10:01 AM EDT Specimen requisition ordered. ??Separate Pathology report to follow Helen Arita MD PATHOLOGY/CYTOLOGY [facility] [place] [address] documented in this encounter Visit Diagnoses Diagnosis [...] mg documented in this encounter Care Teams Set Up Mold Technician Relationship Specialty Start Date End Date Ginger Riddle MD [address] [place] [address] PCP - General Family Medicine 09/27/16 documented as of this encounter
--- OUTSIDE RECORDS SUMMARY | 2024-03-26 16:28 | XMS_ITS | Clinical Summary ---
Author Organization [facility] Address [facility] [place] [address] Care Team Providers Care Thread Separator Name Role Phone Ginger Riddle MD Primary Care Provider [phone] Allergies Active Allergy Reactions Criticality Noted Date [...] 11:59 PM EDT Hospital Encounter [place] [address] Janice Faust MD Abnormal finding on breast imaging Discharge Disposition: Home 02/06/2024 Travel 01/29/2024 1:19 PM EDT - 01/29/2024 11:59 PM EDT Hospital Encounter Mammography/[place] [address] Ginger Riddle MD Encounter for screening mammogram for breast cancer Discharge Disposition: Home 01/29/2024 Travel 01/26/2024 Interpretation [place] [phone] Abel Gonzalez MD Cough, unspecified type from [...] history exists Medical Devices Implanted Type Area Project Manager/Team Coach Device Identifier Shelf Expiration Date Model / Serial / Lot Breast Clip- 8 Implanted:Qt y: 1 on 11/04/2017 by Jeff Marsh MD Breast Clip Left: Breast [id number] / / Description:JACE [employer] Breast [...] who have questions please contact the health direct care worker that requested your imaging first. ? Narrative [...] Bilateral (01/29/2024 2:12 PM EDT) WORKSTATION ID [id number] RAD Anatomical Region Laterality Modality Breast [...] who have questions please contact the health direct care worker that requested your imaging first. ? Electronically signed by: Adia Rodriguez MD, [facility] ([phone]), at 01/30/2024 11:[address] [facility] [address] [place], [place] ??[id number] Narrative 01/30/2024 11:18 AM EDT EXAMINATION: MAMMO [...] capacity to make decision: Yes Care Teams Thread Separator Relationship Specialty Start Date End Date Ginger Riddle MD [address] [place] [address] PCP - General Family Medicine 09/27/16
--- OUTSIDE RECORDS SUMMARY | 2024-03-26 16:28 | XMS_ITS | Encounter Summary ---
[place] [address] Care Team Providers Care Calculating Machine Mechanic Name Role Phone Ginger Riddle MD Primary Care Provider [phone] Encounter Details Date Type Department Care Team [...] on filedocumented in this encounter Care Teams Calculating Machine Mechanic Relationship Specialty Start Date End Date Ginger Riddle MD [address] [place] [address] PCP - General Family Medicine 09/27/16 documented as of this encounter
--- OUTSIDE RECORDS SUMMARY | 2024-03-26 16:28 | XMS_ITS | Encounter Summary ---
Author Organization [facility]ly [facility] Address [facility] [place] [address] Care Team Providers Care Supervisory Civil Engineer Name Role Phone Ginger Riddle MD Primary Care Provider [phone] Encounter Details Date Type Department Care Team (Latest Contact Info) Description 01/10/2023 9:10 AM EDT - 01/10/2023 11:59 PM EDT Hospital [place] [phone] Janice Faust MD [facility] DR DI[place] [address] Abnormal finding on breast imaging Discharge Disposition: [...] who have questions please contact the health wound care physician that requested your imaging first. ? Narrative [...] core biopsy specimens were obtained using a [employer] Monopty 14g device. A [employer] 14G marker clip was placed. Cranio-caudal and [...] breast documented in this encounter Care Teams Supervisory Civil Engineer Relationship Specialty Start Date End Date Ginger Riddle MD [address] [place] [address] PCP - General Family Medicine 09/27/16 documented as of this encounter
--- OUTSIDE RECORDS SUMMARY | 2024-03-26 16:29 | XMS_ITS | Encounter Summary ---
Author Organization [facility] [place] [address] Care Team Providers Care Blade Aligner Name Role Phone Ginger Riddle MD Primary Care Provider [phone] Encounter Details Date Type Department Care Team (Latest Contact Info) Description 03/10/2020 1:05 PM EST - 03/10/2020 11:59 PM EST Hospital Encounter Mammography/[place] [address] Ginger Riddle MD [address] [place], [place] [id number] Encounter for screening mammogram for breast cancer [...] cancer documented in this encounter Care Teams Blade Aligner Relationship Specialty Start Date End Date Ginger Riddle MD [address] [place] [address] PCP - General Family Medicine 09/27/16 documented as of this encounter
--- OUTSIDE RECORDS SUMMARY | 2024-03-26 16:29 | XMS_ITS | Encounter Summary ---
Author Organization [facility] [place] [address] Care Team Providers Care String Studies Director Name Role Phone Marcela Crenshaw MD Primary Care Provider [phone] Encounter Details Date Type Department Care Team (Late st Contact Info) Description 07/11/2010 Orders Only Radiology [facility] [place] [phone] Marcela Crenshaw MD [address] [place] [address] [place] [address] Social History Tobacco Use Types [...] on filedocumented in this encounter Care Teams String Studies Director Relationship Specialty Start Date End Date Marcela Crenshaw MD [facility] [address] [place] [address] [place] [address] PCP - General 03/27/10 08/22/13 documented as of this encounter
--- OUTSIDE RECORDS SUMMARY | 2024-03-26 16:29 | XMS_ITS | Encounter Summary ---
Author Organization [facility] Address [facility] [place] [address] Care Team Providers Care Dna Sequencing Associate Name Role Phone Ginger Riddle MD Primary Care Provider [phone] Encounter Details Date Type Department Care Team (Late st Contact Info) Description 11/19/2017 10:15 AM EDT Office Visit H[place] [address] Kateryna Farah MD [facility] [place] [address] Breast lesion Social History Tobacco Use Types [...] least 2 times a week.She goes to [facility]. Active Ambulatory Problems Diagnosis Date Noted ??? [...] disorder documented in this encounter Care Teams Dna Sequencing Associate Relationship Specialty Start Date End Date Ginger Riddle MD [address] [place] [address] PCP - General Family Medicine 09/27/16 documented as of this encounter
--- OUTSIDE RECORDS SUMMARY | 2024-03-26 16:29 | XMS_ITS | Encounter Summary ---
Author Organization [facility] [place] [address] Care Team Providers Care Corporate Bond Trader Name Role Phone Ginger Riddle MD Primary Care Provider [phone] Reason for Visit * Speech Therapy (Routine) - Closed Specialty Diagnoses / Procedures Referred By Charly mcneill Referred To Contact Speech Pathology / Speech Therapy Diagnoses Chronic cough Lurdes Tong MD [facility] [address] [place] [address] [facility] [employer] [place] [address] Referral ID Status Reason Start Date Expiration Date V isits Requested Visits Authorized [id number] Closed Evaluate and Treat 05/30/2017 05/30/2018 1 1 Encounter Details Date Type Department Care Team (Late st Contact Info) Description 07/11/2017 11:30 AM EST Office [place] [address] Shana Nascimento, SPOOLER Dysphagia, unspecified type Social History Tobacco Use Types Packs/Day Years Used Date Smoking Tobacco: Never Sex and Gender Information Value Date Recorded Sex Assigned at Not on file Gender Identity Not on file Sexual Orientation Not on file documented as of this encounter Progress Notes * Shana Nascimento, SPOOLER - 07/11/2017 11:30 AM EST Speech-Language Pathology [...] ( pulmonary ) and ENT and an surgeon chief. Her current active sx are chronic non-productive [...] and eating strategies listed above. P: ?? [facility] Speech Pathology to monitor for carryover and [...] any questions or concerns. Shana Nascimento MA CCC-SPOOLER [facility] OP Rehabilitation Medicine [phone] [phone] [email or web address] G-Code: [...] type documented in this encounter Care Teams Corporate Bond Trader Relationship Specialty Start Date End Date Ginger Riddle MD [address] [place] [address] PCP - General Family Medicine 09/27/16 documented as of this encounter
--- OUTSIDE RECORDS SUMMARY | 2024-03-26 16:29 | XMS_ITS | Encounter Summary ---
[place] [address] Care Team Providers Care Dispatcher Chief Coal Slurry Name Role Phone Ginger Riddle MD Primary Care Provider [phone] Reason for Visit * Reason Comments Follow-up Encounter Details Date Type Department Care Team (Late st Contact Info) Description 11/11/2016 9:15 AM EDT Procedure visit Dermatology at [address] [address] Dickson Dow MD [address] [facility], [place] [address] Seborrheic keratosis; Nevus; Seborrheic keratosis, inflamed Social [...] keratosis documented in this encounter Care Teams Dispatcher Chief Coal Slurry Relationship Specialty Start Date End Date Ginger Riddle MD [address] [place] [address] PCP - General Family Medicine 09/27/16 documented as of this encounter
--- OUTSIDE RECORDS SUMMARY | 2024-03-26 16:29 | XMS_ITS | Encounter Summary ---
Author Organization [facility] Address [facility] [place] [address] Care Team Providers Care Rn Orthopaedics Name Role Phone Ginger Riddle MD Primary Care Provider [phone] Encounter Details Date Type Department Care Team (Late st Contact Info) Description 05/07/2017 Orders [place] [address] Abel Gonzalez MD [facility] DR PULMONARY MEDICINE [place] [id number] Chronic cough Social History Tobacco Use Types [...] treat asthma. ?? Guidelines from a 2011 [place] [employer] (ATS) executive summary on the [...] Cough documented in this encounter Care Teams Rn Orthopaedics Relationship Specialty Start Date End Date Ginger Riddle MD [address] [place] [address] PCP - General Family Medicine 09/27/16 documented as of this encounter
--- OUTSIDE RECORDS SUMMARY | 2024-03-26 16:29 | XMS_ITS | Encounter Summary ---
[place] [address] Care Team Providers Care Fish Conservationist Name Role Phone Ginger Riddle MD Primary Care Provider [phone] Reason for Visit * Reason Comments Skin Check Encounter Details Date Type Department Care Team (Late st Contact Info) Description 07/15/2022 2:15 PM EDT Office Visit Dermatology at [address] [phone] Dickson Dow MD 580 [facility], [place] [address] Seborrheic keratosis, inflamed; Seborrheic keratosis Social History [...] keratosis documented in this encounter Care Teams Fish Conservationist Relationship Specialty Start Date End Date Ginger Riddle MD [address] [place] [address] PCP - General Family Medicine 09/27/16 documented as of this encounter
--- OUTSIDE RECORDS SUMMARY | 2024-03-26 16:29 | XMS_ITS | Encounter Summary ---
Author Organization [facility] [place] [address] Care Team Providers Care Restaurant Managing Partner Name Role Phone Ginger Riddle MD Primary Care Provider [phone] Reason for Visit * Auth/Cert Specialty Diagnoses / Procedures Referred By Charly mcneill Referred To Contact Diagnoses LEFT BREAST LESION Procedures PRO EXCISE BREAST LES W XRAY MARKER EXCISION LESION, BREAST W/ PREOP.MARKER (NEEDLE LOC.) (WRVU 6.69) Referral ID Status Reason Start Date Expiration Date Visits Re quested Visits Authorized [id number] 1 1 Encounter Details Date Type Department Care Team (Late st Contact Info) Description 12/04/2017 9:44 AM EDT Anesthesia [place] [phone] Emilia Lorenzo MD [facility] [place] [address] Anesthesia Record Procedure Summary Procedure Name Responsible [...] Lorenzo MD - 12/04/2017 1:37 PM EDT [facility] Department of Anesthesiology Post-procedure Note Patient: Marcela Yousif Procedure Summary Date Anesthesia Start Anesthesia Stop Room / Location 12/04/17 0944 1058 [facility] OR [facility] MAIN OR Procedure Diagnosis Surgeon Responsible Provider EXCISION LESION, BREAST W/ PREOP.MARKER (NEEDLE LOC.) (WRVU 6.69) (Left Breast) (LEFT BREAST LESION) Kateryna Farah MD Havidich, Jeana E, MD All Anesthesia Providers: Anesthesiologist: Emilia Lorenzo MD Deodorizer Operator: Jesus Garner MD Most Recent Vitals: 12/04/17 1315 BP: 126/74 Pulse: Resp: Temp: SpO2: 95% Pain Patient Location: PACU/[facility] Level of Consciousness: Awake and [...] hr documented in this encounter Care Teams Restaurant Managing Partner Relationship Specialty Start Date End Date Ginger Riddle MD [address] [place] [address] PCP - General Family Medicine 09/27/16 documented as of this encounter
--- OUTSIDE RECORDS SUMMARY | 2024-03-26 16:29 | XMS_ITS | Encounter Summary ---
[place] [address] Care Team Providers Care Direct Care Professional Name Role Phone Ginger Riddle MD Primary Care Provider [phone] Encounter Details Date Type Department Care Team (Late st Contact Info) Description 09/25/2018 9:30 AM EDT Office Visit Dermatology at [address] [address] Dickson Dow MD 580 [facility], [place] [address] Seborrheic keratosis; Seborrheic keratosis, inflamed Social History [...] keratosis documented in this encounter Care Teams Direct Care Professional Relationship Specialty Start Date End Date Ginger Riddle MD [address] [place] [address] PCP - General Family Medicine 09/27/16 documented as of this encounter
--- OUTSIDE RECORDS SUMMARY | 2024-03-26 16:29 | XMS_ITS | Encounter Summary ---
[place] [address] Care Team Providers Care Community Advocate Name Role Phone Ginger Riddle MD Primary Care Provider [phone] Reason for Visit * Reason Comments Suture / Staple Removal Encounter Details Date Type Department Care Team (Late st Contact Info) Description 11/18/2016 11:30 AM EDT Office Visit Dermatology at [address] [phone] Dickson Dow MD 580 [facility], [place] [address] Visit for suture removal Social History Tobacco [...] sutures documented in this encounter Care Teams Community Advocate Relationship Specialty Start Date End Date Ginger Riddle MD [address] [place] [address] PCP - General Family Medicine 09/27/16 documented as of this encounter
--- OUTSIDE RECORDS SUMMARY | 2024-03-26 16:29 | XMS_ITS | Encounter Summary ---
Author Organization [facility] Address [facility] [place] [address] Care Team Providers Care Beveller Operator Name Role Phone Ginger Riddle MD Primary Care Provider Encounter Details Date Type Department Care Team (Latest Contact Info) Description 11/03/2017 1:46 PM EDT - 11/03/2017 11:59 PM EDT Hospital En[place] [phone] Jeff Marsh MD [facility] [place] [address] Abnormal finding on breast imaging Discharge Disposition: [...] breast documented in this encounter Care Teams Beveller Operator Relationship Specialty Start Date End Date Ginger Riddle MD [address] [place] [address] PCP - General Family Medicine 09/27/16 documented as of this encounter
--- OUTSIDE RECORDS SUMMARY | 2024-03-26 16:29 | XMS_ITS | Encounter Summary ---
Author Organization [facility] [place] [address] Care Team Providers Care Chief Of Staff Name Role Phone Zack Null Primary Care Provider [phone] Encounter Details Date Type Department Care Team (Latest Contact Info) Description 08/22/2015 10:30 AM EDT - 08/22/2015 11:59 PM EDT Hospital [place] [address] Zack Null PA [address] [place] [address] Encounter for screening mammogram for breast cancer [...] No mammographic evidence of malignancy. RECOMMENDATION: [employer] and The Society of [...] cancer documented in this encounter Care Teams Chief Of Staff Relationship Specialty Start Date End Date Zack Null PA [address] [place] [address] PCP - General Family Medicine 08/22/15 09/26/16 documented as of this encounter
--- OUTSIDE RECORDS SUMMARY | 2024-03-26 16:29 | XMS_ITS | Encounter Summary ---
[place] [address] Care Team Providers Care Infantry Unit Leader Name Role Phone Ginger Riddle MD Primary Care Provider [phone] Reason for Visit * Reason Comments Skin Check Encounter Details Date Type Department Care Team (Late st Contact Info) Description 09/27/2016 9:15 AM EDT Office Visit Dermatology at [address] [phone] Dickson Dow MD [address] [facility] [address], [place] [address] Seborrheic keratosis; Nevus Social History Tobacco Use [...] seborrheic keratoses on the right forehead, left [employer] and 2 on the left lateral neck [...] unspecified documented in this encounter Care Teams Infantry Unit Leader Relationship Specialty Start Date End Date Ginger Riddle MD [address] [place] [address] PCP - General Family Medicine 09/27/16 documented as of this encounter
--- OUTSIDE RECORDS SUMMARY | 2024-03-26 16:29 | XMS_ITS | Encounter Summary ---
Author Organization [facility] Address [facility] [place] [address] Care Team Providers Care Retail Maintenance Technician Name Role Phone Ginger Riddle MD Primary Care Provider [phone] Encounter Details Date Type Department Care Team (Latest Contact Info) Description 12/02/2018 10:31 AM EDT - 12/02/2018 11:59 PM EDT Hospital [place] [phone] Jeff Marsh MD [facility] [place] [address] Abnormal mammogram Discharge Disposition: Home Social History [...] breast: BI-RADS 2, benign findings. * ??The [employer] and The Society of [...] unspecified documented in this encounter Care Teams Retail Maintenance Technician Relationship Specialty Start Date End Date Ginger Riddle MD [address] [place] [address] PCP - General Family Medicine 09/27/16 documented as of this encounter
--- OUTSIDE RECORDS SUMMARY | 2024-03-26 16:29 | XMS_ITS | Encounter Summary ---
[place] [address] Care Team Providers Care Server Systems Administrator Name Role Phone Ginger Riddle MD Primary Care Provider [phone] Reason for Visit * Reason Comments Follow-up Skin Check Encounter Details Date Type Department Care Team (Late st Contact Info) Description 01/02/2018 2:30 PM EDT Office Visit Dermatology at [address] [address] Dickson Dow MD [address] [facility], [place] [address] Seborrheic keratosis; Inflamed acrochordon Social History Tobacco [...] 4-year-old boy and will be moving to [place] and the other one living with her in [place]. Physical examination reveals a pleasant 72-year-old woman [...] skin documented in this encounter Care Teams Server Systems Administrator Relationship Specialty Start Date End Date Gingre Riddle MD [address] [place] [address] PCP - General Family Medicine 09/27/16 documented as of this encounter
--- OUTSIDE RECORDS SUMMARY | 2024-03-26 16:29 | XMS_ITS | Encounter Summary ---
Author Organization [facility] [place] [address] Care Team Providers Care Central Processing Technician Name Role Phone Marcela Crenshaw MD Primary Care Provider [phone] Encounter Details Date Type Department Care Team (Latest Contact Info) Description 07/17/2011 10:08 AM EDT - 07/17/2011 11:59 PM EDT Hospital Encounter Mammography at [facility] [place] [phone] CLINIC, Marcela Barillas MD [address] [place] [address] [address] [place], [place] [address] Discharge Disposition: Home Social History Tobacco Use [...] direct digital capture. The exam was evaluated [employer] Version 8.3.17. FINDINGS: This is a negative [...] on filedocumented in this encounter Care Teams Central Processing Technician Relationship Specialty Start Date End Date Marcela Crenshaw MD HOSPITALIST SERVICES [address] [place] [address] [place] [address] PCP - General 03/27/10 08/22/13 documented as of this encounter
--- OUTSIDE RECORDS SUMMARY | 2024-03-26 16:29 | XMS_ITS | Encounter Summary ---
Author Organization [facility] [place] [address] Care Team Providers Care Booking Officer Name Role Phone Ginger Riddle MD Primary Care Provider [phone] Reason for Visit * Auth/Cert Specialty Diagnoses / Procedures Referred By Charly mcneill Referred To Contact Diagnoses LEFT BREAST LESION Procedures PRO EXCISE BREAST LES W XRAY MARKER EXCISION LESION, BREAST W/ PREOP.MARKER (NEEDLE LOC.) (WRVU 6.69) Referral ID Status Reason Start Date Expiration Date Visits Re quested Visits Authorized [id number] 1 1 Encounter Details Date Type Department Care Team (Late st Contact Info) Description 12/04/2017 7:35 AM EDT - 12/04/2017 3:13 PM EDT Hospital Encounter [place] [address] Steven Romero MD [facility] [place] [address] Discharge Disposition: Home Social History Tobacco Use [...] Dr. Romero in 2-3 weeks Please call [phone] to confirm date and time of your appointment if you do not hear from us inthe week. Future Appointments Date Time Provider Department Center 12/18/2017 10:00 AM Adia Wilson APRN [facility] 01/02/2018 2:30 PM Dickson Dow MD [facility] Call Doctor for: Worsening redness or drainage from your incision lasting longer than 5 days following surgery Any foul-smelling drainage from the incision Fevers greater than 101 degrees F Persistent nausea or vomiting (this may be related to opioid pain medications) Phone number for questions: [phone] before 5 PM weekdays [phone] after 5 PM and on weekends/holidays documented [...] a 72 y.o. female who presents to [facility] for WLE of a spiculated breast mass. [...] Romero MD - 12/04/2017 10:41 AM EDT [facility] Operative Note Patient Name: Marcela Yousif : [id number] MR#: [id number] Case Date: 12/04/2017 Surgeon: Surgeon(s) and Role: [...] Order Time [place] 8 [address] LEFT BREAST LESION Left breast mass. excision [...] Operative Note Patient Name: Marcela Yousif : [id number] MR#: [id number] Case Date: 12/04/2017 Surgeon: Surgeon(s) and Role: [...] Order Time [place] 8 [address] LEFT BREAST LESION Left breast mass. excision [...] AM EDT 12/04/2017 11:[address] [facility] - 12/04/2017 11:15 AM EDT Specimen requisition ordered. ??Separate Pathology report to follow Resulting Agency Comment Spec In Lab Steven Duran MD PATHOLOGY/CYTOLO GY ORDERABLES Performing Organization Address City/State/[facility] Co de Phone Number [facility] [place] [address] documented in this encounter Visit Diagnoses Not [...] RN) documented in this encounter Care Teams Booking Officer Relationship Specialty Start Date End Date Ginger Riddle MD [address] [place] [address] PCP - General Family Medicine 09/27/16 documented as of this encounter
--- OUTSIDE RECORDS SUMMARY | 2024-03-26 16:29 | XMS_ITS | Encounter Summary ---
[place] [address] Care Team Providers Care Stacker And Sorter Operator Name Role Phone Marcela Crenshaw MD Primary Care Provider [phone] Encounter Details Date Type Department Care Team (Late st Contact Info) Description 07/11/2010 2:00 PM EST Office Visit Lab [address]L [place] [address] Social History Tobacco Use Types Packs/Day Years Used Date Smoking Tobacco: Never Assessed Sex and Gender Information Value Date Recorded Sex Assigned at Not on file Gender Identity Not on file Sexual Orientation Not on file documented as of this encounter Plan of Treatment Not on file documented as of this encounter Visit Diagnoses Not on filedocumented in this encounter Care Teams Stacker And Sorter Operator Relationship Specialty Start Date End Date Marcela Crenshaw MD HOSPITALIST SERVICES [address] [place] [address] [place] [address] PCP - General 03/27/10 08/22/13 documented as of this encounter
--- OUTSIDE RECORDS SUMMARY | 2024-03-26 16:29 | XMS_ITS | Encounter Summary ---
[place] [address] Care Team Providers Care Plant Protection Officer Name Role Phone Ginger Riddle MD Primary Care Provider Reason for Visit * Reason Comments Skin Check Encounter Details Date Type Department Care Team (Late st Contact Info) Description 09/18/2020 10:15 AM EDT Office Visit Dermatology at [address] [phone] Dickson Dow MD [address] [facility], [place] [address] Seborrheic keratosis, inflamed; Inflamed acrochordon; Seborrheic keratosis [...] keratosis documented in this encounter Care Teams Plant Protection Officer Relationship Specialty Start Date End Date Ginger Riddle MD [address] [place] [address] PCP - General Family Medicine 09/27/16 documented as of this encounter
--- OUTSIDE RECORDS SUMMARY | 2024-03-26 16:29 | XMS_ITS | Encounter Summary ---
[place] [address] Care Team Providers Care Kaiawhina Name Role Phone Ginger Riddle MD Primary Care Provider [phone] Encounter Details Date Type Department Care Team [...] on filedocumented in this encounter Care Teams Kaiawhina Relationship Specialty Start Date End Date Ginger Riddle MD [address] [place] [address] PCP - General Family Medicine 09/27/16 documented as of this encounter
--- OUTSIDE RECORDS SUMMARY | 2024-03-26 16:29 | XMS_ITS | Encounter Summary ---
[place] [address] Care Team Providers Care Self Propelled Hot Mix Roller Operator Name Role Phone Ginger Riddle MD Primary Care Provider [phone] Encounter Details Date Type Department Care Team (Latest Contact Info) Description 08/17/2014 10:22 AM EDT - 08/17/2014 11:59 PM EDT Hospital [place] [address] CLINIC, Ginger Rehman MD [address] [place] [address] [phone] Discharge Disposition: Home Social History Tobacco Use [...] on filedocumented in this encounter Care Teams Self Propelled Hot Mix Roller Operator Relationship Specialty Start Date End Date Ginger Riddle MD [address] [place] [address] PCP - General 08/23/13 08/21/15 documented as of this encounter
--- OUTSIDE RECORDS SUMMARY | 2024-03-26 16:29 | XMS_ITS | Encounter Summary ---
Author Organization [facility] [place] [address] Care Team Providers Care Cocktail Waitress Name Role Phone iGnger Riddle MD Primary Care Provider Encounter Details Date Type Department Care Team (Latest Contact Info) Description 08/23/2013 11:52 AM EDT - 08/23/2013 11:59 PM EDT Hospital [place] [phone] CLINIC, Ginger Rehman MD [address] [place] [address] [phone] Discharge Disposition: Home Social History Tobacco Use [...] on filedocumented in this encounter Care Teams Cocktail Waitress Relationship Specialty Start Date End Date Ginger Riddle MD [address] [place] [address] PCP - General 08/23/13 08/21/15 documented as of this encounter
--- OUTSIDE RECORDS SUMMARY | 2024-03-26 16:29 | XMS_ITS | Encounter Summary ---
Author Organization [facility] [place] [address] Care Team Providers Care Java J2Ee Application Developer Name Role Phone Ginger Riddle MD Primary Care Provider [phone] Encounter Details Date Type Department Care Team (Latest Contact Info) Description 05/30/2017 12:57 PM EST - 05/30/2017 11:59 PM EST Hospital En[place] [phone] Chronic cough Discharge Disposition: Home Social History [...] and treat asthma. Guidelines from a 2011 [place] [employer] (ATS) executive summary on the [...] treat asthma. ?? Guidelines from a 2011 [place] [employer] Society (ATS) executive summary on the [...] treat asthma. ?? Guidelines from a 2011 [place] [employer] (ATS) executive summary on the [...] Cough documented in this encounter Care Teams Java J2Ee Application Developer Relationship Specialty Start Date End Date Ginger Riddle MD [address] [place] [address] PCP - General Family Medicine 09/27/16 documented as of this encounter
--- OUTSIDE RECORDS SUMMARY | 2024-03-26 16:29 | XMS_ITS | Encounter Summary ---
Author Organization [facility] Address [facility] [place] [address] Care Team Providers Care Satellite Manager Name Role Phone Ginger Riddle MD Primary Care Provider [phone] Encounter Details Date Type Department Care Team (Latest Contact Info) Description 07/21/2015 Hospital Encounter Radiology Library at [facility] [place] [place] [address] Lurdes Tong MD [facility] [place] [address] Discharge Disposition: Home Social History Tobacco Use [...] only and is auto-finalizing. Lurdes Tong MD [facility] FILM LIBRARY ORD ERABLES [place], [place] documented in this encounter Visit Diagnoses Not on filedocumented in this encounter Care Teams Satellite Manager Relationship Specialty Start Date End Date Ginger Riddle MD [address] [place] [address] PCP - General 08/23/13 08/21/15 documented as of this encounter
--- OUTSIDE RECORDS SUMMARY | 2024-03-26 16:29 | XMS_ITS | Encounter Summary ---
Author Organization [facility] [place] [address] Care Team Providers Care Coordinator Mining Products Name Role Phone Ginger Riddle MD Primary Care Provider [phone] Encounter Details Date Type Department Care Team (Latest Contact Info) Description 11/26/2018 10:27 AM EDT - 11/26/2018 11:59 PM EDT Hospital Encounter Mammography/[place] [address] Ginger Riddle MD [address] [place] [address] Encounter for screening mammogram for breast cancer [...] below. ? Electronically signed by: Jeff Marsh [facility] ([phone]), at 11/26/2018 12:26 PM Narrative 11/26/2018 12:26 PM EDT REASON FOR [...] cancer documented in this encounter Care Teams Coordinator Mining Products Relationship Specialty Start Date End Date Ginger Riddle MD [address] [place] [address] PCP - General Family Medicine 09/27/16 documented as of this encounter
--- OUTSIDE RECORDS SUMMARY | 2024-03-26 16:29 | XMS_ITS | Encounter Summary ---
Author Organization [facility] Address [facility] [place] [address] Care Team Providers Care Water Truck Driver Name Role Phone Ginger Riddle MD Primary Care Provider [phone] Encounter Details Date Type Department Care Team (Latest Contact Info) Description 07/06/2021 11:00 AM EST - 07/06/2021 11:59 PM EST Hospital Encounter Mammography/[place] [phone] Ginger Riddle MD [address] [place] [address] Encounter for screening mammogram for breast cancer [...] cancer documented in this encounter Care Teams Water Truck Driver Relationship Specialty Start Date End Date Ginger Riddle MD [address] [place] [address] PCP - General Family Medicine 09/27/16 documented as of this encounter
--- OUTSIDE RECORDS SUMMARY | 2024-03-26 16:29 | XMS_ITS | Encounter Summary ---
Author Organization [facility] Address [facility] [place] [address] Care Team Providers Care Rack Carrier Name Role Phone Ginger Riddle MD Primary Care Provider [phone] Encounter Details Date Type Department Care Team (Latest Contact Info) Description 01/09/2023 1:00 PM EDT - 01/09/2023 1:41 PM EDT Hospital En[place] [phone] Li Delgado, AD COPY WRITER [address] [place] [address] Lump in lower inner quadrant of left [...] have questions please contact the health care manager that requested your imaging first. ? Electronically signed by: Janice Faust MD, [facility] ([phone]), at 01/09/2023 4:09 PM Narrative 01/09/2023 4:09 [...] nipple. Multiple simple cysts. Li K Heck AD COPY WRITER IMG MAMMO ORDERABLES documented in this encounter Visit Diagnoses Diagnosis Lump in lower inner quadrant of left breast Mass of breast, unspecified laterality Mass of right breast, unspecified quadrant documented in this encounter Care Teams Rack Carrier Relationship Specialty Start Date End Date Ginger Riddle MD [address] [place] [address] PCP - General Family Medicine 09/27/16 documented as of this encounter
--- OUTSIDE RECORDS SUMMARY | 2024-03-26 16:29 | XMS_ITS | Encounter Summary ---
Author Organization [facility] Address [facility] [place] [address] Care Team Providers Care Copy Lathe Tender Name Role Phone Ginger Riddle MD Primary Care Provider [phone] Encounter Details Date Type Department Care Team (Latest Contact Info) Description 11/03/2017 1:46 PM EDT - 11/03/2017 11:59 PM EDT Hospital En[place] [phone] Jeff Marsh MD [facility] [place] [address] Abnormal finding on breast imaging Discharge Disposition: [...] breast documented in this encounter Care Teams Copy Lathe Tender Relationship Specialty Start Date End Date Ginger Riddle MD [address] [place] [address] PCP - General Family Medicine 09/27/16 documented as of this encounter
--- OUTSIDE RECORDS SUMMARY | 2024-03-26 16:29 | XMS_ITS | Encounter Summary ---
[place] [address] Care Team Providers Care Magazine Supervisor Name Role Phone Ginger Riddle MD Primary Care Provider [phone] Encounter Details Date Type Department Care Team (Latest Contact Info) Description 08/16/2022 10:29 AM EDT - 08/16/2022 11:59 PM EDT Hospital Encounter M[place]ography[place] [address] Ginger Riddle MD [address] [place] [address] Screening mammogram for breast cancer Discharge Disposition: [...] have questions please contact the health rn coronary care unit that requested your imaging first. [...] cancer documented in this encounter Care Teams Magazine Supervisor Relationship Specialty Start Date End Date Ginger Riddle MD [address] [place] [address] PCP - General Family Medicine 09/27/16 documented as of this encounter
--- OUTSIDE RECORDS SUMMARY | 2024-03-26 16:29 | XMS_ITS | Encounter Summary ---
Author Organization [place] [address] Care Team Providers Care Senior Integration Architect Name Role Phone Ginger Riddle MD Primary Care Provider [phone] Reason for Visit * Reason Comments Follow-up Encounter Details Date Type Department Care Team (Late st Contact Info) Description 02/23/2019 10:15 AM EDT Office Visit Dermatology at [address] [address] Dickson Dow MD [address] [facility] [place] [address] Seborrheic keratosis; Seborrheic keratosis, inflamed; Inflamed acrochordon [...] of this encounter Progress Notes * Dickson oDw MD - 02/23/2019 10:15 AM EDT Problem: [...] patient's daughter [facility] [place] been [place] the last 4 [...] skin documented in this encounter Care Teams Senior Integration Architect Relationship Specialty Start Date End Date Ginger Riddle MD [address] [place] [address] PCP - General Family Medicine 09/27/16 documented as of this encounter
--- OUTSIDE RECORDS SUMMARY | 2024-03-26 16:29 | XMS_ITS | Encounter Summary ---
[place] [address] Care Team Providers Care Coordinator Cardiopulmonary Services Name Role Phone Ginger Riddle MD Primary Care Provider Reason for Visit * Reason Comments Follow-up Encounter Details Date Type Department Care Team (Late st Contact Info) Description 04/22/2019 3:00 PM EST Office Visit Dermatology at [address] [address] Dicksno Dow MD [address] [facility] [place] [address] Seborrheic keratosis, inflamed Social History Tobacco Use [...] keratosis documented in this encounter Care Teams Coordinator Cardiopulmonary Services Relationship Specialty Start Date End Date Ginger Riddle MD [address] [place] [address] PCP - General Family Medicine 09/27/16 documented as of this encounter
--- OUTSIDE RECORDS SUMMARY | 2024-03-26 16:29 | XMS_ITS | Encounter Summary ---
Author Organization [facility] Address [facility] [place] [address] Care Team Providers Care Hardwood Faller Name Role Phone Ginger Riddle MD Primary Care Provider Encounter Details Date Type Department Care Team (Latest Contact Info) Description 01/23/2017 - 01/23/2017 11:59 PM EDT Hospital Encounter Radiology Library at [facility] [place] [address] Davide Barnhart MD [facility] [place] [address] Pain Discharge Disposition: Home Social History Tobacco [...] Barnhart MD G FILM LIBRARY ORD ERABLES [facility] [place], [place] documented in this encounter Visit Diagnoses Diagnosis Pain Generalized pain documented in this encounter Care Teams Hardwood Faller Relationship Specialty Start Date End Date Ginger Riddle MD [address] [place] [address] PCP - General Family Medicine 09/27/16 documented as of this encounter
--- OUTSIDE RECORDS SUMMARY | 2024-03-26 16:29 | XMS_ITS | Encounter Summary ---
[place] [address] Care Team Providers Care Manager Universal Name Role Phone Ginger Riddle MD Primary Care Provider [phone] Encounter Details Date Type Department Care Team [...] filedocumented in this encounter Care Teams Manager Universal Relationship Specialty Start Date End Date Ginger Riddle MD [address] [place] [address] PCP - General Family Medicine 09/27/16 documented as of this encounter
--- OUTSIDE RECORDS SUMMARY | 2024-03-26 16:29 | XMS_ITS | Encounter Summary ---
Author Organization [facility] Address [facility] [place] [address] Care Team Providers Care Property Utilization Manager Name Role Phone Ginger Riddle MD Primary Care Provider [phone] Encounter Details Date Type Department Care Team (Late st Contact Info) Description 12/04/2017 8:30 AM EDT Hospital [place] [address] Kateryna Farah MD [facility] [place] [address] Malignant neoplasm of left female breast, unspecified [...] Report (12/04/2017 10:20 AM EDT) Final Diagnosis [id number] ? Location: 3L The signing pathologist has [...] Mitchell DO Verified: ??12/10/2017 ?Pathologist Performed at: ??-[facility] [place] Dept. of Pathology, [place], [place] CLINICAL INFORMATION Specimen Submitted: A - [...] entirely; (6-7) slice IV submitted entirely; (8-9) consumer sales representative slice V, biopsy cavity submitted entirely; (10-11) slice submitted entirely; (12) consumer sales representative slice VII; (13-14) consumer sales representative perpendicular sections to slice VIII, true yellow-lateral margin, all fibrous tissue submitted. (R14) . SPECIMEN PROCESSING Ischemic Time: 140 minutes CF 12/10/2017 10:28 AM EDT [facility] BREAST STRUCTURE / Unknown 12/04/2017 10:20 AM EDT 12/04/2017 10:20 AM EDT Kateryna Duran MD PATHOLOGY/CYTOLO GY ORDERABLES [facility] [place] [address] * Mammo Needle Localization Left (12/04/2017 9:12 [...] with digital mammographic guidance. A 7 cm Starbates needle was used. Cranio-caudal and 90 degree [...] breast documented in this encounter Care Teams Property Utilization Manager Relationship Specialty Start Date End Date Ginger Riddle MD [address] [place] [address] PCP - General Family Medicine 09/27/16 documented as of this encounter
--- OUTSIDE RECORDS SUMMARY | 2024-03-26 16:29 | XMS_ITS | Encounter Summary ---
[place] [address] Care Team Providers Care Clinical Writer Name Role Phone Marcela Crenshaw MD Primary Care Provider [phone] Encounter Details Date Type Department Care Team (Late st Contact Info) Description 07/12/2010 9:47 AM EST - 07/12/2010 11:59 PM EST Hospital Encounter MH OPW Marcela Crenshaw MD [address] [address] [place] [address] Social History Tobacco Use Types Packs/Day Years Used Date Smoking Tobacco: Never Assessed Sex and Gender Information Value Date Recorded Sex Assigned at Not on file Gender Identity Not on file Sexual Orientation Not on file documented as of this encounter Plan of Treatment Not on file documented as of this encounter Visit Diagnoses Not on filedocumented in this encounter Care Teams Clinical Writer Relationship Specialty Start Date End Date Marcela Crenshaw MD [facility] [address] [place] [address] [place] [address] PCP - General 03/27/10 08/22/13 documented as of this encounter
--- OUTSIDE RECORDS SUMMARY | 2024-03-26 16:29 | XMS_ITS | Encounter Summary ---
Author Organization [facility] Address [facility] [place] [address] Care Team Providers Care Loan Funder Name Role Phone Ginger Riddle MD Primary Care Provider [phone] Encounter Details Date Type Department Care Team (Latest Contact Info) Description 12/02/2018 10:30 AM EDT Hospital En[place] [address] Jeff Marsh MD [facility] [place] [address] Abnormal mammogram Discharge Disposition: Home Social History [...] breast: BI-RADS 2, benign findings. * ??The [place] [employer] and The Society of [...] below. ? Electronically signed by: Jeff Marsh [facility] ([phone]), at 12/02/2018 11:22 AM Narrative 12/02/2018 11:22 AM EDT DIAGNOSTIC MAMMOGRAPHY [...] unspecified documented in this encounter Care Teams Loan Funder Relationship Specialty Start Date End Date Ginger Riddle MD [address] [place] [address] PCP - General Family Medicine 09/27/16 documented as of this encounter
--- OUTSIDE RECORDS SUMMARY | 2024-03-26 16:29 | XMS_ITS | Encounter Summary ---
Author Organization [facility] Address [facility] [place] [address] Care Team Providers Care Dimmer Board Operator Name Role Phone Zack Null Primary Care Provider [phone] Encounter Details Date Type Department Care Team (Latest Contact Info) Description 10/25/2015 - 10/25/2015 11:59 PM EDT Hospital Encounter Radiology Library at [facility] [place] [address] Lurdes Tong MD [facility] [place] [address] Discharge Disposition: Home Social History Tobacco Use [...] IMG FILM LIBRARY ORD ERABLES [facility] [place], [place] documented in this encounter Visit Diagnoses Not on filedocumented in this encounter Care Teams Dimmer Board Operator Relationship Specialty Start Date End Date Zack Null PA [address] [place] [address] PCP - General Family Medicine 08/22/15 09/26/16 documented as of this encounter
--- OUTSIDE RECORDS SUMMARY | 2024-03-26 16:29 | XMS_ITS | Encounter Summary ---
Author Organization [facility] [place] [address] Care Team Providers Care Systems Planner Name Role Phone Ginger Riddle MD Primary Care Provider [phone] Reason for Visit * Auth/Cert Specialty Diagnoses / Procedures Referred By Charly [email or web address] Referred To Contact Diagnoses LEFT BREAST LESION Procedures PRO EXCISE BREAST LES W XRAY MARKER EXCISION LESION, BREAST W/ PREOP.MARKER (NEEDLE LOC.) (WRVU 6.69) Referral ID Status Reason Start Date Expiration Date Visits Re quested Visits Authorized [id number] 1 1 Encounter Details Date Type Department Care Team (Late st Contact Info) Description 12/04/2017 9:30 AM EDT - 12/04/2017 10:58 AM EDT Surgery [place] [address] Steven Romero MD [facility] [place] [address] EXCISION LESION, BREAST W/ PREOP.MARKER (NEEDLE LOC.) [...] Dr. Romero in 2-3 weeks Please call [phone] to confirm date and time of your appointment if you do not hear from us inthe week. Future Appointments Date Time Provider Department Center 12/18/2017 10:00 AM Adia Wilson APRN [facility] 01/02/2018 2:30 PM Dickson Dow MD [facility] Call Doctor for: Worsening redness or drainage from your incision lasting longer than 5 days following surgery Any foul-smelling drainage from the incision Fevers greater than 101 degrees F Persistent nausea or vomiting (this may be related to opioid pain medications) Phone number for questions: [phone] before 5 PM weekdays [phone] after 5 PM and on weekends/holidays documented [...] 72 y.o. female who presents to [facility] for WLE of a spiculated [...] MD - 12/04/2017 10:41 AM EDT [facility] Operative Note Patient Name: Marcela Yousif : [id number] MR#: [id number] Case Date: 12/04/2017 Surgeon: Surgeon(s) and Role: [...] Order Time SPE[place]IM[place]Y [place] 8 52451 LEFT BREAST LESION Left breast mass. excision [...] Operative Note Patient Name: Marcela Yousif : [id number] MR#: [id number] Case Date: 12/04/2017 Surgeon: Surgeon(s) and Role: [...] Order Time SPECIMEN TO PATHOLOGY OR 8 19880 LEFT BREAST LESION Left breast mass. excision [...] AM EDT 12/04/2017 11:14 AM EDT Narrative [facility] - 12/04/2017 11:15 AM EDT Specimen requisition ordered. ??Separate Pathology report to follow Resulting Agency Comment Spec In Lab Steven Duran MD PATHOLOGY/CYTOLO GY ORDERABLES [facility] [place] [address] documented in this encounter Visit Diagnoses Not [...] 3 HOURS, 1 dose, First dose on Ofelai 12/04/17 at 0815, Administer over 30 Minutes, [...] VICENTA) documented in this encounter Care Teams Systems Planner Relationship Specialty Start Date End Date Ginger Riddle MD [address] [place] [address] PCP - General Family Medicine 09/27/16 documented as of this encounter
--- OUTSIDE RECORDS SUMMARY | 2024-03-26 16:29 | XMS_ITS | Encounter Summary ---
Author Organization [facility] [place] [address] Care Team Providers Care Magnesium Mill Operator Name Role Phone Ginger Riddle MD Primary Care Provider [phone] Encounter Details Date Type Department Care Team (Latest Contact Info) Description 10/29/2017 11:10 AM EDT - 10/29/2017 11:59 PM EDT Hospital [place] [address] Ginger Riddle MD [address] [place] [address] Encounter for screening mammogram for breast cancer [...] cancer documented in this encounter Care Teams Magnesium Mill Operator Relationship Specialty Start Date End Date Ginger Riddle MD [address] [place] [address] PCP - General Family Medicine 09/27/16 documented as of this encounter
--- OUTSIDE RECORDS SUMMARY | 2024-03-26 16:29 | XMS_ITS | Encounter Summary ---
Author Organization [facility] Address [facility] [place] [address] Care Team Providers Care Siphoner Name Role Phone Ginger Riddle MD Primary Care Provider [phone] Encounter Details Date Type Department Care Team (Latest Contact Info) Description 11/04/2017 1:22 PM EDT - 11/04/2017 11:59 PM EDT Hospital [place] [phone] Janice Faust MD [facility] DR DIAGNOSTIC [place] [address] Abnormal mammogram Discharge Disposition: Home Social History [...] core biopsy specimens were obtained using a Share Practiceiva 9g 20mm device. A specimen radiograph was [...] Report (11/04/2017 1:48 PM EDT) Final Diagnosis [id number] ? Location: 3L The signing pathologist has [...] Mitchell DO Verified: ??11/06/2017 ?Pathologist Performed at: ??-[facility] [place]. [place]ology, [place], [place] DISCUSSION The lesion is 0.8 cm in greatest linear dimension, by slide measure. Review of edh shows the lesion to be 1-cm, radiographic measure. CLINICAL INFORMATION Specimen Submitted: A - Left breast stereo biopsy Clinical History and Diagnosis: Mass; focal FCD, CA, radial scar Report to: Ginger Riddle MD [phone] SPECIMEN PROCESSING A - ??Labeled/Fixati ve: Left breast stereo biopsy, formalin. Quantity/Size: Multiple, 0.2-3.0 cm. Tissue Description: Fragmented, fibrofatty needle core biopsies. Ischemic Time: 7 minutes. Sections/Process ing: (T4) ??ejr 11/06/2017 9:28 AM EDT [facility] BREAST STRUCTURE / Unknown 11/04/2017 1:48 PM EDT 11/04/2017 1:48 PM EDT Jeff Marsh MD PATHOLOGY/CYTOLOGY O RDERABLES [facility] [place] [address] * Specimen to Pathology (11/04/2017 1:48 PM EDT) AP Specimen 11/04/2017 1:48 PM EDT 11/04/2017 3:09 PM EDT Narrative [facility] - 11/04/2017 3:09 PM EDT Specimen requisition ordered. ??Separate Pathology report to follow Resulting Agency Comment Spec In Lab Jeff Marsh MD PATHOLOGY/CYTOLOGY Ave [address] [facility] [place] [address] documented in this encounter Visit Diagnoses Diagnosis [...] mg documented in this encounter Care Teams Siphoner Relationship Specialty Start Date End Date Ginger Riddle MD [address] [place] [address] PCP - General Family Medicine 09/27/16 documented as of this encounter
--- OUTSIDE RECORDS SUMMARY | 2024-03-26 16:29 | XMS_ITS | Encounter Summary ---
Author Organization [facility] [place] [address] Care Team Providers Care Flight Operation Coordinator Name Role Phone Marcela Crenshaw MD Primary Care Provider [phone] Encounter Details Date Type Department Care Team (Latest Contact Info) Description 07/17/2012 12:46 PM EDT - 07/17/2012 11:59 PM EDT Hospital Encounter Mammography at [facility] [place] [phone] CLINIC, Marcela Barillas MD [address] [place] [address] [address] [place], [place] [address] Discharge Disposition: Home Social History Tobacco Use [...] direct digital capture. The exam was evaluated byPinyon TechnologiesD Version 8.3.17. FINDINGS: This is a negative [...] on filedocumented in this encounter Care Teams Flight Operation Coordinator Relationship Specialty Start Date End Date Marcela Crenshaw MD [facility] [address] [place] [address] [place] [address] PCP - General 03/27/10 08/22/13 documented as of this encounter
--- OUTSIDE RECORDS SUMMARY | 2024-03-26 16:29 | XMS_ITS | Encounter Summary ---
Author Organization [facility] Address [place] [address] Care Team Providers Care Senior Data Analyst Name Role Phone Ginger Riddle MD Primary Care Provider [phone] Encounter Details Date Type Department Care Team (Late st Contact Info) Description 12/12/2017 Telephone [place] [address] Kateryna Farah MD [facility] [place] [address] Social History Tobacco Use Types Packs/Day Years [...] filedocumented in this encounter Care Teams Senior Data Analyst Relationship Specialty Start Date End Date Ginger Riddle MD [address] [place], [place] [address] PCP - General Family Medicine 09/27/16 documented as of this encounter
--- OUTSIDE RECORDS SUMMARY | 2024-03-26 16:29 | XMS_ITS | Encounter Summary ---
Author Organization [facility] Address [facility] [place] [address] Care Team Providers Care Demand Planning Manager Name Role Phone Zack Null Primary Care Provider [phone] Encounter Details Date Type Department Care Team (Latest Contact Info) Description 01/11/2016 - 01/11/2016 11:59 PM EDT Hospital Encounter Radiology Library at [facility] [place] [address] Lurdes Tong MD [facility] [place] [address] Discharge Disposition: Home Social History Tobacco Use [...] IMG FILM LIBRARY ORD ERABLES [facility] RAD [place], [place] documented in this encounter Visit Diagnoses Not on filedocumented in this encounter Care Teams Demand Planning Manager Relationship Specialty Start Date End Date Zack Null PA [address] [place] [address] PCP - General Family Medicine 08/22/15 09/26/16 documented as of this encounter
--- OUTSIDE RECORDS SUMMARY | 2024-03-26 16:29 | XMS_ITS | Encounter Summary ---
Author Organization [facility] Address [facility] [place] [address] Care Team Providers Care Passenger Relations Representative Name Role Phone Ginger Riddle MD Primary Care Provider [phone] Encounter Details Date Type Department Care Team (Late st Contact Info) Description 12/04/2017 8:30 AM EDT Hospital Encounter [place] [address] Kateryna Farah MD [facility] [place] [address] Malignant neoplasm of left female breast, unspecified [...] breast documented in this encounter Care Teams Passenger Relations Representative Relationship Specialty Start Date End Date Ginger Riddle MD [address] [place] [address] PCP - General Family Medicine 09/27/16 documented as of this encounter
--- OUTSIDE RECORDS SUMMARY | 2024-03-26 16:29 | XMS_ITS | Encounter Summary ---
[place] [address] Care Team Providers Care Manager E Learning Name Role Phone Ginger Riddle MD Primary Care Provider [phone] Reason for Visit * Reason Comments Skin Check Encounter Details Date Type Department Care Team (Late st Contact Info) Description 02/21/2014 1:00 PM EDT Office Visit Dermatology at [address] [place] [address] Dickson Dow MD [address], [place] [address] [place] (actinic keratosis) (Primary Dx); Seborrheic keratosis [...] from the original note were not included. [facility] Actinic Keratosis: After Your Visit Your [...] more? Visit our health information library at [email or web address] You can also view health information on Who@, your personal patient account. Log in or sign up today. Enter L364 in the search box to learn more about Actinic Keratosis: After Your Visit. ?? [phone] [employer]. Care instructions adapted under license by [facility]. This care instruction is for use with your licensed healthcare professional. If you have questions about a medical condition or this instruction, always ask your healthcare professional. [employer] disclaims any warranty or liability for your use of this information. Content Version: 9.9.382766; Last Revised: June 16, 2012 documented in [...] documented in this encounter Care Teams Manager E Learning Relationship Specialty Start Date End Date Ginger Riddle MD [address] [place] [address] PCP - General 08/23/13 08/21/15 documented as of this encounter
--- OUTSIDE RECORDS SUMMARY | 2024-03-26 16:29 | XMS_ITS | Encounter Summary ---
Author Organization [facility] Address [facility] [place] [address] Care Team Providers Care Athletic Trainer Name Role Phone Ginger Riddle MD Primary Care Provider [phone] Encounter Details Date Type Department Care Team (Latest Contact Info) Description 07/21/2015 - 07/21/2015 11:59 PM EDT Hospital Encounter Radiology Library at [facility] [place] [address] Davide Barnhart MD [facility] [place] [address] Pain Discharge Disposition: Home Social History Tobacco [...] Barnhart MD G FILM LIBRARY ORD ERABLES [place], [place] documented in this encounter Visit Diagnoses Diagnosis Pain Generalized pain documented in this encounter Care Teams Athletic Trainer Relationship Specialty Start Date End Date Ginger Riddle MD [address] [place] [address] PCP - General 08/23/13 08/21/15 documented as of this encounter
--- OUTSIDE RECORDS SUMMARY | 2024-03-26 16:29 | XMS_ITS | Encounter Summary ---
[place] [address] Care Team Providers Care Medical Administrative Name Role Phone Ginger Riddle MD Primary Care Provider [phone] Reason for Referral * Speech Therapy (Routine) - Closed Specialty Diagnoses / Procedures Referred By Charly mcneill Referred To Contact Speech Pathology / Speech Therapy Diagnoses Chronic cough Lurdes Tong MD [facility] [place] [address] [facility] International Marketing [place] [address] Referral ID Status Reason Start Date Expiration Date V isits Requested Visits Authorized [id number] Closed Evaluate and Treat 05/30/2017 05/30/2018 1 1 Reason for Visit * Consultation (Routine) - Specialty Diagnoses / Procedures Referred By Charly mcneill Referred To Contact Pulmonology Diagnoses Chronic cough chronic cough Procedures consultation Madeleine Pride MD [address] [place] [id number] Ledy Barnhart MD [facility] [place] [address] Referral ID Status Reason Start Date Expiration Date V isits Requested Visits Authorized [id number] 04/23/2017 04/23/2018 1 1 Encounter Details Date Type Department Care Team (Late st Contact Info) Description 05/30/2017 2:00 PM EST Office Visit Pulmonology at [facility] [place] [address] Lurdes Tong MD [facility] DR [place] [address] Chronic cough; Lung infiltrate on CT Social [...] Dr. Flor Iglesias who is a second pharmacist technician for the patient and she sent us her letter and note. The story goes back to 2015. When patient was in [place], her cough began after exposure to a cat. [place] and was seen by Dr. Mejia, a pharmacist technician. A CT scan was obtained on July [...] nor mal. Dr. Mejia ( her other pharmacist technician) diagnosed pt for HP and started her on 3 month course of prednisone with symptomatic improvement. She had a follow-up CT scan on October 25, 2015, which was reportedly completely normal. She was then titrated off the prednisone. Her cough never completely resolved but was much better at that time. She went back to [place] winter ( about 1 year ago) and [...] ( pulmonary ) and ENT and an resolution analyst. Her current active sx are chronic non-productive [...] at this time. I will request [facility] to push them electronically and make [...] check CBC, LFT, Troponin, and B12, FACS, [id number] etc as necessary, but I am doubtful [...] of this patient. Please contact us at [phone] for any further questions or requests. Addendum: [...] treat asthma. ?? Guidelines from a 2011 [place] [employer] (ATS) executive summary on the [...] Cough documented in this encounter Care Teams Medical Administrative Relationship Specialty Start Date End Date Ginger Riddle MD [address] [place] [address] PCP - General Family Medicine 09/27/16 documented as of this encounter
--- OUTSIDE RECORDS SUMMARY | 2024-03-26 16:29 | XMS_ITS | Encounter Summary ---
Author Organization [facility] [place] [address] Care Team Providers Care Turning Sander Operator Name Role Phone Ginger Riddle MD Primary Care Provider [phone] Reason for Visit * Reason Comments Follow Up Surgery Encounter Details Date Type Department Care Team (Late st Contact Info) Description 12/18/2017 1:00 PM EDT Office Visit [place] [address] Adia Wilson APRN [facility] [place] [address] Post-operative state Social History Tobacco Use Types [...] status documented in this encounter Care Teams Turning Sander Operator Relationship Specialty Start Date End Date Ginger Riddle MD [address] [place] [address] PCP - General Family Medicine 09/27/16 documented as of this encounter
--- OUTSIDE RECORDS SUMMARY | 2024-03-26 16:29 | XMS_ITS | Encounter Summary ---
Author Organization [facility] Address [facility] [place] [address] Care Team Providers Care Clerical Order Filler Name Role Phone Ginger Riddle MD Primary Care Provider [phone] Encounter Details Date Type Department Care Team (Late st Contact Info) Description 11/19/2017 Orders [place] [address] Kateryna Farah MD [facility] [place] [address] Malignant neoplasm of left female breast, unspecified [...] with digital mammographic guidance. A 7 cm Yobble needle was used. Cranio-caudal and 90 degree [...] breast documented in this encounter Care Teams Clerical Order Filler Relationship Specialty Start Date End Date Ginger Riddle MD [address] [place] [address] PCP - General Family Medicine 09/27/16 documented as of this encounter
--- OUTSIDE RECORDS SUMMARY | 2024-03-26 16:30 | XMS_ITS | Encounter Summary ---
Author Organization [facility] Address [address] [place] [address] Care Team Providers Care Consumer Lending Manager Name Role Phone Unknown, Provider Primary Care Provider Unava ilable Encounter Details Date Type Department Care Team (Latest Contact Info) Description 08/14/2015 13:54 EDT - 08/14/2015 14:56 EDT Hospital Encounter [address] [address] Unknown, Provider, Discharge Disposition: Home or Self [...] Code Departure Means Destination Home or Self Longterm documented in this encounter Plan of Treatment Not on file documented as of this encounter Visit Diagnoses Not on filedocumented in this encounter Care Teams Consumer Lending Manager Relationship Specialty Start Date End Date Unknown, Provider, PCP - General 08/02/09 08/15/15 documented as of this encounter
--- OUTSIDE RECORDS SUMMARY | 2024-03-26 16:30 | XMS_ITS | Encounter Summary ---
Author Organization [facility] Address [address] [place] [address] Care Team Providers Care Bow Tacker Name Role Phone Unknown, Provider Primary Care Provider Fermin iladriane Encounter Details Date Type Department Care Team (Late st Contact Info) Description 08/14/2015 Results Only [facility] [phone] Diego Mejia MD [address] [place] [address] Social History Tobacco Use Types Packs/Day Years [...] ? BAHMAN YOUSIF ? Accession #: ? [id number] ? : ? 1945 (Age: 70) ??F [...] Christinasabas 08/15/2015 10:06 AM End of Report [facility] 08/14/2015 9:11 EDT 08/15/2015 9:11 EDT us Diego Mejia MD PATHOLOGY ORDERABLES Final Resu lt [facility] [address] [place] [address] * CYTOPATHOLOGY (08/14/2015 0:00 EDT) Pathology Report: CYTOPATHOLOGY REPORT Reports generated via electronic interface contain original data; however they are lacking the format of the original report. Caution should be taken when reading/interpret ing unformatted reports. Name: ? BAHMAN YOUSIF ? Accession #: ? [id number] : ? 1945 (Age: 70) ??F ?Collect [...] electronically signed by: ? MACIEL LYON MD [facility] Report Date: ??08/15/2015 17:32 By the signature above, the attending physician certifies that he/she has personally conducted a gross and/or microscopic examination of the described specimens and rendered or confirmed the above diagnosis. Specimen Type: ? A: Bronchial [place], #2 B: Bronchial Lavage, Right upper lobe, #1 Clinical History: ? Hypersensitivity pneumonitis; EAA; look for granulomas ? Gross Description: ? A. ??Bronchial [place], #2: ?? 1 tube of Cytolyt, containing brush collection device, was received and processed by selective cellular enhancement technique. ? B. ??Bronchial Lavage, Right upper lobe, #1: ?? 10ccs of clear colorless fluid were received and processed by selective cellular enhancement technique. ? End of Report [facility] 08/14/2015 08/15/2015 9:3 3 EDT us Diego Mejia MD PATHOLOGY ORDERABLES Final Resu lt [facility] [address] [place] [address] documented in this encounter Visit Diagnoses Not on filedocumented in this encounter Care Teams Bow Tacker Relationship Specialty Start Date End Date Unknown, Provider, PCP - General 08/02/09 08/15/15 documented as of this encounter
--- OUTSIDE RECORDS SUMMARY | 2024-03-26 16:30 | XMS_ITS | Encounter Summary ---
Author Organization [facility] Address [address] [place] [address] Care Team Providers Care Preparer Samples And Repairs Name Role Phone Unknown, Provider Primary Care Provider Unaaureliano ilable Encounter Details Date Type Department Care Team (Late st Contact Info) Description 03/13/2007 Results Only [facility] conversion [address] [place] [address] Bahman Piedra PA [address] [place] [address] Social History Tobacco Use Types Packs/Day Years [...] ? BAHMAN YOUSIF ? Accession #: ? [id number] : ? 1945 (Age: 61) ??F ?Collect Date: ? 03/13/2007 Location: ? [facility] ? Receive Date: ? 03/17/2007 Provider: ?BAHMAN STEPHENS Copy to: ? Specimen/Source: ?ThinPrep Pap Test, Endocervix, processed on [employer] ThinPrep Imaging System, with manual evaluation Last [...] ORDERABLES Final Resul t [facility] [address] [place] [address] documented in this encounter Visit Diagnoses Not on filedocumented in this encounter Care Teams Preparer Samples And Repairs Relationship Specialty Start Date End Date Unknown, Provider, PCP - General 08/02/09 08/15/15 documented as of this encounter
--- OUTSIDE RECORDS SUMMARY | 2024-03-26 16:30 | XMS_ITS | Encounter Summary ---
Author Organization [facility] Address [address] [place] [address] Care Team Providers Care Principal Librarian Name Role Phone Ginger Riddle MD Primary Care Provider [phone] Encounter Details Date Type Department Care Team (Late st Contact Info) Description 07/15/2022 Lab Requisition [facility] Pathology & Laboratory Medicine - [facility] [address] [place] [address] Gardenia Brown MD [address] [place] [address] [place] [address] Encounter for other general examination [...] management options, if applicable. 07/18/2022 10:38 EDT [facility] Final Diagnosis A. ENDOMETRIUM, BIOPSY: - Portions of benign endometrial polyp 07/18/2022 10:38 [facility] Attestation By the signature below, the attending physician certifies that they have 1) personally conducted a gross and/or microscopic examination of the described specimen(s), and/or personally interpreted the results of laboratory testing of the described specimen(s), and 2) personally rendered or confirmed the above diagnosis. 07/18/2022 10:38 [facility] at 1038 Clinical History PMB 07/18/2022 10:38 [facility] Gross Description A. Received in formalin labelled with proper patient identification (initials B, M) and endometrium is a sanchez-brown soft tissue (1.0 x 0.4 x 0.3 cm) and an aggregate of slightly blood-tinged mucus (1.5 x 1.2 x 0.3 cm). The tissue is bisected and the specimen is entirely submitted in A1. ANGELO TIAN(ASCP) 07/16/2022 7:53 07/18/2022 10:38 [facility] Performing Lab [facility] 07/18/2022 10:38 [facility] Scanned Images 07/18/2022 10:38 [facility] Tissue ENTIRE ENDOMETRIUM / Unknown 07/15/2022 10:10 EDT 07/15/2022 17:50 EDT us Gardenia Brown MD PATHOLOGY ORDERABLES Final R esult [facility] [address] [place] [address] documented in this encounter Visit Diagnoses Diagnosis Encounter for other general examination documented in this encounter Care Teams Principal Librarian Relationship Specialty Start Date End Date Ginger Riddle MD [address] [place] [address] PCP - General 07/03/22 documented as of this encounter
--- OUTSIDE RECORDS SUMMARY | 2024-03-26 16:30 | XMS_ITS | Encounter Summary ---
Author Organization [facility] Address [address] [place] [address] Care Team Providers Care Bicycle I Assembler Name Role Phone Unknown, Provider Primary Care Provider Fermin iladriane Encounter Details Date Type Department Care Team ([facility] st Contact Info) Description 04/03/2011 Results Only [facility] [phone] Bahman Perry MD [address] [place], [place] [address] Social History Tobacco Use Types Packs/Day Years [...] ? BAHMAN YOUSIF ? Accession #: ? [id number] : ? 1945 (Age: 65) ??F ?Collect [...] ORDERABLES Final Resul t [facility] [address] [place] [address] documented in this encounter Visit Diagnoses Not on filedocumented in this encounter Care Teams Bicycle I Assembler Relationship Specialty Start Date End Date Unknown, Provider, PCP - General 08/02/09 08/15/15 documented as of this encounter
--- OUTSIDE RECORDS SUMMARY | 2024-03-26 16:30 | XMS_ITS | Encounter Summary ---
Author Organization [facility] Address [address] [place] [address] Care Team Providers Care Estate Planning Counselor Name Role Phone Unknown, Provider Primary Care Provider Unava ilable Encounter Details Date Type Department Care Team (Late st Contact Info) Description 07/25/2000 Results Only [facility] conversion [address] [place] [address] Ivania Hernandez, [facility] [address] [place] [address] [place] [address] Social History Tobacco Use Types [...] ? BAHMAN YOUSIF ? Accession #: ? [id number] : ? 1945 (Age: 55) ??F ?Collect Date: ? 07/25/2000 Location: ? [facility] ? Receive Date: ? 07/28/2000 Provider: ?IVANIA HERNANDEZ RESTORATIVE COORDINATOR Copy to: ? Specimen/Source: ?ThinPrep Pap Test, Cervix/Endocervix Last Menstrual Period: ? 11/1999 ? SPECIMEN ADEQUACY ? Satisfactory for evaluation. GENERAL CATEGORIZATION ? Within Normal Limits ? Document reviewed and electronically signed by: ? JOSE RAFAEL Stinson(ASCP) ? Report Date: ??07/29/2000 10:58 End of Report [facility] 07/25/2000 07/28/2000 us Ivania Hernandez RESTORATIVE COORDINATOR PATHOLOGY ORDERABLES Final R esult [facility] [address] [place] [address] documented in this encounter Visit Diagnoses Not on filedocumented in this encounter Care Teams Estate Planning Counselor Relationship Specialty Start Date End Date Unknown, Provider, PCP - General 08/02/09 08/15/15 documented as of this encounter
--- OUTSIDE RECORDS SUMMARY | 2024-03-26 16:30 | XMS_ITS | Encounter Summary ---
Author Organization [facility] Address [address] [place] [address] Care Team Providers Care Load Mixer Name Role Phone None, Provider Primary Care Provider Ginger Ruth MD Primary Care Provider [phone] Encounter Details Date Type Department Care Team (Late st Contact Info) Description 01/26/2021 Lab Requisition [facility] Pathology & Laboratory Medicine - [address] [address] Outr Resulting Lab, Provider Social History Tobacco [...] C Antibody Negative Negative 01/29/2021 10:31 EDT [facility] Blood VENOUS BLOOD / Unknown 01/25/2021 11:15 EDT 01/26/2021 16:35 EDT us Provider Outr Resulting Lab CHEMISTRY & BLOOD GA S ORDERABLES Final Result [facility] [address] [place] [address] [place] [address] documented in this encounter Visit Diagnoses Not on filedocumented in this encounter Care Teams Load Mixer Relationship Specialty Start Date End Date None, Provider PCP - General 08/16/15 07/02/22 Ginger Riddle MD [address] [place] [address] PCP - General 07/03/22 documented as of this encounter
--- OUTSIDE RECORDS SUMMARY | 2024-03-26 16:30 | XMS_ITS | Encounter Summary ---
Author Organization [facility] Address [address] [place] [address] Care Team Providers Care Kitchen Steward/Stewardess Name Role Phone Unknown, Provider Primary Care Provider Unava ilable Encounter Details Date Type Department Care Team (Latest Contact Info) Description 08/14/2015 14:57 EDT - 08/14/2015 23:59 EDT Hospital Encounter [address] [address] Unknown, Provider, Discharge Disposition: Home or Self [...] Code Departure Means Destination Home or Self Snf documented in this encounter Plan of Treatment Not on file documented as of this encounter Visit Diagnoses Not on filedocumented in this encounter Care Teams Kitchen Steward/Stewardess Relationship Specialty Start Date End Date Unknown, Provider, PCP - General 08/02/09 08/15/15 documented as of this encounter
--- OUTSIDE RECORDS SUMMARY | 2024-03-26 16:30 | XMS_ITS | Referral Summary ---
Author Organization [facility] Address [address] [place] [address] Care Team Providers Care College Archivist Name Role Phone Ginger Riddle MD Primary Care Provider [phone] Social History Tobacco Use Types Packs/Day Years [...] C Antibody Negative Negative 01/29/2021 10:31 EDT [facility] Blood VENOUS BLOOD / Unknown 01/25/2021 11:15 EDT 01/26/2021 16:35 EDT us Provider Outr Resulting Lab CHEMISTRY & BLOOD GA S ORDERABLES Final Result [facility] [address] [place] [address] from Last 3 Months or Most Recently Relevant to Health Maintenance Insurance [facility] Care Teams College Archivist Relationship Specialty Start Date End Date Ginger Riddle MD [address] [place] [phone] [facility] - General 07/03/22
--- OUTSIDE RECORDS SUMMARY | 2024-03-26 16:30 | XMS_ITS | Clinical Summary ---
Author Organization [facility] Address [address] [place] [id number] Care Team Providers Care Weaver [employer] Name Role Phone Ginger Riddle MD Primary Care Provider [phone] Social History Tobacco Use Types Packs/Day Years [...] C Antibody Negative Negative 01/29/2021 10:31 EDT [facility] Blood VENOUS BLOOD / Unknown 01/25/2021 11:15 EDT 01/26/2021 16:35 EDT us Provider Outr Resulting Lab CHEMISTRY & BLOOD GA S ORDERABLES Final Result [facility] [address] [place] [address] from Last 3 Months or Most Recently Relevant to Health Maintenance Insurance [employer] MED[employer] [facility] Care Teams [employer] Relationship Specialty Start Date End Date Ginger Riddle MD [address] [place] [address] PCP - General 07/03/22
--- OUTSIDE RECORDS SUMMARY | 2024-03-26 16:30 | XMS_ITS | Encounter Summary ---
Author Organization [facility] Address [address] [place] [address] Care Team Providers Care Upholstered Goods Crafter Name Role Phone None, Provider Primary Care Provider Ginger Ruth MD Primary Care Provider [phone] Encounter Details Date Type Department Care Team (Late st Contact Info) Description 06/29/2021 Lab Requisition [facility] Pathology & Laboratory Medicine - [address] [address] Outr Resulting Lab, Provider Social History Tobacco [...] Priority Date/Time Associated Diagnosis Comments ZZCOVID-19 TEST [facility] PCR Today 06/29/2021 9:37 EST COVID-19 TESTING Routine 06/29/2021 9:37 EST documented in this encounter Results * COVID-19 TEST [facility] PCR (06/29/2021 9:37 EST) Swab 06/29/2021 9:37 EST 06/29/2021 16:19 EST us Provider Outr Resulting Lab MICROBIOLOGY - GENER AL ORDERABLES Final Result [facility] [address] [place] [address] * COVID-19 TESTING (06/29/2021 9:37 EST) COVID-19 rt-PCR Result Negative Negative 06/30/2021 12:12 EST [facility] Comment: This test has not [...] was performed using the rodriguez SARS-CoV-2 assay ([employer] on the Rodriguez [address]00 System Performing Lab [address] [facility] Lab 06/30/2021 12:12 EST [facility] Swab 06/29/2021 9:37 EST 06/29/2021 16:19 EST us Provider Outr Resulting Lab MICROBIOLOGY - GENER AL ORDERABLES Final Result Performing Organization Address City/State/[facility] Co de Phone Number [facility] [address] [place] [address] documented in this encounter Visit Diagnoses Not on filedocumented in this encounter Care Teams Upholstered Goods Crafter Relationship Specialty Start Date End Date None, Provider PCP - General 08/16/15 07/02/22 Ginger Riddle MD [address] [place], [place] [address] PCP - General 07/03/22 documented as of this encounter
--- OUTSIDE RECORDS SUMMARY | 2024-03-26 16:30 | XMS_ITS | Encounter Summary ---
Author Organization [facility] Address [address] [place] [address] Care Team Providers Care Sports Medicine Trainer Name Role Phone Unavailable Primary Care Provider Unavailabl e Encounter Details Date Type Department Care Team (Late st Contact Info) Description 07/31/2009 Results Only [facility] Services - [facility] ([facility] [address] [place], [place] [id number] Favian Barahona MD [address] [place] [address] Social History Tobacco Use Types [...] ? YOUSIF, BAHMAN ? Accession #: ? [id number] ? : ? 1945 (Age: 64) ??F [...] reviewed ?? at intradepartmental consultation conference. ??(Dr. Robles)/[facility] ? Document reviewed and electronically signed [...] Final Resul t [facility] [address] [place] [address] documented in this encounter Visit Diagnoses Not on filedocumented in this encounter
--- NOTE | 2024-03-27 09:35 | NUR.NOTE ---
Accessed chart for [facility] billing purposes. Nursing Note:
== END 2024-03-26 17:12 | disposition home or self-care (01) ==
PROVIDERS: Emergency Provider Physician Assistant; PCP Family Medicine
DX: S63.602A Unspecified sprain of left thumb, initial encounter (principal); X58.XXXA Exposure to other specified factors, initial encounter; I10 Essential (primary) hypertension
CPT/HCPCS: 29125; 99283; 73140

== ENCOUNTER 2024-04-08 01:35 | Outpatient (CLI) | payer MEDICARE, SELFPAY ==
--- NOTE | 2024-04-08 | DI.DEXA_ITS ---
Exam(s) XR DEXA BONE DENSITY W/WO ISAAC EXAM: XR DEXA BONE DENSITY W/WO ISAAC CLINICAL HISTORY: SCREENING OSTEOPOROSIS, Z78.0, ASYMPTOMATIC MENOPAUSAL STATE TECHNIQUE: COMPARISON: No exams were available for comparison FINDINGS: Lateral Spine Image: Unremarkable. No compression deformities identified. Left hip: Total T-Score: -0.8 Total Z-Score: 1.3 T- and Z-scores: No evidence of osteoporosis. Lumbar Spine: Total T-Score: -1.6 Total Z-Score: 1.1 T- and Z-scores: Findings are consistent with osteopenia. No evidence of osteoporosis. IMPRESSION: No evidence of osteoporosis.
== END 2024-04-08 01:55 ==
LOC: DI 01:36
PROVIDERS: PCP Family Medicine; Visit Provider Family Medicine
DX: Z13.820 Encounter for screening for osteoporosis (principal); Z78.0 Asymptomatic menopausal state
CPT/HCPCS: 77080

== ENCOUNTER 2024-05-28 15:51 | Outpatient (REF) | payer MEDICARE, SELFPAY ==
--- OUTSIDE RECORDS SUMMARY | 2024-05-28 15:57 | XMS_ITS | Encounter Summary ---
Author Organization [facility] Address [facility] [place] [address] Care Team Providers Care Plastics Nurse Name Role Phone Ginger Riddle MD Primary Care Provider [phone] Encounter Details Date Type Department Care Team (Latest Contact Info) Description 01/09/2023 1:42 PM EDT - 01/09/2023 11:59 PM EDT Hospital En[place] [id number] Li Delgado, RISK CONTROL REPRESENTATIVE [address] [place] [address] Lump in lower inner quadrant of left [...] have questions please contact the health care navigator that requested your imaging first. ? Electronically signed by: Janice Faust MD, [facility] ([phone]), at 01/09/2023 4:09 PM Narrative 01/09/2023 4:09 [...] nipple. Multiple simple cysts. Li K Heck RISK CONTROL REPRESENTATIVE IMG MAMMO ORDERABLES documented in this encounter Visit Diagnoses Diagnosis Lump in lower inner quadrant of left breast Mass of breast, unspecified laterality Mass of right breast, unspecified quadrant documented in this encounter Care Teams Plastics Nurse Relationship Specialty Start Date End Date Ginger Riddle MD [address] [place] [address] PCP - General Family Medicine 09/27/16 documented as of this encounter
--- OUTSIDE RECORDS SUMMARY | 2024-05-28 15:57 | XMS_ITS | Encounter Summary ---
Author Organization [facility] [place] [address] Care Team Providers Care Clinical Phlebotomist Name Role Phone Ginger Riddle MD Primary Care Provider [phone] Reason for Visit * Reason Comments Follow-up Encounter Details Date Type Department Care Team (Late st Contact Info) Description 02/23/2019 10:15 AM EDT Office Visit Dermatology at [address] [phone] Dickson Dow MD [address] [facility], [place] [address] Seborrheic keratosis; Seborrheic keratosis, inflamed; Inflamed acrochordon [...] patient's daughter [facility] [place] they have been for the last 4 [...] skin documented in this encounter Care Teams Clinical Phlebotomist Relationship Specialty Start Date End Date Ginger Riddle MD [address] [place] [address] PCP - General Family Medicine 09/27/16 documented as of this encounter
--- OUTSIDE RECORDS SUMMARY | 2024-05-28 15:57 | XMS_ITS | Encounter Summary ---
[place] [address] Care Team Providers Care [employer] Name Role Phone Ginger Riddle MD Primary [...] on filedocumented in this encounter Care Teams [employer] Relationship Specialty Start Date End Date Ginger Riddle MD [address] [place] [address] PCP - General Family Medicine 09/27/16 documented as of this encounter
--- OUTSIDE RECORDS SUMMARY | 2024-05-28 15:57 | XMS_ITS | Encounter Summary ---
Author Organization [facility] Address [facility] [place] [address] Care Team Providers Care Testing Specialist Name Role Phone Ginger Riddle MD Primary Care Provider [phone] Encounter Details Date Type Department Care Team (Latest Contact Info) Description 07/06/2021 11:00 AM EST - 07/06/2021 11:59 PM EST Hospital Encounter Mammography/[place] [id number] Ginger Riddle MD [address] [place] [id number] Encounter for screening mammogram for breast cancer [...] cancer documented in this encounter Care Teams Testing Specialist Relationship Specialty Start Date End Date Ginger Riddle MD [address] [place] [address] PCP - General Family Medicine 09/27/16 documented as of this encounter
--- OUTSIDE RECORDS SUMMARY | 2024-05-28 15:57 | XMS_ITS | Continuity of Care Document ---
Author Organization [facility] Ambulatory Clinics Address [address] [place] [address] Care Team Providers Care Aircraft Engine Dismantler Name Role Phone AFSHIN GRAY Primary Care Physician Encounter [facility] NBR [id number] Date(s): 04/19/24 - 04/19/24 [facility] Ambulatory Clinics [address] [place], [place] [address] Encounter Diagnosis Cough variant asthma(Discharge Diagnosis) - 04/19/24 Discharge Disposition: Home or Self Care Attending Physician: Kimberly Barr MD Referring Physician: AFSHIN GRAY Allergies, Adverse Reactions, Alerts Substance Criticality Severity Reaction Reaction Severity Status chlorthalidone High criticality Moderate Active Effexor High criticality Moderate Act kathy Assessment and Plan Extracted from: Title:Pulm - Office Visit Note Author:Kimberly guardado MD Date:04/19/24 Cough variant asthma??J45.99 1 Actions: COMPLETED - 48895 Office/Outpatient Visit - Established Patient, Level 5 (40-54 min)., 04/19/24 13:48:00 EST, Cough variant asthma ?? Additional Actions: ORDERED - fluticasone-salmeterol, 2, Inhale, BID, Rinse, gargl;e and spit after using., # 1 packets, 5 Refill(s), Pharmacy: [facility], 160.02, cm, 04/19/24 14:07:00 EST, Height, 97.9, kg, 04/19/24 14:16:00 EST, Weight Dosing, Rinse, gargl;e and spit after using. COMPLETED - fluticasone-salmeterol, 2 puffs, Inhale, BID, Please dispense as 3 inhalers. Rinse, gargle, and spit after using., # 36 g, 4 Refill(s), Pharmacy: [facility], 160.02, cm, 01/12/24 14:02:00 EDT, Height, 96.4, kg, 01/12/24 14:13:00 EDT, Weight Dosing, Please dispense as 3 inhalers. Rinse, gargle, and spit after using. Probable asthma, cough variant.?? Recommended: ?? -Trial increase Wixela to 500 2p bid. -Continue Albuterol HFA, including before walks. -RTC in 3 mos- if no continued improvement, trial empiric GERD tx.?? Reviewed lifestyle changes- to try to limit chocolate consumption. ?? I spent 45 minutes reviewing the patient record, seeing the patient, and documenting??in the record.?? All of her questions were answered. ? Future Appointments Future Scheduled Tests Radiology* CT Chest w/o Contrast 03/16/24 Functional Status 04/19/24 Other exposure to Infectious Disease Non e [...] Pneumococcal Conjugate, unspecified form 02/06/17 Recorded Medications Albuterol (Eqv-ProAir HFA) 90 mcg/inh inhalation aerosol 2 puffs, Inhale, every 4 hr, PRN shortness of breath, may also use before heavier exertion, # 8.5 g, 4 Refill(s), Pharmacy: [facility], 160.02, cm, 01/12/24 14:02:00 EDT, Height, [...] 0 Refill(s) Start Date: 12/19/23 Status: Ordered Blood Glucose Lancets Supply, See instructions, # 1 EA, 0 Refill(s) Start Date: 12/19/23 Status: Ordered buPROPion 150 mg/12 hours (SR) oral tablet, extended release 0 Refill(s) Start Date: 12/19/23 Status: Ordered Digestive Advantage Daily Probiotic 0 Refill(s) Start Date: 12/19/23 Status: Ordered One Touch Verio Test Strips Supply, See instructions, # 1 EA, 0 Refill(s) Start Date: 12/19/23 Status: Ordered Wixela Inhub 250 mcg-50 mcg inhalation powder 2 inh, Inhale, BID, Rinse, gargle, and spit after using., # 1 EA, 5 Refill(s), Pharmacy: [facility], 160.02, cm, 02/18/24 9:55:00 EDT, Height, 95.3, kg, 02/18/24 10:08:00 EDT, Weight Dosing Start Date: 02/18/24 Status: Ordered Wixela Inhub 500 mcg-50 mcg inhalation powder 2, Inhale, BID, Rinse, gargl;e and spit after using., # 1 packets, 5 Refill(s), Pharmacy: [facility], 160.02, cm, 04/19/24 14:07:00 EST, Height, 97.9, kg, 04/19/24 14:16:00 EST, Weight Dosing Start Date: 04/19/24 Status: Ordered Problem List Condition Confirmation Course [...] Temperature Temporal Artery [36-38 Deg C ] 36.4 Deg C (04/19/24 2:07 PM) Apical Heart Rate [60-100 bpm] 75 bpm (04/19/24 2:07 PM) Blood Pressure [90-120/60-80 mmHg] 173/1 01mmHg *HI* (04/19/24 2:07 PM) Mean Arterial Pressure, Cuff [65-140 mmH g] 125 mmHg (04/19/24 2:07 PM) Weight 97.9 kg (04/19/24 2:07 PM) Weight Measured (lbs) 215.832 lb (04/19/24 2:07 PM) Weight Dosing 97.900 kg (04/19/24 2:07 PM) [place] Body Weight Calculated 52.4 kg (04/19/24 2:07 PM) Height 160.02 cm (04/19/24 2:07 PM) Height/Length Measured (inches) 63 inch (04/19/24 2:07 PM) BSA Measured 2.09 m2 (04/19/24 2:07 PM) Body Mass Index 38.23 kg/m2 (04/19/24 2:07 PM) Social History Social History Type Response Tobacco Never tobacco user T obacco Use:. Sex Sex Representation Female (finding) Hospital Discharge Instructions Follow Up Care 02/18/2024 10:58:55 With:Kimberly Barr MD Address: [address] [place] [address]- When:Within 3 Month(s) Physician Outpatient Note * Kimberly Barr MD: PERFORM Event Display: Office Clinic Note Physician Authored Date: [id number] BAHMAN BRIONES :1945 Age:78 years Sex:Female Visit Date:04/19/2024 Primary Care Physician: AFSHIN GRAY History of Present Illness Here for follow-up for possible??hypersensitivity pneumonitis. ?? Last seen on 02/18/2024.?? Impression:?Probable asthma, cough variant.?? Recommended: ?? -Increase Wixela to 2p bid.?? Refilled. -Try Albuterol HFA as 2p bid, including before walks- tried before walking stairs, seemed helpful??. -Get vaccinations- got Influenza, newest Covid-19, and RSV vaccinations. -Recheck CT chest in 01/2025 (ordered). -See PCP in Nov. -RTC in 2 mos- to call in 2-3 wks if not improving. ?? Since then, ?? 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 -had dental work, given prophylactic abx due to b/l??TKRs. ?? Today, stated breathing and cough improved w/ Wixhela bid.?? Cough less frequent, can still be paroxysmal, usually non-productive.?? No fevers, chills or sweats.?No nasal congestion/PND occasionalrhinorrhea.?? No acid reflux.?? No weight loss. ?? Plans to stay home for [place].?? To visit dtr in [place] in spring- her now retired from [employer], from [place]. ? Last/first seen on 01/12/2024.?? Impression:?Chronic cough- possible asthma as able to identifyseveral triggers, including earlier work-related triggers; Losartan therapy.?? Recommended: ?? -Trial Advair HFA, Albuterol HFA prn- to review technique, give spacer today- changed Advair due toco-pay cost $280 to Wixela co-pay cost $10- has noted some improvement; has not used Albuterol HFA prn yet. -Stop Losartan despite earlier trial off->now on Atenolol, dosing increased recently t50 mg bid. -Recheck PFTs-> done 01/19/2024 PFTs nl spirometry, nl lung volumes, nl diffusion capacity;??check HRCT in view of earlier dx??HP- may have improved on Prednisone due to underlying asthma--> done 01/26/2024 CT chest c/w 12/10/2012 CXR and 12/09/2012 CT chest mild RLL peripheral interstitial changes- scarring vs. mild non-specific interstitial changes- unknown chronicity; RUL small non-calcified nodular opacities- Radiology recommended consider repeat in 1 yr (deferred for now as incidental finding, never smoker, 78 y/o); spondylosis, cholelithiasis. -Get this year's Influenza and newest Covid-19 vaccinations- likely has some residual Covid-19 abs from May illness-- to make appt for vaccinationas. -RTC in 6 wks. ?? Today, stated cough slightly improved.?? Breathing and exercise about same.?? No nasal congestion/PND.?? Has rhinorrhea.?? Not aware of acid reflux. ?? Walks 20 min qd- coughs when walking up hills. ? 78 y/o female, never smoker with history including alopecia,??HT- on Atenolol/Losartan, HLD, hypersensitivity pneumonitis, chronic cough, GERD- on probiotic, pre-diabetes, OA- s/p bilateral TKR, obesity, seborrheic/actinic keratoses, and depression- on Bupropion. ?? Previously saw Flor Talavera MD at [facility]??mostly at [facility]- referred her to Maximo Mejia MD then in her practice??FOB w/ TBBx- >cytology/microbiology??negative, serology HP- Prednisonex3 mos,??later referred to [facility]/Lurdes Tong MD 05/30/2017 for chronic non-productive cough- started *per Dr. Tong's notes ?? after trip to [place] in 2015 with exposure to cat, CT chest poor inspiration vs. GGOs (Dr. Tong later agreed poor inspiration); f/u 10/25/2015 CT chest nl, Prednisone tapered off, cough improved then worsened again after another trip to [place] with exposure to cat, pptd by talking and eating/drinking, noted eos nl, FENO not elevated- unknown etiology, referred to speech pathology- saw, tried eating/speaking/desensitization recommendations, not helpful. ?? 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 Talavera->Roberto->Ran, no follow-up since 2018; has had persistent cough since then.?? Travel to [place] notinvolved.?? Daughter had cat when living with??her x1yr until [employer] was reassigned??to [place], took cat with them, was there when she visiited. Has had PFTs-increased diffusion capacity.?? Dr. Mejia also referred her to [place] agriculture engineer, did blood allergy testing- negative, recommended trial off Losartan x1 mo- not helpful ?? ?Last saw PCP on??11/07/2023- to see again in [facility]-->to see again on 03/11. ?? Seen in [facility] ED on 09/21/2023??for increased cough- tested positive Covid-19 illness, txd??w/ ?, cough improved, back [...] negative. 09/21/2023 CXR 2v NAD. 08/11/2015 PFTs @[facility]/Maximo Mejia MD??nl spirometry, nl lung volumes, mildly increased diffusion capacity even when corrected for alveolar volume (127%); MCT negative by FREV1. 05/30/2017 @[facility] spirometry nl, FENO not elevated 2012 PSG in [place] negative per pt- referenced in [facility] consult. 01/19/2024 PFTs nl. 01/26/2024 CT chest mild RLL peripheral interstitial changes-???scarring, RUL small non-calcified opacities. ?? Lives in 3 story home and walk out basement built with , with , has propane/radiant heat, no AC, has fans sometimes. has wall??play [id number]-[id number] carpet in playroom attic- not vacuumed regularly/not in attic much, no heavy drapes ?? 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 Also built home,, including log home later resold, exposed to a lot of plywood ?? LDCT screening- not candidate ?? Vaccinations- has had this year's??Influenza , pneumonia- PPV23 in 2018, newest Covid-19 vaccination x5??total, RSV in 2023 vaccinations; last Tdap 2019., Review of Systems Constitutional:?No??fevers,?No??chills,?No??sweats Eye:?Positive for??recent visual problems ENT:?No??ear pain,?No??nasal congestion,?No?? post nasal drip,??No??sore throat Respiratory:?No??shortness of breath,?No??wheezing,??No??cough,??No??sputum,??No??hemoptysis Cardiovascular:?No??Chest pain,?No??palpitations,?No??syncope Gastrointestinal:?No??abdominal pain,?Nonausea,?No??vomiting,?No??diarrhea,??No??hematemesis, hematochezia or melena Genitourinary:?No?dysuria,??No??hematuria Onofre/Lymph:?Positive for??bruising or bleeding??tendency,?No??swollen lymph glands Endocrine:?No??excessive thirst,??No??excessive hunger Musculoskeletal:??No??back pain,??No??neck pain,??No??other joint pain,??No??muscle pain,??No??decreased range of motion Integumentary:?No??rash,?No??pruritus,?No??abrasions??No??tattoos Neurologic:??No??headache,??No??confusion,??No??weakness,??No??burning pain Psychiatric:?No??anxiety,?No??depression Physical Exam Vitals & Measurements T:??36.4?C ??(Temporal Artery)?? HR:??75??(Apical)?? BP:??173/101?? SpO2:??93%?? HT:??160.02??cm?? WT:??97.9??kg?? BMI:??38.23?? BSA:??2.09?? General: Alert, conversant??appropriate,??well nourished,?No??acute distress HEENT: Normocephalic, PERRL, EOMI,?Normal??conjunctiva, ??No??scleral icterus, hearing??normal, tympanic membranes??visible,?No??sinus tenderness, nasal??normal,??moist??oral mucosa, oropharyngeal??no erythema,??no thrush,??no dentures Neck:??Thick, supple,??full range of motion,?No??JVD,??No??carotid bruits,??No??lymphadenopathy Lungs:??Effort??normal,??decreased breath sounds- moderate air entry, no crackles, wheezes or rhonchi?? Respiration:??Non-Labored Heart:?Normal? rate,?Regular??rhythm,?No??murmur,?No??gallop,?Norubs Abdomen: Soft, non-tender, non-distended,?Normal? bowel sounds,?No??masses Musculoskeletal:?1+ Lft sltly > Rt lower extremity edema??non-pitting, clubbing??No??Normal? range of motion and strength, DIP changes Skin:??warm,??dry??and??intact??,?No??rashes,?No??lesions,??Nocyanosis Neurologic: Awake, alert and oriented X4, CN II-XII intact,??non-focal Psychiatric: Cooperative,??normal mood and affect Clinic Assessment/Plan Cough variant asthma??J45.991 Actions: COMPLETED - 33796 Office/Outpatient Visit - Established Patient, Level 5 (40-54 min)., 04/19/24 13:48:00 EST, Cough variant asthma ?? Additional Actions: ORDERED - fluticasone-salmeterol, 2, Inhale, BID, Rinse, gargl;e and spit after using., # 1 packets, 5 Refill(s), Pharmacy: [facility], 160.02, cm, 04/19/24 14:07:00 EST, Height, 97.9, kg, 04/19/24 14:16:00 EST, Weight Dosing, Rinse, gargl;e and spit after using. COMPLETED - fluticasone-salmeterol, 2 puffs, Inhale, BID, Please dispense as 3 inhalers. Rinse, gargle, and spit after using., # 36 g, 4 Refill(s), Pharmacy: [facility], 160.02, cm, 01/12/24 14:02:00 EDT, Height, 96.4, kg, 01/12/24 14:13:00 EDT, Weight Dosing, Please dispense as 3 inhalers. Rinse, gargle, and spit after using. Probable asthma, cough variant.?? Recommended: ?? -Trial increase Wixela to 500 2p bid. -Continue Albuterol HFA, including before walks. -RTC in 3 mos- if no continued improvement, trial empiric GERD tx.?? Reviewed lifestyle changes- totry to limit chocolate consumption. ?? I spent 45 minutes reviewing the patient record, seeing the patient, and documenting??in the record.?? All of her questions were answered. Follow Up Instructions With When Contact Information Kimberly Barr MD In 3 months [address] [place] [address]- Additional Instructions: Problem List/Past Medical History Ongoing [...] (04/1899) Medications What How Much When Instructions Changed fluticasone-salmeterol (Wixela Inhub 250 mcg-50 mcg inhalation powder) 2 Inhalation Inhale (breathe in) 2 times a day Rinse, gargle, and spit after using. ?? Changed fluticasone-salmeterol (Wixela Inhub 500 mcg-50 mcg inhalation powder) 2 Inhale (breathe in) 2 times a day Rinse, gargl;e and spit after using. ?? Pickup at [facility] Unchanged albuterol (Albuterol (Eqv-ProAir HFA) 90 mcg/ inh inhalation aerosol) 2 Puffs Inhale (breathe in) Every 4 hours as needed for shortness of breath may also use before heavier exertion ?? Unchanged aspirin (aspirin 81 mg oral capsule) 1 Capsules Oral (given by mouth) Every day do not exceed 48 capsules in 24 hours ?? Unchanged atenolol (atenolol 50 mg oral tablet) Unchanged atorvastatin (atorvastatin 20 mg oral tablet) Unchanged bacillus coagulans-calcium carbonate (Digestive Advantage Daily Probiotic) Unchanged buPROPion (buPROPion 150 mg/ 12 hours (SR) oral tablet, extended release) Unchanged Durable Medical Equipment for Prescription (Blood Glucose Lancets) See instructions Unchanged One Touch Verio Test Strips See instructions Pharmacy Information [facility]: [address] [place], [place] [id number] [phone] Allergies Effexor chlorthalidone Social History Electronic Cigarette/Vaping [...] unspecified formulation 05/05/1998 Recorded Electronically Signed on 04/19/2024 15:06 EST Kimberly Barr MD Patient Care team information Care Team Personnel Name: AFSHIN GRAY Position: No Access Member Role: Primary Care Physician [address]: [address] [place] [id number] Insurance Providers Guarantor name: Buck Information #: 1 Payer: [employer] Member Number: [id number] Policy Number: NA Health Plan Information #: 2 Payer: [employer] Member Number: [id number] Policy Number: NA
--- OUTSIDE RECORDS SUMMARY | 2024-05-28 15:57 | XMS_ITS | Encounter Summary ---
[place] [address] Care Team Providers Care Plant Chief Name Role Phone Ginger Riddle MD Primary Care Provider [phone] Encounter Details Date Type Department Care Team (Latest Contact Info) Description 08/16/2022 10:29 AM EDT - 08/16/2022 11:59 PM EDT Hospital Encounter Mammography/[place] [phone] Ginger Riddle MD [address] [place] [address] Screening mammogram for breast cancer Discharge Disposition: [...] have questions please contact the health care program resident that requested your imaging first. ? Narrative [...] cancer documented in this encounter Care Teams Plant Chief Relationship Specialty Start Date End Date Ginger Riddle MD [address] [place] [address] PCP - General Family Medicine 09/27/16 documented as of this encounter
--- OUTSIDE RECORDS SUMMARY | 2024-05-28 15:57 | XMS_ITS | Encounter Summary ---
[place] [address] Care Team Providers Care Charger Operator Helper Name Role Phone Ginger Riddle MD Primary Care Provider [phone] Reason for Visit * Reason Comments Follow-up Encounter Details Date Type Department Care Team (Late st Contact Info) Description 04/22/2019 3:00 PM EST Office Visit Dermatology at [address] [phone] Dickson Dow MD [address] [facility] [place] [address] Seborrheic keratosis, inflamed Social History Tobacco Use [...] of this encounter Progress Notes * Dickson Dwo MD - 04/22/2019 3:00 PM EST Problem: [...] keratosis documented in this encounter Care Teams Charger Operator Helper Relationship Specialty Start Date End Date Ginger Riddle MD [address] [place] [address] PCP - General Family Medicine 09/27/16 documented as of this encounter
--- OUTSIDE RECORDS SUMMARY | 2024-05-28 15:57 | XMS_ITS | Encounter Summary ---
[place] [address] Care Team Providers Care Air Pollution Control Engineer Name Role Phone Ginger Riddle MD Primary Care Provider [phone] Encounter Details Date Type Department Care Team (Late st Contact Info) Description 09/25/2018 9:30 AM EDT Office Visit Dermatology at [address] [phone] Dickson Dow MD [address] [facility] [place] [address] Seborrheic keratosis; Seborrheic keratosis, inflamed Social History [...] keratosis documented in this encounter Care Teams Air Pollution Control Engineer Relationship Specialty Start Date End Date Ginger Riddle MD [address] [place] [address] PCP - General Family Medicine 09/27/16 documented as of this encounter
--- OUTSIDE RECORDS SUMMARY | 2024-05-28 15:57 | XMS_ITS | Encounter Summary ---
[place] [address] Care Team Providers Care Rubber Production Machine Operator Name Role Phone Ginger Riddle MD Primary Care Provider [phone] Reason for Visit * Reason Comments Skin Check Encounter Details Date Type Department Care Team (Late st Contact Info) Description 09/18/2020 10:15 AM EDT Office Visit Dermatology at [address] [phone] Dickson Dow MD [address] [facility] [place] [address] Seborrheic keratosis, inflamed; Inflamed acrochordon; Seborrheic keratosis [...] needed for new lesions concerns. CC: Ginger Riddel MD documented in this encounter Plan of Treatment Not on file documented as of this encounter Visit Diagnoses Diagnosis Seborrheic keratosis, inflamed Inflamed seborrheic keratosis Inflamed acrochordon Unspecified hypertrophic and atrophic condition of skin Seborrheic keratosis Other seborrheic keratosis documented in this encounter Care Teams Rubber Production Machine Operator Relationship Specialty Start Date End Date Ginger Riddle MD [address] [place] [address] PCP - General Family Medicine 09/27/16 documented as of this encounter
--- OUTSIDE RECORDS SUMMARY | 2024-05-28 15:57 | XMS_ITS | Encounter Summary ---
[place] [address] Care Team Providers Care Breast Worker Name Role Phone Ginger Riddle MD Primary Care Provider [phone] Encounter Details Date Type Department Care Team [...] on filedocumented in this encounter Care Teams Breast Worker Relationship Specialty Start Date End Date Ginger Riddle MD [address] [place] [address] PCP - General Family Medicine 09/27/16 documented as of this encounter
--- OUTSIDE RECORDS SUMMARY | 2024-05-28 15:57 | XMS_ITS | Encounter Summary ---
Author Organization [facility] [place] [address] Care Team Providers Care Biscuit Machine Operator Name Role Phone Ginger Riddle MD Primary Care Provider Encounter Details Date Type Department Care Team (Latest Contact Info) Description 12/02/2018 10:30 AM EDT Hospital Encounter Mammography at [facility] [place] [address] Jeff Marsh MD Abnormal mammogram Discharge Disposition: Home Social History [...] breast: BI-RADS 2, benign findings. * ??[employer] and [employer] of [...] unspecified documented in this encounter Care Teams Biscuit Machine Operator Relationship Specialty Start Date End Date Ginger Riddle MD [address] [place] [address] PCP - General Family Medicine 09/27/16 documented as of this encounter
--- OUTSIDE RECORDS SUMMARY | 2024-05-28 15:57 | XMS_ITS | Encounter Summary ---
Author Organization [facility] Address [facility] [place] [address] Care Team Providers Care Chemical Plant Worker Name Role Phone Ginger Riddle MD Primary Care Provider [phone] Encounter Details Date Type Department Care Team (Latest Contact Info) Description 01/10/2023 9:10 AM EDT - 01/10/2023 11:59 PM EDT Hospital [place] [phone] Janice Faust MD [facility] [place] [address] Abnormal finding on breast imaging Discharge Disposition: [...] who have questions please contact the health progressive care unit registered nurse that requested your imaging first. ? Narrative [...] core biopsy specimens were obtained using a Paragon 28 Monopty 14g device. A Kimeltu 14G marker clip was placed. Cranio-caudal and [...] breast documented in this encounter Care Teams Chemical Plant Worker Relationship Specialty Start Date End Date Ginger Riddle MD [address] [place] [address] PCP - General Family Medicine 09/27/16 documented as of this encounter
--- OUTSIDE RECORDS SUMMARY | 2024-05-28 15:57 | XMS_ITS | Encounter Summary ---
[place] [address] Care Team Providers Care Manager House Name Role Phone Ginger Riddle MD Primary Care Provider [phone] Reason for Visit * Reason Comments Skin Check Encounter Details Date Type Department Care Team (Late st Contact Info) Description 07/15/2022 2:15 PM EDT Office Visit Dermatology at [address] [phone] Dickson Dow MD [address] [facility] [place] [address] Seborrheic keratosis, inflamed; Seborrheic keratosis Social History [...] documented in this encounter Care Teams Manager House Relationship Specialty Start Date End Date Ginger Riddle MD [address] [place] [address] PCP - General Family Medicine 09/27/16 documented as of this encounter
--- OUTSIDE RECORDS SUMMARY | 2024-05-28 15:57 | XMS_ITS | Encounter Summary ---
[facility] Address [facility] [place] [address] Care Team Providers Care Electromedical Service Engineer Name Role Phone Ginger Riddle MD Primary Care Provider [phone] Encounter Details Date Type Department Care Team (Latest Contact Info) Description 02/06/2024 12:40 PM EDT - 02/06/2024 11:59 PM EDT Hospital [place] [phone] Janice Faust MD [facility] [place] [address] Abnormal finding on breast imaging Discharge Disposition: [...] Left (02/06/2024 1:23 PM EDT) WORKSTATION ID 30 [id number] 1 [facility] Anatomical Region Laterality Modality Breast Left [...] have questions please contact the health clinical care leader that requested your imaging first. ? Narrative [...] breast documented in this encounter Care Teams Electromedical Service Engineer Relationship Specialty Start Date End Date Ginger Riddle MD [address] [place] [address] PCP - General Family Medicine 09/27/16 documented as of this encounter
--- OUTSIDE RECORDS SUMMARY | 2024-05-28 15:57 | XMS_ITS | Encounter Summary ---
Author Organization [facility] Address [facility] [place] [address] Care Team Providers Care Tank Farm Operator Name Role Phone Ginger Riddle MD Primary Care Provider [phone] Encounter Details Date Type Department Care Team (Latest Contact Info) Description 01/26/2024 Interpretation [place] [address] Abel Gonzalez MD [facility] [place] [address] Cough, unspecified type Social History Tobacco Use [...] scanned data and interpretation performed remotely at [facility]. This encounter for billing only Spirometry, DLCO, and Lung Volumes Abel Gonzalez MD, PhD Staff Physician Pulmonary and Critical Care Medicine documented in this encounter Plan of Treatment Not on file documented as of this encounter Visit Diagnoses Diagnosis Cough, unspecified type documented in this encounter Care Teams Tank Farm Operator Relationship Specialty Start Date End Date Ginger Riddle MD [address] [place] [address] PCP - General Family Medicine 09/27/16 documented as of this encounter
--- OUTSIDE RECORDS SUMMARY | 2024-05-28 15:57 | XMS_ITS | Encounter Summary ---
[place] [address] Care Team Providers Care Estimator Printing Plate Making Name Role Phone Ginger Riddle MD Primary Care Provider [phone] Encounter Details Date Type Department Care Team (Latest Contact Info) Description 01/29/2024 1:19 PM EDT - 01/29/2024 11:59 PM EDT Hospital Encounter Mammography/[place] [phone] Ginger Riddle MD [address] [place] [address] Encounter for screening mammogram for breast cancer [...] Bilateral (01/29/2024 2:12 PM EDT) WORKSTATION ID Streaming [id number] RAD Anatomical Region Laterality Modality Breast [...] who have questions please contact the health careers adviser that requested your imaging first. ? Electronically signed by: Adia Rodriguez MD, [facility] ([phone]), at 01/30/2024 11:18 AM [facility] AMA [place] ??[id number] Narrative 01/30/2024 11:18 AM EDT EXAMINATION: MAMMO [...] cancer documented in this encounter Care Teams Estimator Printing Plate Making Relationship Specialty Start Date End Date Ginger Riddle MD [address] [place] [address] PCP - General Family Medicine 09/27/16 documented as of this encounter
--- OUTSIDE RECORDS SUMMARY | 2024-05-28 15:57 | XMS_ITS | Encounter Summary ---
[place] [address] Care Team Providers Care Religious Ritual Slaughterer Name Role Phone Ginger Riddle MD Primary Care Provider [phone] Encounter Details Date Type Department Care Team (Latest Contact Info) Description 11/26/2018 10:27 AM EDT - 11/26/2018 11:59 PM EDT Hospital Encounter Mammography/[place] [phone] Ginger Riddle MD [address] [place] [address] Encounter for screening mammogram for breast cancer [...] cancer documented in this encounter Care Teams Religious Ritual Slaughterer Relationship Specialty Start Date End Date Ginger Riddle MD [address] [place] [address] PCP - General Family Medicine 09/27/16 documented as of this encounter
--- OUTSIDE RECORDS SUMMARY | 2024-05-28 15:57 | XMS_ITS | Encounter Summary ---
[place] [address] Care Team Providers Care Emergency Department Nurse Name Role Phone Ginger Riddle MD Primary Care Provider [phone] Reason for Visit * Reason Comments Annual Exam Encounter Details Date Type Department Care Team (Late st Contact Info) Description 07/21/2023 11:15 AM EDT Office Visit Dermatology at [address] [phone] Dickson Dow MD [address] [facility], [place] [address] Seborrheic keratosis, inflamed; Seborrheic keratosis Social History [...] keratosis documented in this encounter Care Teams Emergency Department Nurse Relationship Specialty Start Date End Date Ginger Riddle MD [address] [place] [address] PCP - General Family Medicine 09/27/16 documented as of this encounter
--- OUTSIDE RECORDS SUMMARY | 2024-05-28 15:57 | XMS_ITS | Encounter Summary ---
[place] [address] Care Team Providers Care Shactor Name Role Phone Ginger Riddle MD Primary Care Provider [phone] Reason for Visit * Reason Comments Follow-up Skin Check Encounter Details Date Type Department Care Team (Late st Contact Info) Description 01/02/2018 2:30 PM EDT Office Visit Dermatology at [address] [phone] Dickson Dow MD [address] [facility] [place] [address] Seborrheic keratosis; Inflamed acrochordon Social History Tobacco [...] 4-year-old boy and will be moving to [place] and the other one living with her in [place]. Physical examination reveals a pleasant 72-year-old woman [...] skin documented in this encounter Care Teams Shactor Relationship Specialty Start Date End Date Ginger Riddle MD [address] [place] [address] PCP - General Family Medicine 09/27/16 documented as of this encounter
--- OUTSIDE RECORDS SUMMARY | 2024-05-28 15:57 | XMS_ITS | Encounter Summary ---
Author Organization [facility] Address [facility] [place] [address] Care Team Providers Care Cross Cut Sawyer Name Role Phone Ginger Riddle MD Primary Care Provider [phone] Encounter Details Date Type Department Care Team (Latest Contact Info) Description 01/09/2023 1:00 PM EDT - 01/09/2023 1:41 PM EDT Hospital Encounter [place] [phone] Li Delgado, LONGITUDINAL FLOAT OPERATOR [address] [place] [address] Lump in lower inner quadrant of left [...] have questions please contact the health child daycare worker that requested your imaging first. ? [...] nipple. Multiple simple cysts. Li K Heck LONGITUDINAL FLOAT OPERATOR IMG MAMMO ORDERABLES documented in this encounter Visit Diagnoses Diagnosis Lump in lower inner quadrant of left breast Mass of breast, unspecified laterality Mass of right breast, unspecified quadrant documented in this encounter Care Teams Cross Cut Sawyer Relationship Specialty Start Date End Date Ginger Riddle MD [address] [place] [address] PCP - General Family Medicine 09/27/16 documented as of this encounter
--- OUTSIDE RECORDS SUMMARY | 2024-05-28 15:57 | XMS_ITS | Clinical Summary ---
Author Organization [facility] Address [facility] [place] [address] Care Team Providers Care Mold Parter Name Role Phone Ginger Riddle MD Primary Care Provider [phone] Allergies Active Allergy Reactions Criticality Noted Date [...] (1 of 2) 1994 Advance Directive 1999 Pneumoccocal Vaccine: 50+ (2 of 2 - PCV) 10/23/2003 10/22/2002 Bone Density Scan 2009 RSV Vaccine (1 - 1-dose 75+ series) 2019 Covid-19 Vaccine ( - 2023-2 5 season) 2024 01/29/2022, 09/17/2021, 03/03/2021, Additional history exists Influenza (Flu) vaccine (1 o f 1 - Influenza standard series) 01/04/2024 03/28/2006 Breast Cancer screening Discontinued 01/29/20, 01/09/2023, 08/16/2022, Additional history exists Medical Devices Implanted Type Area Clinical Team Lead Device Identifier Shelf Expiration Date Model / Serial / Lot Breast Clip- 8 Implanted:Qt y: 1 on 11/04/2017 by Jeff Marsh MD Breast Clip Left: Breast [id number] / / Description:JACE VARGAS[employer]SS STEEL Breast Clip- 3 Implanted:Qt y: 1 on 01/10/2023 by Helen Arita MD Breast Clip Breast Description:senomark ultraco r chris Procedures Procedure Name Priority Date/Time Associated Diagnosis Comments MAMMO SCREENING CAD AND MONTY BILATERAL Routine 01/29/2024 2:12 PM EDT Encounter for screening mammogram for breast cancer from Last 3 Months or Most Recently Relevant to Health Maintenance Results * Mammo Screening Cad and Monty Bilateral (01/29/2024 2:12 PM EDT) WORKSTATION ID [id number].[email or web address] 2 RAD Anatomical Region Laterality Modality Breast [...] who have questions please contact the health chiropractic care that requested your imaging first. ? Electronically signed by: Adia Rodriguez MD, [facility] ([phone]), at 01/30/2024 11:18 AM [facility] AMA [place] ??[id number] Narrative 01/30/2024 11:18 AM EDT EXAMINATION: MAMMO [...] capacity to make decision: Yes Care Teams Mold Parter Relationship Specialty Start Date End Date Ginger Riddle MD [address] [place], [place] [id number] PCP - General Family Medicine 09/27/16
--- OUTSIDE RECORDS SUMMARY | 2024-05-28 15:57 | XMS_ITS | Encounter Summary ---
[place] [address] Care Team Providers Care Warehouse Operations Manager Name Role Phone Ginger Riddle MD Primary Care Provider [phone] Encounter Details Date Type Department Care Team [...] on filedocumented in this encounter Care Teams Warehouse Operations Manager Relationship Specialty Start Date End Date Ginger Riddle MD [address] [place] [address] PCP - General Family Medicine 09/27/16 documented as of this encounter
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
--- OUTSIDE RECORDS SUMMARY | 2024-05-28 15:57 | XMS_ITS | Encounter Summary ---
Author Organization [facility] [place] [address] Care Team Providers Care Work Counselor Name Role Phone Ginger Riddle MD Primary Care Provider [phone] Encounter Details Date Type Department Care Team (Latest Contact Info) Description 03/10/2020 1:05 PM EST - 03/10/2020 11:59 PM EST Hospital Encounter Mammography/[place] [address] Ginger Riddle MD [address] [place], [place] [id number] Encounter for screening mammogram for breast cancer [...] cancer documented in this encounter Care Teams Work Counselor Relationship Specialty Start Date End Date Ginger Riddle MD [address] [place] [address] PCP - General Family Medicine 09/27/16 documented as of this encounter
--- OUTSIDE RECORDS SUMMARY | 2024-05-28 15:57 | XMS_ITS | Encounter Summary ---
Author Organization [facility] [place] [address] Care Team Providers Care Academic Interventionist Name Role Phone Ginger Riddle MD Primary Care Provider [phone] Encounter Details Date Type Department Care Team (Latest Contact Info) Description 12/02/2018 10:31 AM EDT - 12/02/2018 11:59 PM EDT Hospital En[place] [phone] Jeff Marsh MD Abnormal mammogram Discharge Disposition: [...] breast: BI-RADS 2, benign findings. * ??[employer] and [employer] Society of [...] unspecified documented in this encounter Care Teams Academic Interventionist Relationship Specialty Start Date End Date Ginger Riddle MD [address] [place] [address] PCP - General Family Medicine 09/27/16 documented as of this encounter
--- OUTSIDE RECORDS SUMMARY | 2024-05-28 15:57 | XMS_ITS | Encounter Summary ---
[place] [address] Care Team Providers Care Manufacturing Systems Engineer Name Role Phone Ginger Riddle MD Primary Care Provider [phone] Encounter Details Date Type Department Care Team [...] filedocumented in this encounter Care Teams Manufacturing Systems Engineer Relationship Specialty Start Date End Date Ginger Riddle MD [address] [place] [address] PCP - General Family Medicine 09/27/16 documented as of this encounter
--- OUTSIDE RECORDS SUMMARY | 2024-05-28 15:57 | XMS_ITS | Encounter Summary ---
Author Organization [facility] Address [facility] [place] [address] Care Team Providers Care Secondary Education Professor Name Role Phone Ginger Riddle MD Primary Care Provider [phone] Encounter Details Date Type Department Care Team (Latest Contact Info) Description 01/10/2023 9:10 AM EDT - 01/10/2023 11:59 PM EDT Hospital En[place] [id number] Janice Faust MD [facility] [place] [address] Abnormal finding on breast imaging Discharge Disposition: [...] who have questions please contact the health youth care specialist that requested your imaging first. [...] using a Bard Monopty 14g device. A Skype 14G marker clip was placed. Cranio-caudal and lateral digital mammography performed to determine biopsy marker placement, which was shown to be at the expected location. COMPLICATIONS: None. ? 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 Janice Faust MD IM MAMMO ORDERABLES * Surgical Pathology Report (01/10/2023 10:01 AM EDT) Final Diagnosis [id number] ? Location: 3L The signing pathologist has (i) examined the relevant preparation(s) for the specimen(s) and (ii) rendered or confirmed the diagnosis(es). . 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 Pathologist Performed at: ??-[facility] Dept. of Pathology, [place] [address] Mitten Stitcher: Riki Norris MD, AP, ??CLIA Certificate: [id number] DISCUSSION The sclerosing intraductal papilloma is present [...] COPY: Ginger Riddle MD Heck, Li Keys, LINING IRONER CLINICAL INFORMATION Mass SPECIMEN PROCESSING A - [...] (<1 hour). ??pps 01/14/2023 9:41 AM EDT [facility] BREAST STRUCTURE / Unknown 01/10/2023 10:01 AM EDT 01/10/2023 10:01 AM EDT Helen Arita MD PATHOLOGY/CYTOLOGY [facility] [address] [place] [address] * Specimen to Pathology (01/10/2023 10:01 AM EDT) AP Specimen 01/10/2023 10:0 1 AM EDT 01/10/2023 10:01 AM EDT Narrative [facility] - 01/10/2023 10:01 AM EDT Specimen requisition ordered. ??Separate Pathology report to follow Helen Arita MD PATHOLOGY/CYTOLOGY [facility] [place] [address] documented in this encounter Visit Diagnoses Diagnosis [...] mg documented in this encounter Care Teams Secondary Education Professor Relationship Specialty Start Date End Date Ginger Riddle MD [address] [place] [address] PCP - General Family Medicine 09/27/16 documented as of this encounter
--- OUTSIDE RECORDS SUMMARY | 2024-05-28 15:57 | XMS_ITS | Encounter Summary ---
[place] [address] Care Team Providers Care Eyelet Punch Operator Name Role Phone Ginger Riddle MD Primary Care Provider [phone] Encounter Details Date Type Department Care Team [...] on filedocumented in this encounter Care Teams Eyelet Punch Operator Relationship Specialty Start Date End Date Ginger Riddle MD [address] [place] [address] PCP - General Family Medicine 09/27/16 documented as of this encounter
--- OUTSIDE RECORDS SUMMARY | 2024-05-28 15:57 | XMS_ITS | Encounter Summary ---
[place] [address] Care Team Providers Care Fingernail Sculpturer Name Role Phone Ginger Riddle MD Primary Care Provider [phone] Encounter Details Date Type Department Care Team [...] on filedocumented in this encounter Care Teams Fingernail Sculpturer Relationship Specialty Start Date End Date Ginger Riddle MD [address] [place] [address] PCP - General Family Medicine 09/27/16 documented as of this encounter
--- OUTSIDE RECORDS SUMMARY | 2024-05-28 15:57 | XMS_ITS | Encounter Summary ---
Author Organization [facility] Address [facility] [address] Care Team Providers Care Woods Manager Name Role Phone Ginger Riddle MD Primary Care Provider [phone] Reason for Visit * Reason Comments Follow Up Surgery Encounter Details Date Type Department Care Team (Late st Contact Info) Description 12/18/2017 1:00 PM EDT Office [place] [phone] Adia Wilson, CL Post-operative state Social History Tobacco Use Types [...] status documented in this encounter Care Teams Woods Manager Relationship Specialty Start Date End Date Ginger Riddle MD [address] [place] [address] PCP - General Family Medicine 09/27/16 documented as of this encounter
--- OUTSIDE RECORDS SUMMARY | 2024-05-28 15:57 | XMS_ITS | Encounter Summary ---
Author Organization [facility] [place] [address] Care Team Providers Care Farm Machine Tender Name Role Phone Ginger Riddle MD Primary Care Provider [phone] Encounter Details Date Type Department Care Team (Late st Contact Info) Description 12/12/2017 Telephone General Surgery at [facility] [place] [phone] Kateryna Farah MD Social History Tobacco Use Types Packs/Day Years [...] on filedocumented in this encounter Care Teams Farm Machine Tender Relationship Specialty Start Date End Date Ginger Riddle MD [address] [place] [address] PCP - General Family Medicine 09/27/16 documented as of this encounter
--- OUTSIDE RECORDS SUMMARY | 2024-05-28 15:58 | XMS_ITS | Encounter Summary ---
Author Organization [facility] Address [facility] [place] [address] Care Team Providers Care Ends Breakage Clerk Name Role Phone Ginger Riddle MD Primary Care Provider [phone] Encounter Details Date Type Department Care Team (Latest Contact Info) Description 01/23/2017 - 01/23/2017 11:59 PM EDT Hospital Encounter Radiology Library at [facility] [place] [place] [phone] Davide Barnhart MD Pain Discharge Disposition: Home Social History Tobacco [...] Barnhart MD IMG FILM LIBRARY ORD ERABLES [facility] [place], [place] documented in this encounter Visit Diagnoses Diagnosis Pain Generalized pain documented in this encounter Care Teams Ends Breakage Clerk Relationship Specialty Start Date End Date Ginger Riddle MD [address] [place] [address] PCP - General Family Medicine 09/27/16 documented as of this encounter
--- OUTSIDE RECORDS SUMMARY | 2024-05-28 15:58 | XMS_ITS | Encounter Summary ---
[place] [address] Care Team Providers Care Lead Java Developer Architect Name Role Phone Ginger Riddle MD Primary Care Provider [phone] Reason for Visit * Reason Comments Skin Check Encounter Details Date Type Department Care Team (Late st Contact Info) Description 02/21/2014 1:00 PM EDT Office Visit Dermatology at [address] [place] [address] Dickson Dow MD [address], [place] [address] [place] (actinic keratosis) (Primary Dx); Seborrheic keratosis [...] from the original note were not included. [facility] Actinic Keratosis: After Your Visit Your [...] more? Visit our health information library at [email or web address] You can also view health information on [employer], your personal patient account. Log in or sign up today. Enter L364 in the search box to learn more about Actinic Keratosis: After Your Visit. ?? [id number] [employer]. Care instructions adapted under license by [facility]. This care instruction is for use with your licensed healthcare professional. If you have questions about a medical condition or this instruction, always ask your healthcare professional. [employer] disclaims any warranty or liability for your use of this information. Content Version: 9.9.264692; Last Revised: June 16, 2012 documented in [...] keratosis documented in this encounter Care Teams Lead Java Developer Architect Relationship Specialty Start Date End Date Ginger Riddle MD [address] [place] [address] PCP - General 08/23/13 08/21/15 documented as of this encounter
--- OUTSIDE RECORDS SUMMARY | 2024-05-28 15:58 | XMS_ITS | Encounter Summary ---
Author Organization [facility] [place] [address] Care Team Providers Care Television Repairer Name Role Phone Ginger Riddle MD Primary Care Provider [phone] Encounter Details Date Type Department Care Team (Latest Contact Info) Description 05/30/2017 12:57 PM EST - 05/30/2017 11:59 PM EST Hospital [place] [id number] Chronic cough Discharge Disposition: Home Social History [...] and treat asthma. Guidelines from a 2011 [place] (ATS) executive summary on the [...] treat asthma. ?? Guidelines from a 2011 [place] [employer] Society (ATS) executive summary on the [...] treat asthma. ?? Guidelines from a 2011 [place] [employer] (ATS) executive summary on the [...] Cough documented in this encounter Care Teams Television Repairer Relationship Specialty Start Date End Date Ginger Riddle MD [address] [place] [address] PCP - General Family Medicine 09/27/16 documented as of this encounter
--- OUTSIDE RECORDS SUMMARY | 2024-05-28 15:58 | XMS_ITS | Encounter Summary ---
[place] [address] Care Team Providers Care Retail Banker Name Role Phone Marcela Crenshaw MD Primary Care Provider [phone] Encounter Details Date Type Department Care Team (Late st Contact Info) Description 07/12/2010 9:47 AM EST - 07/12/2010 11:59 PM EST Hospital Encounter MH OPW Marcela Crenshaw MD [address] [place] [address] [place] [address] Social History Tobacco Use Types Packs/Day Years Used Date Smoking Tobacco: Never Assessed Sex and Gender Information Value Date Recorded Sex Assigned at Not on file Gender Identity Not on file Sexual Orientation Not on file documented as of this encounter Plan of Treatment Not on file documented as of this encounter Visit Diagnoses Not on filedocumented in this encounter Care Teams Retail Banker Relationship Specialty Start Date End Date Marcela Crenshaw MD [facility] [address] [place] [address] [place] [address] PCP - General 03/27/10 08/22/13 documented as of this encounter
--- OUTSIDE RECORDS SUMMARY | 2024-05-28 15:58 | XMS_ITS | Encounter Summary ---
Author Organization [facility] Address [address] [place] [address] Care Team Providers Care Shellfish Processing Machine Tender Name Role Phone Ginger Riddle MD Primary Care Provider [phone] Encounter Details Date Type Department Care Team (Late st Contact Info) Description 07/15/2022 Lab Requisition [facility] Pathology & Laboratory Medicine - [facility] [address] [place] [address] Gardenia Brown MD [address] [place] [address] [place] [address] Encounter for other general examination [...] management options, if applicable. 07/18/2022 10:38 EDT [facility] Final Diagnosis A. ENDOMETRIUM, BIOPSY: - Portions of benign endometrial polyp 07/18/2022 10:38 [facility] Attestation By the signature below, the attending physician certifies that they have 1) personally conducted a gross and/or microscopic examination of the described specimen(s), and/or personally interpreted the results of laboratory testing of the described specimen(s), and 2) personally rendered or confirmed the above diagnosis. 07/18/2022 10:38 [facility] at 1038 Clinical History PMB 07/18/2022 10:38 [facility] Gross Description A. Received in formalin labelled with proper patient identification (initials B, M) and endometrium is a sanchez-brown soft tissue (1.0 x 0.4 x 0.3 cm) and an aggregate of slightly blood-tinged mucus (1.5 x 1.2 x 0.3 cm). The tissue is bisected and the specimen is entirely submitted in A1. ANGELO TIAN(ASCP) 07/16/2022 7:53 07/18/2022 10:38 [facility] Performing Lab [facility] 07/18/2022 10:38 [facility] Scanned Images 07/18/2022 10:38 [facility] Tissue ENTIRE ENDOMETRIUM / Unknown 07/15/2022 10:10 EDT 07/15/2022 17:50 EDT us Gardenia Brown MD PATHOLOGY ORDERABLES Final R esult [facility] [address] [place] [address] documented in this encounter Visit Diagnoses Diagnosis Encounter for other general examination documented in this encounter Care Teams Shellfish Processing Machine Tender Relationship Specialty Start Date End Date Ginger Riddle MD [address] [place] [address] PCP - General 07/03/22 documented as of this encounter
--- OUTSIDE RECORDS SUMMARY | 2024-05-28 15:58 | XMS_ITS | Encounter Summary ---
Author Organization [facility] [place] [address] Care Team Providers Care Deputy Building Guard Name Role Phone Ginger Riddle MD Primary Care Provider [phone] Encounter Details Date Type Department Care Team (Latest Contact Info) Description 11/03/2017 1:46 PM EDT - 11/03/2017 11:59 PM EDT Hospital En[place] [address] Jeff Marsh MD Abnormal finding on breast imaging Discharge [...] breast documented in this encounter Care Teams Deputy Building Guard Relationship Specialty Start Date End Date Ginger Riddle MD [address] [place] [address] PCP - General Family Medicine 09/27/16 documented as of this encounter
--- OUTSIDE RECORDS SUMMARY | 2024-05-28 15:58 | XMS_ITS | Encounter Summary ---
Author Organization Count Includes [facility] [place] [address] Care Team Providers Care Credit Rating Inspector Name Role Phone Ginger Riddle MD Primary Care Provider [phone] Reason for Visit * Speech Therapy (Routine) - Closed Specialty Diagnoses / Procedures Referred By Charly mcneill Referred To Contact Speech Pathology / Speech Therapy Diagnoses Chronic cough Lurdes Tong MD [facility] [place] [address] [facility] Business [place] [address] Referral ID Status Reason Start Date Expiration Date V isits Requested Visits Authorized [id number] Closed Evaluate and Treat 05/30/2017 05/30/2018 1 1 Encounter Details Date Type Department Care Team (Late st Contact Info) Description 07/11/2017 11:30 AM EST Office [place] [address] Shana Nascimento, GRAIN FARMER Dysphagia, unspecified type Social History Tobacco Use Types Packs/Day Years Used Date Smoking Tobacco: Never Sex and Gender Information Value Date Recorded Sex Assigned at Not on file Gender Identity Not on file Sexual Orientation Not on file documented as of this encounter Progress Notes * Shana Nascimento, GRAIN FARMER - 07/11/2017 11:30 AM EST Speech-Language Pathology [...] ( pulmonary ) and ENT and an stripper and taper. Her current active sx are chronic non-productive [...] and eating strategies listed above. P: [place] [facility] [place] Pathology to monitor [...] any questions or concerns. Shana Nascimento MA CCC-GRAIN FARMER [facility] [place] Rehabilitation Medicine [phone] [phone] [email or web address] G-Code: Swallowing Status Modifier CURRENT CH [...] type documented in this encounter Care Teams Credit Rating Inspector Relationship Specialty Start Date End Date Ginger Riddle MD [address] [place] [address] PCP - General Family Medicine 09/27/16 documented as of this encounter
--- OUTSIDE RECORDS SUMMARY | 2024-05-28 15:58 | XMS_ITS | Encounter Summary ---
Author Organization [facility] [place] [address] Care Team Providers Care Full Service Supervisor Name Role Phone Ginger Riddle MD Primary Care Provider [phone] Encounter Details Date Type Department Care Team (Latest Contact Info) Description 08/23/2013 11:52 AM EDT - 08/23/2013 11:59 PM EDT Hospital [place] [phone] CLINIC, Ginger Rehman MD [address] [place] [phone] Discharge Disposition: Home Social History Tobacco Use [...] on filedocumented in this encounter Care Teams Full Service Supervisor Relationship Specialty Start Date End Date Ginger Riddle MD [address] [place] [address] PCP - General 08/23/13 08/21/15 documented as of this encounter
--- OUTSIDE RECORDS SUMMARY | 2024-05-28 15:58 | XMS_ITS | Encounter Summary ---
Author Organization [facility] [place] [address] Care Team Providers Care Quill Fixer Name Role Phone Ginger Riddle MD Primary Care Provider [phone] Reason for Visit * Auth/Cert Specialty Diagnoses / Procedures Referred By Charly mcneill Referred To Contact Diagnoses LEFT BREAST LESION Procedures PRO EXCISE BREAST LES W XRAY MARKER EXCISION LESION, BREAST W/ PREOP.MARKER (NEEDLE LOC.) (WRVU 6.69) Referral ID Status Reason Start Date Expiration Date Visits Re quested Visits Authorized [id number] 1 1 Encounter Details Date Type Department Care Team (Late st Contact Info) Description 12/04/2017 9:44 AM EDT Anesthesia Event [place] [phone] Emilia Lorenzo MD [facility] [place] [address] Anesthesia Record Procedure Summary Procedure Name Responsible [...] Lorenzo MD - 12/04/2017 1:37 PM EDT [facility] [place] of Anesthesiology Post-procedure Note Patient: Marcela Yousif Procedure Summary Date Anesthesia Start Anesthesia Stop Room / Location 12/04/17 0944 1058 [facility] OR [facility] MAIN OR Procedure Diagnosis Surgeon Responsible Provider EXCISION LESION, BREAST W/ PREOP.MARKER (NEEDLE LOC.) (WRVU 6.69) (Left Breast) (LEFT BREAST LESION) Kateryna Farah MD Havidich, Jeana E, MD All Anesthesia Providers: Anesthesiologist: Emilia Lorenzo MD Companion Caregiver: Jesus Garner MD Most Recent Vitals: 12/04/17 1315 BP: 126/74 Pulse: Resp: Temp: SpO2: 95% Pain Patient Location: PACU/[facility] Level of Consciousness: Awake and Alert Pain [...] hr documented in this encounter Care Teams Quill Fixer Relationship Specialty Start Date End Date Ginger Riddle MD [address] [place] [address] PCP - General Family Medicine 09/27/16 documented as of this encounter
--- OUTSIDE RECORDS SUMMARY | 2024-05-28 15:58 | XMS_ITS | Encounter Summary ---
Author Organization [facility] Address [address] [place] [address] Care Team Providers Care Acquisition Cost Estimator Name Role Phone None, Provider Primary Care Provider Ginger Ruth MD Primary Care Provider [phone] Encounter Details Date Type Department Care Team (Late st Contact Info) Description 01/26/2021 Lab Requisition [facility] Pathology & Laboratory Medicine - [address] [address] Outr Resulting Lab, Provider Social History Tobacco [...] C Antibody Negative Negative 01/29/2021 10:31 EDT [facility] Blood VENOUS BLOOD / Unknown 01/25/2021 11:15 EDT 01/26/2021 16:35 EDT us Provider Outr Resulting Lab CHEMISTRY & BLOOD GA S ORDERABLES Final Result [facility] [address] [place] [address] [place] [address] documented in this encounter Visit Diagnoses Not on filedocumented in this encounter Care Teams Acquisition Cost Estimator Relationship Specialty Start Date End Date None, Provider PCP - General 08/16/15 07/02/22 Ginger Riddle MD [address] [place] [address] PCP - General 07/03/22 documented as of this encounter
--- OUTSIDE RECORDS SUMMARY | 2024-05-28 15:58 | XMS_ITS | Encounter Summary ---
Author Organization [facility] [address] Care Team Providers Care Stratigrapher Name Role Phone Ginger Riddle MD Primary Care Provider [phone] Encounter Details Date Type Department Care Team (Latest Contact Info) Description 11/03/2017 1:46 PM EDT - 11/03/2017 11:59 PM EDT Hospital Encounter [place] [address] Jeff Marsh MD Abnormal finding [...] breast documented in this encounter Care Teams Stratigrapher Relationship Specialty Start Date End Date Ginger Riddle MD [address] [place] [address] PCP - General Family Medicine 09/27/16 documented as of this encounter
--- OUTSIDE RECORDS SUMMARY | 2024-05-28 15:58 | XMS_ITS | Encounter Summary ---
[place] [address] Care Team Providers Care Machine Dyer Name Role Phone Zack Null Primary Care Provider [phone] Encounter Details Date Type Department Care Team (Latest Contact Info) Description 08/22/2015 10:30 AM EDT - 08/22/2015 11:59 PM EDT Hospital [place] [address] Zack Null PA [address] [place] [address] Encounter for screening mammogram for breast cancer [...] No mammographic evidence of malignancy. RECOMMENDATION: [employer] and The Society of [...] cancer documented in this encounter Care Teams Machine Dyer Relationship Specialty Start Date End Date Zack Null PA [address] [place] [address] PCP - General Family Medicine 08/22/15 09/26/16 documented as of this encounter
--- OUTSIDE RECORDS SUMMARY | 2024-05-28 15:58 | XMS_ITS | Encounter Summary ---
Author Organization [facility] Address [address] [place] [address] Care Team Providers Care Fire Lieutenant Marine Name Role Phone Unknown, Provider Primary Care Provider Fermin iladriane Encounter Details Date Type Department Care Team ([facility] st Contact Info) Description 04/03/2011 Results Only [facility] [phone] Bahman Perry MD [address] [place], [place] [address] Social History Tobacco Use Types Packs/Day Years [...] ? BAHMAN YOUSIF ? Accession #: ? [id number] : ? 1945 (Age: 65) ??F ?Collect [...] ORDERABLES Final Resul t [facility] [address] [place] [address] documented in this encounter Visit Diagnoses Not on filedocumented in this encounter Care Teams Fire Lieutenant Marine Relationship Specialty Start Date End Date Unknown, Provider, PCP - General 08/02/09 08/15/15 documented as of this encounter
--- OUTSIDE RECORDS SUMMARY | 2024-05-28 15:58 | XMS_ITS | Encounter Summary ---
Author Organization [facility] [place] [address] Care Team Providers Care [place] Guide Name Role Phone Ginger Riddle MD Primary Care Provider [phone] Encounter Details Date Type Department Care Team (Late st Contact Info) Description 12/04/2017 8:30 AM EDT Hospital Encounter Mammography at [facility] [place] [address] Kateryna Farah MD Malignant neoplasm of left female breast, unspecified [...] Report (12/04/2017 10:20 AM EDT) Final Diagnosis [id number] ? Location: 3L The signing pathologist has [...] Mitchell DO Verified: ??12/10/2017 ?Pathologist Performed at: ??-[facility] Dept. of Pathology, [place], [place] CLINICAL INFORMATION Specimen Submitted: A - [...] entirely; (6-7) slice IV submitted entirely; (8-9) pharmaceutical sales representative slice V, biopsy cavity submitted entirely; (10-11) slice submitted entirely; (12) pharmaceutical sales representative slice VII; (13-14) pharmaceutical sales representative perpendicular sections to slice VIII, true yellow-lateral margin, all fibrous tissue submitted. (R14) . SPECIMEN PROCESSING Ischemic Time: 140 minutes CF 12/10/2017 10:28 AM EDT [facility] BREAST STRUCTURE / Unknown 12/04/2017 10:20 AM EDT 12/04/2017 10:20 AM EDT Kateryna Duran MD PATHOLOGY/CYTOLO GY ORDERABLES [facility] [place] [phone] * Mammo Needle Localization Left (12/04/2017 9:12 [...] with digital mammographic guidance. A 7 cm FirstBest needle was used. Cranio-caudal and 90 degree digital mammography views were obtained following localization to document wire position. ??Images were annotated on PACS for the operating surgeon. Resident: Phillip Friedman performed the procedure with the resident observing. Kateryna Duarn MD IMG MAMMO ORDERA BLES documented in this encounter Visit Diagnoses Diagnosis Malignant neoplasm of left female breast, unspecified estrogen receptor status, unspecified site of breast documented in this encounter Care Teams [place] Guide Relationship Specialty Start Date End Date Ginger Riddle MD [address] [place] [address] PCP - General Family Medicine 09/27/16 documented as of this encounter
--- OUTSIDE RECORDS SUMMARY | 2024-05-28 15:58 | XMS_ITS | Encounter Summary ---
[place] [address] Care Team Providers Care Carbon Plant Grinder Name Role Phone Ginger Riddle MD Primary Care Provider [phone] Reason for Visit * Reason Comments Skin Check Encounter Details Date Type Department Care Team (Late st Contact Info) Description 09/27/2016 9:15 AM EDT Office Visit Dermatology at [address] [id number] Dickson Dow MD [address], [place] [address] Seborrheic keratosis; Nevus Social History Tobacco Use [...] unspecified documented in this encounter Care Teams Carbon Plant Grinder Relationship Specialty Start Date End Date Ginger Riddle MD [address] [place] [address] PCP - General Family Medicine 09/27/16 documented as of this encounter
--- OUTSIDE RECORDS SUMMARY | 2024-05-28 15:58 | XMS_ITS | Encounter Summary ---
[place] [address] Care Team Providers Care Center Manager Name Role Phone Ginger Riddle MD Primary Care Provider [phone] Reason for Visit * Auth/Cert Specialty Diagnoses / Procedures Referred By Charly mcneill Referred To Contact Diagnoses LEFT BREAST LESION Procedures PRO EXCISE BREAST LES W XRAY MARKER EXCISION LESION, BREAST W/ PREOP.MARKER (NEEDLE LOC.) (WRVU 6.69) Referral ID Status Reason Start Date Expiration Date Visits Re quested Visits Authorized [id number] 1 1 Encounter Details Date Type Department Care Team (Late st Contact Info) Description 12/04/2017 9:30 AM EDT - 12/04/2017 10:58 AM EDT Surgery [place] [address] Steven Romero MD EXCISION LESION, BREAST W/ PREOP.MARKER (NEEDLE LOC.) [...] Dr. Romero in 2-3 weeks Please call [phone] to confirm date and time of your appointment if you do not hear from us inthe week. Future Appointments Date Time Provider Department Center 12/18/2017 10:00 AM Adia Wilson APRN [facility] 01/02/2018 2:30 PM Dickson Dow MD [facility] Call Doctor for: Worsening redness or drainage from your incision lasting longer than 5 days following surgery Any foul-smelling drainage from the incision Fevers greater than 101 degrees F Persistent nausea or vomiting (this may be related to opioid pain medications) Phone number for questions: [phone] before 5 PM weekdays [phone] after 5 PM and on weekends/holidays documented [...] a 72 y.o. female who presents to [facility] for WLE of a spiculated breast mass. [...] Romero MD - 12/04/2017 10:41 AM EDT [facility] Operative Note Patient Name: Marcela Yousif : [id number] MR#: [id number] Case Date: 12/04/2017 Surgeon: Surgeon(s) and Role: [...] Order Time SPE[place]IMEN [place] 8 [address]062 LEFT BREAST LESION Left breast mass. excision [...] Operative Note Patient Name: Marcela Yousif : [id number] MR#: [id number] Case Date: 12/04/2017 Surgeon: Surgeon(s) and Role: [...] Order Time [place] 8 [address]87 LEFT BREAST LESION Left breast mass. excision [...] AM EDT 12/04/2017 11:14 AM EDT Narrative [facility] - 12/04/2017 11:15 AM EDT Specimen requisition ordered. ??Separate Pathology report to follow Resulting Agency Comment Spec In Lab Steven Duran MD PATHOLOGY/CYTOLO GY ORDERABLES Performing Organization Address City/State/[facility] Co de Phone Number [facility] [place] [phone] documented in this encounter Visit Diagnoses Not [...] on Ofelia 12/04/17 at 1040, Until Ofelia 18 at 1713, Intra-Operative (Intra-Procedure), Routine Given 12/04/2017 [...] mg, Oral, ONCE, 1 dose, On Ofelia 18 at 0815, Administer with SIP of H2O only., Day of Surgery (Day of Procedure), Routine 0848 (Given - Provid er: Beckie Doan RN) ceFAZolin (ANCEF) 2g in dextrose 5% 100 mL (COMPLETED) 2 g, Intravenous, EVERY 3 HOURS, 1 dose, First dose on Ofelia 18 at 0815, Administer over 30 Minutes, Intra-Operative [...] on Ofelia 12/04/17 at 1101, Until Ofelia 818 at 1511, Nausea, May repeat 4 mg once in 30 minutes. If multiple antiemetics ordered, use ondansetron first and if ineffective use prochlorperazine second and if ineffective use promethazine, PACU Recovery 1321 (Given - Provid er: Melinda Garcia, VICENTA) documented in this encounter Care Teams Center Manager Relationship Specialty Start Date End Date Ginger Riddle MD [address] [place] [address] PCP - General Family Medicine 09/27/16 documented as of this encounter
--- OUTSIDE RECORDS SUMMARY | 2024-05-28 15:58 | XMS_ITS | Encounter Summary ---
Author Organization [facility] Address [address] [place] [address] Care Team Providers Care Admitting Coordinator Name Role Phone Unavailable Primary Care Provider Unavailabl e Encounter Details Date Type Department Care Team (Late st Contact Info) Description 07/31/2009 Results Only [facility] - [facility] [place] [facility] [address] [place], [place] [id number] Favian Barahona MD [address] [place] [address] Social History Tobacco Use Types [...] ? YOUSIF, BAHMAN ? Accession #: ? [id number] ? : ? 1945 (Age: 64) ??F [...] reviewed ?? at intradepartmental consultation conference. ??(Dr. Robles)/[facility] ? Document reviewed and electronically signed [...] Final Resul t [facility] [address] [place] [address] documented in this encounter Visit Diagnoses Not on filedocumented in this encounter
--- OUTSIDE RECORDS SUMMARY | 2024-05-28 15:58 | XMS_ITS | Encounter Summary ---
[place] [address] Care Team Providers Care Molecular Genetic Pathologist Name Role Phone Ginger Riddle MD Primary Care Provider [phone] Encounter Details Date Type Department Care Team (Late st Contact Info) Description 11/19/2017 10:15 AM EDT Office Visit Hematology [place] [address] Kateryna Farah MD Breast lesion Social History Tobacco Use Types [...] Ginger Riddle for evaluation ofleft breast lesion. HPI:Marceal Yousif is a 71-year-old female has been [...] least 2 times a week.She goes to [facility]. Active Ambulatory Problems Diagnosis Date Noted ??? [...] disorder documented in this encounter Care Teams Molecular Genetic Pathologist Relationship Specialty Start Date End Date Ginger Riddle MD [address] [place] [address] PCP - General Family Medicine 09/27/16 documented as of this encounter
--- OUTSIDE RECORDS SUMMARY | 2024-05-28 15:58 | XMS_ITS | Encounter Summary ---
Author Organization [facility] Address [facility] [place] [address] Care Team Providers Care Technical Sales Representative Name Role Phone Ginger Riddle MD Primary Care Provider [phone] Encounter Details Date Type Department Care Team (Latest Contact Info) Description 07/21/2015 - 07/21/2015 11:59 PM EDT Hospital Encounter Radiology Library at [facility] [place] [address] Davide Barnhart MD Pain Discharge Disposition: Home [...] Barnhart MD IMG FILM LIBRARY ORD ERABLES [facility] [place], [place] documented in this encounter Visit Diagnoses Diagnosis Pain Generalized pain documented in this encounter Care Teams Technical Sales Representative Relationship Specialty Start Date End Date Ginger Riddle MD [address] [place] [address] PCP - General 08/23/13 08/21/15 documented as of this encounter
--- OUTSIDE RECORDS SUMMARY | 2024-05-28 15:58 | XMS_ITS | Encounter Summary ---
[place] [address] Care Team Providers Care Customer Services Supervisor Name Role Phone Ginger Riddle MD Primary Care Provider [phone] Reason for Visit * Auth/Cert Specialty Diagnoses / Procedures Referred By Charly mcneill Referred To Contact Diagnoses LEFT BREAST LESION Procedures PRO EXCISE BREAST LES W XRAY MARKER EXCISION LESION, BREAST W/ PREOP.MARKER (NEEDLE LOC.) (WRVU 6.69) Referral ID Status Reason Start Date Expiration Date Visits Re quested Visits Authorized [id number] 1 1 Encounter Details Date Type Department Care Team (Late st Contact Info) Description 12/04/2017 7:35 AM EDT - 12/04/2017 3:13 PM EDT Hospital Encounter [place] [address] Steven Romero MD Discharge Disposition: Home Social History Tobacco Use [...] Dr. Romero in 2-3 weeks Please call [phone] to confirm date and time of your appointment if you do not hear from us inthe week. Future Appointments Date Time Provider Department Center 12/18/2017 10:00 AM Adia Wilson APRN [facility] 01/02/2018 2:30 PM Dickson Dow MD [facility] Call Doctor for: Worsening redness or drainage from your incision lasting longer than 5 days following surgery Any foul-smelling drainage from the incision Fevers greater than 101 degrees F Persistent nausea or vomiting (this may be related to opioid pain medications) Phone number for questions: [phone] before 5 PM weekdays [phone] after 5 PM and on weekends/holidays documented [...] a 72 y.o. female who presents to [facility] for WLE of a spiculated [...] Romero MD - 12/04/2017 10:[address] [facility] Operative Note Patient Name: Marcela Yousif : [id number] MR#: [id number] Case Date: 12/04/2017 Surgeon: Surgeon(s) and Role: [...] Order Time [place] 8 24003 LEFT BREAST LESION Left breast mass. excision [...] surgery, out patient. ?? Operative Procedure: Marcela Yousfi was admitted through Same-Day Surgery. She was [...] Operative Note Patient Name: Marcela Yousif : [id number] MR#: [id number] Case Date: 12/04/2017 Surgeon: Surgeon(s) and Role: [...] Order Time SPECIMEN [place] PATHOLOGY OR 8 94408 LEFT BREAST LESION Left breast mass. excision [...] MD PATHOLOGY/CYTOLO GY ORDERABLES Performing Organization Address City/State/[facility] Co de Phone Number [facility] [place] [address] documented in this encounter Visit Diagnoses Not [...] on Ofelia 8 at 0815, Until Ofelia 18 at 1511, Day of Surgery (Day of Procedure) 0815 (New Bag - Prov ider: Frances Mitchell RN)0944 (New Bag - Provider: Emilia Lorenzo MD) PRN Medication Order 12/02/2017 12/03/2017 12/04/2017 BUpivacaine (PF) (MARCAINE) 0.5 % (5 mg/mL) injection (CANCELED) ONCE PRN, Starting on Ofelia 8//18 at 1040, Until Ofelia 8//18 at 1713, Intra-Operative (Intra-Procedure), Routine 1040 (Given [...] EVERY 30 MIN PRN, Starting on Ofelia 8//18 at 1101, Until Ofelia 8//18 at 1511, Nausea, May repeat 4 mg once in 30 minutes. If multiple antiemetics ordered, use ondansetron first and if ineffective use prochlorperazine second and if ineffective use promethazine, PACU Recovery 1321 (Given - Provid er: Melinda Garcia RN) documented in this encounter Care Teams Customer Services Supervisor Relationship Specialty Start Date End Date Ginger Riddle MD [address] [place] [address] PCP - General Family Medicine 09/27/16 documented as of this encounter
--- OUTSIDE RECORDS SUMMARY | 2024-05-28 15:58 | XMS_ITS | Encounter Summary ---
Author Organization [facility] Address [facility] [place] [address] Care Team Providers Care Seed Technician Name Role Phone Zack Null Primary Care Provider [phone] Encounter Details Date Type Department Care Team (Latest Contact Info) Description 10/25/2015 - 10/25/2015 11:59 PM EDT Hospital Encounter Radiology Library at [facility] [place] [address] Lurdes Tong MD [facility] [place] [address] Discharge Disposition: Home Social History Tobacco Use [...] IMG FILM LIBRARY ORD ERABLES [facility] [place], [place] documented in this encounter Visit Diagnoses Not on filedocumented in this encounter Care Teams Seed Technician Relationship Specialty Start Date End Date Zack Null PA [address] [place] [address] PCP - General Family Medicine 08/22/15 09/26/16 documented as of this encounter
--- OUTSIDE RECORDS SUMMARY | 2024-05-28 15:58 | XMS_ITS | Encounter Summary ---
[place] [address] Care Team Providers Care Dispatcher Motor Vehicle Name Role Phone Ginger Riddle MD Primary Care Provider [phone] Encounter Details Date Type Department Care Team (Late st Contact Info) Description 11/19/2017 Orders [place] [address] Kateryna Farah MD Malignant neoplasm of left [...] with digital mammographic guidance. A 7 cm Comuto Bard needle was used. Cranio-caudal and 90 [...] breast documented in this encounter Care Teams Dispatcher Motor Vehicle Relationship Specialty Start Date End Date Ginger Riddle MD [address] [place] [address] PCP - General Family Medicine 09/27/16 documented as of this encounter
--- OUTSIDE RECORDS SUMMARY | 2024-05-28 15:58 | XMS_ITS | Encounter Summary ---
Author Organization [facility] Address [facility] [place] [address] Care Team Providers Care Vice President Consulting Services Name Role Phone Ginger Riddle MD Primary Care Provider [phone] Encounter Details Date Type Department Care Team (Latest Contact Info) Description 07/21/2015 Hospital Encounter Radiology Library at [facility] [place] [address] Lurdes Tong MD [facility] [place] [address] Discharge Disposition: Home Social History Tobacco Use [...] CT Chest (07/21/2015 12:00 AM EDT) Narrative CHRAY MATHIS - 05/30/2017 6:31 PM EST This exam is for storage only and is auto-finalizing. Lurdes Tong MD [facility] FILM LIBRARY ORD ERABLES [place], [place] documented in this encounter Visit Diagnoses Not on filedocumented in this encounter Care Teams Vice President Consulting Services Relationship Specialty Start Date End Date Ginger Riddle MD [address] [place] [address] PCP - General 08/23/13 08/21/15 documented as of this encounter
--- OUTSIDE RECORDS SUMMARY | 2024-05-28 15:58 | XMS_ITS | Encounter Summary ---
Author Organization [facility] [place] [address] Care Team Providers Care Brick Paving Checker Name Role Phone Marcela Crenshaw MD Primary Care Provider [phone] Encounter Details Date Type Department Care Team (Latest Contact Info) Description 07/17/2012 12:46 PM EDT - 07/17/2012 11:59 PM EDT Hospital Encounter Mammography at [facility] [place] [address] CLINIC, Marcela Barillas MD [address] [place] [address] [address] [place], [place] [address] Discharge Disposition: Home Social History Tobacco Use [...] direct digital capture. The exam was evaluated byNobis Technology GroupD Version 8.3.17. FINDINGS: This is a negative [...] on filedocumented in this encounter Care Teams Brick Paving Checker Relationship Specialty Start Date End Date Marcela Crenshaw MD [facility] [address] [place] [address] [place] [address] PCP - General 03/27/10 08/22/13 documented as of this encounter
--- OUTSIDE RECORDS SUMMARY | 2024-05-28 15:58 | XMS_ITS | Encounter Summary ---
Author Organization [facility] Address [address] [place] [address] Care Team Providers Care House Designer Name Role Phone Unknown, Provider Primary Care Provider Fermin iladriane Encounter Details Date Type Department Care Team (Late st Contact Info) Description 08/14/2015 Results Only [facility] [phone] Diego Mejia MD [address] [place] [address] Social History Tobacco Use Types Packs/Day Years [...] ? BAHMAN YOUSIF ? Accession #: ? [id number] ? : ? 1945 (Age: 70) ??F [...] 10:06 AM End of Report [facility] 08/14/2015 9:11 EDT 08/15/2015 9:11 EDT us Diego Mejia MD PATHOLOGY ORDERABLES Final Resu lt [facility] [address] [place] [address] * CYTOPATHOLOGY (08/14/2015 0:00 EDT) Pathology Report: CYTOPATHOLOGY REPORT Reports generated via electronic interface contain original data; however they are lacking the format of the original report. Caution should be taken when reading/interpret ing unformatted reports. Name: ? BAHMAN YOUSIF ? Accession #: ? [id number] : ? 1945 (Age: 70) ??F ?Collect [...] electronically signed by: ? MACIEL LYON MD [facility] Report Date: ??08/15/2015 17:32 By the signature above, the attending physician certifies that he/she has personally conducted a gross and/or microscopic examination of the described specimens and rendered or confirmed the above diagnosis. Specimen Type: ? A: Bronchial [place], #2 B: Bronchial Lavage, Right upper lobe, #1 Clinical History: ? Hypersensitivity pneumonitis; EAA; look for granulomas ? Gross Description: ? A. ??Bronchial [place], #2: ?? 1 tube of Cytolyt, containing brush collection device, was received and processed by selective cellular enhancement technique. ? B. ??Bronchial Lavage, Right upper lobe, #1: ?? 10ccs of clear colorless fluid were received and processed by selective cellular enhancement technique. ? End of Report [facility] 08/14/2015 08/15/2015 9:3 3 EDT us Diego Mejia MD PATHOLOGY ORDERABLES Final Resu lt [facility] [address] [place] [address] documented in this encounter Visit Diagnoses Not on filedocumented in this encounter Care Teams House Designer Relationship Specialty Start Date End Date Unknown, Provider, PCP - General 08/02/09 08/15/15 documented as of this encounter
--- OUTSIDE RECORDS SUMMARY | 2024-05-28 15:58 | XMS_ITS | Encounter Summary ---
[place] [address] Care Team Providers Care External Relations Director Name Role Phone Ginger Riddle MD Primary Care Provider [phone] Encounter Details Date Type Department Care Team (Latest Contact Info) Description 08/17/2014 10:22 AM EDT - 08/17/2014 11:59 PM EDT Hospital En[place] [address] CLINIC, Ginger Rehman MD [address] [place] [address] Discharge Disposition: Home Social History Tobacco Use [...] on filedocumented in this encounter Care Teams External Relations Director Relationship Specialty Start Date End Date Ginger Riddle MD [address] [place] [address] PCP - General 08/23/13 08/21/15 documented as of this encounter
--- OUTSIDE RECORDS SUMMARY | 2024-05-28 15:58 | XMS_ITS | Encounter Summary ---
Author Organization [facility] Address [facility] [place] [address] Care Team Providers Care Visitor Use Assistant Name Role Phone Ginger Riddle MD Primary Care Provider [phone] Encounter Details Date Type Department Care Team (Latest Contact Info) Description 11/04/2017 1:22 PM EDT - 11/04/2017 11:59 PM EDT Hospital En[place] [address] Janice Faust MD [facility] [place] [address] Abnormal mammogram Discharge Disposition: Home Social History [...] core biopsy specimens were obtained using a [employer] 9g 20mm device. A specimen radiograph was [...] Report (11/04/2017 1:48 PM EDT) Final Diagnosis [id number] ? Location: 3L The signing pathologist has [...] Mitchell DO Verified: ??11/06/2017 ?Pathologist Performed at: ??-[facility] Dept. of Pathology, [place], [place] DISCUSSION The lesion is 0.8 cm in greatest linear dimension, by slide measure. Review of edh shows the lesion to be 1-cm, radiographic measure. CLINICAL INFORMATION Specimen Submitted: A - Left breast stereo biopsy Clinical History and Diagnosis: Mass; focal FCD, CA, radial scar Report to: Ginger Riddle MD [phone] SPECIMEN PROCESSING A - ??Labeled/Fixati ve: Left breast stereo biopsy, formalin. Quantity/Size: Multiple, 0.2-3.0 cm. Tissue Description: Fragmented, fibrofatty needle core biopsies. Ischemic Time: 7 minutes. Sections/Process ing: (T4) ??ejr 11/06/2017 9:28 AM EDT [facility] BREAST STRUCTURE / Unknown 11/04/2017 1:48 PM EDT 11/04/2017 1:48 PM EDT Jeff Marsh MD PATHOLOGY/CYTOLOGY O RDERABLES [facility] [place] [address] * Specimen to Pathology (11/04/2017 1:48 PM EDT) AP Specimen 11/04/2017 1:48 PM EDT 11/04/2017 3:09 PM EDT Narrative [facility] - 11/04/2017 3:09 PM EDT Specimen requisition ordered. ??Separate Pathology report to follow Resulting Agency Comment Spec In Lab Jeff Marsh MD PATHOLOGY/CYTOLOGY [address] [facility] [place] [address] documented in this encounter Visit Diagnoses Diagnosis [...] mg documented in this encounter Care Teams Visitor Use Assistant Relationship Specialty Start Date End Date Ginger Riddle MD [address] [place] [address] PCP - General Family Medicine 09/27/16 documented as of this encounter
--- OUTSIDE RECORDS SUMMARY | 2024-05-28 15:58 | XMS_ITS | Encounter Summary ---
Author Organization [facility] [place] [address] Care Team Providers Care Centerless Grinder Operator Name Role Phone Ginger Riddle MD Primary Care Provider [phone] Encounter Details Date Type Department Care Team (Late st Contact Info) Description 12/04/2017 8:30 AM EDT Hospital Encounter Mammography at [facility] [place] [address] Kateryna Farah MD Malignant neoplasm of left [...] be adequate by single plane radiography. ??Dr. Faarh was informed in the operating room of the results by Dr. Faust at 10:30 hours. Kateryna Duran MD IMG MAMMO ORDERA BLES documented in this encounter Visit Diagnoses Diagnosis Malignant neoplasm of left female breast, unspecified estrogen receptor status, unspecified site of breast documented in this encounter Care Teams Centerless Grinder Operator Relationship Specialty Start Date End Date Ginger Riddle MD [address] [place] [address] PCP - General Family Medicine 09/27/16 documented as of this encounter
--- OUTSIDE RECORDS SUMMARY | 2024-05-28 15:58 | XMS_ITS | Encounter Summary ---
Author Organization [facility] Address [address] [place] [address] Care Team Providers Care Asset Protection Manager Name Role Phone Unknown, Provider Primary Care Provider Unava ilable Encounter Details Date Type Department Care Team (Latest Contact Info) Description 08/14/2015 13:54 EDT - 08/14/2015 14:56 EDT Hospital Encounter [address] [address] Unknown, Provider, Discharge Disposition: Home or Self [...] Code Departure Means Destination Home or Self Mcfp documented in this encounter Plan of Treatment Not on file documented as of this encounter Visit Diagnoses Not on filedocumented in this encounter Care Teams Asset Protection Manager Relationship Specialty Start Date End Date Unknown, Provider, PCP - General 08/02/09 08/15/15 documented as of this encounter
--- OUTSIDE RECORDS SUMMARY | 2024-05-28 15:58 | XMS_ITS | Encounter Summary ---
Author Organization [facility] [place] [address] Care Team Providers Care Interactive Account Manager Name Role Phone Marcela Crenshaw MD Primary Care Provider [phone] Encounter Details Date Type Department Care Team (Latest Contact Info) Description 07/17/2011 10:08 AM EDT - 07/17/2011 11:59 PM EDT Hospital Encounter Mammography at [facility] [place] [address] CLINIC, Marcela Barillas MD [address] [place] [address] [address] [place], [place] [address] Discharge Disposition: Home Social History Tobacco Use [...] direct digital capture. The exam was evaluated by[employer]oSo Version 8.3.17. FINDINGS: This is a negative [...] on filedocumented in this encounter Care Teams Interactive Account Manager Relationship Specialty Start Date End Date Marcela Crenshaw MD HOSPITALIST SERVICES [address] [place] [address] [place] [address] PCP - General 03/27/10 08/22/13 documented as of this encounter
--- OUTSIDE RECORDS SUMMARY | 2024-05-28 15:58 | XMS_ITS | Encounter Summary ---
[place] [address] Care Team Providers Care Restaurant Host Name Role Phone Ginger Riddle MD Primary Care Provider [phone] Reason for Visit * Reason Comments Suture / Staple Removal Encounter Details Date Type Department Care Team (Late st Contact Info) Description 11/18/2016 11:30 AM EDT Office Visit Dermatology at [address] [phone] Dickson Dow MD [address] [facility] [place] [address] Visit for suture removal Social History Tobacco [...] sutures documented in this encounter Care Teams Restaurant Host Relationship Specialty Start Date End Date Ginger Riddle MD [address] [place] [address] PCP - General Family Medicine 09/27/16 documented as of this encounter
--- OUTSIDE RECORDS SUMMARY | 2024-05-28 15:58 | XMS_ITS | Encounter Summary ---
Author Organization [facility] Address [facility] [place] [address] Care Team Providers Care Construction Helper Name Role Phone Ginger Riddle MD Primary Care Provider [phone] Encounter Details Date Type Department Care Team (Late st Contact Info) Description 05/07/2017 Orders [place] [address] Abel Gonzalez MD [facility] DR PULMONARY MEDICINE [place] [id number] Chronic cough Social History Tobacco Use Types [...] treat asthma. ?? Guidelines from a 2011 [place] [employer] (ATS) executive summary on the [...] today's visit was ??14 LEDY BARNHART MD Able Gonzalez MD PFT ORDERABLES documented in this encounter Visit Diagnoses Diagnosis Chronic cough Cough Chronic cough Cough documented in this encounter Care Teams Construction Helper Relationship Specialty Start Date End Date Ginger Riddle MD [address] [place] [address] PCP - General Family Medicine 09/27/16 documented as of this encounter
--- OUTSIDE RECORDS SUMMARY | 2024-05-28 15:58 | XMS_ITS | Encounter Summary ---
[place] [address] Care Team Providers Care Political Organizer Name Role Phone Ginger Riddle MD Primary Care Provider [phone] Reason for Referral * Speech Therapy (Routine) - Closed Specialty Diagnoses / Procedures Referred By Charly mcneill Referred To Contact Speech Pathology / Speech Therapy Diagnoses Chronic cough Lurdes Tong MD [facility] [place] [address] [facility] [place] [address] Referral ID Status Reason Start Date Expiration Date V isits Requested Visits Authorized [id number] Closed Evaluate and Treat 05/30/2017 05/30/2018 1 1 Reason for Visit * Consultation (Routine) - Specialty Diagnoses / Procedures Referred By Charly mcneill Referred To Contact Pulmonology Diagnoses Chronic cough chronic cough Procedures consultation Madeleine Pride MD [address] [place] [address] Ledy Barnhart MD [facility] [place] [address] Referral ID Status Reason Start Date Expiration Date V isits Requested Visits Authorized [id number] 04/23/2017 04/23/2018 1 1 Encounter Details Date Type Department Care Team (Late st Contact Info) Description 05/30/2017 2:00 PM EST Office [place] [address] Lurdes Tong MD [facility] [place] [address] Chronic cough; Lung infiltrate on CT Social [...] Dr. Flor Iglesias who is a second metal dealer for the patient and she sent us her letter and note. The story goes back to 2015. When patient was in [place], her cough began after exposure to a cat. [place] and was seen by Dr. Mejia, a metal dealer. A CT scan was obtained on July [...] nor mal. Dr. 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 She had a follow-up CT scan on October 25, 2015, which was reportedly completely normal. She was then titrated off the prednisone. Her cough never completely resolved but was much better at that time. 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 Her current active sx are chronic non-productive [...] reviewing at this time. I will request [facility] to push them electronically and make [...] check CBC, LFT, Troponin, and B12, FACS, [id number] etc as necessary, but I am doubtful [...] of this patient. Please contact us at [phone] for any further questions or requests. Addendum: [...] Cough documented in this encounter Care Teams Political Organizer Relationship Specialty Start Date End Date Ginger Riddle MD [address] [place] [address] PCP - General Family Medicine 09/27/16 documented as of this encounter
--- OUTSIDE RECORDS SUMMARY | 2024-05-28 15:58 | XMS_ITS | Encounter Summary ---
[facility] [place] [address] Care Team Providers Care Front Desk Specialist Name Role Phone Marcela Crenshaw MD Primary Care Provider [phone] Encounter Details Date Type Department Care Team (Late st Contact Info) Description 07/11/2010 Orders Only Radiology [facility] [place] [id number] Marcela Crenshaw MD [address] [place] [address] [place] [address] Social History Tobacco Use Types [...] on filedocumented in this encounter Care Teams Front Desk Specialist Relationship Specialty Start Date End Date Marcela Crenshaw MD [facility] [address] [place] [address] [place] [address] PCP - General 03/27/10 08/22/13 documented as of this encounter
--- OUTSIDE RECORDS SUMMARY | 2024-05-28 15:58 | XMS_ITS | Encounter Summary ---
Author Organization [facility] Address [address] [place] [address] Care Team Providers Care Wood Casket Assembler Name Role Phone Unknown, Provider Primary Care Provider Unava ilable Encounter Details Date Type Department Care Team (Late st Contact Info) Description 07/25/2000 Results Only [facility] conversion [address] [place] [address] Ivania Hernandez, [facility] [address] [place] [address] [place] [address] Social History Tobacco Use Types [...] ? BAHMAN YOUSIF ? Accession #: ? [id number] : ? 1945 (Age: 55) ??F ?Collect Date: ? 07/25/2000 Location: ? [facility] ? Receive Date: ? 07/28/2000 Provider: ?IVANIA HERNANDEZ SALES REPRESENTATIVE PUBLIC [employer]ILITIES Copy to: ? Specimen/Source: ?ThinPrep Pap Test, Cervix/Endocervix Last Menstrual Period: ? 11/1999 ? SPECIMEN ADEQUACY ? Satisfactory for evaluation. GENERAL CATEGORIZATION ? Within Normal Limits ? Document reviewed and electronically signed by: ? JOSE RAFAEL Stinson(ASCP) ? Report Date: ??07/29/2000 10:58 End of Report [facility] BRUCE 07/25/2000 07/28/2000 us Ivania Hernandez SALES REPRESENTATIVE [employer] PATHOLOGY ORDERABLES Final R esult VARG[facility] BRUCE [address] [place] [address] documented in this encounter Visit Diagnoses Not on filedocumented in this encounter Care Teams Wood Casket Assembler Relationship Specialty Start Date End Date Unknown, Provider, PCP - General 08/02/09 08/15/15 documented as of this encounter
--- OUTSIDE RECORDS SUMMARY | 2024-05-28 15:58 | XMS_ITS | Encounter Summary ---
Author Organization [facility] Address [address] [place] [address] Care Team Providers Care Manager Process Name Role Phone Unknown, Provider Primary Care Provider Unaaureliano ilable Encounter Details Date Type Department Care Team (Late st Contact Info) Description 03/13/2007 Results Only [facility] conversion [address] [place] [address] Bahman Piedra PA [address] [place] [address] Social History Tobacco Use Types Packs/Day Years [...] ? BAHMAN YOUSIF ? Accession #: ? [id number] : ? 1945 (Age: 61) ??F ?Collect Date: ? 03/13/2007 Location: ? [facility] ? Receive Date: ? 03/17/2007 Provider: ?BAHMAN STEPHENS Copy to: ? Specimen/Source: ?ThinPrep Pap Test, Endocervix, processed on [employer] ThinPrep Imaging System, with manual evaluation Last [...] ORDERABLES Final Resul t [facility]ARG[facility] BRUCE [address] [place] [address] documented in this encounter Visit Diagnoses Not on filedocumented in this encounter Care Teams Manager Process Relationship Specialty Start Date End Date Unknown, Provider, PCP - General 08/02/09 08/15/15 documented as of this encounter
--- OUTSIDE RECORDS SUMMARY | 2024-05-28 15:58 | XMS_ITS | Encounter Summary ---
Author Organization [facility] Address [address] [place] [address] Care Team Providers Care Watch Dial Printer Name Role Phone None, Provider Primary Care Provider Ginger Ruth MD Primary Care Provider [phone] Encounter Details Date Type Department Care Team (Late st Contact Info) Description 06/29/2021 Lab Requisition [facility] Pathology & Laboratory Medicine - [address] [address] Outr Resulting Lab, Provider Social History Tobacco [...] MICROBIOLOGY - GENER AL ORDERABLES Final Result [facility] [address] [place] [address] * COVID-19 TESTING (06/29/2021 9:37 EST) COVID-19 rt-PCR Result Negative Negative 06/30/2021 12:12 EST [facility] Comment: This test has [...] was performed using the rodriguez SARS-CoV-2 assay ([employer] on the Rodriguez 6800 System Performing Lab [address] [facility] Lab 06/30/2021 12:12 EST [facility] Swab 06/29/2021 9:37 EST 06/29/2021 16:19 EST us Provider Outr Resulting Lab MICROBIOLOGY - GENER AL ORDERABLES Final Result Performing Organization Address City/State/[facility] Co de Phone Number [facility] [address] [place] [address] documented in this encounter Visit Diagnoses Not on filedocumented in this encounter Care Teams Watch Dial Printer Relationship Specialty Start Date End Date None, Provider PCP - General 08/16/15 07/02/22 Ginger Riddle MD [address] [place], [place] [address] PCP - General 07/03/22 documented as of this encounter
--- OUTSIDE RECORDS SUMMARY | 2024-05-28 15:58 | XMS_ITS | Encounter Summary ---
[place] [address] Care Team Providers Care Machine Assistant Name Role Phone Marcela Crenshaw MD Primary Care Provider [phone] Encounter Details Date Type Department Care Team (Late st Contact Info) Description 07/11/2010 2:00 PM EST Office Visit Lab [address] [place] [id number] Social History Tobacco Use Types Packs/Day Years Used Date Smoking Tobacco: Never Assessed Sex and Gender Information Value Date Recorded Sex Assigned at Not on file Gender Identity Not on file Sexual Orientation Not on file documented as of this encounter Plan of Treatment Not on file documented as of this encounter Visit Diagnoses Not on filedocumented in this encounter Care Teams Machine Assistant Relationship Specialty Start Date End Date Marcela Crenshaw MD [facility] [address] [place] [address] [place] [address] PCP - General 03/27/10 08/22/13 documented as of this encounter
--- OUTSIDE RECORDS SUMMARY | 2024-05-28 15:58 | XMS_ITS | Encounter Summary ---
Author Organization [facility] Address [address] [place] [address] Care Team Providers Care Test Rack Operator Name Role Phone Unknown, Provider Primary Care Provider Unava ilable Encounter Details Date Type Department Care Team (Latest Contact Info) Description 08/14/2015 14:57 EDT - 08/14/2015 23:59 EDT Hospital Encounter [address] [address] Unknown, ProviderMD Discharge Disposition: Home or Self [...] Code Departure Means Destination Home or Self Nursing Home documented in this encounter Plan of Treatment Not on file documented as of this encounter Visit Diagnoses Not on filedocumented in this encounter Care Teams Test Rack Operator Relationship Specialty Start Date End Date Unknown, Provider, PCP - General 08/02/09 08/15/15 documented as of this encounter
--- OUTSIDE RECORDS SUMMARY | 2024-05-28 15:58 | XMS_ITS | Encounter Summary ---
Author Organization [facility] Address [facility] [place] [address] Care Team Providers Care Photogrammetric Tech Name Role Phone Zack Null Primary Care Provider [phone] Encounter Details Date Type Department Care Team (Latest Contact Info) Description 01/11/2016 - 01/11/2016 11:59 PM EDT Hospital Encounter Radiology [facility] at [facility] [place] [address] Lurdes Tong MD [facility] [place] [address] Discharge Disposition: Home Social History Tobacco Use [...] IMG FILM LIBRARY ORD ERABLES [facility] [place], [place] documented in this encounter Visit Diagnoses Not on filedocumented in this encounter Care Teams Photogrammetric Tech Relationship Specialty Start Date End Date Zack Null PA [address] [place] [address] PCP - General Family Medicine 08/22/15 09/26/16 documented as of this encounter
--- OUTSIDE RECORDS SUMMARY | 2024-05-28 15:58 | XMS_ITS | Encounter Summary ---
[place] [address] Care Team Providers Care Sales Service Coordinator Name Role Phone Ginger Riddle MD Primary Care Provider Reason for Visit * Reason Comments Follow-up Encounter Details Date Type Department Care Team (Late st Contact Info) Description 11/11/2016 9:15 AM EDT Procedure visit Dermatology at [address] [address] Dickson Dow MD [address] [facility] [place] [address] Seborrheic keratosis; Nevus; Seborrheic keratosis, inflamed Social [...] keratosis documented in this encounter Care Teams Sales Service Coordinator Relationship Specialty Start Date End Date Ginger Riddle MD [address] [place] [address] PCP - General Family Medicine 09/27/16 documented as of this encounter
--- OUTSIDE RECORDS SUMMARY | 2024-05-28 15:58 | XMS_ITS | Encounter Summary ---
Author Organization [facility] [place] [address] Care Team Providers Care Nick Setter Name Role Phone Ginger Riddle MD Primary Care Provider [phone] Encounter Details Date Type Department Care Team (Latest Contact Info) Description 10/29/2017 11:10 AM EDT - 10/29/2017 11:59 PM EDT Hospital [place] [id number] Ginger Riddle MD [address] [place] [address] Encounter for screening mammogram for breast cancer [...] cancer documented in this encounter Care Teams Nick Setter Relationship Specialty Start Date End Date Ginger Riddle MD [address] [place] [address] PCP - General Family Medicine 09/27/16 documented as of this encounter
--- OUTSIDE RECORDS SUMMARY | 2024-05-28 15:58 | XMS_ITS | Referral Summary ---
Author Organization [facility] Address [address] [place] [address] Care Team Providers Care Environmental Professional Name Role Phone Ginger Riddle MD Primary Care Provider [phone] Social History Tobacco Use Types Packs/Day Years [...] C Antibody Negative Negative 01/29/2021 10:31 EDT [facility] Blood VENOUS BLOOD / Unknown 01/25/2021 11:15 EDT 01/26/2021 16:35 EDT us Provider Outr Resulting Lab CHEMISTRY & BLOOD GA S ORDERABLES Final Result [facility] [address] [place] [address] from Last 3 Months or Most Recently Relevant to Health Maintenance Insurance P MEDICARE [facility] [employer] [place] Address: [address] [address] Care Teams Environmental Professional Relationship Specialty Start Date End Date Ginger Riddle MD [address] [place] [address] [facility] - General 07/03/22
--- OUTSIDE RECORDS SUMMARY | 2024-05-28 15:58 | XMS_ITS | Clinical Summary ---
Author Organization [facility] Address [address] [place] [address] Care Team Providers Care Hockey Instructor Name Role Phone Ginger Riddle MD Primary Care Provider [phone] Social History Tobacco Use Types Packs/Day Years [...] Negative Negative 01/29/2021 10:31 EDT [facility] Blood VENOUS BLOOD / Unknown 01/25/2021 11:15 EDT 01/26/2021 16:35 EDT us Provider Outr Resulting Lab CHEMISTRY & BLOOD GA S ORDERABLES Final Result [facility] [address] [place] [address] from Last 3 Months or Most Recently Relevant to Health Maintenance Insurance [employer] MEDICARE [facility] [employer] Address: [address] [address] Care Teams Hockey Instructor Relationship Specialty Start Date End Date Ginger Riddle MD [address] [place] [address] PCP - General 07/03/22
== END 2024-05-28 15:52 | disposition home or self-care (01) ==
LOC: LBN 15:51
PROVIDERS: PCP Family Medicine; Visit Provider Physician Assistant Medical
DX: R30.0 Dysuria (principal)
CPT/HCPCS: 87077; 87086; 87186

== ENCOUNTER 2024-06-09 22:00 | Outpatient (REF) | payer MEDICARE, SELFPAY | END 2024-06-09 22:01 | disposition home or self-care (01) | LOC: NCHCN 22:00 | PROVIDERS: PCP Family Medicine; Visit Provider Family Medicine | DX: N39.0 Urinary tract infection, site not specified (principal); B96.29 Other Escherichia coli [E. coli] as the cause of diseases classified elsewhere | CPT/HCPCS: 87077; 87086; 87186 ==

== ENCOUNTER 2024-08-19 13:55 | Outpatient (REF) | payer MEDICARE, SELFPAY ==
[2024-08-19 19:19] LABS: HCT 47.1 % (36.0-46.0); HGB 15.4 g/dL (11.2-15.7)
[2024-08-19 19:50] LABS: ALT 35 U/L (14-59); AST 24 U/L (15-37); Albumin 3.6 g/dL (3.4-5.0); Alkaline Phosphatase 128 U/L (46-116); Anion Gap 8.1 mmol/L (3-11); BUN 11 mg/dL (7-18); Bilirubin, Total 0.6 mg/dL (0.2-1.0); CO2 27.9 mmol/L (21.0-32.0); CREATININE 1.1 mg/dL (0.55-1.02); Calcium 9.4 mg/dL (8.5-10.1); Chloride 105 mmol/L (98-107); Glucose 105 mg/dL (74-106); Potassium 4.6 mmol/L (3.5-5.1); Sodium 141 mmol/L (136-145); Total Protein 6.8 g/dL (6.4-8.2)
[2024-08-19 20:05] LABS: Hemoglobin A1C 5.9 % (<5.7)
== END 2024-08-19 13:56 | disposition home or self-care (01) ==
LOC: NCHCN 13:55
PROVIDERS: PCP Family Medicine; Visit Provider Family Medicine
DX: I10 Essential (primary) hypertension (principal); E11.9 Type 2 diabetes mellitus without complications
CPT/HCPCS: 80053; 83036; 85014; 85018

== ENCOUNTER 2025-03-24 12:37 | Outpatient (REF) | payer MEDICARE, SELFPAY ==
[2025-03-24 16:17] LABS: ALT 31 U/L (10-49); AST 27 U/L (<34); Albumin 4.3 g/dL (3.4-5.0); Alkaline Phosphatase 117 U/L (46-116); Anion Gap 8 mmol/L (3-11); BUN 16 mg/dL (9-23); Bilirubin, Total 0.40 mg/dL (0.2-1.2); CO2 26.0 mmol/L (20.0-31.0); Calcium 9.0 mg/dL (8.3-10.6); Chloride 109 mmol/L (98-107); Cholesterol 181 mg/dL (<200); Glucose 99 mg/dL (74-106); HDL Cholesterol 70 mg/dL (>40); Potassium 4.8 mmol/L (3.5-5.1); Sodium 143 mmol/L (136-145); Total Protein 6.8 g/dL (5.7-8.2)
[2025-03-24 16:21] LABS: Hemoglobin A1C 5.8 % (<5.7)
== END 2025-03-24 12:38 | disposition home or self-care (01) ==
LOC: NCHCN 12:37
PROVIDERS: PCP Family Medicine; Visit Provider Family Medicine
DX: E78.5 Hyperlipidemia, unspecified (principal); I10 Essential (primary) hypertension; E11.9 Type 2 diabetes mellitus without complications
CPT/HCPCS: 80053; 80061; 83036